=== PATIENT | female | born 1940 | race Caucasian/White ===

== ENCOUNTER 2020-04-08 14:58 | Inpatient (IN) | payer MEDICARE, SELFPAY ==
[2020-04-08] VITALS (7 sets, daily range): BP systolic 151–197; BP diastolic 63–78; PULSE 72–95; RESP 16–18; TEMP 36.8–37; O2SAT 96–99; BMI 21.0
--- NOTE | 2020-04-08 15:13 | ECG_ITS ---
Test Reason : STROKE PROTOCOL Blood Pressure : / mmHG Vent. Rate : 082 BPM Atrial Rate : 082 BPM P-R Int : 170 ms QRS Dur : 078 ms QT Int : 378 ms P-R-T Axes : 071 -10 051 degrees QTc Int : 441 ms Normal sinus rhythm Normal ECG When compared with ECG of 04-JUL-2017 14:54, RSR' pattern in V1 is no longer Present Criteria for Septal infarct are no longer Present T wave inversion less evident in Anterior leads Referred By: Althea Brennan Electronically Signed By:MARYLOU CHATMAN
--- NOTE | 2020-04-08 15:13 | CT_ITS ---
EXAMINATION: CT HEAD WITHOUT CONTRAST (STROKE PROTOCOL) CLINICAL INFORMATION: Stroke protocol. Slurred speech with acute mental status change and right-sided weakness COMPARISON: July 04, 2017 and July 10, 2016 TECHNIQUE: Contiguous axial imaging was performed from the skull base to vertex without intravenous administration of contrast. This CT examination was performed using dose optimization techniques as appropriate, variously including the following: *Automated exposure control *Adjustment of mA and/or kV according to patient size (this includes techniques or standardized protocols for targeted exams where dose is matched to indication/reason for exam; i.e. extremities or head) *Use of iterative reconstruction technique DLP: 551 mGy-cm FINDINGS: There is no intracranial hemorrhage, hematoma, or extra-axial fluid collection. The ventricle sulci and cisterns are prominent consistent with generalized atrophy. The salazar-white matter differentiation appears symmetric. There is no acute infarct or mass lesion. There is a large amount of periventricular white matter low density present consistent with microangiopathy. There are old infarcts within both insula as well as posterior limb of the internal capsules bilaterally. There are a few small bilateral reticulonodular nuclei lacunar infarcts. The calvarium appears intact. There is no pneumocephalus or orbital emphysema. The visualized sinuses and middle ears and mastoid air cells show no significant mucosal thickening. There are no air-fluid levels. CT/CT head for stroke IMPRESSION: No acute intracranial pathology. 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 This critical result was discussed with Dr. Brennan at 3:37 PM hours on April 08, 2020. It was ascertained that the content and urgency of the report was understood at the time of direct communication.
--- NOTE | 2020-04-08 15:14 | XR_ITS ---
EXAMINATION: XR CHEST CLINICAL INFORMATION: Altered mental status COMPARISON: 07/04/2017 TECHNIQUE: Frontal view of the chest was obtained. FINDINGS: Lungs are well expanded and clear. No pulmonary mass, edema, consolidation, pleural effusion or pneumothorax. Cardiomediastinal silhouette is normal size and contour. Bones appear to be diffusely osteopenic. Multilevel degenerative arthropathy and mild dextrocurvature of the thoracic spine. XR/XR chest 1V IMPRESSION: No acute pulmonary disease.
--- NOTE | 2020-04-08 15:20 | ED_ITS ---
HPI - Altered Mental Status General Chief Complaint: Neuro Symptoms/Deficit Stated Complaint: STROKE? Time Seen by Provider: 04/08/20 15:08 Source: patient and family Mode of arrival: ambulatory Limitations: altered mental status History of Present Illness complaint: altered mental status Onset (ago): hour(s) (started around 10am worsened at 1230) Timing confirmed by: family member Severity: moderate Consistency of symptoms: getting Worse Context: history of similar presentation (with UTI) Associated symptoms: malaise, weakness, difficulty walking and other (has been more confused lately, drove last week and got lost) Related Data Home Medications Medication Instructions Recorded Confirmed vit C,E,zinc,copper-qsfrq2x 250 1 cap PO DAILY 02/05/20 04/08/20 mg-lutein 5 mg-zeaxanthin 1 mg capsule bepotastine besilate [Bepreve] 1 drp OPHTHALMIC (EYE) BID 04/08/20 04/08/20 brimonidine [Alphagan P] 1 drp OPHTHALMIC-RIGHT BID 04/08/20 04/08/20 cyanocobalamin (vitamin B-12) 500 mcg PO DAILY 04/08/20 04/08/20 netarsudil-latanoprost [Rocklatan] 1 drp OPHTHALMIC (EYE) BEDTIME 04/08/20 04/08/20 prednisone 5 mg PO DAILY 04/08/20 04/08/20 pyridoxine (vitamin B6) 50 mg PO DAILY 04/08/20 04/08/20 Allergies Allergy/AdvReac Type Severity Reaction Status Date / Time cefadroxil [From DURICEF] Allergy Unknown RASH Verified 02/05/20 08:30 cortisone Allergy Unknown RASH, Verified 02/05/20 08:30 REDDENED CHEST FROM CORTISONE INJECTIONS levofloxacin [From LEVAQUIN] Allergy Unknown TINNITIS Verified 02/05/20 08:30 penicillin V Allergy Unknown Unknown Verified 02/05/20 08:30 Sulfa (Sulfonamide Allergy Unknown UNKNOWN Verified 02/05/20 08:30 Antibiotics) sulfamethoxazole Allergy Unknown RASH Verified 02/05/20 08:30 [From BACTRIM] trimethoprim [From BACTRIM] Allergy Unknown RASH Verified 02/05/20 08:30 Review of Systems Review of Systems: ROS unable to be obtained due to altered mental status [facility] Past Medical History Medical History (Updated 04/08/20 @ 16:09 by Althea Brennan DO) PMR (polymyalgia rheumatica) UTI (urinary tract infection) Surgical History H/O cataract removal with insertion of prosthetic lens H/O: hysterectomy History of tonsillectomy History of wisdom tooth extraction Hx of appendectomy Social History Social History Household Members: Other Housing: House Alcohol intake: current Alcohol intake frequency: a few times a week Alcohol type: wine Smoking Status: Former smoker Advance Directives: No Advance Directives Information Provided: Yes Physical Exam Vital Signs: Vital Signs: Last Vital Signs Temp 98.2 F 04/08/20 15:24 Pulse 89 04/08/20 16:04 Resp 16 04/08/20 15:24 BP 197/78 H 04/08/20 16:04 Pulse Ox 99 04/08/20 15:24 Body Mass Index 21.0 Appearance: Alert. Oriented X2. Anxious mild acute distress. Eyes: Pupils equal, round and reactive to light. ENT: Pharynx normal. Neck: Normal inspection. Neck supple. CVS: Normal heart rate and rhythm. Pulses normal. Respiratory: No respiratory distress. Breath sounds normal. Abdomen: Soft and non-tender. Skin: Skin warm and dry. Normal skin color. Normal skin turgor. Extremities: No lower extremity edema. No calf ttp Neuro: Oriented X 2. No motor deficit. No sensory deficit. CN2-12 intact, slow to respond at times NIH Stroke Scale Internal: Initial- Upon Arrival Level of Consciousness: Alert Level of Consciousness Questions: Answers one question correctly Level of Consciousness Commands: Performs both tasks correctly Best Gaze: Normal Visual: No visual loss Facial Palsy: Normal Motor Arm (Right): No drift Motor Arm (Left): No drift Motor Leg (Right): No drift Motor Leg (Left): No drift Limb Ataxia: Absent Sensory: Normal Best Language: No aphasia Dysarthia: Normal Extinction and Inattention: No abnormality Score: 1 Course Course Course Narrative: IV hydralazine ordered for elevated BP has hx of possible TIA/HTN encephalopathy, review of EMR shows EEG in past, MRI, LP - patient is altered at this time so most of the information from EMR and family member IV ativan for agitation and anxiety - signed out to Dr. Carbajal pending labs, UA MDM - Altered Mental Status MDM Narrative Medical decision making narrative: 80 yo female with hx of PMR / arthritis and UTI causing AMS and urosepsis here with weakness, stumbling, confusion since this AM - she has not been herself since this AM (10AM) but then her confusion seemed to worsen per family, no focal motor or sensory weakness she is altered, stroke CT ordered patient presenting > 4.5 hours from onset not a candidate for tPa and NIH 1 based of mentation, labs, CXR and UA for infection ordered. Lab Data Result diagrams: 04/08/20 15:44 04/08/20 15:44 Labs: Lab Results 04/08/20 04/08/20 04/08/20 Range/Units 15:19 15:44 15:44 WBC 9.5 (4.8-10.8) X10*3/uL RBC 4.20 (4.20-5.50) X10*6/uL Hgb 12.1 (12.0-16.0) g/dl Hct 38.8 (37-47) % MCV 92.4 (80-98) fL MCH 28.8 (27.0-33.0) pg MCHC 31.2 (31.0-35.0) g/dl RDW 14.3 (11.0-16.0) % Plt Count 413 H (160-400) X10*3/uL MPV 9.4 (9.4-12.3) fL Immature Gran % (Auto) 0.3 (0.0-0.4) % Neut % (Auto) 85.5 H (45-73) % Lymph % (Auto) 6.9 L (20-40) % [place] % (Auto) 6.1 (2-11) % Eos % (Auto) 0.8 (0-4) % Baso % (Auto) 0.4 (0-2) % Lymph # (Auto) 0.7 L (1.2-4.9) X10*3/uL [place] # (Auto) 0.6 (0.1-1.2) X10*3/uL Eos # (Auto) 0.1 (0.0-0.4) X10*3/uL Baso # (Auto) 0.0 (0.0-0.2) X10*3/uL Abs Immat Gran (auto) 0.03 (0.00-0.03) X10*3/uL Absolute Neuts (auto) 8.1 (2.0-8.3) X10*3/uL Absolute Nucleated RBC 0.000 (0.0-0.012) X10*3/uL Nucleated RBC % (auto) 0.0 (0.0-0.2) /100WBC PT 11.1 (10.8-13.0) SEC INR 0.9 (0.9-1.1) APTT 31.7 (24.1-38.0) SEC POC Glucose 218 H (60-115) mg/dL ECG Data ECG #1: Attestation: I personally reviewed and interpreted this ECG as follows: ECG interpretation date: 04/08/20 ECG interpretation time: 15:43 Interpretation: Rate: 82 Rhythm: NSR [place]: left Normal P waves. Normal JENNIFER. Normal QRS complex. ST T wave : normal no CAROLINE qTC: normal prior studies: artifact noted, no acute ischemia The study has been interpreted contemporaneously by me. . Discharge Plan Discharge Clinical Impression: Encephalopathy HTN (hypertension) Qualifiers: Hypertension type: unspecified Qualified Code(s): I10 - Essential (primary) hypertension Patient Disposition: Admitted As Inpatient
[2020-04-08 15:24] LABS: Glucose, Whole Blood 218 mg/dL (60-115)
[2020-04-08 16:01] LABS: Basophils Percent Auto 0.4 % (0-2); Eosinophils Absolute Auto 0.1 X10*3/uL (0.0-0.4); Eosinophils Percent Auto 0.8 % (0-4); Hematocrit 38.8 % (37-47); Hemoglobin 12.1 g/dl (12.0-16.0); INTERNATIONAL NORM RATIO 0.9 (0.9-1.1); Imm Gran Abs Auto 0.03 X10*3/uL (0.00-0.03); Imm Gran Pct Auto 0.3 % (0.0-0.4); Lymphocytes Absolute Auto 0.7 X10*3/uL (1.2-4.9); Lymphocytes Percent Auto 6.9 % (20-40); MANUAL DIFF FLAG SCAN; Mean Corpuscular HGB Conc 31.2 g/dl (31.0-35.0); Mean Corpuscular Hemoglobin 28.8 pg (27.0-33.0); Mean Corpuscular Volume 92.4 fL (80-98); Mean Platelet Volume 9.4 fL (9.4-12.3); Monocytes Absolute Auto 0.6 X10*3/uL (0.1-1.2); Monocytes Percent Auto 6.1 % (2-11); Neutrophils Absolute Auto 8.1 X10*3/uL (2.0-8.3); Neutrophils Percent Auto 85.5 % (45-73); Platelet Count 413 X10*3/uL (160-400); Prothrombin Time 11.1 SEC (10.8-13.0); Red Cell Distribution Width 14.3 % (11.0-16.0); SCAN SMEAR FLAG 1; White Blood Count 9.5 X10*3/uL (4.8-10.8)
[2020-04-08 16:04] LABS: Partial Thromboplastin Time 31.7 SEC (24.1-38.0)
[2020-04-08] MEDS: hydrALAZINE HCl 20 MG/ML VIAL 5 MG IVPUSH (16:04)
[2020-04-08 16:19] LABS: Glucose Urine UA 100 MG/DL (NEG); Leukocyte Esterase Urine NEG (NEG); Nitrite Urine NEG (NEG); Urine Blood TRACE (NEG); Urine Ketones NEG (NEG); Urine Protein NEG (NEG-TRACE)
[2020-04-08] MEDS: LORazepam 2 MG/ML VIAL 1 MG IVPUSH ×2 (16:20→21:09)
--- NOTE | 2020-04-08 16:21 | PC.NURSE ---
pt medicated per order, radiation monitor nsr 90s
[2020-04-08 16:25] LABS: Appearance Urine CLEAR; Color Urine YELLOW
[2020-04-08 16:27] LABS: Alanine Aminotransferase 15 U/L (0-31); Albumin Level 3.9 g/dL (3.5-5.0); Alkaline Phosphatase 98 U/L (39-117); Anion Gap 16 (12-20); Aspartate Amino Transferase 15 U/L (5-31); Bilirubin Direct < 0.2 mg/dL (0.0-0.5); Bilirubin Total 0.3 mg/dL (0.0-1.0); Blood Urea Nitrogen 10 mg/dL (9-16); Calcium 8.4 mg/dL (8.4-10.2); Carbon Dioxide 26 mmol/L (22-29); Chloride 99 mmol/L (96-108); Creatinine Clr Calc Pharmacy 44.4; Estimated Glomerular Filt Rate > 60; Glucose Random 183 mg/dL (60-115); Potassium 3.9 mmol/l (3.3-5.1); Sodium 137 mmol/L (135-145); Total Protein 6.5 g/dL (6.5-8.0)
[2020-04-08 16:28] LABS: Troponin-I High Sensitivity < 3.5 ng/L (<3.5-17.0)
[2020-04-08 16:28] LABS: RBC Urine 0 /HPF (0); WBC Urine 0 /HPF (0-4)
[2020-04-08 16:34] LABS: Lactic Acid 2.6 mmol/L (0.5-2.0)
[2020-04-08 16:36] LABS: SLIDE REVIEW VERIFIED
[2020-04-08 16:40] LABS: Lipase 130 U/L (8-78)
--- NOTE | 2020-04-08 16:57 | CT_ITS ---
EXAMINATION: CT ABDOMEN AND PELVIS WITH CONTRAST CLINICAL INFORMATION: Elevated lipase COMPARISON: None TECHNIQUE: Multidetector volumetric images were obtained from the mid to superior superior aspect of the liver through the pubic symphysis following administration 85 mL of Omnipaque 350 intravenous contrast. Sagittal and coronal reformatted images were obtained on the technologist's workstation. Oral contrast: No This CT examination was performed using dose optimization techniques as appropriate, variously including the following: *Automated exposure control *Adjustment of mA and/or kV according to patient size (this includes techniques or standardized protocols for targeted exams where dose is matched to indication/reason for exam; i.e. extremities or head) *Use of iterative reconstruction technique DLP: 426 mGy-cm FINDINGS: LUNG BASES: The visualized lung bases are unremarkable. LIVER, GALLBLADDER, AND BILIARY TREE: The liver is normal in size, shape, and attenuation. No focal hepatic lesion or biliary ductal dilatation is present. The gallbladder is contracted but otherwise unremarkable with no evidence of radiopaque gallstones, gallbladder wall thickening, or obvious pericholecystic inflammatory changes. PANCREAS: The pancreatic tail may be swollen and edematous with some mild streaky changes present in the surrounding fat. These findings are suggestive of pancreatitis, if real. However, there are marked artifactual changes in this area from a combination of motion artifact and streak artifact. Recommend correlation with blood chemistries. No drainable fluid collection is seen. SPLEEN: Unremarkable. ADRENAL GLANDS: Unremarkable. KIDNEYS AND URETERS: The kidneys are normal in size, shape, and attenuation. There is mild collecting system fullness bilaterally, possibly secondary to distended bladder. No gross hydronephrosis or hydroureter. No calculi seen. No perinephric stranding. BLADDER: Distended but unremarkable. GASTROINTESTINAL TRACT: The small and large bowel are unremarkable without evidence of bowel obstruction. The appendix is not seen. Some mild inflammatory changes are present in the antimesenteric fat adjacent to the ascending and descending colon . ABDOMINAL WALL: No significant hernia is appreciated. LYMPH NODES: No retroperitoneal lymphadenopathy. VASCULAR: Unremarkable. PELVIC VISCERA: Unremarkable. OSSEOUS STRUCTURES: Marked degenerative changes present in the spine. CT/CT abdomen pelvis w con IMPRESSION: 1. Probable inflammatory changes in pancreatic tail consistent with pancreatitis although a large amount of artifact limits evaluation. Please correlate clinically. 2. Mild collecting system fullness possibly secondary to distended bladder.
[2020-04-08] MEDS: 0.9 % Sodium Chloride 999 ML 1500 ML IV (17:36)
[2020-04-08 18:10] LABS: Reflex Lactate? Lactic Acid Added
[2020-04-08] MEDS: iohexoL 350 MG/ML 100 ML INFUS..BTL IV (18:41)
--- NOTE | 2020-04-08 18:43 | PM.IMHP ---
History of Present Illness Date of Service: 04/08/20 Chief Complaint: encephalopathy This is an 80-year-old female who was brought to the emergency department due to confusion. Sounds like the confusion been progressive in nature worse over the past 1 week. The patient herself is a vague historian and unable to provide any significant details. Brain CT showed large amount of white matter density consistent with microangiopathy in addition to chronic infarcts. No acute intracranial pathology was identified. She was not noted to have any focal neurological deficit. She was somewhat slow to respond on exam and seemed confused but was overall alert and oriented to person, place and time. Lab work was unremarkable with the exception of a lactic acid of 2.6 and lipase of 130. No source of infection was identified. Urinalysis and chest x-ray were unremarkable. On arrival she was noted to be hypertensive with a blood pressure in the 180s and 190s systolic. She received a dose of IV hydralazine with good effect. The patient has no specific complaints. Of note patient had an admission in 2018 for transient episode of confusion thought to be related to hypertensive encephalopathy. At that time she was started on Norvasc. She does not appear to be on any antihypertensive medication at this time. Review of Systems Review of Systems: Yes all other systems are reviewed and are negative Constitutional: Constitutional: Denies chills and Denies fever(s) Cardiovascular: Cardiovascular: Denies chest pain Respiratory: Respiratory: Denies cough Gastrointestinal: Gastrointestinal: Denies abdominal pain [facility] Medical History (Updated 04/08/20 @ 19:05 by BONG Hyatt) Elevated C-reactive protein Glaucoma IBS (irritable bowel syndrome) Osteoporosis PMR (polymyalgia rheumatica) Primary osteoarthritis of hands, bilateral UTI (urinary tract infection) Surgical History H/O cataract removal with insertion of prosthetic lens H/O: hysterectomy History of tonsillectomy History of wisdom tooth extraction Hx of appendectomy Social History Household Members: Other Housing: House Alcohol intake: current Alcohol intake frequency: 0-2 drinks per day Alcohol type: wine Smoking Status: Former smoker Smoked in Last 30 Days: No Use of substances other than those prescribed or required for medical reasons: No Advance Directives: No Advance Directives Information Provided: Yes Meds Allergies Allergy/AdvReac Type Severity Reaction Status Date / Time cefadroxil [From DURICEF] Allergy Unknown RASH Verified 02/05/20 08:30 cortisone Allergy Unknown RASH, Verified 02/05/20 08:30 REDDENED CHEST FROM CORTISONE INJECTIONS levofloxacin [From LEVAQUIN] Allergy Unknown TINNITIS Verified 02/05/20 08:30 penicillin V Allergy Unknown Unknown Verified 02/05/20 08:30 Sulfa (Sulfonamide Allergy Unknown UNKNOWN Verified 02/05/20 08:30 Antibiotics) sulfamethoxazole Allergy Unknown RASH Verified 02/05/20 08:30 [From BACTRIM] trimethoprim [From BACTRIM] Allergy Unknown RASH Verified 02/05/20 08:30 Home Medications Medication Instructions Recorded Confirmed Type vit C,E,zinc,copper-eoyvy2w 250 1 cap PO DAILY 02/05/20 04/08/20 History mg-lutein 5 mg-zeaxanthin 1 mg capsule bepotastine besilate [Bepreve] 1 drp OPHTHALMIC (EYE) BID 04/08/20 04/08/20 History brimonidine [Alphagan P] 1 drp OPHTHALMIC-RIGHT BID 04/08/20 04/08/20 History cyanocobalamin (vitamin B-12) 500 mcg PO DAILY 04/08/20 04/08/20 History netarsudil-latanoprost [Rocklatan] 1 drp OPHTHALMIC (EYE) BEDTIME 04/08/20 04/08/20 History prednisone 5 mg PO DAILY 04/08/20 04/08/20 History pyridoxine (vitamin B6) 50 mg PO DAILY 04/08/20 04/08/20 History Physical Exam Vital Signs and Narrative: Vital Signs: Last Vital Signs Temp 98.2 F 04/08/20 16:21 Pulse 95 04/08/20 16:21 Resp 18 04/08/20 16:21 BP 156/66 H 04/08/20 16:21 Pulse Ox 97 04/08/20 16:21 Body Mass Index 21.0 Const: Nutritional Appearance: well nourished Orientation/consciousness: patient oriented x3 HENMT: Head: Yes normocephalic and Yes atraumatic Eyes: Sclerae: sclerae normal Chest: Chest palpation & inspection: normal inspection of the chest Resp: Effort & Inspection: normal respiratory effort and no respiratory distress Cardio: Rate: regular rate Rhythm: regular rhythm GI: Palpation (GI): Soft to palpation and nontender Skin: General skin exam: no rashes or lesions noted Neuro: Other: slow to respond, vague General: patient oriented x3 Cranial nerves: Yes CN's II-XII intact bilaterally, Yes Bilaterally intact EOM present and Yes Midline tongue present Motor exam (neuro): 5/5 motor strength present throughout Extrem: General: Yes normal to inspection Results Labs CBC and Chem 7: 04/08/20 15:44 04/08/20 15:44 Labs: Laboratory Results - last 24 hr 04/08/20 04/08/20 04/08/20 15:19 15:44 15:44 MCV 92.4 MCH 28.8 MCHC 31.2 RDW 14.3 Plt Count 413 H MPV 9.4 Immature Gran % (Auto) 0.3 Neut % (Auto) 85.5 H Lymph % (Auto) 6.9 L [place] % (Auto) 6.1 Eos % (Auto) 0.8 Baso % (Auto) 0.4 Lymph # (Auto) 0.7 L [place] # (Auto) 0.6 Eos # (Auto) 0.1 Baso # (Auto) 0.0 Abs Immat Gran (auto) 0.03 Absolute Neuts (auto) 8.1 Absolute Nucleated RBC 0.000 Nucleated RBC % (auto) 0.0 Smear Tech's Comments VERIFIED PT 11.1 INR 0.9 APTT 31.7 Anion Gap Estim Creat Clear Calc Estimated GFR POC Glucose 218 H Random Glucose Lactic Acid Calcium Magnesium Total Bilirubin Direct Bilirubin AST ALT Alkaline Phosphatase Total Creatine Kinase Troponin I High Sens Total Protein Albumin Lipase Urine Color Urine Appearance Urine pH Ur Specific [place] Urine Protein Urine Glucose (UA) Urine Ketones Urine Blood Urine Nitrite Ur Leukocyte Esterase Urine RBC Urine WBC Ur Squamous Epith Cells Urine Bacteria 04/08/20 04/08/20 04/08/20 15:44 15:44 16:06 MCV MCH MCHC RDW Plt Count MPV Immature Gran % (Auto) Neut % (Auto) Lymph % (Auto) [place] % (Auto) Eos % (Auto) Baso % (Auto) Lymph # (Auto) [place] # (Auto) Eos # (Auto) Baso # (Auto) Abs Immat Gran (auto) Absolute Neuts (auto) Absolute Nucleated RBC Nucleated RBC % (auto) Smear Tech's Comments PT INR APTT Anion Gap 16 Estim Creat Clear Calc 44.4 Estimated GFR > 60 POC Glucose Random Glucose 183 H Lactic Acid 2.6 H* Calcium 8.4 Magnesium 2.0 Total Bilirubin 0.3 Direct Bilirubin < 0.2 AST 15 ALT 15 Alkaline Phosphatase 98 Total Creatine Kinase 109 Troponin I High Sens < 3.5 Total Protein 6.5 Albumin 3.9 Lipase 130 H Urine Color Urine Appearance Urine pH Ur Specific [place] Urine Protein Urine Glucose (UA) Urine Ketones Urine Blood Urine Nitrite Ur Leukocyte Esterase Urine RBC Urine WBC Ur Squamous Epith Cells Urine Bacteria 04/08/20 16:12 MCV MCH MCHC RDW Plt Count MPV Immature Gran % (Auto) Neut % (Auto) Lymph % (Auto) [place] % (Auto) Eos % (Auto) Baso % (Auto) Lymph # (Auto) [place] # (Auto) Eos # (Auto) Baso # (Auto) Abs Immat Gran (auto) Absolute Neuts (auto) Absolute Nucleated RBC Nucleated RBC % (auto) Smear Tech's Comments PT INR APTT Anion Gap Estim Creat Clear Calc Estimated GFR POC Glucose Random Glucose Lactic Acid Calcium Magnesium Total Bilirubin Direct Bilirubin AST ALT Alkaline Phosphatase Total Creatine Kinase Troponin I High Sens Total Protein Albumin Lipase Urine Color YELLOW Urine Appearance CLEAR Urine pH 5.0 Ur Specific [place] 1.020 Urine Protein NEG Urine Glucose (UA) 100 H Urine Ketones NEG Urine Blood TRACE Urine Nitrite NEG Ur Leukocyte Esterase NEG Urine RBC 0 Urine WBC 0 Ur Squamous Epith Cells NONE Urine Bacteria NONE Imaging Radiologist's Impressions: Impressions Head CT 04/08/20 15:13 IMPRESSION: No acute intracranial pathology. 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 This critical result was discussed with Dr. Brennan at 3:37 PM hours on April 08, 2020. It was ascertained that the content and urgency of the report was understood at the time of direct communication. Chest X-Ray 04/08/20 15:14 IMPRESSION: No acute pulmonary disease. Assessment and Plan (1) Encephalopathy: Status: Acute (2) HTN (hypertension): Qualifiers: Hypertension type: unspecified Qualified Code(s): I10 - Essential (primary) hypertension Status: Acute This is an 80-year-old female with history of PMR on chronic steroids who was brought to the emergency department for confusion Encephalopathy In the setting of uncontrolled hypertension No focal neurological deficits. CT scan shows, generalized atrophy as well as microangiopathy no sign of infection Possibly component of hypertensive encephalopathy and/or undiagnosed vascular dementia -check reversible causes of dementia -neuro consult Elevated lactic acid Urinalysis, chest x-ray negative. No obvious source of infection identified Received IV fluid and repeat lactic normal HTN uncontrolled previously on norvasc, unlear when/why this was stopped -will resume Norvasc 5mg PMR Continued daily steroids glaucoma continue home eye drops DVT prophylaxis-heparin This case was discussed with Dr. Velazquez
--- NOTE | 2020-04-08 18:59 | P.EN_ITS ---
Event Note Date of Service: 04/08/20 Event Note: Patient seen examined with a SURFACE [employer] chart reviewed 80-year-old female patient with past medical history significant for hypertension and polymyalgia rheumatica on low-dose steroids presented to [facility] with gradually worsening confusion that got worsened today, at present patient is awake alert,x3 but vague and slow to respond, complaining of mild headache and bilateral hand numbness, admitting to have decreased appetite On exam Lungs clear Neuro nonfocal Acute encephalopathy likely related to hypertension and underlying vascular dementia, will avoid narcotic medication, add antihypertensive medications, CT head unremarkable will obtain a neuro consult will rule out secondary causes of dementia.
[2020-04-08 19:24] LABS: Thyroid Stimulating Hormone 0.89 uIU/mL (0.32-4.0)
[2020-04-08 19:52] LABS: Folate 7.4 ng/mL (> or = 4.0); Vitamin B12 416 pg/mL (200-900)
--- NOTE | 2020-04-08 21:15 | PC.NURSE ---
full bed change performed, patient medicated with 1 mg ativan for agitation/restlessness, patient nsr 70s, vss.
[2020-04-08 21:46] LABS: COVID-19 Test Negative (Negative); IDNOW Serial# 9DD0AD1C
--- NOTE | 2020-04-08 22:22 | PC.NURSE ---
patient currently sleeping, patient monitoring tech nsr 60s-70s, waiting for inpt bed, will continue to monitor.
--- NOTE | 2020-04-08 23:16 | PC.NURSE ---
REPORT RECEIVED FROM TUAN MOORE. PATIENT REMAINS IN [place] POSITION IN BED AT THIS TIME. SLEEPING AT THIS TIME, THIS RN DID NOT DISTURB. RESPIRATIONS EVEN & UNLABORED. NSR ON WINDOW INSTALLER. WILL CONTINUE TO MONITOR.
--- NOTE | 2020-04-08 23:58 | PC.NURSE ---
PATIENT BECAME RESTLESS, NOTED TO BE INCONTINENT OF URINE. PATIENT CLEANED, AND [facility] AND HOSPITAL GOWN CHANGED. WILL CONTINUE TO MONITOR.
[2020-04-09] VITALS (10 sets, daily range): BP systolic 119–196; BP diastolic 60–89; PULSE 82–115; RESP 16–20; TEMP 36.3–36.8; O2SAT 96–99
--- NOTE | 2020-04-09 | MR_ITS ---
EXAMINATION: MR BRAIN WITHOUT CONTRAST CLINICAL INFORMATION: Evaluation for encephalopathy. Rule out stroke. COMPARISON: Brain MRI 07/05/2017. TECHNIQUE: Multiplanar multisequence MRI of the brain was attempted. The examination was prematurely terminated. The following sequences were acquired: Sagittal T1, axial diffusion, axial GRE, and axial T1. All the acquired sequences are motion degraded. FINDINGS: There is no acute infarct, gross mass, or mass effect. Numerous scattered foci of susceptibility signal compatible with areas of microhemorrhage are seen within the right posterior frontal lobe, parietal lobe, temporal lobe, and occipital lobe. A microhemorrhage is also present in the left medial temporal lobe. Background changes of chronic microangiopathy are present. There is moderate degree of diffuse brain parenchymal volume loss. There is mildly disproportionate prominence of the lateral ventricles in relation to the cortical sulci. There is degenerative spondylosis in the upper cervical spine with mild anterolisthesis of C2 on C3. There is chronic fusion across the C3-C4 level with additional multilevel disc height loss. MR/MR head/brain wo con IMPRESSION: Prematurely terminated examination. No acute infarct. Background changes of chronic microangiopathy and chronic appearing microhemorrhages.
[2020-04-09] MEDS: hydrALAZINE HCl 20 MG/ML VIAL 10 MG IVPUSH (00:31)
[2020-04-09] MEDS: 0.9 % Sodium Chloride Flush 3 ML SYRINGE IVFLUSH ×5 (05:05→23:47)
[2020-04-09] MEDS: Heparin Sodium,Porcine 5,000 UNIT/ML VIAL 5000 UNIT SUBCUT ×2 (05:06→16:00)
[2020-04-09 06:25] LABS: MANUAL DIFF FLAG NO
[2020-04-09 06:36] LABS: Basophils Absolute Auto 0.1 X10*3/uL (0.0-0.2); Basophils Percent Auto 0.4 % (0-2); Eosinophils Absolute Auto 0.1 X10*3/uL (0.0-0.4); Eosinophils Percent Auto 0.5 % (0-4); Hematocrit 42.9 % (37-47); Hemoglobin 13.8 g/dl (12.0-16.0); Imm Gran Abs Auto 0.06 X10*3/uL (0.00-0.03); Imm Gran Pct Auto 0.5 % (0.0-0.4); Lymphocytes Absolute Auto 0.8 X10*3/uL (1.2-4.9); Lymphocytes Percent Auto 5.8 % (20-40); Mean Corpuscular HGB Conc 32.2 g/dl (31.0-35.0); Mean Corpuscular Hemoglobin 29.3 pg (27.0-33.0); Mean Corpuscular Volume 91.1 fL (80-98); Mean Platelet Volume 9.5 fL (9.4-12.3); Monocytes Absolute Auto 1.1 X10*3/uL (0.1-1.2); Monocytes Percent Auto 8.1 % (2-11); Neutrophils Absolute Auto 10.9 X10*3/uL (2.0-8.3); Neutrophils Percent Auto 84.7 % (45-73); Platelet Count 427 X10*3/uL (160-400); Red Blood Count 4.71 X10*6/uL (4.20-5.50); Red Cell Distribution Width 14.1 % (11.0-16.0); White Blood Count 12.9 X10*3/uL (4.8-10.8)
[2020-04-09 07:28] LABS: Anion Gap 17 (12-20); Blood Urea Nitrogen 6 mg/dL (9-16); Calcium 9.3 mg/dL (8.4-10.2); Carbon Dioxide 26 mmol/L (22-29); Chloride 98 mmol/L (96-108); Creatinine Clr Calc Pharmacy 53.6; Estimated Glomerular Filt Rate > 60; Glucose Random 103 mg/dL (60-115); Potassium 3.9 mmol/l (3.3-5.1); Sodium 137 mmol/L (135-145)
[2020-04-09 08:05] LABS: Prothrombin Time Whole Bld POC 11.5 sec (11.1-13.5)
[2020-04-09 09:19] LABS: Syphilis Screen Nonreactive (Nonreactive)
--- NOTE | 2020-04-09 09:54 | MHC.CM.PN ---
CM met with patient at the bedside and spoke with gilmar Townsend by phone who reports patient is independent and lives with her 2 nieces. Nieces are able to help patient when needed. Patient does have a HCP gilmar Townsend [phone], requested copy. Discussed discharge plan, home no services. Gilmar Townsend will provide transport. IMM addressed. CM will continue to follow patient for discharge needs.
[2020-04-09] MEDS: Cyanocobalamin (Vitamin B-12) 500 MCG TABLET PO (10:32)
[2020-04-09] MEDS: Acetaminophen 325 MG TABLET 650 MG PO ×3 (10:32→23:37)
[2020-04-09] MEDS: predniSONE 5 MG TABLET PO (10:32)
[2020-04-09] MEDS: amLODIPine Besylate 5 MG TABLET PO (10:32)
[2020-04-09] MEDS: Pyridoxine HCl (Vitamin B6) 50 MG TABLET PO (10:32)
--- NOTE | 2020-04-09 10:49 | PM.NEUROCN ---
History of Present Illness Data of Consult Service Date: 04/09/20 Primary Care Provider: Alexandro Rodriguez MD, DO 80 years old woman with past medical history of polymyalgia rheumatica taking small dose of prednisone who was admitted with confusion. When asked why she was in the hospital she said that something happened to her. When I asked what happened to her, she said she got confused. She could not elaborate further and stated that this started yesterday. Apparently test started few days ago. There was no associated focal cold or flu-like illness headache body pains speech or language difficulty weakness or numbness or visual symptoms or dizziness. Review of Systems Review of Systems: As reported in HPI. There was no cardiac symptom either PMFSH Past Medical History Medical History (Updated 04/09/20 @ 10:53 by Kelly Elise MD) Elevated C-reactive protein Glaucoma IBS (irritable bowel syndrome) Osteoporosis PMR (polymyalgia rheumatica) Primary osteoarthritis of hands, bilateral UTI (urinary tract infection) Surgical History Surgical History H/O cataract removal with insertion of prosthetic lens H/O: hysterectomy History of tonsillectomy History of wisdom tooth extraction Hx of appendectomy Social History Social History Household Members: Unknown / Unable to assess Housing: Unknown / Unable to assess Alcohol intake: current Alcohol intake frequency: 0-2 drinks per day Alcohol type: wine Smoking Status: Unknown if ever smoked Smoked in Last 30 Days: No Use of substances other than those prescribed or required for medical reasons: Unknown Substance Use Type: Unknown Last Used Substance: Unknown Currently Displaying Signs/Symptoms of Drug Intoxication Withdrawal: No Any prior treatment program specific to substance use: No Advance Directives: No Advance Directives Information Provided: Yes Do you have thoughts of harming others: None Recently lost weight without trying: Unsure service: No Current occupational status: retired Meds Allergies Allergy/AdvReac Type Severity Reaction Status Date / Time cefadroxil [From DURICEF] Allergy Unknown RASH Verified 02/05/20 08:30 cortisone Allergy Unknown RASH, Verified 02/05/20 08:30 REDDENED CHEST FROM CORTISONE INJECTIONS levofloxacin [From LEVAQUIN] Allergy Unknown TINNITIS Verified 02/05/20 08:30 penicillin V Allergy Unknown Unknown Verified 02/05/20 08:30 Sulfa (Sulfonamide Allergy Unknown UNKNOWN Verified 02/05/20 08:30 Antibiotics) sulfamethoxazole Allergy Unknown RASH Verified 02/05/20 08:30 [From BACTRIM] trimethoprim [From BACTRIM] Allergy Unknown RASH Verified 02/05/20 08:30 Home Medications Medication Instructions Recorded Confirmed Type vit C,E,zinc,copper-dcqao7x 250 1 cap PO DAILY 02/05/20 04/08/20 History mg-lutein 5 mg-zeaxanthin 1 mg capsule bepotastine besilate [Bepreve] 1 drp OPHTHALMIC (EYE) BID 04/08/20 04/08/20 History brimonidine [Alphagan P] 1 drp OPHTHALMIC-RIGHT BID 04/08/20 04/08/20 History cyanocobalamin (vitamin B-12) 500 mcg PO DAILY 04/08/20 04/08/20 History netarsudil-latanoprost [Rocklatan] 1 drp OPHTHALMIC (EYE) BEDTIME 04/08/20 04/08/20 History prednisone 5 mg PO DAILY 04/08/20 04/08/20 History pyridoxine (vitamin B6) 50 mg PO DAILY 04/08/20 04/08/20 History Physical Exam Vital Signs: Vital Signs: Last Vital Signs Temp 97.6 F 04/09/20 07:21 Pulse 85 04/09/20 07:21 Resp 20 04/09/20 07:21 BP 165/82 H 04/09/20 07:21 Pulse Ox 99 04/09/20 07:21 Body Mass Index 21.0 She was alert and awake but somewhat weighed. Spontaneity and fluency of speech were okay though she spoke slowly. She was able to comprehend and answer questions. She said that she was living with her niece is. When asked what year this was, she reported 2019. She knew that she was at [facility]. She was not in any distress. She was able to name and and repeat. She was able to name colors. Face was symmetrical. There was no abnormal movement or posturing. Deep tendon reflexes were trace to absent with flexor plantars were affect was flat. Results Labs CBC & Chem 7: 04/09/20 05:35 04/09/20 05:35 Labs: Short CBC 04/08/20 04/09/20 Range/Units 15:44 05:35 WBC 9.5 12.9 H (4.8-10.8) X10*3/uL Hgb 12.1 13.8 (12.0-16.0) g/dl Hct 38.8 42.9 (37-47) % Plt Count 413 H 427 H (160-400) X10*3/uL BMP 04/08/20 04/09/20 15:44 05:35 Sodium 137 137 Potassium 3.9 3.9 Chloride 99 98 Carbon Dioxide 26 26 BUN 10 6 L Creatinine 0.75 0.62 Calcium 8.4 9.3 D Cardiac Enzymes 04/08/20 Range/Units 15:44 Total Creatine Kinase 109 (26-140) U/L Liver Function 04/08/20 Range/Units 15:44 Total Bilirubin 0.3 (0.0-1.0) mg/dL Direct Bilirubin < 0.2 (0.0-0.5) mg/dL AST 15 (5-31) U/L ALT 15 (0-31) U/L Alkaline Phosphatase 98 (39-117) U/L Albumin 3.9 (3.5-5.0) g/dL Urine 04/08/20 Range/Units 16:12 Urine Color YELLOW Urine Appearance CLEAR Urine pH 5.0 (5.0-8.0) Ur Specific [place] 1.020 (1.005-1.025) Urine Protein NEG (NEG-TRACE) MG/DL Urine Glucose (UA) 100 H (NEG) MG/DL Her noncontrast head CT revealed moderately severe central and cortical atrophy and moderately severe chronic microvascular ischemic changes. Assessment and Plan (1) Encephalopathy: Status: Acute 80 years old woman with rheumatological diagnosis of polymyalgia rheumatica and underlying multifactorial as Alzheimer's plus vascular dementia who presents with change in mental status but no obvious etiology of delirium. Possibilities would include another ischemic infarct or complex partial seizure disorder. Infection is a possibility but there were no obvious signs of infection. My recommendation is to obtain a noncontrast MRI of brain and electroencephalogram. (2) Cerebral microvascular disease: Status: Acute (3) Multifactorial dementia: Status: Acute (4) Alzheimer's dementia: Status: Acute
--- NOTE | 2020-04-09 16:29 | P.PNIM_ITS ---
Subjective Subjective Date of Service: 04/09/20 Interval History: the patient was seen and evaluated this morning Laying in bed, feels comfortable but markedly confused Denies any fever, chills or shortness of breath No reported other overnight events. Systemic review: No fever, chills or weakness No chest pain, palpitation No shortness of breath or coughing No abdominal pain, nausea or vomiting No urinary symptoms No any rash or wounds Physical Exam Vital Signs: Vital Signs: Last Vital Signs Temp 98.2 F 04/09/20 15:52 Pulse 100 04/09/20 15:52 Resp 16 04/09/20 15:52 BP 147/66 H 04/09/20 15:52 Pulse Ox 98 04/09/20 15:52 Body Mass Index 21.0 Constitutional : Alert, oriented to self but disoriented about time and place, not in distress Neck : Normal inspection, Supple Cardiovascular : RRR, S1 S2, no lower extremity edema Respiratory : Good bilateral air entry, no crackles, wheezes or rhonchi Gastrointestinal: soft, lax, Normal bowel sounds, Non tender Skin : Warm/Dry, No rash Neurological : Alert & oriented x3, No focal deficit Objective Data Current Medications Generic Name Dose Route Start Last Admin Trade Name Freq PRN Reason Stop Dose Admin Acetaminophen 650 mg 04/09/20 02:55 04/09/20 16:00 Acetaminophen 325 Mg Tablet PO 650 mg Q6H PRN Administration Pain, Mild (Pain Scale 1-3) Amlodipine Besylate 5 mg 04/09/20 09:20 04/09/20 10:32 Amlodipine Besylate 5 Mg Tablet PO 5 mg DAILY DI Administration Protocol Cyanocobalamin 500 mcg 04/09/20 09:00 04/09/20 10:32 Cyanocobalamin (Vitamin B-12) 500 Mcg Tablet PO 500 mcg DAILY DI Administration Docusate Sodium 100 mg 04/09/20 02:55 Docusate Sodium 100 Mg Capsule PO DAILY PRN Constipation Heparin Sodium (Porcine) 5,000 unit 04/09/20 04:00 04/09/20 16:00 Heparin Sodium,Porcine 5,000 Unit/Ml Vial SUBCUT 5,000 unit Q12H DI Administration Non-Formulary Medication 1 drop 04/09/20 02:55 Bepotastine Besilate [Bepreve] EYE-BOTH BID DI Non-Formulary Medication 1 drop 04/09/20 02:55 Brimonidine [Alphagan P] EYE-RIGHT BID [facility] Non-Formulary Medication 1 drop 04/09/20 02:55 Netarsudil-Latanoprost [Rocklatan] EYE-BOTH BEDTIME [facility] Ondansetron HCl 4 mg 04/09/20 02:55 Ondansetron Hcl 4 Mg/2 Ml Vial IVPUSH Q8H PRN Nausea and Vomiting Pharmacy Consult 1 each 04/08/20 15:13 Consult Rx Perform Med Rec MISCELLANE ONCE PRN Consult order Prednisone 5 mg 04/09/20 09:00 04/09/20 10:32 Prednisone 5 Mg Tablet PO 5 mg DAILY DI Administration Pyridoxine HCl 50 mg 04/09/20 09:00 04/09/20 10:32 Pyridoxine Hcl (Vitamin B6) 50 Mg Tablet PO 50 mg DAILY DI Administration Sodium Chloride 3 ml 04/09/20 02:55 04/09/20 16:00 0.9 % Sodium Chloride Flush 3 Ml Syringe IVFLUSH 3 ml QSHIFT DI Administration Thiamine HCl 100 mg 04/10/20 09:00 Thiamine Hcl 200 Mg/2 Ml Vial IVPUSH DAILY [facility] Labs CBC & Chem 7: 04/09/20 05:35 04/09/20 05:35 Assessment and Plan (1) Encephalopathy: Status: Acute (2) HTN (hypertension): Status: Acute (3) Acute metabolic encephalopathy: Status: Acute (4) Multifactorial dementia: Status: Acute (5) Alcohol abuse: Status: Acute (6) Cerebral microvascular disease: Status: Acute Assessment and Plan: This is an 80-year-old female with history of PMR on chronic steroids who was brought to the emergency department for confusion Acute metabolic Encephalopathy DD X, stroke, seizure, alcohol related, others No focal neurological deficits noticed on exam CT scan shows, generalized atrophy and microangiopathy To check brain MRI To tightly control blood pressure To check thiamine level Start thiamin supplement Neurology input appreciated, to check MRI and EEG Lactic acidosis Resolved No obvious source of infection identified Uncontrolled hypertension start amlodipine for now Close monitoring of blood pressure Alcohol abuse Report drinking about 2 glasses of wine daily Keep on CIWA protocol PMR Continue daily steroids glaucoma continue home eye drops DVT prophylaxis heparin
[2020-04-10] VITALS: BP 169/77; PULSE 95; RESP 18; TEMP 36.6; O2SAT 97
--- NOTE | 2020-04-10 01:20 | PC.NURSE ---
tele revewed with [facility] hernandez
[2020-04-10 04:00] VITALS: BP 145/76; PULSE 93; RESP 18; TEMP 36.8; O2SAT 95
[2020-04-10] MEDS: Heparin Sodium,Porcine 5,000 UNIT/ML VIAL 5000 UNIT SUBCUT (04:54)
--- NOTE | 2020-04-10 05:05 | PC.NURSE ---
[place] [facility] [place]
[2020-04-10 06:59] LABS: Hematocrit 41.8 % (37-47); Hemoglobin 13.9 g/dl (12.0-16.0); Mean Corpuscular HGB Conc 33.3 g/dl (31.0-35.0); Mean Corpuscular Hemoglobin 29.5 pg (27.0-33.0); Mean Corpuscular Volume 88.7 fL (80-98); Mean Platelet Volume 9.6 fL (9.4-12.3); Platelet Count 479 X10*3/uL (160-400); Red Blood Count 4.71 X10*6/uL (4.20-5.50); Red Cell Distribution Width 14.2 % (11.0-16.0)
[2020-04-10 07:00] LABS: Ammonia 29 umol/L (13-55)
[2020-04-10 07:19] LABS: Anion Gap 15 (12-20); Blood Urea Nitrogen 11 mg/dL (9-16); Calcium 9.3 mg/dL (8.4-10.2); Carbon Dioxide 26 mmol/L (22-29); Chloride 98 mmol/L (96-108); Creatinine Clr Calc Pharmacy 44.4; Estimated Glomerular Filt Rate > 60; Glucose Random 124 mg/dL (60-115); Potassium 4.1 mmol/l (3.3-5.1); Sodium 135 mmol/L (135-145)
[2020-04-10 08:00] VITALS: BP 149/66; PULSE 82; RESP 18; TEMP 36.2; O2SAT 99
[2020-04-10] MEDS: Acetaminophen 325 MG TABLET 650 MG PO (08:33)
[2020-04-10] MEDS: Thiamine HCL 200 MG/2 ML VIAL 100 MG IVPUSH (08:34)
[2020-04-10] MEDS: 0.9 % Sodium Chloride Flush 3 ML SYRINGE IVFLUSH (08:34)
[2020-04-10 08:35] VITALS: BP 149/70; PULSE 70
[2020-04-10] MEDS: predniSONE 5 MG TABLET PO (08:35)
[2020-04-10] MEDS: Cyanocobalamin (Vitamin B-12) 500 MCG TABLET PO (08:35)
[2020-04-10] MEDS: amLODIPine Besylate 5 MG TABLET PO (08:35)
[2020-04-10] MEDS: Pyridoxine HCl (Vitamin B6) 50 MG TABLET PO (08:36)
--- NOTE | 2020-04-10 09:21 | P.CNNE_ITS ---
History of Present Illness Data of Consult Service Date: 04/10/20 Primary Care Provider: Alexandro Rodriguez MD, DO 80 years old woman who was admitted with encephalopathy. This morning she was feeling much better and did not seem confused at all. But she did not remember what happened and why she was in hospital. She has had that few months ago she had 1 similar episode but she could not provide any further detail. [facility] Past Medical History Medical History (Updated 04/09/20 @ 16:32 by Adarsh Dyer MD) Elevated C-reactive protein Glaucoma IBS (irritable bowel syndrome) Osteoporosis PMR (polymyalgia rheumatica) Primary osteoarthritis of hands, bilateral UTI (urinary tract infection) Surgical History Surgical History H/O cataract removal with insertion of prosthetic lens H/O: hysterectomy History of tonsillectomy History of wisdom tooth extraction Hx of appendectomy Social History Social History Household Members: Unknown / Unable to assess Housing: Unknown / Unable to assess Alcohol intake: current Alcohol intake frequency: 0-2 drinks per day Alcohol type: wine Smoking Status: Unknown if ever smoked Smoked in Last 30 Days: No Use of substances other than those prescribed or required for medical reasons: Unknown Substance Use Type: Unknown Last Used Substance: Unknown Currently Displaying Signs/Symptoms of Drug Intoxication Withdrawal: No Any prior treatment program specific to substance use: No Advance Directives: No Advance Directives Information Provided: Yes Do you have thoughts of harming others: None Recently lost weight without trying: Unsure service: No Current occupational status: retired Meds Allergies Allergy/AdvReac Type Severity Reaction Status Date / Time cefadroxil [From DURICEF] Allergy Unknown RASH Verified 02/05/20 08:30 cortisone Allergy Unknown RASH, Verified 02/05/20 08:30 REDDENED CHEST FROM CORTISONE INJECTIONS levofloxacin [From LEVAQUIN] Allergy Unknown TINNITIS Verified 02/05/20 08:30 penicillin V Allergy Unknown Unknown Verified 02/05/20 08:30 Sulfa (Sulfonamide Allergy Unknown UNKNOWN Verified 02/05/20 08:30 Antibiotics) sulfamethoxazole Allergy Unknown RASH Verified 02/05/20 08:30 [From BACTRIM] trimethoprim [From BACTRIM] Allergy Unknown RASH Verified 02/05/20 08:30 Home Medications Medication Instructions Recorded Confirmed Type vit C,E,zinc,copper-ctyuc8a 250 1 cap PO DAILY 02/05/20 04/08/20 History mg-lutein 5 mg-zeaxanthin 1 mg capsule bepotastine besilate [Bepreve] 1 drp OPHTHALMIC (EYE) BID 04/08/20 04/08/20 History brimonidine [Alphagan P] 1 drp OPHTHALMIC-RIGHT BID 04/08/20 04/08/20 History cyanocobalamin (vitamin B-12) 500 mcg PO DAILY 04/08/20 04/08/20 History netarsudil-latanoprost [Rocklatan] 1 drp OPHTHALMIC (EYE) BEDTIME 04/08/20 04/08/20 History prednisone 5 mg PO DAILY 04/08/20 04/08/20 History pyridoxine (vitamin B6) 50 mg PO DAILY 04/08/20 04/08/20 History Physical Exam Vital Signs: Vital Signs: Last Vital Signs Temp 97.1 F 04/10/20 08:00 Pulse 70 04/10/20 08:35 Resp 18 04/10/20 08:00 BP 149/70 H 04/10/20 08:35 Pulse Ox 99 04/10/20 08:00 Body Mass Index 21.0 She was alert and awake with normal spontaneity of speech fluency comprehension and affect. She was eating her breakfast when I talked to her. There was no focal weakness or cranial of finding. Results Labs CBC & Chem 7: 04/10/20 06:34 04/10/20 06:34 Labs: Short CBC 04/10/20 Range/Units 06:34 WBC 12.0 H (4.8-10.8) X10*3/uL Hgb 13.9 (12.0-16.0) g/dl Hct 41.8 (37-47) % Plt Count 479 H (160-400) X10*3/uL BMP 04/10/20 06:34 Sodium 135 Potassium 4.1 Chloride 98 Carbon Dioxide 26 BUN 11 D Creatinine 0.75 Calcium 9.3 Her noncontrast MRI of brain did not reveal any acute area of restricted diffusion. Moderate cerebral atrophy was noted both central and cortical. Not all MRI sequences were done, especially FLAIR sequence was not done. Microbiology Microbiology Results: Microbiology 04/08/20 16:06 Blood - Venous Blood Culture - Preliminary No growth after 24 hours. 04/08/20 15:44 Blood - Venous Blood Culture - Preliminary No growth after 24 hours. Assessment and Plan (1) Encephalopathy: Status: Acute Unclear etiology of encephalopathy that now is clear. At this time she could be discharged and can have outpatient EEG to rule out any possibility of seizure disorder. She should be strongly advised to not drink alcohol.
[2020-04-10 12:00] VITALS: BP 123/72; PULSE 106; RESP 20; TEMP 36.6; O2SAT 95
--- NOTE | 2020-04-10 13:21 | P.DS_ITS ---
DS: Providers Provider Date of admission: 04/08/20 18:41 Primary care physician: Alexandro Rodriguez MD, DO Consults: 04/08/20 18:43 Consult to Neurology Routine Consulting Provider: [facility] Reason for consultation: Encephalopathy Has provider been notified: No DS: Diagnosis Discharge Diagnosis (1) Encephalopathy: Status: Acute (2) Acute metabolic encephalopathy: Status: Acute (3) Cerebral microvascular disease: Status: Acute (4) half-way systemic steroid user: Status: Acute DS: Medications Discharge Medications Home Medications: Home Medications Medication Instructions Recorded Confirmed vit C,E,zinc,copper-[id number] 250 1 cap PO DAILY 02/05/20 04/08/20 mg-lutein 5 mg-zeaxanthin 1 mg capsule Alphagan P 1 drp OPHTHALMIC-RIGHT BID 04/08/20 04/08/20 Bepreve 1 drp OPHTHALMIC (EYE) BID 04/08/20 04/08/20 Rocklatan 1 drp OPHTHALMIC (EYE) BEDTIME 04/08/20 04/08/20 cyanocobalamin (vitamin B-12) 500 mcg PO DAILY 04/08/20 04/08/20 prednisone 5 mg PO DAILY 04/08/20 04/08/20 pyridoxine (vitamin B6) 50 mg PO DAILY 04/08/20 04/08/20 Previous Rx's Medication Instructions Recorded amlodipine 5 mg PO DAILY #30 tab 04/10/20 thiamine HCl (vitamin B1) 100 mg PO DAILY #30 tab 04/10/20 DS: Summary Hospital Course Hospital Course: Admission note HPI This is an 80-year-old female who was brought to the emergency department due to confusion. Sounds like the confusion been progressive in nature worse over the past 1 week. The patient herself is a vague historian and unable to provide any significant details. Brain CT showed large amount of white matter density consistent with microangiopathy in addition to chronic infarcts. No acute intracranial pathology was identified. She was not noted to have any focal neurological deficit. She was somewhat slow to respond on exam and seemed confused but was overall alert and oriented to person, place and time. Lab work was unremarkable with the exception of a lactic acid of 2.6 and lipase of 130. No source of infection was identified. Urinalysis and chest x-ray were unremarkable. On arrival she was noted to be hypertensive with a blood pressure in the 180s and 190s systolic. She received a dose of IV hydralazine with good effect. The patient has no specific complaints. Of note patient had an admission in 2018 for transient episode of confusion thought to be related to hypertensive encephalopathy. At that time she was started on Norvasc. She does not appear to be on any antihypertensive medication at this time. Hospital course An 80-year-old female with history of PMR on chronic steroids who was brought to the emergency department for confusion. The patient had a head CT scan showed generalized atrophy and microangiopathy with no acute findings noticed. She had an MRI done which and for redness she was not able to finish the whole study but from the available images no acute findings identified. She was evaluated also by Neurology who recommended outpatient follow-up for further evaluation and EEG as her symptoms might be a result of partial complex seizures. Urology recommended against starting any medications at this point and to follow as outpatient. Thiamin level checked and still pending. She was started on oral supplement replacement for history of daily alcohol use. After confirmation she only drinks like a glass of wine. She was noted to have significantly elevated blood pressure readings. Started on amlodipine 5 mg. To follow-up with her neurologist next week for further Time Spent with Patient Time attestation: Total time spent providing and/or coordinating discharge services: Physical Exam Vital Signs: Vital Signs: Last Vital Signs Temp 97.9 F 04/10/20 12:00 Pulse 106 H 04/10/20 12:00 Resp 20 04/10/20 12:00 BP 123/72 04/10/20 12:00 Pulse Ox 95 04/10/20 12:00 Body Mass Index 21.0 Constitutional : Alert, oriented by 3, not in distress Neck : Normal inspection, Supple Cardiovascular : RRR, S1 S2, no lower extremity edema Respiratory : Good bilateral air entry, no crackles, wheezes or rhonchi Gastrointestinal: soft, lax, Normal bowel sounds, Non tender Skin : Warm/Dry, No rash Neurological : Alert & oriented x3, No focal deficit, speech is fluent, she finds difficulties in finding were sometimes but overall improved since yesterday, no cranial nerve findings DS: Data Data Completed and Pending Labs on day of discharge: 04/08/20 15:13 ECG 12 lead EKG Stat EKG Documentation DIRECTED CT head for stroke Stat 04/08/20 15:14 XR chest 1V Stat 04/08/20 15:19 Glucose, Whole Blood Routine Prothrombin Time Whole Bld POC Routine ~PT, ~INR - [facility] Routine 04/08/20 15:44 Basic Metabolic Panel Stat Complete Blood Count Auto Diff Stat Creatine Kinase Total Stat Lipase Stat Liver Panel Stat Magnesium Stat Partial Thromboplastin Time Stat Prothrombin Time INR Stat SLIDE REVIEW Stat Syphilis Screen Stat Thyroid Stimulating Hormone Stat Troponin-I High Sensitivity Stat Vitamin B12 and Folate Stat 04/08/20 15:50 hydrALAZINE HCl [Apresoline] 5 mg IVPUSH ONCE ONE 04/08/20 16:06 Lactic Acid Stat 04/08/20 16:07 COVID-19 ID NOW ([place]) Stat 04/08/20 16:13 LORazepam [Ativan] 1 mg IVPUSH ONCE ONE 04/08/20 16:57 CT abdomen pelvis w con Stat 04/08/20 17:13 0.9 % Sodium Chloride [Ns] 999 ml IV Per Protocol mls/hr 04/08/20 17:26 0.9 % Sodium Chloride [Ns] 999 ml IV 1,500 mls/hr 04/08/20 18:37 Transfer Order Routine 04/08/20 18:41 iohexoL 350 MG/ML [Omnipaque 350 MG/ML] 100 ml IV ONCE ONE 04/08/20 18:52 Add Laboratory Test Stat 04/08/20 18:56 ~Lactic Acid-LAB USE ONLY Stat 04/08/20 20:42 LORazepam [Ativan] 1 mg IVPUSH ONCE ONE 04/09/20 MR head/brain wo con Stat 04/09/20 00:26 hydrALAZINE HCl [Apresoline] 10 mg IVPUSH ONCE ONE 04/09/20 05:35 Basic Metabolic Panel DAILY@0600 Complete Blood Count Auto Diff DAILY@0600 04/10/20 06:33 Ammonia Routine 04/10/20 06:34 Basic Metabolic Panel DAILY@0600 Complete Blood Count no Diff DAILY@0600 Laboratory Last Values WBC 12.0 X10*3/uL (4.8-10.8) H 04/10/20 06:34 RBC 4.71 X10*6/uL (4.20-5.50) 04/10/20 06:34 Hgb 13.9 g/dl (12.0-16.0) 04/10/20 06:34 Hct 41.8 % (37-47) 04/10/20 06:34 MCV 88.7 fL (80-98) 04/10/20 06:34 MCH 29.5 pg (27.0-33.0) 04/10/20 06:34 MCHC 33.3 g/dl (31.0-35.0) 04/10/20 06:34 RDW 14.2 % (11.0-16.0) 04/10/20 06:34 Plt Count 479 X10*3/uL (160-400) H 04/10/20 06:34 MPV 9.6 fL (9.4-12.3) 04/10/20 06:34 Immature Gran % (Auto) 0.5 % (0.0-0.4) H 04/09/20 05:35 Neut % (Auto) 84.7 % (45-73) H 04/09/20 05:35 Lymph % (Auto) 5.8 % (20-40) L 04/09/20 05:35 Dougherty % (Auto) 8.1 % (2-11) 04/09/20 05:35 Eos % (Auto) 0.5 % (0-4) 04/09/20 05:35 Baso % (Auto) 0.4 % (0-2) 04/09/20 05:35 Lymph # (Auto) 0.8 X10*3/uL (1.2-4.9) L 04/09/20 05:35 Dougherty # (Auto) 1.1 X10*3/uL (0.1-1.2) 04/09/20 05:35 Eos # (Auto) 0.1 X10*3/uL (0.0-0.4) 04/09/20 05:35 Baso # (Auto) 0.1 X10*3/uL (0.0-0.2) 04/09/20 05:35 Abs Immat Gran (auto) 0.06 X10*3/uL (0.00-0.03) H 04/09/20 05:35 Absolute Neuts (auto) 10.9 X10*3/uL (2.0-8.3) H 04/09/20 05:35 Absolute Nucleated RBC 0.000 X10*3/uL (0.0-0.012) 04/10/20 06:34 Nucleated RBC % (auto) 0.0 /100WBC (0.0-0.2) 04/10/20 06:34 Smear Tech's Comments VERIFIED 04/08/20 15:44 PT 11.1 SEC (10.8-13.0) 04/08/20 15:44 Whole Blood PT 11.5 sec (11.1-13.5) 04/08/20 15:19 INR 0.9 (0.9-1.1) 04/08/20 15:44 Whole Blood INR 1.0 (0.9-1.1) 04/08/20 15:19 APTT 31.7 SEC (24.1-38.0) 04/08/20 15:44 Sodium 135 mmol/L (135-145) 04/10/20 06:34 Potassium 4.1 mmol/l (3.3-5.1) 04/10/20 06:34 Chloride 98 mmol/L (96-108) 04/10/20 06:34 Carbon Dioxide 26 mmol/L (22-29) 04/10/20 06:34 Anion Gap 15 (12-20) 04/10/20 06:34 BUN 11 mg/dL (9-16) D 04/10/20 06:34 Creatinine 0.75 mg/dL (0.5-1.4) 04/10/20 06:34 Estim Creat Clear Calc 44.4 04/10/20 06:34 Estimated GFR > 60 04/10/20 06:34 POC Glucose 218 mg/dL (60-115) H 04/08/20 15:19 Random Glucose 124 mg/dL (60-115) H 04/10/20 06:34 Lactic Acid 2.6 mmol/L (0.5-2.0) H* 04/08/20 16:06 Lactic Acid Fup @ 2Hr 1.0 mmol/L (0.5-2.0) 04/08/20 18:56 Calcium 9.3 mg/dL (8.4-10.2) 04/10/20 06:34 Magnesium 2.0 mg/dL (1.6-2.6) 04/08/20 15:44 Total Bilirubin 0.3 mg/dL (0.0-1.0) 04/08/20 15:44 Direct Bilirubin < 0.2 mg/dL (0.0-0.5) 04/08/20 15:44 AST 15 U/L (5-31) 04/08/20 15:44 ALT 15 U/L (0-31) 04/08/20 15:44 Alkaline Phosphatase 98 U/L (39-117) 04/08/20 15:44 Ammonia 29 umol/L (13-55) 04/10/20 06:33 Total Creatine Kinase 109 U/L (26-140) 04/08/20 15:44 Troponin I High Sens < 3.5 ng/L (<3.5-17.0) 04/08/20 15:44 Total Protein 6.5 g/dL (6.5-8.0) 04/08/20 15:44 Albumin 3.9 g/dL (3.5-5.0) 04/08/20 15:44 Lipase 130 U/L (8-78) H 04/08/20 15:44 Vitamin B12 416 pg/mL (200-900) 04/08/20 15:44 Folate 7.4 ng/mL (> or = 4.0) 04/08/20 15:44 TSH 0.89 uIU/mL (0.32-4.0) 04/08/20 15:44 Urine Color YELLOW 04/08/20 16:12 Urine Appearance CLEAR 04/08/20 16:12 Urine pH 5.0 (5.0-8.0) 04/08/20 16:12 Ur Specific [place] 1.020 (1.005-1.025) 04/08/20 16:12 Urine Protein NEG MG/DL (NEG-TRACE) 04/08/20 16:12 Urine Glucose (UA) 100 MG/DL (NEG) H 04/08/20 16:12 Urine Ketones NEG MG/DL (NEG) 04/08/20 16:12 Urine Blood TRACE (NEG) 04/08/20 16:12 Urine Nitrite NEG (NEG) 04/08/20 16:12 Ur Leukocyte Esterase NEG (NEG) 04/08/20 16:12 Urine RBC 0 /HPF (0) 04/08/20 16:12 Urine WBC 0 /HPF (0-4) 04/08/20 16:12 Ur Squamous Epith Cells NONE /LPF 04/08/20 16:12 Urine Bacteria NONE /LPF 04/08/20 16:12 T.pallidum Ab (EIA) Nonreactive (Nonreactive) 04/08/20 15:44 COVID-19 (BRENT) Negative (Negative) 04/08/20 16:07 COVID-19 Clin Com See Note 04/08/20 16:07 Preliminary micro results at discharge 04/08/20 16:06 Blood Culture - Preliminary Blood - Venous No growth after 24 hours. 04/08/20 15:44 Blood Culture - Preliminary Blood - Venous No growth after 24 hours. Discharge Plan Discharge Patient Disposition: Home Health Service Referrals: [facility] [Outside] Alexandro Rodriguez MD, DO [Primary Care Provider] - Discharge Medications: New amlodipine 5 mg tablet 5 mg PO DAILY Qty: 30 RF: 0 thiamine HCl (vitamin B1) 100 mg tablet 100 mg PO DAILY Qty: 30 RF: 0 Continued prednisone 5 mg tablet 5 mg PO DAILY RF: 0 cyanocobalamin (vitamin B-12) 500 mcg Tablet 500 mcg PO DAILY RF: 0 pyridoxine (vitamin B6) 50 mg Tablet 50 mg PO DAILY RF: 0 Alphagan P 0.1 % drops 1 drp ophthalmic-Right BID RF: 0 Bepreve 1.5 % drops 1 drp ophthalmic (eye) BID RF: 0 Rocklatan 0.02-0.005 % drops 1 drp ophthalmic (eye) BEDTIME RF: 0 Ocuvite Adult 50 Plus 250-5-1 mg capsule 1 cap PO DAILY RF: 0 Discharge Orders: Discharge Order (Routine); Ordered 04/10/20 Ordered By: Adarsh Dyer Diet: advance to usual diet Activity on Discharge: As tolerated Care Plan Goals: Read below Health Concerns: Read below Plan of Treatment: You were admitted to the hospital for evaluation of confusion. We did blood test and brain images of CT scan and MRI which showed age-related changes with no acute illness noted. You were evaluated by neurologist Dr. Elise who recommended an outpatient follow-up a for an EEG and further evaluation the office. You were started on thiamine for history of alcohol intake. Pending the result of thiamin test. You were started on amlodipine to treat elevated blood pressure readings. Monitor blood pressure at home. To follow-up with Dr. Elise office or call your primary neurologist for a follow-up next week in order to do an EEG and further evaluation. Please come back to the hospital for any worsening confusion, lethargy or abnor mal movements.
--- NOTE | 2020-04-10 13:22 | MHC.CM.PN ---
Patient has been medically cleared for dc to home today, with VNA. CM was unable to reach Patient by phone (Covid rufina), but was able to speak with Niece/HCP/Cary at [phone], who approved a new referral to NA. Referral made and NA is aware of today's dc. Last IMM addressed yesterday.
[2020-04-15 10:37] LABS: Vitamin B1 <6 nmol/L (8-30)
== END 2020-04-10 15:37 | disposition home health service (06) | DRG 78 ==
LOC: HO.ED 17:11 → HO.IMC 04-09 00:12
PROVIDERS: Emergency Medicine; Physician Assistant Medical; Admitting Provider Hospitalist; Emergency Provider Internal Medicine; PCP Internal Medicine; Visit Provider Student in an Organized Health Care Education/Training Program
DX: I67.4 Hypertensive encephalopathy (principal); E87.2 Acidosis; M35.3 Polymyalgia rheumatica; F10.10 Alcohol abuse, uncomplicated; I10 Essential (primary) hypertension; Z20.828 Contact with and (suspected) exposure to other viral communicable diseases; Z88.0 Allergy status to penicillin; F01.50 Vascular dementia, unspecified severity, without behavioral disturbance, psychotic disturbance, mood disturbance, and anxiety; Z88.2 Allergy status to sulfonamides; Z79.52 Long term (current) use of systemic steroids; Z79.899 Other long term (current) drug therapy
CPT/HCPCS: 36415; 70450; 70551; 71045; 74177; 80048; 80076; 81001; 82140; 82550; 82607; 82746; 82947; 83605; 83690; 83735; 84425; 84443; 84484; 85025; 85027; 85610; 85730; 86780; 87040; 87635; 93005; 99285; J2060; J3411; Q9967

== ENCOUNTER 2020-07-08 18:54 | Emergency (ER) | payer MEDICARE, SELFPAY ==
[2020-07-08 18:58] VITALS: BP 161/77; PULSE 89; RESP 16; TEMP 36.6; O2SAT 98
[2020-07-08 20:58] VITALS: BP 168/81; PULSE 85; PULSE 88; RESP 14; TEMP 36.5; O2SAT 99; BMI 21.6
--- NOTE | 2020-07-08 21:33 | ED_ITS ---
HPI - General Adult General Chief complaint: General Medical Stated complaint: Highblood pressure Time Seen by Provider: 07/08/20 21:33 Source: patient and family Mode of arrival: ambulatory Limitations: no limitations History of Present Illness HPI narrative: Patient brought by patient's daughter for elevated blood pressure for last 4 days highest was 180/78 patient was seen by her PCP who increased the dose of amlodipine from 5 mg to 10 mg but patient did not take it except for today. Today on arrival patient's blood pressure was 161/77 patient denies any headache no nausea no vomiting no chest pain or shortness of breath. Patient does complain of tinnitus in the right ear which is going on for long time got worse lately no earache no fever no chills no balance problem no focal weakness Related Data Home Medications Medication Instructions Recorded Confirmed vit C,E,zinc,copper-[id number] 250 1 cap PO DAILY 02/05/20 04/08/20 mg-lutein 5 mg-zeaxanthin 1 mg capsule Alphagan P 1 drp OPHTHALMIC-RIGHT BID 04/08/20 04/08/20 Bepreve 1 drp OPHTHALMIC (EYE) BID 04/08/20 04/08/20 Rocklatan 1 drp OPHTHALMIC (EYE) BEDTIME 04/08/20 04/08/20 cyanocobalamin (vitamin B-12) 500 mcg PO DAILY 04/08/20 04/08/20 prednisone 5 mg PO DAILY 04/08/20 04/08/20 pyridoxine (vitamin B6) 50 mg PO DAILY 04/08/20 04/08/20 Previous Rx's Medication Instructions Recorded amlodipine 5 mg PO DAILY #30 tab 04/10/20 thiamine HCl (vitamin B1) 100 mg PO DAILY #30 tab 04/10/20 Allergies Allergy/AdvReac Type Severity Reaction Status Date / Time cefadroxil [From DURICEF] Allergy Unknown RASH Verified 07/08/20 21:09 cortisone Allergy Unknown RASH, Verified 07/08/20 21:09 REDDENED CHEST FROM CORTISONE INJECTIONS levofloxacin [From LEVAQUIN] Allergy Unknown TINNITIS Verified 07/08/20 21:09 penicillin V Allergy Unknown Unknown Verified 07/08/20 21:09 Sulfa (Sulfonamide Allergy Unknown UNKNOWN Verified 07/08/20 21:09 Antibiotics) sulfamethoxazole Allergy Unknown RASH Verified 07/08/20 21:09 [From BACTRIM] trimethoprim [From BACTRIM] Allergy Unknown RASH Verified 07/08/20 21:09 Review of Systems Review of Systems: Constitutional : No Weight loss, No Fever, No Chills ENT/Mouth : No sore throat, No Rhinorrhea Eyes: No Eye Pain, No Swelling Cardiovascular : No Chest Pain, no palpitations Respiratory : No Cough, No Sputum, no shortness of breath Gastrointestinal : no Nausea, No Vomiting, No Diarrhea, No abdominal Pain, no black stools Genitourinary : No Dysuria, No Urinary Frequency Musculoskeletal : No joint pain, No Myalgias, No Joint Swelling Skin : No Skin Lesions, No rash Neuro : No Weakness, No Numbness, No Dizziness, No Headache Psych : No Anxiety/Panic, No Depression Heme/Lymph: No Bruising, No Lymphadenopathy Endocrine : No Polyuria, No Polydipsia All other systems reviewed and are negative [facility] Past Medical History Medical History Alzheimer's dementia Cerebral microvascular disease Elevated C-reactive protein Glaucoma HTN (hypertension) IBS (irritable bowel syndrome) Multifactorial dementia Osteoporosis PMR (polymyalgia rheumatica) Primary osteoarthritis of hands, bilateral UTI (urinary tract infection) Surgical History H/O cataract removal with insertion of prosthetic lens H/O: hysterectomy History of tonsillectomy History of wisdom tooth extraction Hx of appendectomy Social History Social History Household Members: Unknown / Unable to assess Housing: Unknown / Unable to assess Alcohol intake: never Smoking Status: Former smoker Smoked in Last 30 Days: No Use of substances other than those prescribed or required for medical reasons: No Substance Use Type: Unknown Advance Directives: No Advance Directives Information Provided: Yes service: No Current occupational status: retired Physical Exam 2 Vital Signs: Vital Signs: Last Vital Signs Temp 97.7 F 07/08/20 20:58 Pulse 88 07/08/20 20:58 Resp 14 07/08/20 20:58 BP 168/81 H 07/08/20 20:58 Pulse Ox 99 07/08/20 20:58 Body Mass Index 21.6 Appearance: Alert. Oriented X3. No acute distress. Eyes: Pupils equal, round and reactive to light. ENT: Pharynx normal. Tympanic membrane intact bilaterally Neck: Normal inspection. Neck supple. CVS: Normal heart rate and rhythm. Pulses normal. Respiratory: No respiratory distress. Breath sounds normal. Abdomen: Soft and nontender. Bowel sounds are present, no mass palpable, no CVA tenderness Skin: Skin warm and dry. Normal skin color. Normal skin turgor. Extremities: No lower extremity edema. Neuro: Oriented X 3. No motor deficit. No sensory deficit. Normal gait no cerebellar sign Medical Decision Making MDM Narrative Medical decision making narrative: Patient with uncontrolled blood pressure seen by PCP would increase the dose of 10 mg of amlodipine on arrival and blood pressure was 160/68 patient had tinnitus off and on in the past also patient advised to follow with ENT and use nose cancelling device Discharge Plan Discharge Clinical Impression: Tinnitus Qualifiers: Laterality: right Qualified Code(s): H93.11 - Tinnitus, right ear Hypertension Qualifiers: Hypertension type: essential hypertension Qualified Code(s): I10 - Essential (primary) hypertension Patient Disposition: Home, Self-Care Instructions: Hypertension (ED), Tinnitus (ED) Additional Instructions: Continue medication as prescribed by PCP. Follow-up with the ENT Use noise cancelling device as advised Prescriptions: No Action prednisone 5 mg tablet 5 mg PO DAILY RF: 0 cyanocobalamin (vitamin B-12) 500 mcg Tablet 500 mcg PO DAILY RF: 0 pyridoxine (vitamin B6) 50 mg Tablet 50 mg PO DAILY RF: 0 Alphagan P 0.1 % drops 1 drp ophthalmic-Right BID RF: 0 Bepreve 1.5 % drops 1 drp ophthalmic (eye) BID RF: 0 Rocklatan 0.02-0.005 % drops 1 drp ophthalmic (eye) BEDTIME RF: 0 amlodipine 5 mg tablet 5 mg PO DAILY Qty: 30 RF: 0 thiamine HCl (vitamin B1) 100 mg tablet 100 mg PO DAILY Qty: 30 RF: 0 Ocuvite Adult 50 Plus 250-5-1 mg capsule 1 cap PO DAILY RF: 0 Referrals: Trevor Murillo [Physician] - 1 week
== END 2020-07-08 22:11 | disposition home or self-care (01) ==
PROVIDERS: Emergency Provider Internal Medicine; PCP Internal Medicine
DX: H93.11 Tinnitus, right ear (principal); I10 Essential (primary) hypertension; G30.9 Alzheimer's disease, unspecified; F02.80 Dementia in other diseases classified elsewhere, unspecified severity, without behavioral disturbance, psychotic disturbance, mood disturbance, and anxiety
CPT/HCPCS: 99282; 99284

== ENCOUNTER 2021-02-16 11:17 | Emergency (ER) | payer MEDICARE, SELFPAY ==
--- NOTE | 2021-02-16 | ECG_ITS ---
Test Reason : SYNCOPE Blood Pressure : / mmHG Vent. Rate : 066 BPM Atrial Rate : 066 BPM P-R Int : 188 ms QRS Dur : 094 ms QT Int : 396 ms P-R-T Axes : 020 -33 026 degrees QTc Int : 415 ms Normal sinus rhythm Left axis deviation Incomplete right bundle branch block Abnormal ECG No significant changes seen Referred By: Generic ED Physician Electronically Signed By:RUPERT MCNEIL MD
--- NOTE | ~2021-02-16 | CT_ITS ---
EXAMINATION: CT ANGIOGRAM OF THE CHEST WITH AND WITHOUT CONTRAST (CT PULMONARY ANGIOGRAM FOR PE) CLINICAL INFORMATION: Reason for Exam syncope, elevated ddimer COMPARISON: Chest radiographs 02/16/2021, CT abdomen 04/08/2020 TECHNIQUE: Prior to contrast administration, noncontrast localization images were obtained. Subsequently, multidetector volumetric imaging was performed from the thoracic inlet to below the diaphragms following the administration of 54 mL Omnipaque 350 intravenous contrast. No contrast reaction reported Sagittal, coronal, and MIP oblique sagittal reformatted images were obtained on the CT workstation, uploaded to PACS, and reviewed. This CT examination was performed using dose optimization techniques as appropriate, variously including the following: *Automated exposure control *Adjustment of mA and/or kV according to patient size (this includes techniques or standardized protocols for targeted exams where dose is matched to indication/reason for exam; i.e. extremities or head) *Use of iterative reconstruction technique Total exam dose-length product 135 mGy-cm FINDINGS: QUALITY OF STUDY/CONTRAST BOLUS: Satisfactory. PULMONARY ARTERIES: No central or segmental pulmonary emboli. THORACIC AORTA: No aneurysm or dissection. LUNG: No pneumothorax, airspace consolidation or groundglass opacity. Central airways clear. No bronchiectasis. PLEURA: No pleural effusion, pneumothorax, or pleural thickening. MEDIASTINUM: Normal heart size. No pericardial effusion. No hilar or mediastinal lymphadenopathy. No evidence of septal bowing or right heart strain. CHEST WALL/AXILLA: No axillary or internal mammary lymphadenopathy. OSSEOUS STRUCTURES: No acute or suspicious osseous abnormality. UPPER ABDOMEN: Unremarkable. No reflux of contrast into the hepatic veins to suggest elevated right heart pressures. CT/CT angio chest PE protocol IMPRESSION: 1. No pulmonary embolism or thoracic aortic dissection. 2. Lungs clear. No pneumothorax, infiltrate, or effusion. VTE: negative
--- NOTE | ~2021-02-16 | CT_ITS ---
EXAMINATION: CT HEAD WITHOUT CONTRAST CLINICAL INFORMATION: Fall, syncope COMPARISON: MRI brain 04/09/2020 TECHNIQUE: Contiguous axial imaging was performed from the skull base to vertex without intravenous administration of contrast. This CT examination was performed using dose optimization techniques as appropriate, variously including the following: *Automated exposure control *Adjustment of mA and/or kV according to patient size (this includes techniques or standardized protocols for targeted exams where dose is matched to indication/reason for exam; i.e. extremities or head) *Use of iterative reconstruction technique DLP: 577 mGy-cm FINDINGS: There is no evidence of acute intracranial hemorrhage or territorial infarction. No abnormal mass effect or midline shift is seen. Martinez to white matter differentiation is well preserved. No extra-axial fluid collections are identified. The lateral ventricles are symmetrical in size and configuration but enlarged. There is diffuse periventricular hypodensity seen in both cerebral hemispheres without mass effect. The osseous structures and soft tissues are normal. The mastoid air cells and visualized portions of the paranasal sinuses are well aerated. CT/CT head/brain wo con IMPRESSION: No acute intracranial process seen. Moderate cerebral volume loss with chronic small vessel ischemic changes in both cerebral hemispheres
--- NOTE | ~2021-02-16 | XR_ITS ---
EXAMINATION: CHEST AND LEFT FINGERS. CLINICAL INFORMATION: Pain and first digit after fall. COMPARISON: None TECHNIQUE: Left fingers 4 views. Chest one view. FINDINGS: Chest: Both lungs are fairly well-expanded and clear. The heart size and pulmonary vascularity is normal. There is mild scoliosis otherwise no lytic process seen. Left fingers: There is loss of joint space with periarticular hypertrophic spurring first carpometacarpal joint space. No visible fracture or dislocation seen. There is mild loss of PIP and DIP joints with periarticular spurring DIP joint third digit. No acute fracture seen. XR/XR finger LT min 2V IMPRESSION: No acute process seen in the chest. Degenerative arthritic changes first carpometacarpal joint with hypertrophic changes. Mild degenerative changes also seen in PIP and DIP joints.
--- NOTE | ~2021-02-16 | XR_ITS ---
EXAMINATION: CHEST AND LEFT FINGERS. CLINICAL INFORMATION: Pain and first digit after fall. COMPARISON: None TECHNIQUE: Left fingers 4 views. Chest one view. FINDINGS: Chest: Both lungs are fairly well-expanded and clear. The heart size and pulmonary vascularity is normal. There is mild scoliosis otherwise no lytic process seen. Left fingers: There is loss of joint space with periarticular hypertrophic spurring first carpometacarpal joint space. No visible fracture or dislocation seen. There is mild loss of PIP and DIP joints with periarticular spurring DIP joint third digit. No acute fracture seen. XR/XR chest 1V IMPRESSION: No acute process seen in the chest. Degenerative arthritic changes first carpometacarpal joint with hypertrophic changes. Mild degenerative changes also seen in PIP and DIP joints.
[2021-02-16 11:30] VITALS: BP 128/56; BP 133/60; PULSE 70; RESP 14; TEMP 36.4; O2SAT 98; O2SAT 99; BMI 20.7
[2021-02-16 11:36] VITALS: O2SAT 98
[2021-02-16 11:52] LABS: Glucose, Whole Blood 142 mg/dL (60-115)
--- NOTE | 2021-02-16 12:07 | ED_ITS ---
HPI - Syncope General Chief Complaint: Syncope Stated Complaint: DIZZY W/SYNCOPE Time Seen by Provider: 02/16/21 12:07 Source: patient, EMS and old records reviewed Mode of arrival: EMS Limitations: no limitations History of Present Illness MD complaint: loss of consciousness Onset (ago): minute(s) -: minutes(s) Prodromal symptoms: lightheaded (thinks she felt lightheaded but cannot remember) Witnessed: Yes - by Bystander Context: at rest (sitting down to eat) Injuries sustained associated with event: other (L thumb) Current symptoms: back to baseline History: previous syncopal episode Treatments prior to arrival: none Related Data Home Medications Medication Instructions Recorded Confirmed vit C,E,zinc,copper-[id number] 250 1 cap PO DAILY 02/05/20 02/16/21 mg-lutein 5 mg-zeaxanthin 1 mg capsule (Ocuvite Adult 50 Plus) bepotastine besilate 1.5 % eye 1 drp OPHTHALMIC (EYE) BID 04/08/20 02/16/21 drops (Bepreve) brimonidine 0.1 % eye drops 1 drp OPHTHALMIC-RIGHT BID 04/08/20 02/16/21 (Alphagan P) cyanocobalamin (vitamin B-12) 500 250 mcg PO DAILY 04/08/20 02/16/21 mcg tablet netarsudil 0.02 %-latanoprost 1 drp OPHTHALMIC (EYE) BEDTIME 04/08/20 02/16/21 0.005 % eye drops (Rocklatan) prednisone 5 mg tablet 10 mg PO DAILY 04/08/20 02/16/21 pyridoxine (vitamin B6) 50 mg 50 mg PO DAILY 04/08/20 02/16/21 tablet acetaminophen 500 mg tablet 1,000 mg PO BID 02/16/21 02/16/21 amlodipine 10 mg tablet 1 tab PO DAILY 02/16/21 02/16/21 cholecalciferol (vitamin D3) 10 10 mcg PO DAILY 02/16/21 02/16/21 mcg (400 unit) tablet multivitamin 1 tab PO DAILY 02/16/21 02/16/21 sertraline 50 mg tablet 25 mg PO BID 02/16/21 02/16/21 Allergies Allergy/AdvReac Type Severity Reaction Status Date / Time cefadroxil [From [facility] [place]] Allergy Unknown RASH Verified 07/08/20 21:09 cortisone Allergy Unknown RASH, Verified 07/08/20 21:09 REDDENED CHEST FROM CORTISONE INJECTIONS levofloxacin [From LEVAQUIN] Allergy Unknown TINNITIS Verified 07/08/20 21:09 penicillin V Allergy Unknown Unknown Verified 07/08/20 21:09 Sulfa (Sulfonamide Allergy Unknown UNKNOWN Verified 07/08/20 21:09 Antibiotics) sulfamethoxazole Allergy Unknown RASH Verified 07/08/20 21:09 [From BACTRIM] trimethoprim [From BACTRIM] Allergy Unknown RASH Verified 07/08/20 21:09 Review of Systems Review of Systems: Constitutional : No Weight loss, No Fever, No Chills, No Fatigue, No Malaise ENT/Mouth : No sore throat, No Rhinorrhea Eyes: No Eye Pain, No Swelling, No Redness Cardiovascular : No Chest Pain, No SOB, No Dyspnea on Exertion, No Orthopnea, No Edema, No Palpitations Respiratory : No Cough, No Sputum, No Wheezing Gastrointestinal : No Nausea, No Vomiting, No Diarrhea, No Constipation, No abdominal Pain, No Hematochezia, No Melena Genitourinary : No Dysuria, No Urinary Frequency, No Hematuria, Musculoskeletal : No joint pain, No Myalgias, No Joint Swelling, pos L thumb pain Skin : No Skin Lesions, No rash Neuro : No Weakness, No Numbness, No Dizziness, No Headache, pos syncope Psych : No Anxiety/Panic, No Depression Heme/Lymph: No Bruising, No Bleeding,No Lymphadenopathy Endocrine : No Polyuria, No Polydipsia All other systems reviewed and are negative PMFSH Past Medical History Attestation statement: The following information was validated with the patient. Medical History Alzheimer's dementia Cerebral microvascular disease Elevated C-reactive protein Glaucoma HTN (hypertension) IBS (irritable bowel syndrome) Multifactorial dementia Osteoporosis PMR (polymyalgia rheumatica) Primary osteoarthritis of hands, bilateral UTI (urinary tract infection) Surgical History H/O cataract removal with insertion of prosthetic lens H/O: hysterectomy History of tonsillectomy History of wisdom tooth extraction Hx of appendectomy Social History Social History Household Members: Unknown / Unable to assess Household Members Other:: NIECE Housing: Unknown / Unable to assess Are you a primary patient care manager to a significant other at home: No Do you presently have visiting nurse or other home services: No Unable to assess alcohol history related to: Unknown Alcohol intake: never Substance Use Type: Unknown Advance Directives: No service: No Current occupational status: retired Physical Exam Vital Signs: Vital Signs: Last Vital Signs Temp 97.6 F 02/16/21 11:30 Pulse 78 02/16/21 13:42 Resp 12 02/16/21 12:40 BP 142/60 H 02/16/21 13:42 Pulse Ox 99 02/16/21 12:40 Body Mass Index 20.7 Appearance: Alert. Oriented X3. No acute distress. Eyes: Pupils equal, round and reactive to light. ENT: Pharynx normal. Neck: Normal inspection. Neck supple. CVS: Normal heart rate and rhythm. Pulses normal. Respiratory: No respiratory distress. Breath sounds normal. Abdomen: Soft and non-tender. Skin: Skin warm and dry. Normal skin color. Normal skin turgor. Extremities: No lower extremity edema. No calf ttp L thumb ttp along MCP Neuro: Oriented X 3. No motor deficit. No sensory deficit. Course Course Course Narrative: PE study ordered ddimer elevated no CP/SOB two trops negative, PE study pending of note the family states that the patient actually was dizzy and had a prodrome no acute findings, stable for DC at this time, PE negative troponin x 2 negative MDM - Syncope MDM Narrative Medical decision making narrative: 81 yo female with PMR, alzheimer's, here with reported syncopal event with + LOC - c/o dizziness no seizure activity reported. She denies any recent CP/SOB/GIB symptoms. At this time she feels back to baseline but c/o L thumb pain. Will obtain EKG, ortho VS, CT head to r/o ICH, troponin, ddimer. She is not fully sure if she had a prodrome which is concernin g will likely admit overnight for tele Lab Data Result diagrams: 02/16/21 12:22 02/16/21 12:22 Labs: Lab Results 02/16/21 02/16/21 02/16/21 Range/Units 11:46 12:22 12:22 WBC 9.8 (4.8-10.8) X10*3/uL RBC 3.96 L (4.20-5.50) X10*6/uL Hgb 12.3 (12.0-16.0) g/dl Hct 36.9 L (37-47) % MCV 93.2 (80-98) fL MCH 31.1 (27.0-33.0) pg MCHC 33.3 (31.0-35.0) g/dl RDW 13.8 (11.0-16.0) % Plt Count 325 D (160-400) X10*3/uL MPV 9.4 (9.4-12.3) fL Immature Gran % (Auto) 0.4 (0.0-0.4) % Neut % (Auto) 79.7 H (45-73) % Lymph % (Auto) 7.2 L (20-40) % [place] % (Auto) 10.6 (2-11) % Eos % (Auto) 1.6 (0-4) % Baso % (Auto) 0.5 (0-2) % Lymph # (Auto) 0.7 L (1.2-4.9) X10*3/uL [place] # (Auto) 1.0 (0.1-1.2) X10*3/uL Eos # (Auto) 0.2 (0.0-0.4) X10*3/uL Baso # (Auto) 0.1 (0.0-0.2) X10*3/uL Abs Immat Gran (auto) 0.04 H (0.00-0.03) X10*3/uL Absolute Neuts (auto) 7.8 (2.0-8.3) X10*3/uL Absolute Nucleated RBC 0.000 (0.0-0.012) X10*3/uL Nucleated RBC % (auto) 0.0 (0.0-0.2) /100WBC D-Dimer NG/ML Sodium 138 (135-145) mmol/L Potassium 4.2 (3.3-5.1) mmol/L Chloride 101 (96-108) mmol/L Carbon Dioxide 28 (22-29) mmol/L Anion Gap 13 (12-20) BUN 15 (9-16) mg/dL Creatinine 0.82 (0.5-1.4) mg/dL Estim Creat Clear Calc 39.9 Estimated GFR > 60 POC Glucose 142 H (60-115) mg/dL Random Glucose 154 H (60-115) mg/dL Calcium 9.2 (8.4-10.2) mg/dL Magnesium 2.2 (1.6-2.6) mg/dL Total Bilirubin 0.4 (0.0-1.0) mg/dL Direct Bilirubin < 0.2 (0.0-0.5) mg/dL AST 47 H D (5-31) U/L ALT 30 (0-31) U/L Alkaline Phosphatase 79 (39-117) U/L Troponin I High Sens (<3.5-17.0) ng/L Total Protein 6.7 (6.5-8.0) g/dL Albumin 3.9 (3.5-5.0) g/dL Lipase 61 (8-78) U/L Urine Color Urine Appearance Urine pH (5.0-8.0) Ur Specific [place] (1.005-1.025) Urine Protein (NEG-TRACE) MG/DL Urine Glucose (UA) (NEG) MG/DL Urine Ketones (NEG) MG/DL Urine Blood (NEG) Urine Nitrite (NEG) Ur Leukocyte Esterase (NEG) COVID-19 (BRENT) (Negative) COVID-19 Clin Com 02/16/21 02/16/21 02/16/21 Range/Units 12:22 12:22 12:40 WBC (4.8-10.8) X10*3/uL RBC (4.20-5.50) X10*6/uL Hgb (12.0-16.0) g/dl Hct (37-47) % MCV (80-98) fL MCH (27.0-33.0) pg MCHC (31.0-35.0) g/dl RDW (11.0-16.0) % Plt Count (160-400) X10*3/uL MPV (9.4-12.3) fL Immature Gran % (Auto) (0.0-0.4) % Neut % (Auto) (45-73) % Lymph % (Auto) (20-40) % [place] % (Auto) (2-11) % Eos % (Auto) (0-4) % Baso % (Auto) (0-2) % Lymph # (Auto) (1.2-4.9) X10*3/uL [place] # (Auto) (0.1-1.2) X10*3/uL Eos # (Auto) (0.0-0.4) X10*3/uL Baso # (Auto) (0.0-0.2) X10*3/uL Abs Immat Gran (auto) (0.00-0.03) X10*3/uL Absolute Neuts (auto) (2.0-8.3) X10*3/uL Absolute Nucleated RBC (0.0-0.012) X10*3/uL Nucleated RBC % (auto) (0.0-0.2) /100WBC D-Dimer NG/ML Sodium (135-145) mmol/L Potassium (3.3-5.1) mmol/L Chloride (96-108) mmol/L Carbon Dioxide (22-29) mmol/L Anion Gap (12-20) BUN (9-16) mg/dL Creatinine (0.5-1.4) mg/dL Estim Creat Clear Calc Estimated GFR POC Glucose (60-115) mg/dL Random Glucose (60-115) mg/dL Calcium (8.4-10.2) mg/dL Magnesium (1.6-2.6) mg/dL Total Bilirubin (0.0-1.0) mg/dL Direct Bilirubin (0.0-0.5) mg/dL AST (5-31) U/L ALT (0-31) U/L Alkaline Phosphatase (39-117) U/L Troponin I High Sens < 3.5 (<3.5-17.0) ng/L Total Protein (6.5-8.0) g/dL Albumin (3.5-5.0) g/dL Lipase (8-78) U/L Urine Color YELLOW Urine Appearance CLEAR Urine pH 6.0 (5.0-8.0) Ur Specific [place] 1.015 (1.005-1.025) Urine Protein NEG (NEG-TRACE) MG/DL Urine Glucose (UA) NEG (NEG) MG/DL Urine Ketones NEG (NEG) MG/DL Urine Blood NEG (NEG) Urine Nitrite NEG (NEG) Ur Leukocyte Esterase NEG (NEG) COVID-19 (BRENT) Negative (Negative) COVID-19 Clin Com See Note 02/16/21 02/16/21 Range/Units 13:02 15:07 WBC (4.8-10.8) X10*3/uL RBC (4.20-5.50) X10*6/uL Hgb (12.0-16.0) g/dl Hct (37-47) % MCV (80-98) fL MCH (27.0-33.0) pg MCHC (31.0-35.0) g/dl RDW (11.0-16.0) % Plt Count (160-400) X10*3/uL MPV (9.4-12.3) fL Immature Gran % (Auto) (0.0-0.4) % Neut % (Auto) (45-73) % Lymph % (Auto) (20-40) % [place] % (Auto) (2-11) % Eos % (Auto) (0-4) % Baso % (Auto) (0-2) % Lymph # (Auto) (1.2-4.9) X10*3/uL [place] # (Auto) (0.1-1.2) X10*3/uL Eos # (Auto) (0.0-0.4) X10*3/uL Baso # (Auto) (0.0-0.2) X10*3/uL Abs Immat Gran (auto) (0.00-0.03) X10*3/uL Absolute Neuts (auto) (2.0-8.3) X10*3/uL Absolute Nucleated RBC (0.0-0.012) X10*3/uL Nucleated RBC % (auto) (0.0-0.2) /100WBC D-Dimer 519 NG/ML Sodium (135-145) mmol/L Potassium (3.3-5.1) mmol/L Chloride (96-108) mmol/L Carbon Dioxide (22-29) mmol/L Anion Gap (12-20) BUN (9-16) mg/dL Creatinine (0.5-1.4) mg/dL Estim Creat Clear Calc Estimated GFR POC Glucose (60-115) mg/dL Random Glucose (60-115) mg/dL Calcium (8.4-10.2) mg/dL Magnesium (1.6-2.6) mg/dL Total Bilirubin (0.0-1.0) mg/dL Direct Bilirubin (0.0-0.5) mg/dL AST (5-31) U/L ALT (0-31) U/L Alkaline Phosphatase (39-117) U/L Troponin I High Sens < 3.5 (<3.5-17.0) ng/L Total Protein (6.5-8.0) g/dL Albumin (3.5-5.0) g/dL Lipase (8-78) U/L Urine Color Urine Appearance Urine pH (5.0-8.0) Ur Specific [place] (1.005-1.025) Urine Protein (NEG-TRACE) MG/DL Urine Glucose (UA) (NEG) MG/DL Urine Ketones (NEG) MG/DL Urine Blood (NEG) Urine Nitrite (NEG) Ur Leukocyte Esterase (NEG) COVID-19 (BRENT) (Negative) COVID-19 Clin Com ECG Data Attestation: I personally reviewed and interpreted this ECG as follows: ECG interpretation date: 02/16/21 ECG interpretation time: 12:31 Interpretation: Rate: 66 Rhythm: NSR [place]: normal Normal P waves. Normal JENNIFER. incomplete RBBB ST T wave : inverted V1-V2, III no CAROLINE qTC: normal prior studies: no acute ischemia The study has been interpreted contemporaneously by me. . Discharge Plan Discharge Clinical Impression: Syncope Qualifiers: Syncope type: unspecified Qualified Code(s): R55 - Syncope and collapse Patient Disposition: Home, Self-Care Instructions: Syncope (ED), Syncope in Older Adults (ED) Additional Instructions: return to ED for any worsening symptoms or concerns negative EKG and heart markers x 2, negative workup for blood clot, CT of the brain negative, BP remained stable, Urine test negative Prescriptions: No Action prednisone 5 mg tablet 10 mg PO DAILY RF: 0 cyanocobalamin (vitamin B-12) 500 mcg Tablet 250 mcg PO DAILY RF: 0 pyridoxine (vitamin B6) 50 mg Tablet 50 mg PO DAILY RF: 0 Alphagan P 0.1 % drops 1 drp ophthalmic-Right BID RF: 0 bepotastine besilate [Bepreve] 1.5 % drops 1 drp ophthalmic (eye) BID RF: 0 Rocklatan 0.02-0.005 % drops 1 drp ophthalmic (eye) BEDTIME RF: 0 amlodipine 10 mg tablet 1 tab PO DAILY RF: 0 sertraline 50 mg tablet 25 mg PO BID RF: 0 multivitamin Tablet 1 tab PO DAILY RF: 0 acetaminophen 500 mg Tablet 1,000 mg PO BID RF: 0 cholecalciferol (vitamin D3) 10 mcg (400 unit) Tablet 10 mcg PO DAILY RF: 0 Ocuvite Adult 50 Plus 250-5-1 mg capsule 1 cap PO DAILY RF: 0 Referrals: Alexandro Rodriguez MD, DO [Primary Care Provider] - 2 days
[2021-02-16 12:26] LABS: MANUAL DIFF FLAG NO
[2021-02-16 12:29] LABS: Basophils Absolute Auto 0.1 X10*3/uL (0.0-0.2); Basophils Percent Auto 0.5 % (0-2); Eosinophils Absolute Auto 0.2 X10*3/uL (0.0-0.4); Eosinophils Percent Auto 1.6 % (0-4); Hematocrit 36.9 % (37-47); Hemoglobin 12.3 g/dl (12.0-16.0); Imm Gran Abs Auto 0.04 X10*3/uL (0.00-0.03); Imm Gran Pct Auto 0.4 % (0.0-0.4); Lymphocytes Absolute Auto 0.7 X10*3/uL (1.2-4.9); Lymphocytes Percent Auto 7.2 % (20-40); Mean Corpuscular HGB Conc 33.3 g/dl (31.0-35.0); Mean Corpuscular Hemoglobin 31.1 pg (27.0-33.0); Mean Corpuscular Volume 93.2 fL (80-98); Mean Platelet Volume 9.4 fL (9.4-12.3); Monocytes Percent Auto 10.6 % (2-11); Neutrophils Absolute Auto 7.8 X10*3/uL (2.0-8.3); Neutrophils Percent Auto 79.7 % (45-73); Platelet Count 325 X10*3/uL (160-400); Red Blood Count 3.96 X10*6/uL (4.20-5.50); Red Cell Distribution Width 13.8 % (11.0-16.0); White Blood Count 9.8 X10*3/uL (4.8-10.8)
[2021-02-16] MEDS: 0.9 % Sodium Chloride 500 ML IV (12:33)
[2021-02-16 12:40] VITALS: BP 147/66; PULSE 73; RESP 12; O2SAT 99
[2021-02-16 12:44] LABS: COVID-19 Test Negative (Negative)
[2021-02-16 12:51] LABS: Appearance Urine CLEAR; Color Urine YELLOW; Glucose Urine UA NEG (NEG); Leukocyte Esterase Urine NEG (NEG); Nitrite Urine NEG (NEG); Specific Gravity - Urine 1.015 (1.005-1.025); Urine Blood NEG (NEG); Urine Ketones NEG (NEG); Urine Protein NEG (NEG-TRACE)
[2021-02-16 12:57] LABS: Troponin-I High Sensitivity < 3.5 ng/L (<3.5-17.0)
[2021-02-16 12:58] LABS: Alanine Aminotransferase 30 U/L (0-31); Albumin Level 3.9 g/dL (3.5-5.0); Alkaline Phosphatase 79 U/L (39-117); Anion Gap 13 (12-20); Aspartate Amino Transferase 47 U/L (5-31); Bilirubin Direct < 0.2 mg/dL (0.0-0.5); Bilirubin Total 0.4 mg/dL (0.0-1.0); Blood Urea Nitrogen 15 mg/dL (9-16); Calcium 9.2 mg/dL (8.4-10.2); Carbon Dioxide 28 mmol/L (22-29); Chloride 101 mmol/L (96-108); Creatinine Clr Calc Pharmacy 39.9; Estimated Glomerular Filt Rate > 60; Glucose Random 154 mg/dL (60-115); Lipase 61 U/L (8-78); Magnesium 2.2 mg/dL (1.6-2.6); Potassium 4.2 mmol/L (3.3-5.1); Sodium 138 mmol/L (135-145); Total Protein 6.7 g/dL (6.5-8.0)
--- NOTE | 2021-02-16 13:09 | PHA.MEDREC ---
Pharmacy Consult ? Medication Reconciliation Pharmacy has completed the medication reconciliation. Patient takes Prednisone 10mg now (rx was for 5 mg), and splits her sertraline 50mg to 25mg BID in the am and pm. Thanks Amanda Lujan Pharm. D
[2021-02-16 13:18] LABS: D Dimer 519 NG/ML
[2021-02-16 13:41] VITALS: BP 146/63; PULSE 73
[2021-02-16 13:42] VITALS: BP 142/60; BP 147/61; PULSE 72; PULSE 78
[2021-02-16 15:32] LABS: Troponin-I High Sensitivity < 3.5 ng/L (<3.5-17.0)
[2021-02-16] MEDS: iohexoL 350 MG/ML 100 ML INFUS..BTL IV (15:45)
== END 2021-02-16 16:58 | disposition home or self-care (01) ==
PROVIDERS: Emergency Provider Emergency Medicine; PCP Internal Medicine
DX: R55 Syncope and collapse (principal); I10 Essential (primary) hypertension; G30.9 Alzheimer's disease, unspecified; F02.80 Dementia in other diseases classified elsewhere, unspecified severity, without behavioral disturbance, psychotic disturbance, mood disturbance, and anxiety
CPT/HCPCS: 36415; 70450; 71045; 71275; 73140; 80048; 80076; 81003; 82947; 83690; 83735; 84484; 85025; 85379; 87635; 93005; 96360; 99284; Q9967

== ENCOUNTER 2021-02-16 18:08 | Observation (INO) | payer MEDICARE, SELFPAY ==
--- NOTE | ~2021-02-16 | US_ITS ---
EXAMINATION: US EXTRACRANIAL CAROTID DUPLEX, BILATERAL CLINICAL INFORMATION: Syncope COMPARISON: None TECHNIQUE: Real-time ultrasound and Doppler techniques (integrating B-mode 2-D vascular images, Doppler spectral analysis and color-flow Doppler imaging) were utilized to interrogate the extracranial carotid arteries, the vertebral arteries and proximal subclavian arteries bilaterally. The degree of stenosis is determined by criteria similar to NASCET. FINDINGS: Right Side: 1. There is atherosclerotic plaque seen in the bifurcation/proximal ICA region. 2. The common carotid artery PSV proximally is 78.3 cm/s and distally 65.9 cm/s. 3. The proximal internal carotid artery velocities are 64.9 cm/s systolic and 9.8 cm/s diastolic. 4. The proximal external carotid artery PSV is 147 cm/s. 5. The vertebral artery shows antegrade flow. 6. The subclavian artery waveforms are normal. Left Side: 1. There is atherosclerotic plaque seen in the bifurcation/proximal ICA region. 2. The common carotid artery PSV proximally is 84.5 cm/s and distally 88.2 cm/s. 3. The proximal internal carotid artery velocities are 78.3 cm/s systolic and 18.0 cm/s diastolic. 4. The proximal external carotid artery PSV is 130 cm/s. 5. The vertebral artery shows antegrade flow. 6. The subclavian artery waveforms are normal. US/US carotid duplex BI IMPRESSION: 1. RIGHT: Minimal, non-hemodynamically significant stenosis of the proximal right internal carotid artery corresponding to a 0-49% stenosis by velocity criteria. 2. LEFT: Minimal, non-hemodynamically significant stenosis of the proximal left internal carotid artery corresponding to a 0-49% stenosis by velocity criteria.
[2021-02-16 18:13] VITALS: BP 152/77; BP 158/92; PULSE 61; PULSE 82; RESP 18; TEMP 36.1; O2SAT 97; O2SAT 98; BMI 19.5
--- NOTE | 2021-02-16 18:19 | ECG_ITS ---
Test Reason : SYNCOPE Blood Pressure : / mmHG Vent. Rate : 063 BPM Atrial Rate : 063 BPM P-R Int : 150 ms QRS Dur : 088 ms QT Int : 404 ms P-R-T Axes : -25 -34 018 degrees QTc Int : 413 ms Normal sinus rhythm Left axis deviation Abnormal ECG No significant changes seen Referred By: Althea Brennan Electronically Signed By:RUPERT MCNEIL MD
--- NOTE | 2021-02-16 18:20 | ED_ITS ---
HPI - Syncope General Chief Complaint: Syncope Stated Complaint: loc Time Seen by Provider: 02/16/21 18:16 Source: patient, EMS and old records reviewed Mode of arrival: EMS Limitations: no limitations History of Present Illness HPI narrative: just seen today for same had full negative workup went home and c/o while sitting 1 min LOC no seizure activity reported MD complaint: loss of consciousness Onset (ago): minute(s) Duration of episode: 1 -: minutes(s) Prodromal symptoms: other (not sure) Witnessed: Yes - by Bystander Context: at rest Injuries sustained associated with event: none Current symptoms: back to baseline History: previous syncopal episode Treatments prior to arrival: IV fluids Related Data Home Medications Medication Instructions Recorded Confirmed vit C,E,zinc,copper-emaut0q 250 1 cap PO DAILY 02/05/20 02/16/21 mg-lutein 5 mg-zeaxanthin 1 mg capsule (Ocuvite Adult 50 Plus) bepotastine besilate 1.5 % eye 1 drp OPHTHALMIC (EYE) BID 04/08/20 02/16/21 drops (Bepreve) brimonidine 0.1 % eye drops 1 drp OPHTHALMIC-RIGHT BID 04/08/20 02/16/21 (Alphagan P) cyanocobalamin (vitamin B-12) 500 250 mcg PO DAILY 04/08/20 02/16/21 mcg tablet acetaminophen 500 mg tablet 1,000 mg PO BID 02/16/21 02/16/21 amlodipine 10 mg tablet 1 tab PO DAILY 02/16/21 02/16/21 cholecalciferol (vitamin D3) 10 10 mcg PO DAILY 02/16/21 02/16/21 mcg (400 unit) tablet multivitamin 1 tab PO DAILY 02/16/21 02/16/21 prednisone 5 mg tablet 1 tab PO DAILY 02/16/21 02/16/21 sertraline 50 mg tablet 1 tab PO DAILY 02/16/21 02/16/21 Allergies Allergy/AdvReac Type Severity Reaction Status Date / Time cefadroxil [From [facility]] Allergy Unknown RASH Verified 07/08/20 21:09 cortisone Allergy Unknown RASH, Verified 07/08/20 21:09 REDDENED CHEST FROM CORTISONE INJECTIONS levofloxacin [From LEVAQUIN] Allergy Unknown TINNITIS Verified 07/08/20 21:09 penicillin V Allergy Unknown Unknown Verified 07/08/20 21:09 Sulfa (Sulfonamide Allergy Unknown UNKNOWN Verified 07/08/20 21:09 Antibiotics) sulfamethoxazole Allergy Unknown RASH Verified 07/08/20 21:09 [From BACTRIM] trimethoprim [From BACTRIM] Allergy Unknown RASH Verified 07/08/20 21:09 Review of Systems Review of Systems: Constitutional : No Weight loss, No Fever, No Chills, No Fatigue, No Malaise ENT/Mouth : No sore throat, No Rhinorrhea Eyes: No Eye Pain, No Swelling, No Redness Cardiovascular : No Chest Pain, No SOB, No Dyspnea on Exertion, No Orthopnea, No Edema, No Palpitations Respiratory : No Cough, No Sputum, No Wheezing Gastrointestinal : No Nausea, No Vomiting, No Diarrhea, No Constipation, No abdominal Pain, No Hematochezia, No Melena Genitourinary : No Dysuria, No Urinary Frequency, No Hematuria, Musculoskeletal : No joint pain, No Myalgias, No Joint Swelling Skin : No Skin Lesions, No rash Neuro : No Weakness, No Numbness, No Dizziness, No Headache, pos syncope, pos LOC Psych : No Anxiety/Panic, No Depression Heme/Lymph: No Bruising, No Bleeding,No Lymphadenopathy Endocrine : No Polyuria, No Polydipsia All other systems reviewed and are negative PMFSH Past Medical History Attestation statement: The following information was validated with the patient. Medical History Alzheimer's dementia Cerebral microvascular disease Elevated C-reactive protein Glaucoma HTN (hypertension) IBS (irritable bowel syndrome) Multifactorial dementia Osteoporosis PMR (polymyalgia rheumatica) Primary osteoarthritis of hands, bilateral UTI (urinary tract infection) Surgical History H/O cataract removal with insertion of prosthetic lens H/O: hysterectomy History of tonsillectomy History of wisdom tooth extraction Hx of appendectomy Social History Social History Household Members: Unknown / Unable to assess Household Members Other:: NIECE Housing: Unknown / Unable to assess Are you a primary human services care specialist to a significant other at home: No Do you presently have visiting nurse or other home services: No Unable to assess alcohol history related to: Unknown Alcohol intake: never Substance Use Type: Unknown Advance Directives: No Advance Directives Information Provided: Yes service: No Current occupational status: retired Physical Exam Vital Signs: Vital Signs: Last Vital Signs Temp 98.3 F 02/16/21 18:44 Pulse 66 02/16/21 18:44 Resp 14 02/16/21 18:44 BP 158/58 H 02/16/21 18:44 Pulse Ox 98 02/16/21 18:44 Body Mass Index 19.5 Appearance: Alert. Oriented X3. No acute distress. Eyes: Pupils equal, round and reactive to light. ENT: Pharynx normal. Neck: Normal inspection. Neck supple. CVS: Normal heart rate and rhythm. Pulses normal. Respiratory: No respiratory distress. Breath sounds normal. Abdomen: Soft and nontender. Skin: Skin warm and dry. Normal skin color. Normal skin turgor. Extremities: No lower extremity edema. No calf ttp Neuro: Oriented X 3. No motor deficit. No sensory deficit. MDM - Syncope MDM Narrative Medical decision making narrative: 81 yo female with hx of dementia, PMR seen earlier for syncope - had negative EKG, troponin x 2, CTA for PE, CT head, neg ortho VS - came back after another episode with LOC x 1 minute while sitting. Undifferentiated syncope - will admit overnight for tele ECG Data Attestation: I personally reviewed and interpreted this ECG as follows: ECG interpretation date: 02/16/21 ECG interpretation time: 18:47 Interpretation: Rate: 63 Rhythm: NSR [place]: normal Normal P waves. Normal JENNIFER. Normal QRS complex. ST T wave : no CAROLINE or T wave inversions No acute ischemia qTC: normal prior studies: no acute changes. The study has been interpreted contemporaneously by me. . Discharge Plan Discharge Clinical Impression: Syncope Qualifiers: Syncope type: unspecified Qualified Code(s): R55 - Syncope and collapse Patient Disposition: Admitted As Inpatient
[2021-02-16 18:44] VITALS: BP 158/58; PULSE 66; RESP 14; TEMP 36.8; O2SAT 98
[2021-02-16 19:56] VITALS: BP 161/63; PULSE 87; RESP 16; TEMP 36.8; O2SAT 97
--- NOTE | 2021-02-16 21:35 | PM.IMHP ---
History of Present Illness Date of Service: 02/16/21 Chief Complaint: syncope Year old female with past medical history of Alzheimer's dementia, glaucoma, osteoporosis, PMR, who presents to the hospital after experiencing 2 syncopal last episodes. Patient initially presented to the hospital earlier in the day after experiencing a syncope around 10:00 a.m.. Patient had complete workup in the ED which was negative and sent home. As soon as she gets home she experiences a 2nd episode of syncope and returns to the hospital. Patient reports that just prior to the syncopal episodes she feels sick , loses her vision, and syncopized is. She denies experiencing any palpitations, lightheadedness, chest pain, nausea or vomiting and no headache. This 2nd episode was witnessed by her daughter who is at bedside and daughter reports that when she came about she mention to her that she was nauseous and wanted to throw up. Patient otherwise denies any abdominal pain nausea or vomiting, no diarrhea constipation, no urinary symptoms, no numbness tingling or weakness. No urinary symptoms. Vital signs on arrival to the ED Unremarkable Labs done on initial presentation showed no significant abnormality. No evidence of infection, UA is negative. Patient chest CT angiogram shows no pulmonary embolism or thoracic aortic dissection, negative for any infection in the lungs, head CT shows no acute intracranial pathology Patient will be admitted for further evaluation Review of Systems Review of Systems: Yes all other systems are reviewed and are negative [facility] Medical History Alzheimer's dementia Cerebral microvascular disease Elevated C-reactive protein Glaucoma HTN (hypertension) IBS (irritable bowel syndrome) Multifactorial dementia Osteoporosis PMR (polymyalgia rheumatica) Primary osteoarthritis of hands, bilateral UTI (urinary tract infection) Pertinent family history: Denies any pertinent history Surgical History H/O cataract removal with insertion of prosthetic lens H/O: hysterectomy History of tonsillectomy History of wisdom tooth extraction Hx of appendectomy Social History Household Members: Unknown / Unable to assess Household Members Other:: NIECE Housing: Unknown / Unable to assess Are you a primary care transitions manager to a significant other at home: No Do you presently have visiting nurse or other home services: No Unable to assess alcohol history related to: Unknown Alcohol intake: former Patient Tobacco Use Status: Former Tobacco user Use of substances other than those prescribed or required for medical reasons: No Substance Use Type: Unknown Advance Directives: No Advance Directives Information Provided: Yes service: No Current occupational status: retired Meds Allergies Allergy/AdvReac Type Severity Reaction Status Date / Time cefadroxil [From DURICEF] Allergy Unknown RASH Verified 07/08/20 21:09 cortisone Allergy Unknown RASH, Verified 07/08/20 21:09 REDDENED CHEST FROM CORTISONE INJECTIONS levofloxacin [From LEVAQUIN] Allergy Unknown TINNITIS Verified 07/08/20 21:09 penicillin V Allergy Unknown Unknown Verified 07/08/20 21:09 Sulfa (Sulfonamide Allergy Unknown UNKNOWN Verified 07/08/20 21:09 Antibiotics) sulfamethoxazole Allergy Unknown RASH Verified 07/08/20 21:09 [From BACTRIM] trimethoprim [From BACTRIM] Allergy Unknown RASH Verified 07/08/20 21:09 Active Medications: Current Medications Pharmacy Consult (Consult Rx Perform Med Rec) 1 each MISCELLANE ONCE PRN PRN Reason: Consult order Home Medications Medication Instructions Recorded Confirmed Last Taken Type vit C,E,zinc,copper-[id number] 250 1 cap PO DAILY 02/05/20 02/16/21 Unknown History mg-lutein 5 mg-zeaxanthin 1 mg capsule (Ocuvite Adult 50 Plus) bepotastine besilate 1.5 % eye 1 drp OPHTHALMIC (EYE) BID 04/08/20 02/16/21 02/16/21 History drops (Bepreve) brimonidine 0.1 % eye drops 1 drp OPHTHALMIC-RIGHT BID 04/08/20 02/16/21 02/16/21 History (Alphagan P) cyanocobalamin (vitamin B-12) 500 250 mcg PO DAILY 04/08/20 02/16/21 02/16/21 History mcg tablet acetaminophen 500 mg tablet 1,000 mg PO BID 02/16/21 02/16/21 02/16/21 History amlodipine 10 mg tablet 1 tab PO DAILY 02/16/21 02/16/21 02/16/21 History cholecalciferol (vitamin D3) 10 10 mcg PO DAILY 02/16/21 02/16/21 02/16/21 History mcg (400 unit) tablet multivitamin 1 tab PO DAILY 02/16/21 02/16/21 02/16/21 History prednisone 5 mg tablet 1 tab PO DAILY 02/16/21 02/16/21 Unknown History sertraline 50 mg tablet 1 tab PO DAILY 02/16/21 02/16/21 Unknown History Physical Exam Vital Signs and Narrative: Vital Signs: Last Vital Signs Temp 98.3 F 02/16/21 19:56 Pulse 87 02/16/21 19:56 Resp 16 02/16/21 19:56 BP 161/63 H 02/16/21 19:56 Pulse Ox 97 02/16/21 19:56 Body Mass Index 19.5 Const: General: cooperative and no acute distress Orientation/consciousness: patient oriented x3 Eyes: General: appearance normal, both eyes and all related structures Pupils: Equal, round and reactive pupils present Resp: Effort & Inspection: normal respiratory effort Auscultation: clear to auscultation bilaterally Cardio: Rate: regular rate Rhythm: regular rhythm GI: Palpation (GI): Soft to palpation Auscultation: normal bowel sounds Skin: General skin exam: no rashes or lesions noted Neuro: General: patient oriented x3 Cranial nerves: Yes Equal, round and reactive pupils present Cognition (Neuro): normal cognition Extrem: General: Yes normal to inspection and Yes no pedal edema Assessment and Plan (1) Syncope: Qualifiers: Syncope type: unspecified Qualified Code(s): R55 - Syncope and collapse Status: Acute 81-year-old female with past medical history of glaucoma and hypertension presents the hospital syncopal episodes # syncopal - cardiogenic versus neurogenic less likely - orthostatic vitals negative, has CT negative, no evidence of any other abnormality or infection on labs or imaging - at this time will admit to telemetry - will obtain echocardiogram # hypertension - stable - continue amlodipine # glaucoma - continue home eye drops # PMR - continue chronic prednisone DVT prophylaxis:lovenox Quality Stroke Does the patient have a stroke diagnosis?: No VTE Prior VTE?: No VTE Risk Level:: Medical - moderate - high VTE Device Contraindication: Treatment Not Indicated VTE Drug Contraindication: N/A - Med Ordered
[2021-02-16] MEDS: Acetaminophen 325 MG TABLET 650 MG PO (22:27)
[2021-02-16 22:41] VITALS: BP 133/60; PULSE 79; RESP 18; TEMP 36.6; O2SAT 96
[2021-02-16] MEDS: Enoxaparin Sodium 40 MG/0.4 ML SYRINGE SUBCUT (22:42)
[2021-02-16 23:11] VITALS: O2SAT 97
--- NOTE | 2021-02-16 23:24 | PC.NURSE ---
This RN assumed care of pt at 2300. This RN to bedside, found pt standing beside stretcher disconnected from bedside monitor. Pt aaox4 with directed communication but in conversation does appear mildly forgetful. Pt reports L thumb pain stating I fell earlier today and hit this on something. Pt denies all other complaints, including denies CP, dizziness, SOB, abd pain, n/v/d at this time. Pt encouraged to return to bed, side rails raised, call butcher within reach. Pt able to do teachback for call butcher use and importance of not getting out of bed without staff assistance. Pt reconnected to bedside monitor, is NSR with VSS on RA. Pt with red fall prevention socks on, red fall alert bracelet on. Pt stretcher in lowest locked position.
[2021-02-17] VITALS (8 sets, daily range): BP systolic 123–153; BP diastolic 52–68; PULSE 70–118; RESP 11–19; TEMP 35.9–37.3; O2SAT 95–99
--- NOTE | 2021-02-17 00:09 | PC.NURSE ---
Pt resting with eyes closed on stretcher, RR even and unlabored on RA with equal chest rise and fall bilaterally. Pt remains NSR on riprap man. Stretcher in lowest locked position, rails raised, call butcher within reach.
--- NOTE | 2021-02-17 02:10 | PC.NURSE ---
patient was assisted to bathroom by this pct .
[2021-02-17 07:55] LABS: MANUAL DIFF FLAG NO
[2021-02-17 07:59] LABS: Basophils Absolute Auto 0.1 X10*3/uL (0.0-0.2); Basophils Percent Auto 1.1 % (0-2); Eosinophils Absolute Auto 0.2 X10*3/uL (0.0-0.4); Eosinophils Percent Auto 2.9 % (0-4); Hematocrit 40.8 % (37-47); Hemoglobin 13.6 g/dl (12.0-16.0); Imm Gran Abs Auto 0.03 X10*3/uL (0.00-0.03); Imm Gran Pct Auto 0.5 % (0.0-0.4); Lymphocytes Absolute Auto 0.8 X10*3/uL (1.2-4.9); Lymphocytes Percent Auto 12.5 % (20-40); Mean Corpuscular HGB Conc 33.3 g/dl (31.0-35.0); Mean Corpuscular Hemoglobin 30.8 pg (27.0-33.0); Mean Corpuscular Volume 92.5 fL (80-98); Mean Platelet Volume 9.3 fL (9.4-12.3); Monocytes Absolute Auto 0.7 X10*3/uL (0.1-1.2); Monocytes Percent Auto 10.7 % (2-11); Neutrophils Absolute Auto 4.8 X10*3/uL (2.0-8.3); Neutrophils Percent Auto 72.3 % (45-73); Platelet Count 371 X10*3/uL (160-400); Red Blood Count 4.41 X10*6/uL (4.20-5.50); Red Cell Distribution Width 14.1 % (11.0-16.0); White Blood Count 6.6 X10*3/uL (4.8-10.8)
[2021-02-17 08:12] LABS: Anion Gap 12 (12-20); Blood Urea Nitrogen 9 mg/dL (9-16); Calcium 9.4 mg/dL (8.4-10.2); Carbon Dioxide 30 mmol/L (22-29); Chloride 105 mmol/L (96-108); Creatinine Clr Calc Pharmacy 44.3; Estimated Glomerular Filt Rate > 60; Glucose Random 102 mg/dL (60-115); Potassium 3.9 mmol/L (3.3-5.1); Sodium 143 mmol/L (135-145)
[2021-02-17] MEDS: Cholecalciferol (Vitamin D3) 10 MCG TABLET PO (09:50)
[2021-02-17] MEDS: Multivitamin TABLET 1 TAB PO ×2 (09:50→10:00)
[2021-02-17] MEDS: predniSONE 5 MG TABLET PO (09:50)
[2021-02-17] MEDS: Sertraline HCL 50 MG TABLET PO (09:50)
[2021-02-17] MEDS: amLODIPine Besylate 10 MG TABLET PO (09:51)
[2021-02-17] MEDS: Cyanocobalamin (Vitamin B-12) 500 MCG TABLET 250 MCG PO (09:52)
[2021-02-17] MEDS: 0.9 % Sodium Chloride Flush 3 ML SYRINGE IVFLUSH ×3 (09:56→19:42)
--- NOTE | 2021-02-17 13:24 | HO.PM.IMPN ---
Subjective Subjective Date of Service: 02/17/21 Interval History: No acute issues overnight. Remains hemodynamically stable Review of Systems Denies chest pain Denies shortness of breath Denies nausea vomiting diarrhea Physical Exam Vital Signs: Vital Signs: Last Vital Signs Temp 97.4 F 02/17/21 11:21 Pulse 74 02/17/21 11:21 Resp 18 02/17/21 11:21 BP 148/64 H 02/17/21 11:21 Pulse Ox 98 02/17/21 11:21 Body Mass Index 20.0 Const: Other: No acute distress HENMT: Other: Membranes moist oropharynx clear Resp: Other: Clear to auscultation bilaterally no rales rhonchi wheezes Cardio: Other: No S4 positive S1-S2 no S3 without murmurs of gallops GI: Other: Soft nontender nondistended with normal abdominal ascites. No peritoneal signs Neuro: Other: Cranial nerves 2-12 grossly intact as tested. Motor 5/5 all extremities. Sensation intact cognition normal Extrem: Other: No edema bilateral Objective Data Active Medications Acetaminophen (Acetaminophen 325 Mg Tablet) 650 mg PO Q6H PRN PRN Reason: Pain, Mild (Pain Scale 1-3) Last Admin: 02/16/21 22:27 Dose: 650 mg Documented by: JAKE Amlodipine Besylate (Amlodipine Besylate 10 Mg Tablet) 10 mg PO DAILY [facility]; Protocol Last Admin: 02/17/21 09:51 Dose: 10 mg Documented by: MAHESH Cyanocobalamin (Cyanocobalamin (Vitamin B-12) 500 Mcg Tablet) 250 mcg PO DAILY [facility] Last Admin: 02/17/21 09:52 Dose: 250 mcg Documented by: MAHESH Docusate Sodium (Docusate Sodium 100 Mg Capsule) 100 mg PO DAILY PRN PRN Reason: Constipation Enoxaparin Sodium (Enoxaparin Sodium 40 Mg/0.4 Ml Syringe) 40 mg SUBCUT Q24H [facility] Last Admin: 02/16/21 22:42 Dose: 40 mg Documented by: JAKE Multivitamins/Vitamin C (Multivitamin Tablet) 1 tab PO DAILY [facility] Last Admin: 02/17/21 09:50 Dose: 1 tab Documented by: MAHESH Multivitamins/Vitamin C (Multivitamin Tablet) 1 tab PO DAILY [facility] Last Admin: 02/17/21 10:00 Dose: 1 tab Documented by: MAHESH Non-Formulary Medication (Bepotastine Besilate [Bepreve]) 1 drop EYE-BOTH BID [facility] Non-Formulary Medication (Brimonidine [Alphagan P]) 1 drop EYE-RIGHT BID [facility] Ondansetron HCl (Ondansetron Hcl 4 Mg/2 Ml Vial) 4 mg IVPUSH Q8H PRN PRN Reason: Nausea and Vomiting Pharmacy Consult (Consult Rx Perform Med Rec) 1 each MISCELLANE ONCE PRN PRN Reason: Consult order Prednisone (Prednisone 5 Mg Tablet) 5 mg PO DAILY [facility] Last Admin: 02/17/21 09:50 Dose: 5 mg Documented by: MAHESH Sertraline HCl (Sertraline Hcl 50 Mg Tablet) 50 mg PO DAILY [facility] Last Admin: 02/17/21 09:50 Dose: 50 mg Documented by: MAHESH Sodium Chloride (0.9 % Sodium Chloride Flush 3 Ml Syringe) 3 ml IVFLUSH QSHIFT [facility] Last Admin: 02/17/21 09:56 Dose: 3 ml Documented by: MAHESH Vitamin D (Cholecalciferol (Vitamin D3) 10 Mcg Tablet) 10 mcg PO DAILY [facility] Last Admin: 02/17/21 09:50 Dose: 10 mcg Documented by: MAHESH Labs CBC & Chem 7: 02/17/21 07:48 02/17/21 07:48 Labs: Laboratory Results - last 24 hr 02/17/21 02/17/21 07:48 07:48 MCV 92.5 MCH 30.8 MCHC 33.3 RDW 14.1 Plt Count 371 MPV 9.3 L Immature Gran % (Auto) 0.5 H Neut % (Auto) 72.3 Lymph % (Auto) 12.5 L [place] % (Auto) 10.7 Eos % (Auto) 2.9 Baso % (Auto) 1.1 Lymph # (Auto) 0.8 L [place] # (Auto) 0.7 Eos # (Auto) 0.2 Baso # (Auto) 0.1 Abs Immat Gran (auto) 0.03 Absolute Neuts (auto) 4.8 Absolute Nucleated RBC 0.000 Nucleated RBC % (auto) 0.0 Anion Gap 12 Estim Creat Clear Calc 44.3 Estimated GFR > 60 Random Glucose 102 Calcium 9.4 Assessment and Plan (1) Syncope: Status: Acute (2) care home systemic steroid user: Status: Acute Assessment and Plan: 81 Year old female with past medical history of Alzheimer's dementia, glaucoma, osteoporosis, PMR, who presents to the hospital after experiencing 2 syncopal last episodes.? Patient initially presented to the hospital earlier in the day after experiencing a syncope around 10:00 a.m..? Patient had complete workup in the ED which was negative and sent home.? As soon as she gets home she experiences a 2nd episode of syncope and returns to the hospital.? Patient reports that just prior to the syncopal episodes she feels sick , loses her vision, and syncopized is.? She denies experiencing any palpitations, lightheadedness, chest pain, nausea or vomiting and no headache.? This 2nd episode was witnessed by her daughter who is at bedside and daughter reports that when she came about she mention to her that she was nauseous and wanted to throw up. Patient otherwise denies any abdominal pain nausea or vomiting, no diarrhea constipation, no urinary symptoms, no numbness tingling or weakness.? No urinary symptoms. The ER workup including CT the head and CT of the chest failed to demonstrate acute pathology 1.Syncopal Monitor remains normal sinus rhythm. No further episodes since admission. Initially described focus of been a vagal episode however inconclusive by history. Continue to monitor on telemetry; check echo/carotids. Cardiology consult 2.Hypertension Well controlled. Orthostatics negative thus far. Continue current therapies and follow orthostatic vital signs 3.Glaucoma Continue home eye drops 4.PMR Continue chronic prednisone DVT prophylaxis:lovenox Quality Stroke Does the patient have a stroke diagnosis?: No VTE Prior VTE?: No VTE Risk Level:: Medical - moderate - high VTE Device Contraindication: Treatment Not Indicated VTE Drug Contraindication: N/A - Med Ordered
--- NOTE | 2021-02-17 16:27 | MHC.CM.PN ---
PT REPORTS SHE LIVES AT HOME WITH HER TWO NIECES. PT REPORTS ONE NIECE HAS CP HOWEVER HER OTHER NIECE, MARTIN, ASSISTS NEEDED INCLUDING TRANSPORTING AND IS THE PTS HCP. PT DENIES USE OF DME OR HAVING HOME SERVICES. PT REPORTS HER PCP IS ARTEMIO WARE CURRENT DC PLAN IS HOME WITH NO SERVICES NIECE TO TRANSPORT
[2021-02-17] MEDS: Acetaminophen 325 MG TABLET 650 MG PO (19:41)
--- NOTE | 2021-02-17 22:30 | CA_ITS ---
Transthoracic Echocardiogram Patient (Last, First, Middle): Adela Godoy, Gender: Female Date of : 1940 Age: 81 Procedure Date: 02/17/2021 Procedure Type: Transthoracic Echocardiogram Location: [facility] [place] Height: 160.02 cm Weight: 49.9 kg BSA: 1.50 m2 Heart Rate: bpm BP: 133 / 58 mmHg Manifest Clerk: DSG Referring MD: Usman Buck MD Symptoms: syncope Study Quality: Fair ECG Rhythm: Sinus Conclusions: - The left ventricular systolic function is normal. The visually estimated ejection fraction is between 65-70%. - No obvious valvular pathology seen on this study. Findings Left Ventricle Normal left ventricular cavity size. There is normal left ventricular wall thickness. The left ventricular systolic function is normal. The visually estimated ejection fraction is between 65-70%. There is no evidence of regional wall motion abnormalities. E/E prime ratio is >15, consistent with elevated filling pressures. Evidence suggests grade I (mild) diastolic dysfunction. LV peak GLS -18.4% Right Ventricle Normal right ventricular cavity size and systolic function. Atria Both atria are normal in size. Aortic Valve There is a normal trileaflet aortic valve. There is mild calcification of the aortic valve. There is no aortic valve stenosis. There is trace (trivial) aortic valve regurgitation. Mitral Valve The mitral valve appears normal. There is no mitral valve regurgitation. There is no mitral valve stenosis. Pulmonic Valve The pulmonic valve was not well visualized. Tricuspid Valve Normal tricuspid valve structure. There is trace tricuspid valve regurgitation. The pulmonary artery systolic pressure is normal. Great Vessels The aortic annulus, sinuses of valsalva, and asc aorta are normal in size. Venous The inferior vena cava is normal in size and collapses greater than 50% with inspiration. Pericardium/Pleural There is a trivial pericardial effusion. Prior Study Comparison No significant change compared to prior study dated: 04/19/2005. Recommendations, Care & Conclusions No obvious valvular pathology seen on this study. Measurements M-Mode Liner Measurements Normals - Women/Men LVIDd: 3.49 3.9-5.3/4.2-5.9 cm LVIDd Index: 2.33 1.9-3.2 cm/m2 LVIDs: 2.20 2.0-3.8 cm M-Mode Volumes LV EDV: 50.50 LV ESV: 16.20 2D Linear Measurements IVSd: 0.84 0.6-0.9/0.6-1.0 cm LVIDd: 3.67 3.9-5.3/4.2-5.9 cm LVIDd Index: 2.45 2.4-3.2/2.2-3.1 cm/m2 LVIDs: 2.22 2.0-3.6 cm LVPWd: 1.02 0.7-1.1 cm Ao Root: 2.20 2.1-3.5 cm LA Diam: 2.40 2.7-3.8/3.0-4.0 cm LAIDs Index: 1.60 1.5-2.3 cm/m2 LV Mass: 124.56 67-162/88-224 g LV Mass Index: 83.04 43-95/49-115 g/m2 LVOT Diam: 1.80 3.0+(-)1.3 cm 2D Systolic Function EF 4C: 56.80 >55% EF 2C: 66.00 >55% EF BiP: 63.70 >55% M-Mode Systolic Function FS: 37.00 27-47/25-43% LVEF: 67.90 >55% Mitral Valve MV Pk E: 0.80 MV PK A: 0.94 MV Decel Time: 221.00 E/A: 0.90 E'Lateral: 5.55 E'Medial: 4.79 E/E' Med: 16.60 E/E' Lat: 14.30 PHT: 65.00 MVA PHT: 3.38 Decel Osborne: 3.60 Aortic Valve AoV Pk Gaurav: 1.03 AoV Pk Grad: 4.00 LVOT LVOT Pk Gaurav: 0.96 LVOT Mn Gaurav: 0.68 LVOT VTI: 0.22 LVOT Pk Grad: 4.00 LVOT Mn Grad: 2.00 LVOT Diam: 1.80 LVOT Area: 2.54 Diastolic Function MV Pk E: 0.80 MV Pk A: 0.94 E/A: 0.90 E'Medial: 4.79 E/E' Med: 16.60 E' Laterial: 5.55 E/E' Lat: 14.30 Right Ventricle TAPSE (mm): 1.96 Tricuspid Valve TR Pk Gaurav: 2.24 TR Pk Grad: 20.00 RA Press: 3.00 RVSP: 23.00 Great Vessels Aorta Ao Root-2D: 2.20 2.0-3.7 cm Ao Asc: 2.70 2.1-3.4 cm Updated in Other Vendor System with Status of Final Facundo Morel MD electronically signed on 02/17/2021 11:49:50 AM with status of Final
[2021-02-18] MEDS: Enoxaparin Sodium 40 MG/0.4 ML SYRINGE SUBCUT (00:17)
[2021-02-18 03:47] VITALS: BP 145/76; PULSE 77; RESP 18; TEMP 36.5; O2SAT 95
[2021-02-18 06:10] LABS: MANUAL DIFF FLAG NO
[2021-02-18 06:18] LABS: Basophils Absolute Auto 0.1 X10*3/uL (0.0-0.2); Eosinophils Absolute Auto 0.3 X10*3/uL (0.0-0.4); Eosinophils Percent Auto 4.6 % (0-4); Hemoglobin 12.5 g/dl (12.0-16.0); Imm Gran Abs Auto 0.02 X10*3/uL (0.00-0.03); Imm Gran Pct Auto 0.3 % (0.0-0.4); Lymphocytes Absolute Auto 0.6 X10*3/uL (1.2-4.9); Lymphocytes Percent Auto 9.2 % (20-40); Mean Corpuscular HGB Conc 32.9 g/dl (31.0-35.0); Mean Corpuscular Hemoglobin 30.3 pg (27.0-33.0); Mean Platelet Volume 9.5 fL (9.4-12.3); Monocytes Absolute Auto 0.9 X10*3/uL (0.1-1.2); Neutrophils Absolute Auto 4.3 X10*3/uL (2.0-8.3); Neutrophils Percent Auto 70.9 % (45-73); Platelet Count 323 X10*3/uL (160-400); Red Blood Count 4.13 X10*6/uL (4.20-5.50); Red Cell Distribution Width 13.8 % (11.0-16.0); White Blood Count 6.1 X10*3/uL (4.8-10.8)
[2021-02-18 06:39] LABS: Alanine Aminotransferase 21 U/L (0-31); Albumin Level 3.6 g/dL (3.5-5.0); Alkaline Phosphatase 76 U/L (39-117); Anion Gap 10 (12-20); Aspartate Amino Transferase 21 U/L (5-31); Bilirubin Total 0.3 mg/dL (0.0-1.0); Blood Urea Nitrogen 12 mg/dL (9-16); Calcium 8.7 mg/dL (8.4-10.2); Carbon Dioxide 30 mmol/L (22-29); Chloride 104 mmol/L (96-108); Creatinine Clr Calc Pharmacy 48.8; Estimated Glomerular Filt Rate > 60; Glucose Random 104 mg/dL (60-115); Potassium 3.4 mmol/L (3.3-5.1); Sodium 141 mmol/L (135-145); Total Protein 5.7 g/dL (6.5-8.0)
[2021-02-18 08:00] VITALS: BP 165/82; PULSE 75; RESP 18; TEMP 36.8; O2SAT 95
[2021-02-18 08:23] VITALS: BP 165/82; PULSE 75
[2021-02-18] MEDS: Cyanocobalamin (Vitamin B-12) 500 MCG TABLET 250 MCG PO (08:23)
[2021-02-18] MEDS: amLODIPine Besylate 10 MG TABLET PO (08:23)
[2021-02-18] MEDS: Multivitamin TABLET 1 TAB PO (08:23)
[2021-02-18] MEDS: Cholecalciferol (Vitamin D3) 10 MCG TABLET PO (08:23)
[2021-02-18] MEDS: predniSONE 5 MG TABLET PO (08:23)
[2021-02-18] MEDS: 0.9 % Sodium Chloride Flush 3 ML SYRINGE IVFLUSH (08:24)
[2021-02-18] MEDS: Sertraline HCL 50 MG TABLET PO (08:24)
[2021-02-18] MEDS: Acetaminophen 325 MG TABLET 650 MG PO (08:28)
--- NOTE | 2021-02-18 10:56 | PM.CNCAR ---
History of Present Illness History of Present Illness Date of Service: 02/18/21 Chief complaint: Syncope Narrative: This is a cardiology consultation regarding syncopal episodes. She has a history of Alzheimer's dementia, glaucoma, multiple medical comorbidities. It seems that she initially was seen in the ER for an episode of syncope. She had negative workup in the ER and was sent home. However when she went home she again had a 2nd episode and brought back in hospitalized. She cannot recall anything right now but based on the information available, it seems that she does feel sick, loses vision and syncopized as. The 2nd episode was apparently witnessed by daughter and daughter reported that she was nauseous and wanted to throw up. Otherwise, no known cardiac history. She also denies any palpitations or angina or shortness of breath or in fact anything else from cardiac standpoint at this time. Review of Systems Review of Systems: Yes all other systems are reviewed and are negative Cardiovascular: Cardiovascular: Reports as per HPI, Reports no additional cardiovascular complaints, Denies acrocyanosis, Denies cool extremities, Denies painful fingertips, Denies chest pain, Denies chest pain at rest, Denies diaphoresis, Reports syncope, Denies irregular heart rhythm, Denies claudication, Denies leg edema, Denies lightheadedness, Denies palpitations and Denies dyspnea Respiratory: Respiratory: Denies dyspnea Neurologic: Reports syncope Endocrine: Endocrine: Denies palpitations PMFSH Past Medical History Medical History Alzheimer's dementia Cerebral microvascular disease Elevated C-reactive protein Glaucoma HTN (hypertension) IBS (irritable bowel syndrome) Multifactorial dementia Osteoporosis PMR (polymyalgia rheumatica) Primary osteoarthritis of hands, bilateral UTI (urinary tract infection) Surgical History Surgical History H/O cataract removal with insertion of prosthetic lens H/O: hysterectomy History of tonsillectomy History of wisdom tooth extraction Hx of appendectomy Social History Social History Household Members: Unknown / Unable to assess Household Members Other:: NIECE Both parents involved: No Housing: Unknown / Unable to assess Are you a primary day care assistant to a significant other at home: No Do you presently have visiting nurse or other home services: No Unable to assess alcohol history related to: Unknown Alcohol intake: former Patient Tobacco Use Status: Former Tobacco user Substance Use Type: Unknown service: No Current occupational status: retired Meds Allergies Allergy/AdvReac Type Severity Reaction Status Date / Time cefadroxil [From DURICEF] Allergy Unknown RASH Verified 07/08/20 21:09 cortisone Allergy Unknown RASH, Verified 07/08/20 21:09 REDDENED CHEST FROM CORTISONE INJECTIONS levofloxacin [From LEVAQUIN] Allergy Unknown TINNITIS Verified 07/08/20 21:09 penicillin V Allergy Unknown Unknown Verified 07/08/20 21:09 Sulfa (Sulfonamide Allergy Unknown UNKNOWN Verified 07/08/20 21:09 Antibiotics) sulfamethoxazole Allergy Unknown RASH Verified 07/08/20 21:09 [From BACTRIM] trimethoprim [From BACTRIM] Allergy Unknown RASH Verified 07/08/20 21:09 Active Medications: Current Medications Acetaminophen (Acetaminophen 325 Mg Tablet) 650 mg PO Q6H PRN PRN Reason: Pain, Mild (Pain Scale 1-3) Last Admin: 02/18/21 08:28 Dose: 650 mg Documented by: Amlodipine Besylate (Amlodipine Besylate 10 Mg Tablet) 10 mg PO DAILY [facility]; Protocol Last Admin: 02/18/21 08:23 Dose: 10 mg Documented by: Cyanocobalamin (Cyanocobalamin (Vitamin B-12) 500 Mcg Tablet) 250 mcg PO DAILY [facility] Last Admin: 02/18/21 08:23 Dose: 250 mcg Documented by: Docusate Sodium (Docusate Sodium 100 Mg Capsule) 100 mg PO DAILY PRN PRN Reason: Constipation Enoxaparin Sodium (Enoxaparin Sodium 40 Mg/0.4 Ml Syringe) 40 mg SUBCUT Q24H [facility] Last Admin: 02/18/21 00:17 Dose: 40 mg Documented by: Multivitamins/Vitamin C (Multivitamin Tablet) 1 tab PO DAILY [facility] Last Admin: 02/18/21 08:23 Dose: 1 tab Documented by: Multivitamins/Vitamin C (Multivitamin Tablet) 1 tab PO DAILY [facility] Last Admin: 02/18/21 08:23 Dose: Not Given Documented by: Non-Formulary Medication (Bepotastine Besilate [Bepreve]) 1 drop EYE-BOTH BID [facility] Non-Formulary Medication (Brimonidine [Alphagan P]) 1 drop EYE-RIGHT BID [facility] Ondansetron HCl (Ondansetron Hcl 4 Mg/2 Ml Vial) 4 mg IVPUSH Q8H PRN PRN Reason: Nausea and Vomiting Pharmacy Consult (Consult Rx Perform Med Rec) 1 each MISCELLANE ONCE PRN PRN Reason: Consult order Prednisone (Prednisone 5 Mg Tablet) 5 mg PO DAILY [facility] Last Admin: 02/18/21 08:23 Dose: 5 mg Documented by: Sertraline HCl (Sertraline Hcl 50 Mg Tablet) 50 mg PO DAILY [facility] Last Admin: 02/18/21 08:24 Dose: 50 mg Documented by: Sodium Chloride (0.9 % Sodium Chloride Flush 3 Ml Syringe) 3 ml IVFLUSH QSHIFT [facility] Last Admin: 02/18/21 08:24 Dose: 3 ml Documented by: Vitamin D (Cholecalciferol (Vitamin D3) 10 Mcg Tablet) 10 mcg PO DAILY [facility] Last Admin: 02/18/21 08:23 Dose: 10 mcg Documented by: Home Medications Medication Instructions Recorded Confirmed Last Taken Type vit C,E,zinc,copper-ogqpa7s 250 1 cap PO DAILY 02/05/20 02/16/21 Unknown History mg-lutein 5 mg-zeaxanthin 1 mg capsule (Ocuvite Adult 50 Plus) bepotastine besilate 1.5 % eye 1 drp OPHTHALMIC (EYE) BID 04/08/20 02/16/21 02/16/21 History drops (Bepreve) brimonidine 0.1 % eye drops 1 drp OPHTHALMIC-RIGHT BID 04/08/20 02/16/21 02/16/21 History (Alphagan P) cyanocobalamin (vitamin B-12) 500 250 mcg PO DAILY 04/08/20 02/16/21 02/16/21 History mcg tablet acetaminophen 500 mg tablet 1,000 mg PO BID 02/16/21 02/16/21 02/16/21 History amlodipine 10 mg tablet 1 tab PO DAILY 02/16/21 02/16/21 02/16/21 History cholecalciferol (vitamin D3) 10 10 mcg PO DAILY 02/16/21 02/16/21 02/16/21 History mcg (400 unit) tablet multivitamin 1 tab PO DAILY 02/16/21 02/16/21 02/16/21 History prednisone 5 mg tablet 10 mg PO DAILY 02/16/21 02/17/21 Unknown History sertraline 50 mg tablet 25 mg PO BID 02/16/21 02/17/21 Unknown History netarsudil 0.02 %-latanoprost 1 drp OPHTHALMIC (EYE) BEDTIME 02/17/21 02/17/21 Unknown History 0.005 % eye drops (Rocklatan) Physical Exam Vital Signs: Vital Signs: Last Vital Signs Temp 98.3 F 02/18/21 08:00 Pulse 75 02/18/21 08:23 Resp 18 02/18/21 08:00 BP 165/82 H 02/18/21 08:23 Pulse Ox 95 02/18/21 08:00 Body Mass Index 20.0 Const: General: cooperative and no acute distress HENMT: Other: Unremarkable Neck: Neck: Yes normal visual inspection Chest: Chest palpation & inspection: normal inspection of the chest Resp: Auscultation: clear to auscultation bilaterally, no crackles and no wheezes Cardio: Jugular venous distension: no JVD Palpation: normal PMI Heart sounds: S1 normal heart sound present, S2 normal heart sound present, no gallops, no murmurs and no rubs GI: Palpation (GI): Soft to palpation Back/Spine/Pelvis: Other: unremarkable Skin: General skin exam: no rashes or lesions noted Neuro: Cranial nerves: Yes Other cranial nerve findings present Extrem: General: Yes no clubbing, cyanosis or edema Psych: Mental Status: other Results Labs and Meds Result diagrams: 02/18/21 05:56 02/18/21 05:56 Lab results: Laboratory Results - last 24 hr 02/18/21 02/18/21 05:56 05:56 WBC 6.1 RBC 4.13 L Hgb 12.5 Hct 38.0 MCV 92.0 MCH 30.3 MCHC 32.9 RDW 13.8 Plt Count 323 MPV 9.5 Immature Gran % (Auto) 0.3 Neut % (Auto) 70.9 Lymph % (Auto) 9.2 L [place] % (Auto) 14.0 H Eos % (Auto) 4.6 H Baso % (Auto) 1.0 Lymph # (Auto) 0.6 L [place] # (Auto) 0.9 Eos # (Auto) 0.3 Baso # (Auto) 0.1 Abs Immat Gran (auto) 0.02 Absolute Neuts (auto) 4.3 Absolute Nucleated RBC 0.000 Nucleated RBC % (auto) 0.0 Sodium 141 Potassium 3.4 Chloride 104 Carbon Dioxide 30 H Anion Gap 10 L BUN 12 Creatinine 0.72 Estim Creat Clear Calc 48.8 Estimated GFR > 60 Random Glucose 104 Calcium 8.7 D Total Bilirubin 0.3 AST 21 D ALT 21 Alkaline Phosphatase 76 Total Protein 5.7 L Albumin 3.6 Imaging Radiologist's impression: Impressions Carotid Doppler Study 02/17/21 15:09 IMPRESSION: 1. RIGHT: Minimal, non-hemodynamically significant stenosis of the proximal right internal carotid artery corresponding to a 0-49% stenosis by velocity criteria. 2. LEFT: Minimal, non-hemodynamically significant stenosis of the proximal left internal carotid artery corresponding to a 0-49% stenosis by velocity criteria. Assessment and Plan (1) Syncope: Qualifiers: Syncope type: unspecified Qualified Code(s): R55 - Syncope and collapse Status: Acute Cardiac studies reviewed. EKG shows sinus rhythm, leftward axis but otherwise unremarkable. Echocardiogram with LVEF 65-70% and mild diastolic dysfunction. Unremarkable troponins. Telemetry is also not showing any significant arrhythmias. Carotid Doppler shows only mild non hemodynamically significant stenosis. CTA chest shows no pulmonary embolism or thoracic aortic dissection. Clear lung rivera. Head CT shows no acute process but moderate cerebral volume loss with chronic small vessel ischemic changes. Overall, no clear cardiac etiology so far identified. We can arrange a 14 day Holter monitor upon discharge. Her blood pressure seems to be on the higher side but doubt if that is actually causing any syncope. Based on outpatient trends, may need further medications. We can arrange follow-up after the Holter. Discussed with Dr. Conti. Procedures Date of Service Date of Service: 02/18/21
--- NOTE | 2021-02-18 11:24 | MHC.CM.PN ---
pt dcd home no servceis
[2021-02-18 12:00] VITALS: BP 143/68; PULSE 81; RESP 18; TEMP 36.7; O2SAT 98
--- NOTE | 2021-02-18 12:07 | PM.DS ---
DS: Providers Provider Date of Service: 02/18/21 Date of admission: 02/16/21 21:35 Date of discharge: 02/18/21 Primary care physician: Alexandro Rodriguez MD, DO Consults: 02/17/21 13:14 Consult to Cardiology Routine Consulting Provider: Facundo Morel Reason for consultation: SYNCOPR DS: Diagnosis Discharge Diagnosis (1) Syncope: Status: Acute DS: Summary Hospital Course Hospital Course: 81 Year old female with past medical history of Alzheimer's dementia, glaucoma, osteoporosis, PMR, who presents to the hospital after experiencing 2 syncopal last episodes.? Patient initially presented to the hospital earlier in the day after experiencing a syncope around 10:00 a.m..? Patient had complete workup in the ED which was negative and sent home.? As soon as she gets home she experiences a 2nd episode of syncope and returns to the hospital.? Patient reports that just prior to the syncopal episodes she feels sick , loses her vision, and syncopized is.? She denies experiencing any palpitations, lightheadedness, chest pain, nausea or vomiting and no headache.? This 2nd episode was witnessed by her daughter who is at bedside and daughter reports that when she came about she mention to her that she was nauseous and wanted to throw up. Patient otherwise denies any abdominal pain nausea or vomiting, no diarrhea constipation, no urinary symptoms, no numbness tingling or weakness.? No urinary symptoms.? The ER workup including CT the head and CT of the chest failed to demonstrate acute pathology Hospital course Patient was admitted to telemetry were 48 hours of monitoring failed to reveal any dysrhythmias. She underwent a 2D echo which was unremarkable along with bilateral carotid ultrasound which demonstrated no hemodynamicly significant stenosis. She was seen by Cardiology who recommended outpatient monitoring. At this time she is medically stable for discharge as she has not had any events since admission. Call placed to surgical processor [place]; workup and hospitalization explained and she is comfortable with her on returning to home. Time Spent with Patient Time attestation: Total time spent providing and/or coordinating discharge services: Discharge coordination time: Greater than 30 minutes Quality: Stroke Does the patient have a stroke diagnosis?: No Physical Exam Vital Signs: Vital Signs: Last Vital Signs Temp 98.1 F 02/18/21 12:00 Pulse 81 02/18/21 12:00 Resp 18 02/18/21 12:00 BP 143/68 H 02/18/21 12:00 Pulse Ox 98 02/18/21 12:00 Body Mass Index 20.0 Const: Other: No acute distress HENMT: Other: Membranes moist oropharynx clear Resp: Other: Clear to auscultation bilaterally no rales rhonchi wheezes Cardio: Other: No S4 positive S1-S2 no S3 without murmurs of gallops GI: Other: Soft nontender nondistended with normal abdominal ascites. No peritoneal signs Neuro: Other: Cranial nerves 2-12 grossly intact as tested. Motor 5/5 all extremities. Sensation intact; mild confusion noted but thought process intact Extrem: Other: No edema bilateral DS: Data Data Completed and Pending Labs on day of discharge: Laboratory Results - last 24 hr 02/18/21 02/18/21 05:56 05:56 WBC 6.1 RBC 4.13 L Hgb 12.5 Hct 38.0 MCV 92.0 MCH 30.3 MCHC 32.9 RDW 13.8 Plt Count 323 MPV 9.5 Immature Gran % (Auto) 0.3 Neut % (Auto) 70.9 Lymph % (Auto) 9.2 L [place] % (Auto) 14.0 H Eos % (Auto) 4.6 H Baso % (Auto) 1.0 Lymph # (Auto) 0.6 L [place] # (Auto) 0.9 Eos # (Auto) 0.3 Baso # (Auto) 0.1 Abs Immat Gran (auto) 0.02 Absolute Neuts (auto) 4.3 Absolute Nucleated RBC 0.000 Nucleated RBC % (auto) 0.0 Sodium 141 Potassium 3.4 Chloride 104 Carbon Dioxide 30 H Anion Gap 10 L BUN 12 Creatinine 0.72 Estim Creat Clear Calc 48.8 Estimated GFR > 60 Random Glucose 104 Calcium 8.7 D Total Bilirubin 0.3 AST 21 D ALT 21 Alkaline Phosphatase 76 Total Protein 5.7 L Albumin 3.6 Discharge Plan Discharge Patient Disposition: Home Health Service Referrals: Alexandro Rodriguez MD, DO [Primary Care Provider] - 1 Week Discharge Medications: Continued cyanocobalamin (vitamin B-12) 500 mcg Tablet 250 mcg PO DAILY RF: 0 Alphagan P 0.1 % drops 1 drp ophthalmic-Right BID RF: 0 bepotastine besilate [Bepreve] 1.5 % drops 1 drp ophthalmic (eye) BID RF: 0 amlodipine 10 mg tablet 1 tab PO DAILY RF: 0 multivitamin Tablet 1 tab PO DAILY RF: 0 acetaminophen 500 mg Tablet 1,000 mg PO BID RF: 0 cholecalciferol (vitamin D3) 10 mcg (400 unit) Tablet 10 mcg PO DAILY RF: 0 prednisone 5 mg tablet 10 mg PO DAILY RF: 0 sertraline 50 mg tablet 25 mg PO BID RF: 0 Rocklatan 0.02-0.005 % drops 1 drp ophthalmic (eye) BEDTIME RF: 0 Ocuvite Adult 50 Plus 250-5-1 mg capsule 1 cap PO DAILY RF: 0 Discharge Orders: Discharge Order (Routine); Ordered 02/18/21 Ordered By: Jose Luis Conti Diet: advance to usual diet Activity on Discharge: As tolerated Stand Alone Forms: Patient Portal Discharge page Care Plan Goals: Maintain highestlevel of function Health Concerns: Follow-up with cardiology/outpatient monitoring Plan of Treatment: Discussed with PCP Assessment: No changes
== END 2021-02-18 16:30 | disposition home health service (06) ==
LOC: HO.ED 18:32 → HO.EDOVER 22:08 → HO.IMC 02-17 05:58
PROVIDERS: Admitting Provider Internal Medicine; Emergency Provider Emergency Medicine; PCP Internal Medicine; Visit Provider Hospitalist
DX: R55 Syncope and collapse (principal); I10 Essential (primary) hypertension; R53.81 Other malaise; R11.0 Nausea; G30.9 Alzheimer's disease, unspecified; F02.81 Dementia in other diseases classified elsewhere, unspecified severity, with behavioral disturbance; M81.0 Age-related osteoporosis without current pathological fracture; M35.3 Polymyalgia rheumatica; H40.9 Unspecified glaucoma; R79.82 Elevated C-reactive protein (CRP); Z87.891 Personal history of nicotine dependence; Z20.822 Contact with and (suspected) exposure to COVID-19; Z88.1 Allergy status to other antibiotic agents; Z88.0 Allergy status to penicillin; Z88.2 Allergy status to sulfonamides; Z88.8 Allergy status to other drugs, medicaments and biological substances; Z79.52 Long term (current) use of systemic steroids; Z79.899 Other long term (current) drug therapy
CPT/HCPCS: 36415; 70450; 71045; 71275; 73140; 80048; 80053; 80076; 81003; 82947; 83690; 83735; 84484; 85025; 85379; 87635; 93005; 93306; 93356; 93880; 96372; 96374; 99205; 99219; 99285; J1650; Q9967

== ENCOUNTER 2021-04-12 10:07 | Observation (INO) | payer MEDICARE, SELFPAY ==
[2021-04-12] VITALS (8 sets, daily range): BP systolic 76–145; BP diastolic 37–65; PULSE 72–94; RESP 15–18; TEMP 36.9–37.1; O2SAT 93–98; BMI 21.2
--- NOTE | ~2021-04-12 | CT_ITS ---
EXAMINATION: CT BRAIN AND CT CERVICAL SPINE WITHOUT CONTRAST. CLINICAL INFORMATION: Fall. COMPARISON: TECHNIQUE: 5 mm thin axial and reformatted 2 mm thin sagittal and coronal images of brain were obtained without contrast. Subsequently axial 3 mm thin and reformatted 2 mm thin sagittal coronal images of cervical spine were obtained. DLP [id number] FINDINGS: Brain: There is no acute intra-axial, extra-axial bleed, masses or midline shift. There is no acute infarct in evolution. The lateral ventricles are symmetrical in size but enlarged. There is diffuse periventricular hypodensity suggestive of chronic small vessel ischemic changes. Bone windows reveal no calvarial abnormality. There is no scalp soft tissue abnormality. Bilateral paranasal sinuses and mastoid air cells are well-aerated. Cervical spine: On sagittal reconstructed images there is mild straightening of cervical lordosis. There is loss of C3-C4, C4-C5, C5-C6 and C6-C7 disc heights with moderate ventral spondylosis and mild posterior spondylosis. The craniovertebral junction and the C1-C2 alignment is normal. There is moderate left C2-C3, mild left C3-C4, C4-C5 facet joint arthropathy and hypertrophy. There is no visible acute fracture, dislocation or subluxation seen. No lytic or sclerotic process seen. Bilateral TM joints are symmetrical and normal. There is cystic changes along the left C1 vertebra. The lung apices are clear. CT/CT head/brain wo con IMPRESSION: No acute intracranial process seen. Moderate cerebral volume loss with chronic small vessel ischemic changes. There is a mild straightening of cervical lordosis with degenerative disc changes and spondylosis. No visible acute fracture, dislocation or subluxation seen.
--- NOTE | ~2021-04-12 | CT_ITS ---
EXAMINATION: CT BRAIN AND CT CERVICAL SPINE WITHOUT CONTRAST. CLINICAL INFORMATION: Fall. COMPARISON: TECHNIQUE: 5 mm thin axial and reformatted 2 mm thin sagittal and coronal images of brain were obtained without contrast. Subsequently axial 3 mm thin and reformatted 2 mm thin sagittal coronal images of cervical spine were obtained. DLP [id number] FINDINGS: Brain: There is no acute intra-axial, extra-axial bleed, masses or midline shift. There is no acute infarct in evolution. The lateral ventricles are symmetrical in size but enlarged. There is diffuse periventricular hypodensity suggestive of chronic small vessel ischemic changes. Bone windows reveal no calvarial abnormality. There is no scalp soft tissue abnormality. Bilateral paranasal sinuses and mastoid air cells are well-aerated. Cervical spine: On sagittal reconstructed images there is mild straightening of cervical lordosis. There is loss of C3-C4, C4-C5, C5-C6 and C6-C7 disc heights with moderate ventral spondylosis and mild posterior spondylosis. The craniovertebral junction and the C1-C2 alignment is normal. There is moderate left C2-C3, mild left C3-C4, C4-C5 facet joint arthropathy and hypertrophy. There is no visible acute fracture, dislocation or subluxation seen. No lytic or sclerotic process seen. Bilateral TM joints are symmetrical and normal. There is cystic changes along the left C1 vertebra. The lung apices are clear. CT/CT cervical spine wo con IMPRESSION: No acute intracranial process seen. Moderate cerebral volume loss with chronic small vessel ischemic changes. There is a mild straightening of cervical lordosis with degenerative disc changes and spondylosis. No visible acute fracture, dislocation or subluxation seen.
--- NOTE | 2021-04-12 10:35 | ED.SYNCOPE ---
HPI - Syncope General Chief Complaint: Syncope Stated Complaint: SYNCOPAL W/LOC X'S 1 MIN,LOW ABD CRAMPING Time Seen by Provider: 04/12/21 10:10 Source: patient and EMS Limitations: other (Dementia) History of Present Illness HPI narrative: Patient is brought to the emergency room by EMS. Patient had a syncopal episode prior to arrival. Patient states that she does not remember much, patient known to have history of Alzheimer's dementia. Per patient's medical records, she has had multiple episodes of syncopal episodes, patient was recently discharged on February 18. Patient was in the hospital under observation for 48 hours, no arrhythmias were identified. Patient was instructed to follow up with Cardiology for outpatient monitoring which has not happened yet. At this time, patient states that she does not remember anything what happened but she is asymptomatic. Denies chest pain, no shortness of breath. Seems that when patient came in, patient complained to her nurse about lower abdominal cramping, patient denies any abdominal cramping to me. Related Data Home Medications Medication Instructions Recorded Confirmed vit C,E,zinc,copper-usvoz5j 250 1 cap PO DAILY 02/05/20 02/16/21 mg-lutein 5 mg-zeaxanthin 1 mg capsule (Ocuvite Adult 50 Plus) bepotastine besilate 1.5 % eye 1 drp OPHTHALMIC (EYE) BID 04/08/20 02/16/21 drops (Bepreve) brimonidine 0.1 % eye drops 1 drp OPHTHALMIC-RIGHT BID 04/08/20 02/16/21 (Alphagan P) cyanocobalamin (vitamin B-12) 500 250 mcg PO DAILY 04/08/20 02/16/21 mcg tablet acetaminophen 500 mg tablet 1,000 mg PO BID 02/16/21 02/16/21 amlodipine 10 mg tablet 1 tab PO DAILY 02/16/21 02/16/21 cholecalciferol (vitamin D3) 10 10 mcg PO DAILY 02/16/21 02/16/21 mcg (400 unit) tablet multivitamin 1 tab PO DAILY 02/16/21 02/16/21 prednisone 5 mg tablet 10 mg PO DAILY 02/16/21 02/17/21 sertraline 50 mg tablet 25 mg PO BID 02/16/21 02/17/21 netarsudil 0.02 %-latanoprost 1 drp OPHTHALMIC (EYE) BEDTIME 02/17/21 02/17/21 0.005 % eye drops (Rocklatan) Allergies Allergy/AdvReac Type Severity Reaction Status Date / Time cefadroxil [From DURICEF] Allergy Unknown RASH Verified 07/08/20 21:09 cortisone Allergy Unknown RASH, Verified 07/08/20 21:09 REDDENED CHEST FROM CORTISONE INJECTIONS levofloxacin [From LEVAQUIN] Allergy Unknown TINNITIS Verified 07/08/20 21:09 penicillin V Allergy Unknown Unknown Verified 07/08/20 21:09 Sulfa (Sulfonamide Allergy Unknown UNKNOWN Verified 07/08/20 21:09 Antibiotics) sulfamethoxazole Allergy Unknown RASH Verified 07/08/20 21:09 [From BACTRIM] trimethoprim [From BACTRIM] Allergy Unknown RASH Verified 07/08/20 21:09 Review of Systems Review of Systems: Constitutional : No Weight loss, No Fever, No Chills, No Night Sweats, No Fatigue, No Malaise ENT/Mouth : No Hearing loss, No Ear Pain, No Nasal Congestion, No Sinus Pain, No Hoarseness, No sore throat, No Rhinorrhea, No Swallowing Difficulty Eyes: No Eye Pain, No Swelling, No Redness, No Foreign Body, No Discharge, No Vision Changes Cardiovascular : No Chest Pain, No SOB, No Dyspnea on Exertion, No Orthopnea, No Edema, No Palpitations Respiratory : No Cough, No Sputum, No Wheezing, No Smoke Exposure, No Dyspnea Gastrointestinal : No Nausea, No Vomiting, No Diarrhea, No Constipation, No abdominal Pain, No Hematochezia, No Melena Genitourinary : no irregular bleeding, No Dysuria, No Urinary Frequency, No Hematuria, No Urinary Incontinence, No Urgency, No Flank Pain, No Urinary Flow Changes, No Hesitancy Musculoskeletal : No joint pain, No Myalgias, No Joint Swelling Skin : No Skin Lesions, No rash Neuro : No Weakness, No Numbness, No Paresthesias, denies headache Psych : No Anxiety/Panic, No Depression, No SI/HI/AH/VH, No Social Issues, Heme/Lymph: No Bruising, No Bleeding,No Lymphadenopathy Endocrine : No Polyuria, No Polydipsia, No Temperature Intolerance PMFSH Past Medical History Medical History Alzheimer's dementia Cerebral microvascular disease Elevated C-reactive protein Glaucoma HTN (hypertension) IBS (irritable bowel syndrome) Multifactorial dementia Osteoporosis PMR (polymyalgia rheumatica) Primary osteoarthritis of hands, bilateral UTI (urinary tract infection) Surgical History H/O cataract removal with insertion of prosthetic lens H/O: hysterectomy History of tonsillectomy History of wisdom tooth extraction Hx of appendectomy Social History Social History Household Members: Unknown / Unable to assess Household Members Other:: NIECE Housing: Unknown / Unable to assess Are you a primary hiv/aids care nurse to a significant other at home: No Do you presently have visiting nurse or other home services: No Unable to assess alcohol history related to: Unknown Alcohol intake: former Patient Tobacco Use Status: Former Tobacco user Substance Use Type: Unknown Advance Directives: Yes Advance Directives on File: Yes Advance Directives Date on File: 04/12/20 service: No Current occupational status: retired Physical Exam Vital Signs: Vital Signs: Last Vital Signs Temp 98.4 F 04/12/21 13:28 Pulse 77 04/12/21 13:28 Resp 15 04/12/21 13:28 BP 138/53 L 04/12/21 13:28 Pulse Ox 94 04/12/21 13:28 Const: Other: Appearance: Alert. Oriented X1. No acute distress. Eyes: Pupils equal, round and reactive to light. ENT: Pharynx normal. Neck: Normal inspection. Neck supple. No lymph nodes noted. No crepitus. No Cervical spine tenderness CVS: Normal heart rate and rhythm. Pulses normal. Normal S1 and S2 Respiratory: No respiratory distress. Breath sounds normal. No Wheezing. No rales Abdomen: Soft and nontender. No rigidity. No distention. Skin: Skin warm and dry. Normal skin color. Normal skin turgor. Extremities: No lower extremity edema. No Lacerations. No Rash Neuro: Oriented X1. No motor deficit. No sensory deficit. Moving all extermities. No slurred speech. Course Course Course Narrative: I discussed the patient with Dr. Villafana. Eventually patient will need to have Holter monitor. In the meantime, patient will be admitted for observation, patient has had multiple syncopal episodes in the last few months without a clear cause. MDM - Syncope Lab Data Result diagrams: 04/12/21 12:41 04/12/21 12:41 Labs: Lab Results 04/12/21 04/12/21 04/12/21 Range/Units 12:41 12:41 12:41 WBC 14.0 H (4.8-10.8) X10*3/uL RBC 4.23 (4.20-5.50) X10*6/uL Hgb 13.3 (12.0-16.0) g/dl Hct 40.3 (37.0-47.0) % MCV 95.3 (80.0-98.0) fL MCH 31.4 (27.0-33.0) pg MCHC 33.0 (31.0-35.0) g/dl RDW 13.6 (11.0-16.0) % Plt Count 296 (160-400) X10*3/uL MPV 9.3 L (9.4-12.3) fL Immature Gran % (Auto) 0.6 H (0.0-0.4) % Neut % (Auto) 88.0 H (45-73) % Lymph % (Auto) 3.3 L (20-40) % [place] % (Auto) 6.6 (2-11) % Eos % (Auto) 1.1 (0-4) % Baso % (Auto) 0.4 (0-2) % Lymph # (Auto) 0.5 L (1.2-4.9) X10*3/uL Gordon # (Auto) 0.9 (0.1-1.2) X10*3/uL Eos # (Auto) 0.2 (0.0-0.4) X10*3/uL Baso # (Auto) 0.1 (0.0-0.2) X10*3/uL Abs Immat Gran (auto) 0.08 H (0.00-0.03) X10*3/uL Absolute Neuts (auto) 12.3 H (2.0-8.3) x10*3/uL Absolute Nucleated RBC 0.000 (0.0-0.012) X10*3/uL Nucleated RBC % (auto) 0.0 (0.0-0.2) /100WBC PT 10.5 (9.9-13.0) SEC INR 0.9 (0.9-1.1) Sodium 139 (135-145) mmol/L Potassium 3.2 L (3.3-5.1) mmol/L Chloride 103 (96-108) mmol/L Carbon Dioxide 25 (22-29) mmol/L Anion Gap 14 (12-20) BUN 14 (9-16) mg/dL Creatinine 0.82 (0.5-1.4) mg/dL Estim Creat Clear Calc TNP Estimated GFR > 60 Random Glucose 176 H (60-115) mg/dL Calcium 9.1 (8.4-10.2) mg/dL Total Bilirubin 0.3 (0.0-1.0) mg/dL Direct Bilirubin < 0.2 (0.0-0.5) mg/dL AST 30 D (5-31) U/L ALT 33 H (0-31) U/L Alkaline Phosphatase 91 (39-117) U/L Troponin I High Sens (<3.5-17.0) ng/L B-Natriuretic Peptide (<100) pg/mL Total Protein 6.3 L (6.5-8.0) g/dL Albumin 3.9 (3.5-5.0) g/dL Ethyl Alcohol mg/dL 04/12/21 04/12/21 Range/Units 12:41 12:41 WBC (4.8-10.8) X10*3/uL RBC (4.20-5.50) X10*6/uL Hgb (12.0-16.0) g/dl Hct (37.0-47.0) % MCV (80.0-98.0) fL MCH (27.0-33.0) pg MCHC (31.0-35.0) g/dl RDW (11.0-16.0) % Plt Count (160-400) X10*3/uL MPV (9.4-12.3) fL Immature Gran % (Auto) (0.0-0.4) % Neut % (Auto) (45-73) % Lymph % (Auto) (20-40) % [place] % (Auto) (2-11) % Eos % (Auto) (0-4) % Baso % (Auto) (0-2) % Lymph # (Auto) (1.2-4.9) X10*3/uL [place] # (Auto) (0.1-1.2) X10*3/uL Eos # (Auto) (0.0-0.4) X10*3/uL Baso # (Auto) (0.0-0.2) X10*3/uL Abs Immat Gran (auto) (0.00-0.03) X10*3/uL Absolute Neuts (auto) (2.0-8.3) x10*3/uL Absolute Nucleated RBC (0.0-0.012) X10*3/uL Nucleated RBC % (auto) (0.0-0.2) /100WBC PT (9.9-13.0) SEC INR (0.9-1.1) Sodium (135-145) mmol/L Potassium (3.3-5.1) mmol/L Chloride (96-108) mmol/L Carbon Dioxide (22-29) mmol/L Anion Gap (12-20) BUN (9-16) mg/dL Creatinine (0.5-1.4) mg/dL Estim Creat Clear Calc Estimated GFR Random Glucose (60-115) mg/dL Calcium (8.4-10.2) mg/dL Total Bilirubin (0.0-1.0) mg/dL Direct Bilirubin (0.0-0.5) mg/dL AST (5-31) U/L ALT (0-31) U/L Alkaline Phosphatase (39-117) U/L Troponin I High Sens < 3.5 (<3.5-17.0) ng/L B-Natriuretic Peptide 57 (<100) pg/mL Total Protein (6.5-8.0) g/dL Albumin (3.5-5.0) g/dL Ethyl Alcohol < 10 mg/dL Imaging Data Head and cervical spine CT: Radiologist's impression: FINDINGS: Brain: There is no acute intra-axial, extra-axial bleed, masses or midline shift. There is no acute infarct in evolution. The lateral ventricles are symmetrical in size but enlarged. There is diffuse periventricular hypodensity suggestive of chronic small vessel ischemic changes. Bone windows reveal no calvarial abnormality. There is no scalp soft tissue abnormality. Bilateral paranasal sinuses and mastoid air cells are well-aerated. Cervical spine: On sagittal reconstructed images there is mild straightening of cervical lordosis. There is loss of C3-C4, C4-C5, C5-C6 and C6-C7 disc heights with moderate ventral spondylosis and mild posterior spondylosis. The craniovertebral junction and the C1-C2 alignment is normal. There is moderate left C2-C3, mild left C3-C4, C4-C5 facet joint arthropathy and hypertrophy. There is no visible acute fracture, dislocation or subluxation seen. No lytic or sclerotic process seen. Bilateral TM joints are symmetrical and normal. There is cystic changes along the left C1 vertebra. The lung apices are clear. CT/CT head/brain wo con IMPRESSION: No acute intracranial process seen. ? Moderate cerebral volume loss with chronic small vessel ischemic changes. ? There is a mild straightening of cervical lordosis with degenerative disc changes and spondylosis. No visible acute fracture, dislocation or subluxation seen.? Discharge Plan Discharge Clinical Impression: Syncopal episodes Patient Disposition: Admitted as Observation Prescriptions: No Action cyanocobalamin (vitamin B-12) 500 mcg Tablet 250 mcg PO DAILY RF: 0 Alphagan P 0.1 % drops 1 drp ophthalmic-Right BID RF: 0 bepotastine besilate [Bepreve] 1.5 % drops 1 drp ophthalmic (eye) BID RF: 0 amlodipine 10 mg tablet 1 tab PO DAILY RF: 0 multivitamin Tablet 1 tab PO DAILY RF: 0 acetaminophen 500 mg Tablet 1,000 mg PO BID RF: 0 cholecalciferol (vitamin D3) 10 mcg (400 unit) Tablet 10 mcg PO DAILY RF: 0 prednisone 5 mg tablet 10 mg PO DAILY RF: 0 sertraline 50 mg tablet 25 mg PO BID RF: 0 Rocklatan 0.02-0.005 % drops 1 drp ophthalmic (eye) BEDTIME RF: 0 Ocuvite Adult 50 Plus 250-5-1 mg capsule 1 cap PO DAILY RF: 0
--- NOTE | 2021-04-12 10:40 | ECG_ITS ---
Test Reason : Syncope Blood Pressure : / mmHG Vent. Rate : 072 BPM Atrial Rate : 072 BPM P-R Int : 192 ms QRS Dur : 090 ms QT Int : 412 ms P-R-T Axes : 048 030 019 degrees QTc Int : 451 ms Normal sinus rhythm Septal infarct , age undetermined Abnormal ECG When compared with ECG of 16-FEB-2021 18:40, Septal infarct is now Present Nonspecific T wave abnormality, worse in Anterior leads Referred By: Britta Barrios Electronically Signed By:BELLE DAILEY MD
[2021-04-12 12:46] LABS: Basophils Absolute Auto 0.1 X10*3/uL (0.0-0.2); Basophils Percent Auto 0.4 % (0-2); Eosinophils Absolute Auto 0.2 X10*3/uL (0.0-0.4); Eosinophils Percent Auto 1.1 % (0-4); Hematocrit 40.3 % (37.0-47.0); Hemoglobin 13.3 g/dl (12.0-16.0); Imm Gran Abs Auto 0.08 X10*3/uL (0.00-0.03); Imm Gran Pct Auto 0.6 % (0.0-0.4); Lymphocytes Absolute Auto 0.5 X10*3/uL (1.2-4.9); Lymphocytes Percent Auto 3.3 % (20-40); MANUAL DIFF FLAG NO; Mean Corpuscular Hemoglobin 31.4 pg (27.0-33.0); Mean Corpuscular Volume 95.3 fL (80.0-98.0); Mean Platelet Volume 9.3 fL (9.4-12.3); Monocytes Absolute Auto 0.9 X10*3/uL (0.1-1.2); Monocytes Percent Auto 6.6 % (2-11); Neutrophils Absolute Auto 12.3 x10*3/uL (2.0-8.3); Platelet Count 296 X10*3/uL (160-400); Red Blood Count 4.23 X10*6/uL (4.20-5.50); Red Cell Distribution Width 13.6 % (11.0-16.0)
[2021-04-12 12:52] LABS: INTERNATIONAL NORM RATIO 0.9 (0.9-1.1); Prothrombin Time 10.5 SEC (9.9-13.0)
[2021-04-12 13:02] LABS: Ethanol < 10 mg/dL
[2021-04-12 13:05] LABS: Alanine Aminotransferase 33 U/L (0-31); Albumin Level 3.9 g/dL (3.5-5.0); Alkaline Phosphatase 91 U/L (39-117); Anion Gap 14 (12-20); Aspartate Amino Transferase 30 U/L (5-31); Bilirubin Direct < 0.2 mg/dL (0.0-0.5); Bilirubin Total 0.3 mg/dL (0.0-1.0); Blood Urea Nitrogen 14 mg/dL (9-16); Calcium 9.1 mg/dL (8.4-10.2); Carbon Dioxide 25 mmol/L (22-29); Chloride 103 mmol/L (96-108); Estimated Glomerular Filt Rate > 60; Glucose Random 176 mg/dL (60-115); Potassium 3.2 mmol/L (3.3-5.1); Sodium 139 mmol/L (135-145); Total Protein 6.3 g/dL (6.5-8.0)
[2021-04-12 13:09] LABS: B Type Natriuretic Peptide 57 pg/mL (<100); Troponin-I High Sensitivity < 3.5 ng/L (<3.5-17.0)
--- NOTE | 2021-04-12 16:06 | P.HPHOSP_ITS ---
History of Present Illness Date of Service: 04/12/21 Chief Complaint: syncope 81yo F with mild-moderate Alzheimer dementia, PMR on long-term prednisone 5 mg/d, hypertension, and osteoporosis who lives with her 2 nieces. History obtained from the patient and her niece Cary. The patient is alert but mildly disoriented and has some confabulation. She has lost much of her sense of linear time lately. But be that as it may, she was in the living room standing at the kitchen counter when suddenly lost consciousness without any preceding lightheadedness or other prodrome and landed flat on her back. No shaking movements. She was incontinent of urine. She was out until the paramedics came and she woke up in the ambulance. She has had 3 prior episodes of syncope since June of this year, though those times she recovered consciousness much more quickly. She was admitted here in January for 2 sequential episodes of syncope and had a negative workup including echocardiogram [LVEF 65-70% and mild diastol ic dysfunction, no significant valvular disease], telemetry [no arrhythmias], and cardiology consultation; CTA was negative for PE or aortic dissection. A 14-day Holter monitor was suggested but the patient did not follow-up with Cardiology to obtain thsi. Nor ecent medication changes. She denies fever, chills, cough, dyspnea, chest pain, nausea, vomiting, or abdominal pain. In the ED, CTH and C-spine was negative for acute injury. Review of Systems Review of Systems: Yes all other systems are reviewed and are negative [facility] Medical History Alzheimer's dementia Cerebral microvascular disease Elevated C-reactive protein Glaucoma HTN (hypertension) IBS (irritable bowel syndrome) Multifactorial dementia Osteoporosis PMR (polymyalgia rheumatica) Primary osteoarthritis of hands, bilateral UTI (urinary tract infection) Pertinent family history: no history of seizure disorder Surgical History H/O cataract removal with insertion of prosthetic lens H/O: hysterectomy History of tonsillectomy History of wisdom tooth extraction Hx of appendectomy Social History Household Members: Unknown / Unable to assess Household Members Other:: NIECE Housing: Unknown / Unable to assess Are you a primary medical care evaluation specialist to a significant other at home: No Do you presently have visiting nurse or other home services: No Unable to assess alcohol history related to: Unknown Alcohol intake: former Patient Tobacco Use Status: Former Tobacco user Substance Use Type: Unknown Advance Directives: Yes Advance Directives on File: Yes Advance Directives Date on File: 04/12/20 service: No Current occupational status: retired Meds Allergies Allergy/AdvReac Type Severity Reaction Status Date / Time cefadroxil [From DURICEF] Allergy Unknown RASH Verified 07/08/20 21:09 cortisone Allergy Unknown RASH, Verified 07/08/20 21:09 REDDENED CHEST FROM CORTISONE INJECTIONS levofloxacin [From LEVAQUIN] Allergy Unknown TINNITIS Verified 07/08/20 21:09 penicillin V Allergy Unknown Unknown Verified 07/08/20 21:09 Sulfa (Sulfonamide Allergy Unknown UNKNOWN Verified 07/08/20 21:09 Antibiotics) sulfamethoxazole Allergy Unknown RASH Verified 07/08/20 21:09 [From BACTRIM] trimethoprim [From BACTRIM] Allergy Unknown RASH Verified 07/08/20 21:09 Active Medications: Current Medications Amlodipine Besylate (Amlodipine Besylate 10 Mg Tablet) 10 mg PO DAILY [facility]; Protocol Non-Formulary Medication (Brimonidine [Alphagan P]) 1 drop EYE-RIGHT BID [facility] Pharmacy Consult (Consult Rx Perform Med Rec) 1 each MISCELLANE ONCE PRN PRN Reason: Consult order Pharmacy Consult (Consult Rx Perform Med Rec) 1 each MISCELLANE STAT STA Stop: 04/12/21 15:30 Prednisone (Prednisone 5 Mg Tablet) 5 mg PO DAILY@1200 DI Sertraline HCl (Sertraline Hcl 25 Mg Tablet) 25 mg PO BID [facility] Home Medications Medication Instructions Recorded Confirmed Last Taken Type vit C,E,zinc,copper-hhdec4z 250 1 cap PO DAILY 02/05/20 02/16/21 Unknown History mg-lutein 5 mg-zeaxanthin 1 mg capsule (Ocuvite Adult 50 Plus) bepotastine besilate 1.5 % eye 1 drp OPHTHALMIC (EYE) BID 04/08/20 02/16/21 02/16/21 History drops (Bepreve) brimonidine 0.1 % eye drops 1 drp OPHTHALMIC-RIGHT BID 12/02/1604/12/21 04/12/21 History (Alphagan P) cyanocobalamin (vitamin B-12) 500 250 mcg PO DAILY 04/08/20 02/16/21 02/16/21 History mcg tablet acetaminophen 500 mg tablet 1,000 mg PO BID 02/16/21 02/16/21 02/16/21 History amlodipine 10 mg tablet 1 tab PO DAILY 02/16/21 04/12/21 04/12/21 History cholecalciferol (vitamin D3) 10 10 mcg PO DAILY 02/16/21 02/16/21 02/16/21 History mcg (400 unit) tablet multivitamin 1 tab PO DAILY 02/16/21 02/16/21 02/16/21 History prednisone 5 mg tablet 5 mg PO DAILY@1200 02/16/21 04/12/21 04/11/21 History sertraline 50 mg tablet 25 mg PO BID 02/16/21 04/12/21 04/12/21 History netarsudil 0.02 %-latanoprost 1 drp OPHTHALMIC (EYE) BEDTIME 02/17/21 02/17/21 Unknown History 0.005 % eye drops ([facility]) Physical Exam Vital Signs and Narrative: Vital Signs: Last Vital Signs Temp 98.4 F 04/12/21 13:28 Pulse 77 04/12/21 13:28 Resp 15 04/12/21 13:28 BP 138/53 L 04/12/21 13:28 Pulse Ox 94 04/12/21 13:28 BMI result Body Mass Index 21.2 Gen: in no acute distress HEENT: sclera anicteric, moist mucus membranes Neck: supple Lungs: clear to auscultation bilaterally Heart: regular rate and rhythm, no murmurs Abd: soft, non-tender, non-distended Ext: no edema Skin: warm/well-perfused, abrasion to occiput without bleeding Neuro: alert and oriented to self and place, no focal findings but quite forgetful Psych: appropriate affect Results Labs CBC and Chem 7: 04/12/21 12:41 04/12/21 12:41 Labs: Laboratory Results - last 24 hr 04/12/21 04/12/21 04/12/21 12:41 12:41 12:41 MCV 95.3 MCH 31.4 MCHC 33.0 RDW 13.6 Plt Count 296 MPV 9.3 L Immature Gran % (Auto) 0.6 H Neut % (Auto) 88.0 H Lymph % (Auto) 3.3 L [place] % (Auto) 6.6 Eos % (Auto) 1.1 Baso % (Auto) 0.4 Lymph # (Auto) 0.5 L [place] # (Auto) 0.9 Eos # (Auto) 0.2 Baso # (Auto) 0.1 Abs Immat Gran (auto) 0.08 H Absolute Neuts (auto) 12.3 H Absolute Nucleated RBC 0.000 Nucleated RBC % (auto) 0.0 PT 10.5 INR 0.9 Anion Gap 14 Estim Creat Clear Calc TNP Estimated GFR > 60 Random Glucose 176 H Calcium 9.1 Total Bilirubin 0.3 Direct Bilirubin < 0.2 AST 30 D ALT 33 H Alkaline Phosphatase 91 Troponin I High Sens B-Natriuretic Peptide Total Protein 6.3 L Albumin 3.9 Ethyl Alcohol 04/12/21 04/12/21 12:41 12:41 MCV MCH MCHC RDW Plt Count MPV Immature Gran % (Auto) Neut % (Auto) Lymph % (Auto) [place] % (Auto) Eos % (Auto) Baso % (Auto) Lymph # (Auto) [place] # (Auto) Eos # (Auto) Baso # (Auto) Abs Immat Gran (auto) Absolute Neuts (auto) Absolute Nucleated RBC Nucleated RBC % (auto) PT INR Anion Gap Estim Creat Clear Calc Estimated GFR Random Glucose Calcium Total Bilirubin Direct Bilirubin AST ALT Alkaline Phosphatase Troponin I High Sens < 3.5 B-Natriuretic Peptide 57 Total Protein Albumin Ethyl Alcohol < 10 Imaging Radiologist's Impressions: Impressions Cervical Spine CT 04/12/21 11:46 IMPRESSION: No acute intracranial process seen. Moderate cerebral volume loss with chronic small vessel ischemic changes. There is a mild straightening of cervical lordosis with degenerative disc changes and spondylosis. No visible acute fracture, dislocation or subluxation seen. Head CT 04/12/21 11:46 IMPRESSION: No acute intracranial process seen. Moderate cerebral volume loss with chronic small vessel ischemic changes. There is a mild straightening of cervical lordosis with degenerative disc changes and spondylosis. No visible acute fracture, dislocation or subluxation seen. Assessment and Plan (1) Syncope: Status: Acute 81yo F with PMR on chronic prednisone, osteoporosis, HTN, and Alzheimer- type dementia presenting with 4th episode of syncope, though this time more pro longed; prior cardiac workup negative # syncope - admit to [facility] on observation, consult neurology, obtain EEG. I note that this had been previously recommended back in March 2020 on prior admission for encephalopathy but the patient apparently did not follow-up. # thiamine deficiency/question of Wernicke-Korsakoff syndrome - during encephalopathy workup in 2019, pt was found to have undetectable thiamine level. It appears she is not on repletion. Will give IV, transition to PO eventually. # PMR, chronic steroid use - continue usual prednisone dose. doubt adrenal insufficiency but will check am cortisol # hypoK - replete PO, recheck in am # HTN - amlodipine # VTE ppx - LMWH # code - full Quality Stroke Does the patient have a stroke diagnosis?: No VTE Prior VTE?: No VTE Risk Level:: Medical - moderate - high VTE Device Contraindication: N/A - Device Ordered VTE Drug Contraindication: N/A - Med Ordered
[2021-04-12 16:32] LABS: C Reactive Protein 0.95 mg/dL (< or = 0.50)
--- NOTE | 2021-04-12 16:57 | PHA.MEDREC ---
MED REC COMPLETE, NO ISSUES Pharmacy Consult ? Medication Reconciliation Pharmacy has completed the medication reconciliation.
[2021-04-12] MEDS: Potassium Chloride ER 20 MEQ TAB.ER.PRT 40 MEQ PO (17:35)
[2021-04-12] MEDS: 0.9 % Sodium Chloride 1,000 ML 100 ML IVCONT (17:39)
[2021-04-12] MEDS: Enoxaparin Sodium 40 MG/0.4 ML SYRINGE SUBCUT (17:48)
[2021-04-12] MEDS: Acetaminophen 325 MG TABLET 650 MG PO (17:52)
[2021-04-12] MEDS: Thiamine HCL 500 MG in 0.9 % Sodium Chloride 100 ML 210 MG IV (18:36)
[2021-04-12 19:14] LABS: COVID-19 Test Negative (Negative)
[2021-04-12 19:27] LABS: Appearance Urine CLEAR; Color Urine YELLOW; Glucose Urine UA NEG (NEG); Leukocyte Esterase Urine NEG (NEG); Nitrite Urine NEG (NEG); PH 7.5 (5.0-8.0); Specific Gravity - Urine 1.015 (1.005-1.025); Urine Blood NEG (NEG); Urine Ketones NEG (NEG); Urine Protein NEG (NEG-TRACE)
[2021-04-12] MEDS: Brimonidine Tartrate 0.2% Oph 5 ML BOTTLE 1 DROP EYE-RIGHT (20:52)
[2021-04-12] MEDS: Sertraline HCL 25 MG TABLET PO (20:52)
--- NOTE | 2021-04-12 21:41 | MHC.CM.PN ---
CM met with admitted patient with bed assignment pending. Alert to person, place and situation. Hx Alzhemier's. IMM reviewed and signed per protocol 04/12/2021@9823. Copy to patient and medical records. HCP on file. HCP/niece Cary Thurman ([phone]). Pt fully vaccinated, but unsure what pathology technologist. Knows she had 2 injections. D/C plan is to return home without services. Family to provide transportation home. CM to follow for d/c needs.
[2021-04-13] VITALS (7 sets, daily range): BP systolic 128–152; BP diastolic 56–66; PULSE 74–85; RESP 14–18; TEMP 36.6–36.8; O2SAT 92–96
--- NOTE | 2021-04-13 | EEG_ITS ---
This is a 16-channel EEG with an EKG lead. The patient is reported awake and confused during the tracing. Background EEG rhythm is mixed theta beta, low to medium amplitude with no obvious asymmetry or paroxysmal tendency. Some lead and muscle artifacts and eye opening and closure artifacts are noted. Photic stimulation does not produce any significant abnormality. Hyperventilation is not performed. Cardiac lead does not reveal any significant abnormality. IMPRESSION: Mild slowing with no evidence of seizure disorder. MD SOHA James/MODESTA / [id number]
[2021-04-13] MEDS: Thiamine HCL 500 MG in 0.9 % Sodium Chloride 100 ML 210 MG IV ×3 (00:28→17:19)
[2021-04-13] MEDS: Acetaminophen 325 MG TABLET 650 MG PO ×2 (00:35→11:25)
[2021-04-13] MEDS: Lidocaine 4 % Patch ADH..PATCH 1 PATCH TRANSDERMA ×2 (01:02→08:43)
[2021-04-13] MEDS: 0.9 % Sodium Chloride 1,000 ML 100 ML IVCONT ×2 (05:18→14:56)
[2021-04-13 07:07] LABS: Hematocrit 37.4 % (37.0-47.0); Hemoglobin 12.1 g/dl (12.0-16.0); Mean Corpuscular HGB Conc 32.4 g/dl (31.0-35.0); Mean Corpuscular Hemoglobin 30.6 pg (27.0-33.0); Mean Corpuscular Volume 94.7 fL (80.0-98.0); Mean Platelet Volume 9.6 fL (9.4-12.3); Platelet Count 289 X10*3/uL (160-400); Red Blood Count 3.95 X10*6/uL (4.20-5.50); Red Cell Distribution Width 13.7 % (11.0-16.0); White Blood Count 7.4 X10*3/uL (4.8-10.8)
[2021-04-13 07:29] LABS: Blood Urea Nitrogen 7 mg/dL (9-16); Calcium 8.6 mg/dL (8.4-10.2); Creatinine Clr Calc Pharmacy 46.9; Estimated Glomerular Filt Rate > 60; Glucose Random 96 mg/dL (60-115)
[2021-04-13 07:41] LABS: Anion Gap 11 (12-20); Carbon Dioxide 25 mmol/L (22-29); Chloride 110 mmol/L (96-108); Potassium 3.9 mmol/L (3.3-5.1); Sodium 142 mmol/L (135-145)
[2021-04-13 08:15] LABS: Cortisol Random 13.3 ug/dL
[2021-04-13] MEDS: Aspirin 81 MG TAB.CHEW PO (08:42)
[2021-04-13] MEDS: amLODIPine Besylate 10 MG TABLET PO (08:43)
[2021-04-13] MEDS: Sertraline HCL 25 MG TABLET PO ×2 (08:43→22:42)
[2021-04-13] MEDS: Multivitamin TABLET 1 TAB PO (08:43)
[2021-04-13] MEDS: Brimonidine Tartrate 0.2% Oph 5 ML BOTTLE 1 DROP EYE-RIGHT ×2 (08:45→22:42)
--- NOTE | 2021-04-13 09:14 | PM.NEUROCN ---
History of Present Illness Data of Consult Service Date: 04/13/21 Primary Care Provider: Alexandro Rodriguez MD, DO HPI Reason for consult: Syncope 81 years old woman with dementia who has been having episodes of passing out. History was obtained from chart and she also provided her description stating that she did not remember any symptom before passing out and she probably had 3 or 4 of them. She said that she would just pass out sometime while she is sitting and sometimes standing. She said that each episode probably lasted about a minute but she was not completely sure. Apparently after 1 of the episode at [place] she had urinated. No obvious convulsion was noted. She told me that 1 time she was taken to this hospital and another time she was taken to [facility]. I was not sure if that was the case. In any case she apparently had syncope workup recently to rule out any cardiac source of syncope and that so far has been negative. He was brought to hospital with another such episode which happened while she was in her home standing and then slumped to the ground and passed out. She denied any chest pain or palpitation. [facility] Past Medical History Medical History Alzheimer's dementia Cerebral microvascular disease Elevated C-reactive protein Glaucoma HTN (hypertension) IBS (irritable bowel syndrome) Multifactorial dementia Osteoporosis PMR (polymyalgia rheumatica) Primary osteoarthritis of hands, bilateral UTI (urinary tract infection) Surgical History Surgical History H/O cataract removal with insertion of prosthetic lens H/O: hysterectomy History of tonsillectomy History of wisdom tooth extraction Hx of appendectomy Social History Social History Household Members: Unknown / Unable to assess Household Members Other:: NIECE Housing: Unknown / Unable to assess Are you a primary child care attendant school to a significant other at home: No Do you presently have visiting nurse or other home services: No Unable to assess alcohol history related to: Unknown Alcohol intake: former Patient Tobacco Use Status: Former Tobacco user Substance Use Type: Unknown Advance Directives: Yes Advance Directives on File: Yes Advance Directives Date on File: 04/12/20 service: No Current occupational status: retired Meds Allergies Allergy/AdvReac Type Severity Reaction Status Date / Time cefadroxil [From DURICEF] Allergy Unknown RASH Verified 07/08/20 21:09 cortisone Allergy Unknown RASH, Verified 07/08/20 21:09 REDDENED CHEST FROM CORTISONE INJECTIONS levofloxacin [From LEVAQUIN] Allergy Unknown TINNITIS Verified 07/08/20 21:09 penicillin V Allergy Unknown Unknown Verified 07/08/20 21:09 Sulfa (Sulfonamide Allergy Unknown UNKNOWN Verified 07/08/20 21:09 Antibiotics) sulfamethoxazole Allergy Unknown RASH Verified 07/08/20 21:09 [From BACTRIM] trimethoprim [From BACTRIM] Allergy Unknown RASH Verified 07/08/20 21:09 Active Medications: Current Medications Acetaminophen (Acetaminophen 325 Mg Tablet) 650 mg PO Q6H PRN PRN Reason: Pain, Mild (Pain Scale 1-3) Last Admin: 04/13/21 00:35 Dose: 650 mg Documented by: Amlodipine Besylate (Amlodipine Besylate 10 Mg Tablet) 10 mg PO DAILY [facility]; Protocol Last Admin: 04/13/21 08:43 Dose: 10 mg Documented by: Aspirin (Aspirin 81 Mg Tab.Chew) 81 mg PO Q2D@0900 [facility] Last Admin: 04/13/21 08:42 Dose: 81 mg Documented by: Brimonidine Tartrate (Brimonidine Tartrate 0.2% Oph 5 Ml Bottle) 1 drop EYE-RIGHT BID [facility] Last Admin: 04/13/21 08:45 Dose: 1 drop Documented by: Cyanocobalamin (Cyanocobalamin (Vitamin B-12) 500 Mcg Tablet) 250 mcg PO DAILY [facility] Enoxaparin Sodium (Enoxaparin Sodium 40 Mg/0.4 Ml Syringe) 40 mg SUBCUT Q24H [facility] Last Admin: 04/12/21 17:48 Dose: 40 mg Documented by: Sodium Chloride (Ns) 1,000 mls @ 100 mls/hr IVCONT .Q10H [facility] Last Admin: 04/13/21 05:18 Dose: 100 mls/hr Documented by: Thiamine HCl 250 mg/ Sodium (Chloride) 102.5 mls @ 204 mls/hr IV DAILY [facility] Thiamine HCl 500 mg/ Sodium (Chloride) 105 mls @ 210 mls/hr IV Q8H [facility] Stop: 04/14/21 09:29 Last Admin: 04/13/21 08:48 Dose: 210 mls/hr Documented by: Lidocaine (Lidocaine 4 % Patch Adh..Patch) 1 patch TRANSDERMA DAILY [facility]; Protocol Last Admin: 04/13/21 08:43 Dose: 1 patch Documented by: Multivitamins/Vitamin C (Multivitamin Tablet) 1 tab PO DAILY [facility] Last Admin: 04/13/21 08:43 Dose: 1 tab Documented by: Non-Formulary Medication (Netarsudil-Latanoprost [Rocklatan]) 1 drop EYE-BOTH BEDTIME [facility] Non-Formulary Medication (Bepotastine Besilate [Bepreve]) 1 drop EYE-BOTH BID [facility] Ondansetron HCl (Ondansetron Hcl 4 Mg/2 Ml Vial) 4 mg IVPUSH Q8H PRN PRN Reason: Nausea and Vomiting Pharmacy Consult (Consult Rx Perform Med Rec) 1 each MISCELLANE ONCE PRN PRN Reason: Consult order Prednisone (Prednisone 5 Mg Tablet) 5 mg PO DAILY@1200 DI Sertraline HCl (Sertraline Hcl 25 Mg Tablet) 25 mg PO BID [facility] Last Admin: 04/13/21 08:43 Dose: 25 mg Documented by: Sodium Chloride (0.9 % Sodium Chloride Flush 3 Ml Syringe) 3 ml IVFLUSH QSHIFT [facility] Last Admin: 04/13/21 07:52 Dose: Not Given Documented by: Vitamin D (Cholecalciferol (Vitamin D3) 10 Mcg Tablet) 10 mcg PO DAILY [facility] Home Medications Medication Instructions Recorded Confirmed Last Taken Type bepotastine besilate 1.5 % eye 1 drp OPHTHALMIC (EYE) BID 04/08/20 04/12/21 02/16/21 History drops (Bepreve) brimonidine 0.1 % eye drops 1 drp OPHTHALMIC-RIGHT BID 04/08/20 04/12/21 04/12/21 History (Alphagan P) cyanocobalamin (vitamin B-12) 500 250 mcg PO DAILY 04/08/20 04/12/21 02/16/21 History mcg tablet acetaminophen 500 mg tablet 1,000 mg PO 0600,1200,2100 02/16/21 04/12/21 02/16/21 History amlodipine 10 mg tablet 1 tab PO DAILY 02/16/21 04/12/21 04/12/21 History cholecalciferol (vitamin D3) 10 10 mcg PO DAILY 02/16/21 04/12/21 02/16/21 History mcg (400 unit) tablet multivitamin 1 tab PO DAILY 02/16/21 04/12/21 02/16/21 History prednisone 5 mg tablet 5 mg PO DAILY@1200 02/16/21 04/12/21 04/11/21 History sertraline 50 mg tablet 25 mg PO BID 02/16/21 04/12/21 04/12/21 History netarsudil 0.02 %-latanoprost 1 drp OPHTHALMIC (EYE) BEDTIME 02/17/21 04/12/21 04/11/21 History 0.005 % eye drops (Rocklatan) aspirin 81 mg chewable tablet 81 mg PO Q2D 04/12/21 04/12/21 Unknown History ti-gbgn-oxyn-iron 8 mg-folic acid 1 tab PO DAILY 04/12/21 04/12/21 Unknown History 400 mcg-vit K1 50 mcg-lutein tablet ([facility] Complete Senior Women's) pyridoxine (vitamin B6) 50 mg 50 mg PO DAILY 04/12/21 04/12/21 Unknown History tablet (Vitamin B-6) vitamin A-vitamin C-vit E-min 1 tab PO DAILY 04/12/21 04/12/21 Unknown History tablet Physical Exam Vital Signs: Vital Signs: Last Vital Signs Temp 97.8 F 04/13/21 07:30 Pulse 81 04/13/21 07:30 Resp 16 04/13/21 07:30 BP 152/66 H 04/13/21 08:43 Pulse Ox 96 04/13/21 07:30 BMI result Body Mass Index 21.2 Neuro: Other: Alert and awake with normal spontaneity of speech fluency comprehension and affect. She was following commands. Face was symmetrical. Visual rivera are full. Deep tendon reflexes were trace to absent with flexor plantars. Results Labs CBC & Chem 7: 04/13/21 06:47 04/13/21 06:47 Labs: Short CBC 04/12/21 04/13/21 Range/Units 12:41 06:47 WBC 14.0 H 7.4 (4.8-10.8) X10*3/uL Hgb 13.3 12.1 (12.0-16.0) g/dl Hct 40.3 37.4 (37.0-47.0) % Plt Count 296 289 (160-400) X10*3/uL BMP 04/12/21 04/13/21 12:41 06:47 Sodium 139 142 Potassium 3.2 L 3.9 D Chloride 103 110 H Carbon Dioxide 25 25 BUN 14 7 L Creatinine 0.82 0.73 Calcium 9.1 8.6 Liver Function 04/12/21 Range/Units 12:41 Total Bilirubin 0.3 (0.0-1.0) mg/dL Direct Bilirubin < 0.2 (0.0-0.5) mg/dL AST 30 D (5-31) U/L ALT 33 H (0-31) U/L Alkaline Phosphatase 91 (39-117) U/L Albumin 3.9 (3.5-5.0) g/dL Urine 04/12/21 Range/Units 19:10 Urine Color YELLOW Urine Appearance CLEAR Urine pH 7.5 (5.0-8.0) Ur Specific [place] 1.015 (1.005-1.025) Urine Protein NEG (NEG-TRACE) MG/DL Urine Glucose (UA) NEG (NEG) MG/DL Head CT revealed moderate to severe diffuse cerebral and cerebellar central and cortical atrophy and moderately severe microvascular ischemic lesions of chronic nature. Assessment and Plan (1) Syncope: Status: Acute Probably seizure disorder. Seizure disorder incidence is highest in this type of patients. Cardiac workup so far has been negative. I recommend an electroencephalogram but if cardiac workup is again negative, despite what EEG shows, starting her on Keppra 250 mg twice a day for seizure prevention. Procedures Date of Service Date of Service: 04/13/21
--- NOTE | 2021-04-13 10:49 | PC.NURSE ---
Received pt this morning from shift supervisor: Pt Aox4, no neuro deficits noted. Pt states she feels midly anxious and claustrophobic. Lungs mainly clear and dimished at the bases. Abd flat and nondistended.
[2021-04-13] MEDS: Cholecalciferol (Vitamin D3) 10 MCG TABLET PO (11:26)
[2021-04-13] MEDS: Cyanocobalamin (Vitamin B-12) 500 MCG TABLET 250 MCG PO (11:26)
--- NOTE | 2021-04-13 13:39 | PC.NURSE ---
Pt to EEG without monitor as per orders from MD Irwin
--- NOTE | 2021-04-13 13:56 | HO.PM.IMPN ---
Subjective Subjective Date of Service: 04/13/21 Interval History: No dizziness Orthostatics negative Physical Exam Vital Signs: Vital Signs: Last Vital Signs Temp 97.8 F 04/13/21 07:30 Pulse 81 04/13/21 07:30 Resp 16 04/13/21 07:30 BP 152/66 H 04/13/21 08:43 Pulse Ox 96 04/13/21 07:30 BMI result Body Mass Index 21.2 Gen: in no acute distress HEENT: sclera anicteric, moist mucus membranes Neck: supple Lungs: clear to auscultation bilaterally Heart: regular rate and rhythm, no murmurs Abd: soft, non-tender, non-distended Ext: no edema Skin: warm/well-perfused, abrasion to occiput without bleeding Neuro: alert and oriented to self and place, no focal findings but quite forgetful Psych: appropriate affect Objective Data Active Medications Acetaminophen (Acetaminophen 325 Mg Tablet) 650 mg PO Q6H PRN PRN Reason: Pain, Mild (Pain Scale 1-3) Last Admin: 04/13/21 11:25 Dose: 650 mg Documented by: FLACO Amlodipine Besylate (Amlodipine Besylate 10 Mg Tablet) 10 mg PO DAILY [facility]; Protocol Last Admin: 04/13/21 08:43 Dose: 10 mg Documented by: FLACO Aspirin (Aspirin 81 Mg Tab.Chew) 81 mg PO Q2D@0900 [facility] Last Admin: 04/13/21 08:42 Dose: 81 mg Documented by: FLACO Brimonidine Tartrate (Brimonidine Tartrate 0.2% Oph 5 Ml Bottle) 1 drop EYE-RIGHT BID [facility] Last Admin: 04/13/21 08:45 Dose: 1 drop Documented by: FLACO Cyanocobalamin (Cyanocobalamin (Vitamin B-12) 500 Mcg Tablet) 250 mcg PO DAILY [facility] Last Admin: 04/13/21 11:26 Dose: 250 mcg Documented by: FLACO Enoxaparin Sodium (Enoxaparin Sodium 40 Mg/0.4 Ml Syringe) 40 mg SUBCUT Q24H [facility] Last Admin: 04/12/21 17:48 Dose: 40 mg Documented by: ERLIN Sodium Chloride (Ns) 1,000 mls @ 100 mls/hr IVCONT .Q10H [facility] Last Admin: 04/13/21 05:18 Dose: 100 mls/hr Documented by: MAITE Thiamine HCl 250 mg/ Sodium (Chloride) 102.5 mls @ 204 mls/hr IV DAILY [facility] Thiamine HCl 500 mg/ Sodium (Chloride) 105 mls @ 210 mls/hr IV Q8H [facility] Stop: 04/14/21 09:29 Last Admin: 04/13/21 08:48 Dose: 210 mls/hr Documented by: FLACO Lidocaine (Lidocaine 4 % Patch Adh..Patch) 1 patch TRANSDERMA DAILY [facility]; Protocol Last Admin: 04/13/21 08:43 Dose: 1 patch Documented by: FLACO Multivitamins/Vitamin C (Multivitamin Tablet) 1 tab PO DAILY [facility] Last Admin: 04/13/21 08:43 Dose: 1 tab Documented by: FLACO Ondansetron HCl (Ondansetron Hcl 4 Mg/2 Ml Vial) 4 mg IVPUSH Q8H PRN PRN Reason: Nausea and Vomiting Pharmacy Consult (Consult Rx Perform Med Rec) 1 each MISCELLANE ONCE PRN PRN Reason: Consult order Prednisone (Prednisone 5 Mg Tablet) 5 mg PO DAILY@1200 DI Sertraline HCl (Sertraline Hcl 25 Mg Tablet) 25 mg PO BID [facility] Last Admin: 04/13/21 08:43 Dose: 25 mg Documented by: FLACO Sodium Chloride (0.9 % Sodium Chloride Flush 3 Ml Syringe) 3 ml IVFLUSH QSHIFT [facility] Last Admin: 04/13/21 07:52 Dose: Not Given Documented by: FLACO Non-Admin Reason: Med Not Available Vitamin D (Cholecalciferol (Vitamin D3) 10 Mcg Tablet) 10 mcg PO DAILY [facility] Last Admin: 04/13/21 11:26 Dose: 10 mcg Documented by: FLACO Labs CBC & Chem 7: 04/13/21 06:47 04/13/21 06:47 Labs: Laboratory Results - last 24 hr 04/12/21 04/12/21 04/12/21 12:41 12:41 18:53 MCV MCH MCHC RDW Plt Count MPV Absolute Nucleated RBC Nucleated RBC % (auto) Anion Gap Estim Creat Clear Calc Estimated GFR Random Glucose Calcium C-Reactive Protein 0.95 H Procalcitonin 0.10 Random Cortisol Urine Color Urine Appearance Urine pH Ur Specific [place] Urine Protein Urine Glucose (UA) Urine Ketones Urine Blood Urine Nitrite Ur Leukocyte Esterase COVID-19 (BRENT) Negative COVID-19 Clin Com See Note 04/12/21 04/13/21 04/13/21 19:10 06:47 06:47 MCV 94.7 MCH 30.6 MCHC 32.4 RDW 13.7 Plt Count 289 MPV 9.6 Absolute Nucleated RBC 0.000 Nucleated RBC % (auto) 0.0 Anion Gap 11 L Estim Creat Clear Calc 46.9 Estimated GFR > 60 Random Glucose 96 Calcium 8.6 C-Reactive Protein Procalcitonin Random Cortisol Urine Color YELLOW Urine Appearance CLEAR Urine pH 7.5 Ur Specific [place] 1.015 Urine Protein NEG Urine Glucose (UA) NEG Urine Ketones NEG Urine Blood NEG Urine Nitrite NEG Ur Leukocyte Esterase NEG COVID-19 (BRENT) COVID-19 Clin Com 04/13/21 06:47 MCV MCH MCHC RDW Plt Count MPV Absolute Nucleated RBC Nucleated RBC % (auto) Anion Gap Estim Creat Clear Calc Estimated GFR Random Glucose Calcium C-Reactive Protein Procalcitonin Random Cortisol 13.3 Urine Color Urine Appearance Urine pH Ur Specific [place] Urine Protein Urine Glucose (UA) Urine Ketones Urine Blood Urine Nitrite Ur Leukocyte Esterase COVID-19 ([facility]ENT) COVID-19 Clin Com Assessment and Plan (1) Syncope: Status: Acute Assessment and Plan: hospital d#2 81yo F with PMR on chronic prednisone, osteoporosis, HTN, and Alzheimer-type dementia presenting with 4th episode of syncope, though this time more prolonged; prior cardiac workup negative # syncope - consult neurology, obtain EEG.? I note that this had been previously recommended back in March 2020 on prior admission for encephalopathy but the patient apparently did not follow-up. # thiamine deficiency/question of Wernicke-Korsakoff syndrome - during encephalopathy workup in 2019, pt was found to have undetectable thiamine level.? It appears she is not on repletion.? Will give IV, transition to PO eventually. # PMR, chronic steroid use - continue usual prednisone dose.?AM cortisol is normal # hypoK - repleted # HTN - amlodipine # VTE ppx - LMWH Quality Stroke Does the patient have a stroke diagnosis?: No VTE Prior VTE?: No VTE Risk Level:: Medical - moderate - high VTE Device Contraindication: N/A - Device Ordered VTE Drug Contraindication: N/A - Med Ordered
--- NOTE | 2021-04-13 15:03 | PC.NURSE ---
Pt arrived back from EEG at this time
[2021-04-13] MEDS: Enoxaparin Sodium 40 MG/0.4 ML SYRINGE SUBCUT (17:20)
--- NOTE | 2021-04-13 19:30 | PC.NURSE ---
Assumed care of pt from TUAN Gould Pt resting on stretcher NAD Will continue to monitor
--- NOTE | 2021-04-13 20:15 | PC.NURSE ---
Pt ambulated to bathroom Gait even and steady Pt provided with toothbrush and toothpaste per request Pt back on bed Pt on monitor NAD Will continue to monitor
--- NOTE | 2021-04-13 22:45 | PC.NURSE ---
Pt medicated per JUN Pt tolerated well Pt pulled out own IV. Bleeding controlled. No apparent distress Pt pulled out monitors. Pt alert and oriented to self Re-directable Pt resting back on stretcher with blanket Will continue to monitor
--- NOTE | 2021-04-14 02:45 | PC.NURSE ---
Pt resting on stretcher with eyes closed Breathing unlabored Will continue to monitor
[2021-04-14] MEDS: 0.9 % Sodium Chloride 1,000 ML 100 ML IVCONT ×2 (04:27→11:56)
[2021-04-14] MEDS: Thiamine HCL 500 MG in 0.9 % Sodium Chloride 100 ML 210 MG IV (04:31)
[2021-04-14 04:51] VITALS: BP 131/54; PULSE 87; O2SAT 95
[2021-04-14 08:15] VITALS: BP 148/67; PULSE 111; RESP 18; TEMP 36.9; O2SAT 97
[2021-04-14 08:16] VITALS: BP 148/67; PULSE 111
[2021-04-14] MEDS: Multivitamin TABLET 1 TAB PO (08:16)
[2021-04-14] MEDS: amLODIPine Besylate 10 MG TABLET PO (08:16)
[2021-04-14] MEDS: Brimonidine Tartrate 0.2% Oph 5 ML BOTTLE 1 DROP EYE-RIGHT (08:16)
[2021-04-14] MEDS: Sertraline HCL 25 MG TABLET PO (08:16)
[2021-04-14] MEDS: Thiamine HCL 250 MG in 0.9 % Sodium Chloride 100 ML 204 MG IV (08:17)
--- NOTE | 2021-04-14 09:10 | PC.NURSE ---
Pt received from night shift supervisor: Pt AOx4 but very anxious but intermittent crying stating she did not like her food and wants to go home. Pt remains in NSR with lungs mainly clear and diminished at bases. Pt bowel sounds present.
[2021-04-14 09:42] VITALS: BP 148/67; PULSE 111
[2021-04-14] MEDS: levETIRAcetam 250 MG TABLET PO (11:56)
[2021-04-14] MEDS: Cyanocobalamin (Vitamin B-12) 500 MCG TABLET 250 MCG PO (11:56)
[2021-04-14] MEDS: Cholecalciferol (Vitamin D3) 10 MCG TABLET PO (11:56)
--- NOTE | 2021-04-14 12:06 | P.DS_ITS ---
DS: Providers Provider Date of Service: 04/14/21 Date of admission: 04/12/21 16:04 Primary care physician: Alexandro Rodriguez MD, DO Consults: 04/12/21 16:04 Consult to Neurology Routine Consulting Provider: [facility] Reason for consultation: 4th episode of syncope DS: Diagnosis Discharge Diagnosis (1) Syncope: Status: Acute (2) Seizure: Status: Acute (3) Thiamine deficiency: Status: Acute (4) Hypokalemia: Status: Acute DS: Summary Hospital Course Hospital Course: from my admission H+P, 04/12/21: 81yo F with mild-moderate Alzheimer dementia, PMR on long-term prednisone 5 mg/d, hypertension, and osteoporosis who lives with her 2 nieces.? History o btained from the patient and her niece [place].? The patient is alert but mildly disoriented and has some confabulation.? She has lost much of her sense of linear time lately.? But be that as it may, she was in the living room standing at the kitchen counter when suddenly lost consciousness without any preceding lightheadedness or other prodrome and landed flat on her back.? No shaking movements.? She was incontinent of urine.? She was out until the paramedics came and she woke up in the ambulance.? She has had 3 prior episodes of syncope since June of this year, though those times she recovered consciousness much more quickly.? She was admitted here in January for 2 sequential episodes of syncope and had a negative workup including echocardiogram [LVEF 65-70% and mild diastolic dysfunction, no significant valvular disease], telemetry [no arrhythmias], and cardiology consultation; CTA was negative for PE or aortic dissection.? A 14-day Holter monitor was suggested but the patient did not follow-up with Cardiology to obtain thsi.? Nor ecent medication changes.? She denies fever, chills, cough, dyspnea, chest pain, nausea, vomiting, or abdominal pain.? In the ED, CTH and C-spine was negative for acute injury. She was admitted to the [facility] [place] observation. No events on telemetry. Orthostatic vital signs were normal. Syncope did not recur. EEG showed diffuse slowing but no focal abnormality. Neurology was consulted. Seizure is the most likely diagnosis. She was started on levetiracteam 250 mg bid and will follow up with Neurology. Upon review of her old records, during work up for encephalopathy in [id number], she was found to have undetectable thiamine level.? She is on pyridoxine but not thiamine. She was given IV thiamine and prescribed PO thiamine upon discharge. A thiamine level is pending at the time of discharge. She should follow up with her primary care doctor within 1 week. Time Spent with Patient Time attestation: Total time spent providing and/or coordinating discharge services: Discharge coordination time: Less than 30 minutes Quality: Stroke Does the patient have a stroke diagnosis?: No Physical Exam Vital Signs: Vital Signs: Last Vital Signs Temp 98.4 F 04/14/21 08:15 Pulse 111 H 04/14/21 09:42 Resp 18 04/14/21 08:15 BP 148/67 H 04/14/21 09:42 Pulse Ox 97 04/14/21 08:15 BMI result Body Mass Index 21.2 Gen: in no acute distress HEENT: sclera anicteric, moist mucus membranes Neck: supple Lungs: clear to auscultation bilaterally Heart: regular rate and rhythm, no murmurs Abd: soft, non-tender, non-distended Ext: no edema Skin: warm/well-perfused, abrasion to occiput without bleeding Neuro: alert and oriented to self and place, no focal findings but quite forgetful Psych: appropriate affect DS: Data Data Completed and Pending Completed studies during hospitalization [Text1]: Laboratory Results WBC 7.4 X10*3/uL (4.8-10.8) 04/13/21 06:47 RBC 3.95 X10*6/uL (4.20-5.50) L 04/13/21 06:47 Hgb 12.1 g/dl (12.0-16.0) 04/13/21 06:47 Hct 37.4 % (37.0-47.0) 04/13/21 06:47 MCV 94.7 fL (80.0-98.0) 04/13/21 06:47 MCH 30.6 pg (27.0-33.0) 04/13/21 06:47 MCHC 32.4 g/dl (31.0-35.0) 04/13/21 06:47 RDW 13.7 % (11.0-16.0) 04/13/21 06:47 Plt Count 289 X10*3/uL (160-400) 04/13/21 06:47 MPV 9.6 fL (9.4-12.3) 04/13/21 06:47 Immature Gran % (Auto) 0.6 % (0.0-0.4) H 04/12/21 12:41 Neut % (Auto) 88.0 % (45-73) H 04/12/21 12:41 Lymph % (Auto) 3.3 % (20-40) L 04/12/21 12:41 [place] % (Auto) 6.6 % (2-11) 04/12/21 12:41 Eos % (Auto) 1.1 % (0-4) 04/12/21 12:41 Baso % (Auto) 0.4 % (0-2) 04/12/21 12:41 Lymph # (Auto) 0.5 X10*3/uL (1.2-4.9) L 04/12/21 12:41 [place] # (Auto) 0.9 X10*3/uL (0.1-1.2) 04/12/21 12:41 Eos # (Auto) 0.2 X10*3/uL (0.0-0.4) 04/12/21 12:41 Baso # (Auto) 0.1 X10*3/uL (0.0-0.2) 04/12/21 12:41 Abs Immat Gran (auto) 0.08 X10*3/uL (0.00-0.03) H 04/12/21 12:41 Absolute Neuts (auto) 12.3 x10*3/uL (2.0-8.3) H 04/12/21 12:41 Absolute Nucleated RBC 0.000 X10*3/uL (0.0-0.012) 04/13/21 06:47 Nucleated RBC % (auto) 0.0 /100WBC (0.0-0.2) 04/13/21 06:47 PT 10.5 SEC (9.9-13.0) 04/12/21 12:41 INR 0.9 (0.9-1.1) 04/12/21 12:41 Sodium 142 mmol/L (135-145) 04/13/21 06:47 Potassium 3.9 mmol/L (3.3-5.1) D 04/13/21 06:47 Chloride 110 mmol/L (96-108) H 04/13/21 06:47 Carbon Dioxide 25 mmol/L (22-29) 04/13/21 06:47 Anion Gap 11 (12-20) L 04/13/21 06:47 BUN 7 mg/dL (9-16) L 04/13/21 06:47 Creatinine 0.73 mg/dL (0.5-1.4) 04/13/21 06:47 Estim Creat Clear Calc 46.9 04/13/21 06:47 Estimated GFR > 60 04/13/21 06:47 Random Glucose 96 mg/dL (60-115) 04/13/21 06:47 Calcium 8.6 mg/dL (8.4-10.2) 04/13/21 06:47 Total Bilirubin 0.3 mg/dL (0.0-1.0) 04/12/21 12:41 Direct Bilirubin < 0.2 mg/dL (0.0-0.5) 04/12/21 12:41 AST 30 U/L (5-31) D 04/12/21 12:41 ALT 33 U/L (0-31) H 04/12/21 12:41 Alkaline Phosphatase 91 U/L (39-117) 04/12/21 12:41 Troponin I High Sens < 3.5 ng/L (<3.5-17.0) 04/12/21 12:41 C-Reactive Protein 0.95 mg/dL (< or = 0.50) H 04/12/21 12:41 B-Natriuretic Peptide 57 pg/mL (<100) 04/12/21 12:41 Total Protein 6.3 g/dL (6.5-8.0) L 04/12/21 12:41 Albumin 3.9 g/dL (3.5-5.0) 04/12/21 12:41 Procalcitonin 0.10 ng/mL 04/12/21 12:41 Random Cortisol 13.3 ug/dL 04/13/21 06:47 Urine Color YELLOW 04/12/21 19:10 Urine Appearance CLEAR 04/12/21 19:10 Urine pH 7.5 (5.0-8.0) 04/12/21 19:10 Ur Specific [place] 1.015 (1.005-1.025) 04/12/21 19:10 Urine Protein NEG MG/DL (NEG-TRACE) 04/12/21 19:10 Urine Glucose (UA) NEG MG/DL (NEG) 04/12/21 19:10 Urine Ketones NEG MG/DL (NEG) 04/12/21 19:10 Urine Blood NEG (NEG) 04/12/21 19:10 Urine Nitrite NEG (NEG) 04/12/21 19:10 Ur Leukocyte Esterase NEG (NEG) 04/12/21 19:10 Ethyl Alcohol < 10 mg/dL 04/12/21 12:41 COVID-19 (BRENT) Negative (Negative) 04/12/21 18:53 COVID-19 Clin Com See Note 04/12/21 18:[address] 04/12/21 11:46 IMPRESSION: No acute intracranial process seen. Moderate cerebral volume loss with chronic small vessel ischemic changes. There is a mild straightening of cervical lordosis with degenerative disc changes and spondylosis. No visible acute fracture, dislocation or subluxation seen. Head CT 04/12/21 11:46 IMPRESSION: No acute intracranial process seen. Moderate cerebral volume loss with chronic small vessel ischemic changes. There is a mild straightening of cervical lordosis with degenerative disc changes and spondylosis. No visible acute fracture, dislocation or subluxation seen. EEG 04/13/21 This is a 16-channel EEG with an EKG lead.? The patient is reported awake and confused during the tracing.? Background EEG rhythm is mixed theta beta, low to medium amplitude with no obvious asymmetry or paroxysmal tendency.? Some lead and muscle artifacts and eye opening and closure artifacts are noted.? Photic stimulation does not produce any significant abnormality.? Hyperventilation is not performed.? Cardiac lead does not reveal any significant abnormality. IMPRESSION:? Mild slowing with no evidence of seizure disorder. Discharge Plan Discharge Patient Disposition: Home, Self-Care Discharge Diagnosis: syncope possibly due to seizure, history of thiamine deficiency Referrals: Alexandro Rodriguez MD, DO [Primary Care Provider] - 1 Week Nelson Elise MD [Physician] - 2 Weeks Discharge Medications: New levetiracetam 250 mg Tablet 250 mg PO BID Qty: 60 RF: 0 thiamine HCl (vitamin B1) 100 mg tablet 100 mg PO DAILY Qty: 30 RF: 11 Continued cyanocobalamin (vitamin B-12) 500 mcg Tablet 250 mcg PO DAILY RF: 0 Alphagan P 0.1 % drops 1 drp ophthalmic-Right BID RF: 0 bepotastine besilate [Bepreve] 1.5 % drops 1 drp ophthalmic (eye) BID RF: 0 amlodipine 10 mg tablet 1 tab PO DAILY RF: 0 multivitamin Tablet 1 tab PO DAILY RF: 0 acetaminophen 500 mg Tablet 1,000 mg PO 0600,1200,2100 RF: 0 cholecalciferol (vitamin D3) 10 mcg (400 unit) Tablet 10 mcg PO DAILY RF: 0 prednisone 5 mg tablet 5 mg PO DAILY@1200 RF: 0 sertraline 50 mg tablet 25 mg PO BID RF: 0 Rocklatan 0.02-0.005 % drops 1 drp ophthalmic (eye) BEDTIME RF: 0 aspirin 81 mg Tablet,Chewable 81 mg PO Q2D RF: 0 pyridoxine (vitamin B6) [Vitamin B-6] 50 mg Tablet 50 mg PO DAILY RF: 0 vitamin A-vitamin C-vit E-min Tablet 1 tab PO DAILY RF: 0 ABC Complete Senior Women's 8 mg iron- 400 mcg-50 mcg Tablet 1 tab PO DAILY RF: 0 Discharge Orders: Discharge Order (Routine); Ordered 04/14/21 Ordered By: Mari Irwin Diet: advance to usual diet Activity on Discharge: As tolerated Stand Alone Forms: Patient Portal Discharge page Care Plan Goals: prevention of syncope Health Concerns: syncope possibly due to seizure, history of thiamine deficiency Plan of Treatment: take levetiracetam [Keppra] 250 mg twice daily and follow up with Neurology in 2 weeks take thiamine [vitamin B1] 100 mg once daily and follow up with Primary Care in 1 week; thiamine level is pending Assessment: see Discharge Summary Patient Instructions: Syncope (DC)
[2021-04-14] MEDS: predniSONE 5 MG TABLET PO (12:59)
[2021-04-14] MEDS: Acetaminophen 325 MG TABLET 650 MG PO (12:59)
--- NOTE | 2021-04-14 14:47 | PC.NURSE ---
Pt D/C from ED overflow. Discussed D/C with pt's gilmar Townsend with pending ride home around 1530. Rn will continue to monitor for call from [place] to bring pt out.
[2021-04-16 12:46] LABS: Vitamin B1 21 nmol/L (8-30)
== END 2021-04-14 15:32 | disposition home or self-care (01) ==
LOC: HO.ED 15:30 → HO.EDOVER 16:18
PROVIDERS: Admitting Provider Family Medicine; Emergency Provider Emergency Medicine; PCP Internal Medicine; Visit Provider Family Medicine
DX: R55 Syncope and collapse (principal); R56.9 Unspecified convulsions; E51.9 Thiamine deficiency, unspecified; E87.6 Hypokalemia; R10.30 Lower abdominal pain, unspecified; R32 Unspecified urinary incontinence; G30.9 Alzheimer's disease, unspecified; F02.80 Dementia in other diseases classified elsewhere, unspecified severity, without behavioral disturbance, psychotic disturbance, mood disturbance, and anxiety; I10 Essential (primary) hypertension; M81.0 Age-related osteoporosis without current pathological fracture; M35.3 Polymyalgia rheumatica; M19.042 Primary osteoarthritis, left hand; M19.041 Primary osteoarthritis, right hand; Z87.891 Personal history of nicotine dependence; Z20.822 Contact with and (suspected) exposure to COVID-19; Z91.81 History of falling; Z88.1 Allergy status to other antibiotic agents; Z88.0 Allergy status to penicillin; Z88.2 Allergy status to sulfonamides; Z88.8 Allergy status to other drugs, medicaments and biological substances; Z79.52 Long term (current) use of systemic steroids; Z79.899 Other long term (current) drug therapy
CPT/HCPCS: 36415; 70450; 72125; 80048; 80076; 81003; 82077; 82533; 83880; 84145; 84425; 84484; 85025; 85027; 85610; 86140; 87635; 93005; 95816; 96361; 96372; 96374; 96375; 97161; 99219; 99285; J1650; J3411

== ENCOUNTER 2021-04-24 16:06 | Emergency (ER) | payer MEDICARE, SELFPAY ==
[2021-04-24] VITALS (7 sets, daily range): BP systolic 142–166; BP diastolic 61–78; PULSE 68–82; RESP 16–18; TEMP 36.8–37.1; O2SAT 94–98; BMI 19.8
--- NOTE | ~2021-04-24 | CT_ITS ---
EXAMINATION: CT HEAD WITHOUT CONTRAST CT CERVICAL SPINE WITHOUT CONTRAST CLINICAL INFORMATION: Syncope. Trauma. COMPARISON: CT head and cervical spine 04/12/2021 TECHNIQUE: Imaging was performed from the skull base to vertex without intravenous administration of contrast. In addition, helical noncontrast CT imaging was acquired through the cervical spine and source images were reviewed along with axial reconstructions and sagittal and coronal MPRs. [This CT examination was performed using dose optimization techniques as appropriate, variously including the following: *Automated exposure control *Adjustment of mA and/or kV according to patient size (this includes techniques or standardized protocols for targeted exams where dose is matched to indication/reason for exam; i.e. extremities or head) *Use of iterative reconstruction technique] DLP: 826 mGy-cm FINDINGS: HEAD: No intracranial mass, hemorrhage, or midline shift is visualized. There is generalized global volume loss. There is moderate prominence of the ventricles and the sulci . There is moderate hypodensity of the periventricular white matter due to chronic small vessel ischemic disease. There are vascular calcifications of the internal carotid arteries bilaterally. No extra-axial collections are identified. The paranasal sinuses and mastoid air cells are well aerated. CERVICAL SPINE: There is no evidence of acute cervical spine fracture. Vertebral bodies remain normal in height. Cervical vertebrae have normal alignment. There is multilevel degenerative spondylosis of the cervical spine with disc height narrowing and endplate spurs and facet joint arthrosis No pre- or paravertebral soft tissue abnormality is identified. Limited assessment of the lung apices is unremarkable. CT/CT cervical spine wo con IMPRESSION: 1. No acute intracranial pathology. 2. No CT evidence of acute cervical spine fracture or traumatic subluxation
--- NOTE | ~2021-04-24 | CT_ITS ---
EXAMINATION: CT CHEST, ABDOMEN AND PELVIS WITHOUT CONTRAST CLINICAL INFORMATION: Fall with question of rib fractures/pneumonia as well as coccyx and hip fracture COMPARISON: CT angiogram chest 02/16/[address] abdomen pelvis 04/08/2020 TECHNIQUE: Multidetector volumetric imaging was performed from the thoracic inlet through the pubic symphysis without IV contrast. Sagittal and coronal reformatted images were obtained on the technologist's workstation. This CT examination was performed using dose optimization techniques as appropriate, variously including the following: *Automated exposure control *Adjustment of mA and/or kV according to patient size (this includes techniques or standardized protocols for targeted exams where dose is matched to indication/reason for exam; i.e. extremities or head) *Use of iterative reconstruction technique DLP: 540 mGy-cm FINDINGS: CHEST: Lung: The lungs are clear without focal opacity or nodule. Mediastinum: The mediastinum shows no evidence of traumatic injury. The central vascular structures are unremarkable. No hilar or mediastinal lymphadenopathy. Coronary artery calcifications are seen. Pericardium/Pleura: No significant effusion. No pleural mass or thickening. Chest Wall/Axilla: No rib fractures are seen. ABDOMEN/PELVIS: Peritoneal Space: No significant free air or free fluid identified. Liver, Gallbladder, Biliary Tree: The liver is normal in size, shape, and attenuation. No focal hepatic lesion or biliary ductal dilatation is present. The gallbladder is markedly distended but otherwise unremarkable with no evidence of radiopaque gallstones, gallbladder wall thickening, or obvious pericholecystic inflammatory changes. Pancreas: Unremarkable. The changes previously noted were artifactual. Spleen: Unremarkable Adrenal Glands: Unremarkable Kidneys and Ureters: The kidneys are normal in size, shape, and attenuation. No hydronephrosis, hydroureter, or calculi seen. No perinephric stranding. Bladder: Unremarkable Gastrointestinal Tract: The small and large bowel are unremarkable. The appendix is not seen. Abdominal Wall: No significant hernia is appreciated. Tiny left inguinal hernia seen containing only fat. Lymph Nodes: Retroperitoneal lymphadenopathy. Vascular: Calcific atherosclerotic changes are present.. The IVC appears unremarkable. PELVIC VISCERA: Unremarkable OSSEUS STRUCTURES: There is change in the appearance of the sacrum consistent with a fracture best appreciated on lateral views. The inner border of the sacrum previously was smooth and now there is a buckle anteriorly at the level of S2-S3. Images of the fracture lines have been saved as de la o images. The coccyx appears normal. Again seen are degenerative changes in the spine along with stable grade 1 anterolisthesis L4 upon L5 with compression fracture superior endplate of L4. CT/CT abdomen pelvis wo con IMPRESSION: 1. No evidence of acute traumatic injury involving the ribs, pelvis or hips. 2. Sacral fracture as described above. 3. Markedly distended gallbladder but otherwise unremarkable
--- NOTE | 2021-04-24 16:50 | ECG_ITS ---
Test Reason : FALL Blood Pressure : / mmHG Vent. Rate : 065 BPM Atrial Rate : 065 BPM P-R Int : 178 ms QRS Dur : 086 ms QT Int : 390 ms P-R-T Axes : 058 -08 031 degrees QTc Int : 405 ms Normal sinus rhythm Normal ECG When compared with ECG of 12-APR-2021 10:48, Criteria for Septal infarct are no longer Present Nonspecific T wave abnormality, improved in Anterior leads Referred By: Alex Hightower Electronically Signed By:Nicolas Covarrubias
--- NOTE | 2021-04-24 17:26 | ED.GENADULT ---
HPI - General Adult General Chief complaint: Fall Stated complaint: extreme back pain Time Seen by Provider: 04/24/21 16:22 Source: patient Mode of arrival: ambulatory Limitations: no limitations History of Present Illness HPI narrative: 81-year-old female with history of hypertension, multiple syncopal episodes, chronic steroid use presents to the ED for syncopal episode which occurred around noon. Patient states she was in the kitchen and she syncopized. Patient states she had no symptoms before symptom falling. Patient states her niece woke her up from the ground. Patient denies any urinary/bowel incontinence. Patient was recently admitted for syncopal episodes. Patient denies having any headache, chest pain, shortness of breath, dizziness, or abdominal pain before syncopized. Patient states only physical complaints is buttock pain. Related Data Home Medications Medication Instructions Recorded Confirmed bepotastine besilate 1.5 % eye 1 drp OPHTHALMIC (EYE) BID 04/08/20 04/12/21 drops (Bepreve) brimonidine 0.1 % eye drops 1 drp OPHTHALMIC-RIGHT BID 04/08/20 04/12/21 (Alphagan P) cyanocobalamin (vitamin B-12) 500 250 mcg PO DAILY 04/08/20 04/12/21 mcg tablet acetaminophen 500 mg tablet 1,000 mg PO 0600,1200,2100 02/16/21 04/12/21 amlodipine 10 mg tablet 1 tab PO DAILY 02/16/21 04/12/21 cholecalciferol (vitamin D3) 10 10 mcg PO DAILY 02/16/21 04/12/21 mcg (400 unit) tablet multivitamin 1 tab PO DAILY 02/16/21 04/12/21 prednisone 5 mg tablet 5 mg PO DAILY@1200 02/16/21 04/12/21 sertraline 50 mg tablet 25 mg PO BID 02/16/21 04/12/21 netarsudil 0.02 %-latanoprost 1 drp OPHTHALMIC (EYE) BEDTIME 02/17/21 04/12/21 0.005 % eye drops (Rocklatan) aspirin 81 mg chewable tablet 81 mg PO Q2D 04/12/21 04/12/21 ff-sujt-[id number]-iron 8 mg-folic acid 1 tab PO DAILY 04/12/21 04/12/21 400 mcg-vit K1 50 mcg-lutein tablet (ABC Complete Senior Women's) pyridoxine (vitamin B6) 50 mg 50 mg PO DAILY 04/12/21 04/12/21 tablet (Vitamin B-6) vitamin A-vitamin C-vit E-min 1 tab PO DAILY 04/12/21 04/12/21 tablet Previous Rx's Medication Instructions Recorded levetiracetam 250 mg tablet 250 mg PO BID #60 tab 04/14/21 thiamine HCl (vitamin B1) 100 mg 100 mg PO DAILY #30 tab 04/14/21 tablet Allergies Allergy/AdvReac Type Severity Reaction Status Date / Time cefadroxil [From DURICEF] Allergy Unknown RASH Verified 07/08/20 21:09 cortisone Allergy Unknown RASH, Verified 07/08/20 21:09 REDDENED CHEST FROM CORTISONE INJECTIONS levofloxacin [From LEVAQUIN] Allergy Unknown TINNITIS Verified 07/08/20 21:09 penicillin V Allergy Unknown Unknown Verified 07/08/20 21:09 Sulfa (Sulfonamide Allergy Unknown UNKNOWN Verified 07/08/20 21:09 Antibiotics) sulfamethoxazole Allergy Unknown RASH Verified 07/08/20 21:09 [From BACTRIM] trimethoprim [From BACTRIM] Allergy Unknown RASH Verified 07/08/20 21:09 Review of Systems Review of Systems: Yes all other systems are reviewed and are negative Constitutional: Constitutional: Reports as per HPI and Reports no additional constitutional complaints Eyes: Eyes: Reports as per HPI and Reports no additional eye complaints ENT: Reports system reviewed and no additional complaints, except as documented and Reports as per HPI Cardiovascular: Cardiovascular: Reports as per HPI and Reports no additional cardiovascular complaints Comments: Syncopal episode Respiratory: Respiratory: Reports as per HPI and Reports no additional respiratory complaints Gastrointestinal: Gastrointestinal: Reports as per HPI and Reports no additional gastrointestinal complaints Genitourinary: Genitourinary: Reports no additional female genitourinary complaints and Reports as per HPI Musculoskeletal: Musculoskeletal: Reports no additional musculoskeletal complaints, Reports as per HPI and Reports back pain Neurologic: Reports system reviewed and no additional complaints, except as documented and Reports as per HPI Psychiatric: Psychiatric: Reports no additional psychiatric complaints and Reports as per HPI [facility] Past Medical History Medical History Alzheimer's dementia Cerebral microvascular disease Elevated C-reactive protein Glaucoma HTN (hypertension) IBS (irritable bowel syndrome) Multifactorial dementia Osteoporosis PMR (polymyalgia rheumatica) Primary osteoarthritis of hands, bilateral UTI (urinary tract infection) Surgical History H/O cataract removal with insertion of prosthetic lens H/O: hysterectomy History of tonsillectomy History of wisdom tooth extraction Hx of appendectomy Social History Social History Household Members: Unknown / Unable to assess Household Members Other:: NIECE Housing: Unknown / Unable to assess Are you a primary rn progressive care unit to a significant other at home: No Do you presently have visiting nurse or other home services: No Unable to assess alcohol history related to: Unknown Alcohol intake: former Patient Tobacco Use Status: Former Tobacco user Substance Use Type: Unknown Advance Directives: Yes Advance Directives on File: Yes Advance Directives Date on File: 04/12/20 service: No Current occupational status: retired Physical Exam Vital Signs: Vital Signs: Last Vital Signs Temp 98.8 F 04/24/21 22:11 Pulse 71 04/24/21 22:11 Resp 16 04/24/21 22:11 BP 166/66 H 04/24/21 22:11 Pulse Ox 94 04/24/21 22:11 BMI result Body Mass Index 19.8 Const: General: cooperative, healthy appearing, comfortable, no acute distress, well developed, alert and awake Orientation/consciousness: patient oriented x3 HENMT: Head: Yes normal to inspection, Yes No palpable skull fracture present, Yes normocephalic, Yes atraumatic and No abrasion Eyes: General: appearance normal, both eyes and all related structures Neck: Neck: Yes normal visual inspection, Yes full ROM, Yes no lymphadenopathy, Yes no meningeal signs, Yes trachea midline, Yes supple, No anterior neck swelling and No tender Chest: Chest palpation & inspection: normal inspection of the chest and normal palpation of entire chest wall Resp: Effort & Inspection: normal respiratory effort and able to speak in complete sentences Auscultation: clear to auscultation bilaterally Cardio: Jugular venous distension: no JVD Heart sounds: S1 normal heart sound present and S2 normal heart sound present GI: Inspection: Yes normal to inspection and No abdominal wall ecchymosis Palpation (GI): Soft to palpation, not firm, nontender, no guarding and not rigid : General: No CVA tenderness and Yes no CVA tenderness Back/Spine/Pelvis: Back: no CVA tenderness, No CVA tenderness and back tenderness (positive for coccyx tenderness) Skin: General skin exam: no rashes or lesions noted and elasticity normal Neuro: General: patient oriented x3, gait normal, no meningeal signs and CN's II-XI intact bilaterally Cranial nerves: Yes CN's II-XII intact bilaterally Extrem: General: Yes normal to inspection and Yes full ROM Psych: Appearance: grossly normal, well kempt and not disheveled Course Course Course Narrative: Patient will be evaluated for Syncope. EKG and labs and orthostatics. Images ordered Reevaluation(s) Reevaluation #1: EKG negative STEMI. Troponin negative. Patient positive for orthostatic hypotensive which caused patient to syncopized in fall. Chest CT head CT and cervical spine CT came back normal. Abdominal CT scan shows sacral buckle fracture at S2-S3. Will call hospitalist to admit. Patient will order pain medication Time: 17:40 Reevaluation #2: During ED visit patient developed urinary incontinence. Patient states no control over her urine ( which is new). Patient bed soaked with urine. Bladder scan at that point was 290. Patient continusally complained of urinary continence. Rectal exam was done and patient has good rectal tone and negative saddle anaesthesia. Patient lower extremities motor neuro/vascular exam intact. Reevaluation #3: later in ED visit patient then states having trouble urinating ( urinary retention). Postvoid bladder scan was 500. Plan to place Hernandez but patient anxious and refused hernandez. Ativan ordered for Hernandez procedure. Spoke with [facility] trauma surgeon Dr. Dumont who recommends patient be transferred to the ER for further evaluation. Patient made aware. Time: 22:36 Medical Decision Making MDM Narrative Medical decision making narrative: Syncope, orthostatic hypotension, sacral fracture. Lab Data Result diagrams: 04/24/21 17:40 04/24/21 17:40 Labs: Lab Results 04/24/21 04/24/21 04/24/21 Range/Units 17:40 17:40 17:40 WBC 12.1 H (4.8-10.8) X10*3/uL RBC 4.72 (4.20-5.50) X10*6/uL Hgb 14.8 D (12.0-16.0) g/dl Hct 43.8 (37.0-47.0) % MCV 92.8 (80.0-98.0) fL MCH 31.4 (27.0-33.0) pg MCHC 33.8 (31.0-35.0) g/dl RDW 13.3 (11.0-16.0) % Plt Count 439 H D (160-400) X10*3/uL MPV 9.4 (9.4-12.3) fL Immature Gran % (Auto) 0.8 H (0.0-0.4) % Neut % (Auto) 84.0 H (45-73) % Lymph % (Auto) 4.6 L (20-40) % [place] % (Auto) 8.7 (2-11) % Eos % (Auto) 1.2 (0-4) % Baso % (Auto) 0.7 (0-2) % Lymph # (Auto) 0.6 L (1.2-4.9) X10*3/uL [place] # (Auto) 1.1 (0.1-1.2) X10*3/uL Eos # (Auto) 0.1 (0.0-0.4) X10*3/uL Baso # (Auto) 0.1 (0.0-0.2) X10*3/uL Abs Immat Gran (auto) 0.10 H (0.00-0.03) X10*3/uL Absolute Neuts (auto) 10.2 H (2.0-8.3) x10*3/uL Absolute Nucleated RBC 0.000 (0.0-0.012) X10*3/uL Nucleated RBC % (auto) 0.0 (0.0-0.2) /100WBC PT (9.9-13.0) SEC INR (0.9-1.1) APTT (24.1-38.0) SEC Sodium 143 (135-145) mmol/L Potassium 4.2 (3.3-5.1) mmol/L Chloride 106 (96-108) mmol/L Carbon Dioxide 25 (22-29) mmol/L Anion Gap 16 (12-20) BUN 16 D (9-16) mg/dL Creatinine 0.84 (0.5-1.4) mg/dL Estim Creat Clear Calc 39.9 Estimated GFR > 60 Random Glucose 115 (60-115) mg/dL Calcium 9.3 D (8.4-10.2) mg/dL Total Bilirubin 0.4 (0.0-1.0) mg/dL AST 37 H (5-31) U/L ALT 26 (0-31) U/L Alkaline Phosphatase 142 H D (39-117) U/L Troponin I High Sens 6.3 D (<3.5-17.0) ng/L B-Natriuretic Peptide 49 (<100) pg/mL Total Protein 7.0 (6.5-8.0) g/dL Albumin 4.0 (3.5-5.0) g/dL Urine Color Urine Appearance Urine pH (5.0-8.0) Ur Specific [place] (1.005-1.025) Urine Protein (NEG-TRACE) MG/DL Urine Glucose (UA) (NEG) MG/DL Urine Ketones (NEG) MG/DL Urine Blood (NEG) Urine Nitrite (NEG) Ur Leukocyte Esterase (NEG) Urine RBC (0) /HPF Urine WBC (0-4) /HPF Ur Squamous Epith Cells /LPF Amorphous Sediment /LPF Urine Bacteria /LPF COVID-19 (BRENT) (Negative) COVID-19 Clin Com 04/24/21 04/24/21 04/24/21 Range/Units 17:40 17:40 17:40 WBC (4.8-10.8) X10*3/uL RBC (4.20-5.50) X10*6/uL Hgb (12.0-16.0) g/dl Hct (37.0-47.0) % MCV (80.0-98.0) fL MCH (27.0-33.0) pg MCHC (31.0-35.0) g/dl RDW (11.0-16.0) % Plt Count (160-400) X10*3/uL MPV (9.4-12.3) fL Immature Gran % (Auto) (0.0-0.4) % Neut % (Auto) (45-73) % Lymph % (Auto) (20-40) % [place] % (Auto) (2-11) % Eos % (Auto) (0-4) % Baso % (Auto) (0-2) % Lymph # (Auto) (1.2-4.9) X10*3/uL [place] # (Auto) (0.1-1.2) X10*3/uL Eos # (Auto) (0.0-0.4) X10*3/uL Baso # (Auto) (0.0-0.2) X10*3/uL Abs Immat Gran (auto) (0.00-0.03) X10*3/uL Absolute Neuts (auto) (2.0-8.3) x10*3/uL Absolute Nucleated RBC (0.0-0.012) X10*3/uL Nucleated RBC % (auto) (0.0-0.2) /100WBC PT 10.4 (9.9-13.0) SEC INR 0.9 (0.9-1.1) APTT 31.5 (24.1-38.0) SEC Sodium (135-145) mmol/L Potassium (3.3-5.1) mmol/L Chloride (96-108) mmol/L Carbon Dioxide (22-29) mmol/L Anion Gap (12-20) BUN (9-16) mg/dL Creatinine (0.5-1.4) mg/dL Estim Creat Clear Calc Estimated GFR Random Glucose (60-115) mg/dL Calcium (8.4-10.2) mg/dL Total Bilirubin (0.0-1.0) mg/dL AST (5-31) U/L ALT (0-31) U/L Alkaline Phosphatase (39-117) U/L Troponin I High Sens (<3.5-17.0) ng/L B-Natriuretic Peptide (<100) pg/mL Total Protein (6.5-8.0) g/dL Albumin (3.5-5.0) g/dL Urine Color STRAW Urine Appearance CLEAR Urine pH 6.0 (5.0-8.0) Ur Specific [place] 1.010 (1.005-1.025) Urine Protein NEG (NEG-TRACE) MG/DL Urine Glucose (UA) NEG (NEG) MG/DL Urine Ketones 5 (NEG) MG/DL Urine Blood TRACE (NEG) Urine Nitrite NEG (NEG) Ur Leukocyte Esterase NEG (NEG) Urine RBC 0-2 (0) /HPF Urine WBC 1-4 (0-4) /HPF Ur Squamous Epith Cells TRACE /LPF Amorphous Sediment TRACE /LPF Urine Bacteria NONE /LPF COVID-19 (BRENT) Negative (Negative) COVID-19 Clin Com See Note ECG Data Interpretation: Normal sinus rhythm. Normal EKG. Ventricular rate 65. Pr interval 178. QRS 86. QTC 405. Negative STEMI Discharge Plan Discharge Clinical Impression: Syncope, Orthostatic hypotension, Closed sacral fracture Patient Disposition: [facility] Transfer Details: [facility] Prescriptions: No Action cyanocobalamin (vitamin B-12) 500 mcg Tablet 250 mcg PO DAILY RF: 0 Alphagan P 0.1 % drops 1 drp ophthalmic-Right BID RF: 0 bepotastine besilate [Bepreve] 1.5 % drops 1 drp ophthalmic (eye) BID RF: 0 amlodipine 10 mg tablet 1 tab PO DAILY RF: 0 multivitamin Tablet 1 tab PO DAILY RF: 0 acetaminophen 500 mg Tablet 1,000 mg PO 0600,1200,2100 RF: 0 cholecalciferol (vitamin D3) 10 mcg (400 unit) Tablet 10 mcg PO DAILY RF: 0 prednisone 5 mg tablet 5 mg PO DAILY@1200 RF: 0 sertraline 50 mg tablet 25 mg PO BID RF: 0 Rocklatan 0.02-0.005 % drops 1 drp ophthalmic (eye) BEDTIME RF: 0 aspirin 81 mg Tablet,Chewable 81 mg PO Q2D RF: 0 pyridoxine (vitamin B6) [Vitamin B-6] 50 mg Tablet 50 mg PO DAILY RF: 0 vitamin A-vitamin C-vit E-min Tablet 1 tab PO DAILY RF: 0 ABC Complete Senior Women's 8 mg iron- 400 mcg-50 mcg Tablet 1 tab PO DAILY RF: 0 levetiracetam 250 mg Tablet 250 mg PO BID Qty: 60 RF: 0 thiamine HCl (vitamin B1) 100 mg tablet 100 mg PO DAILY Qty: 30 RF: 11
[2021-04-24] MEDS: 0.9 % Sodium Chloride 1,000 ML 999 ML IV (17:46)
[2021-04-24 17:49] LABS: Basophils Absolute Auto 0.1 X10*3/uL (0.0-0.2); Basophils Percent Auto 0.7 % (0-2); Eosinophils Absolute Auto 0.1 X10*3/uL (0.0-0.4); Eosinophils Percent Auto 1.2 % (0-4); Hematocrit 43.8 % (37.0-47.0); Hemoglobin 14.8 g/dl (12.0-16.0); Imm Gran Pct Auto 0.8 % (0.0-0.4); Lymphocytes Absolute Auto 0.6 X10*3/uL (1.2-4.9); Lymphocytes Percent Auto 4.6 % (20-40); MANUAL DIFF FLAG NO; Mean Corpuscular HGB Conc 33.8 g/dl (31.0-35.0); Mean Corpuscular Hemoglobin 31.4 pg (27.0-33.0); Mean Corpuscular Volume 92.8 fL (80.0-98.0); Mean Platelet Volume 9.4 fL (9.4-12.3); Monocytes Absolute Auto 1.1 X10*3/uL (0.1-1.2); Monocytes Percent Auto 8.7 % (2-11); Neutrophils Absolute Auto 10.2 x10*3/uL (2.0-8.3); Platelet Count 439 X10*3/uL (160-400); Red Blood Count 4.72 X10*6/uL (4.20-5.50); Red Cell Distribution Width 13.3 % (11.0-16.0); White Blood Count 12.1 X10*3/uL (4.8-10.8)
[2021-04-24 17:50] LABS: Appearance Urine CLEAR; Color Urine STRAW; Glucose Urine UA NEG (NEG); Leukocyte Esterase Urine NEG (NEG); Nitrite Urine NEG (NEG); UACC Culture Trigger NO; Urine Blood TRACE (NEG); Urine Ketones 5 MG/DL (NEG); Urine Protein NEG (NEG-TRACE)
[2021-04-24] MEDS: Acetaminophen 325 MG TABLET 650 MG PO (17:56)
[2021-04-24 17:58] LABS: INTERNATIONAL NORM RATIO 0.9 (0.9-1.1); Prothrombin Time 10.4 SEC (9.9-13.0)
[2021-04-24 18:00] LABS: Partial Thromboplastin Time 31.5 SEC (24.1-38.0)
[2021-04-24 18:09] LABS: B Type Natriuretic Peptide 49 pg/mL (<100); Troponin-I High Sensitivity 6.3 ng/L (<3.5-17.0)
[2021-04-24 18:11] LABS: Alanine Aminotransferase 26 U/L (0-31); Alkaline Phosphatase 142 U/L (39-117); Anion Gap 16 (12-20); Aspartate Amino Transferase 37 U/L (5-31); Bilirubin Total 0.4 mg/dL (0.0-1.0); Blood Urea Nitrogen 16 mg/dL (9-16); Calcium 9.3 mg/dL (8.4-10.2); Carbon Dioxide 25 mmol/L (22-29); Chloride 106 mmol/L (96-108); Creatinine Clr Calc Pharmacy 39.9; Estimated Glomerular Filt Rate > 60; Glucose Random 115 mg/dL (60-115); Potassium 4.2 mmol/L (3.3-5.1); Sodium 143 mmol/L (135-145)
[2021-04-24 18:13] LABS: Amorphous Sediment Urine TRACE /LPF; RBC Urine 0-2 /HPF (0); Squamous Epithelial Cell Urine TRACE /LPF
[2021-04-24 18:14] LABS: COVID-19 Test Negative (Negative); IDNOW Serial# 9DD0AD1C
[2021-04-24] MEDS: oxyCODONE HCl Immed Release 5 MG TABLET PO (18:33)
[2021-04-24] MEDS: Morphine Sulfate 2 MG/ML CARTRIDGE IVPUSH (20:18)
--- NOTE | 2021-04-24 20:21 | PC.NURSE ---
pt a&o, no sob or chest pain, medicated per mar. pure wick in place. pt repositioned for comfort.
--- NOTE | 2021-04-24 21:41 | PM.IMHP ---
[facility] Medical History Alzheimer's dementia Cerebral microvascular disease Elevated C-reactive protein Glaucoma HTN (hypertension) IBS (irritable bowel syndrome) Multifactorial dementia Osteoporosis PMR (polymyalgia rheumatica) Primary osteoarthritis of hands, bilateral UTI (urinary tract infection) Surgical History H/O cataract removal with insertion of prosthetic lens H/O: hysterectomy History of tonsillectomy History of wisdom tooth extraction Hx of appendectomy Social History Household Members: Unknown / Unable to assess Household Members Other:: NIECE Housing: Unknown / Unable to assess Are you a primary child day care teacher to a significant other at home: No Do you presently have visiting nurse or other home services: No Unable to assess alcohol history related to: Unknown Alcohol intake: former Patient Tobacco Use Status: Former Tobacco user Substance Use Type: Unknown Advance Directives: Yes Advance Directives on File: Yes Advance Directives Date on File: 04/12/20 service: No Current occupational status: retired Meds Allergies Allergy/AdvReac Type Severity Reaction Status Date / Time cefadroxil [From DURICEF] Allergy Unknown RASH Verified 07/08/20 21:09 cortisone Allergy Unknown RASH, Verified 07/08/20 21:09 REDDENED CHEST FROM CORTISONE INJECTIONS levofloxacin [From LEVAQUIN] Allergy Unknown TINNITIS Verified 07/08/20 21:09 penicillin V Allergy Unknown Unknown Verified 07/08/20 21:09 Sulfa (Sulfonamide Allergy Unknown UNKNOWN Verified 07/08/20 21:09 Antibiotics) sulfamethoxazole Allergy Unknown RASH Verified 07/08/20 21:09 [From BACTRIM] trimethoprim [From BACTRIM] Allergy Unknown RASH Verified 07/08/20 21:09 Active Medications: Current Medications Acetaminophen (Acetaminophen 325 Mg Tablet) 650 mg PO Q6H PRN PRN Reason: Pain, Mild (Pain Scale 1-3) Melatonin (Melatonin 3 Mg Tablet) 6 mg PO BEDTIME PRN PRN Reason: Insomnia Pharmacy Consult (Consult Rx Perform Med Rec) 1 each MISCELLANE ONCE PRN PRN Reason: Consult order Senna (Sennosides 8.6 Mg Tablet) 17.2 mg PO BEDTIME PRN PRN Reason: Constipation Sodium Chloride (0.9 % Sodium Chloride Flush 3 Ml Syringe) 3 ml IVFLUSH QSHIFT [facility] Home Medications Medication Instructions Recorded Confirmed Last Taken Type bepotastine besilate 1.5 % eye 1 drp OPHTHALMIC (EYE) BID 04/08/20 04/12/21 02/16/21 History drops (Bepreve) brimonidine 0.1 % eye drops 1 drp OPHTHALMIC-RIGHT BID 04/08/20 04/12/21 04/12/21 History (Alphagan P) cyanocobalamin (vitamin B-12) 500 250 mcg PO DAILY 04/08/20 04/12/21 02/16/21 History mcg tablet acetaminophen 500 mg tablet 1,000 mg PO 0600,1200,2100 02/16/21 04/12/21 02/16/21 History amlodipine 10 mg tablet 1 tab PO DAILY 02/16/21 04/12/21 04/12/21 History cholecalciferol (vitamin D3) 10 10 mcg PO DAILY 02/16/21 04/12/21 02/16/21 History mcg (400 unit) tablet multivitamin 1 tab PO DAILY 02/16/21 04/12/21 02/16/21 History prednisone 5 mg tablet 5 mg PO DAILY@1200 02/16/21 04/12/21 04/11/21 History sertraline 50 mg tablet 25 mg PO BID 02/16/21 04/12/21 04/12/21 History netarsudil 0.02 %-latanoprost 1 drp OPHTHALMIC (EYE) BEDTIME 02/17/21 04/12/21 04/11/21 History 0.005 % eye drops (Rocklatan) aspirin 81 mg chewable tablet 81 mg PO Q2D 04/12/21 04/12/21 Unknown History is-hffd-qhrh-iron 8 mg-folic acid 1 tab PO DAILY 04/12/21 04/12/21 Unknown History 400 mcg-vit K1 50 mcg-lutein tablet (ABC Complete Senior Women's) pyridoxine (vitamin B6) 50 mg 50 mg PO DAILY 04/12/21 04/12/21 Unknown History tablet (Vitamin B-6) vitamin A-vitamin C-vit E-min 1 tab PO DAILY 04/12/21 04/12/21 Unknown History tablet Physical Exam Vital Signs and Narrative: Vital Signs: Last Vital Signs Temp 98.2 F 04/24/21 18:42 Pulse 74 04/24/21 18:42 Resp 18 04/24/21 18:42 BP 165/68 H 04/24/21 18:42 Pulse Ox 98 04/24/21 18:42 BMI result Body Mass Index 19.8 Results Labs CBC and Chem 7: 04/24/21 17:40 04/24/21 17:40 Labs: Laboratory Results - last 24 hr 04/24/21 04/24/21 04/24/21 17:40 17:40 17:40 MCV 92.8 MCH 31.4 MCHC 33.8 RDW 13.3 Plt Count 439 H D MPV 9.4 Immature Gran % (Auto) 0.8 H Neut % (Auto) 84.0 H Lymph % (Auto) 4.6 L [place] % (Auto) 8.7 Eos % (Auto) 1.2 Baso % (Auto) 0.7 Lymph # (Auto) 0.6 L [place] # (Auto) 1.1 Eos # (Auto) 0.1 Baso # (Auto) 0.1 Abs Immat Gran (auto) 0.10 H Absolute Neuts (auto) 10.2 H Absolute Nucleated RBC 0.000 Nucleated RBC % (auto) 0.0 PT INR APTT Anion Gap 16 Estim Creat Clear Calc 39.9 Estimated GFR > 60 Random Glucose 115 Calcium 9.3 D Total Bilirubin 0.4 AST 37 H ALT 26 Alkaline Phosphatase 142 H D Troponin I High Sens 6.3 D B-Natriuretic Peptide 49 Total Protein 7.0 Albumin 4.0 Urine Color Urine Appearance Urine pH Ur Specific [place] Urine Protein Urine Glucose (UA) Urine Ketones Urine Blood Urine Nitrite Ur Leukocyte Esterase Urine RBC Urine WBC Ur Squamous Epith Cells Amorphous Sediment Urine Bacteria COVID-19 (BRENT) COVID-19 Clin Com 04/24/21 04/24/21 04/24/21 17:40 17:40 17:40 MCV MCH MCHC RDW Plt Count MPV Immature Gran % (Auto) Neut % (Auto) Lymph % (Auto) [place] % (Auto) Eos % (Auto) Baso % (Auto) Lymph # (Auto) [place] # (Auto) Eos # (Auto) Baso # (Auto) Abs Immat Gran (auto) Absolute Neuts (auto) Absolute Nucleated RBC Nucleated RBC % (auto) PT 10.4 INR 0.9 APTT 31.5 Anion Gap Estim Creat Clear Calc Estimated GFR Random Glucose Calcium Total Bilirubin AST ALT Alkaline Phosphatase Troponin I High Sens B-Natriuretic Peptide Total Protein Albumin Urine Color STRAW Urine Appearance CLEAR Urine pH 6.0 Ur Specific [place] 1.010 Urine Protein NEG Urine Glucose (UA) NEG Urine Ketones 5 Urine Blood TRACE Urine Nitrite NEG Ur Leukocyte Esterase NEG Urine RBC 0-2 Urine WBC 1-4 Ur Squamous Epith Cells TRACE Amorphous Sediment TRACE Urine Bacteria NONE COVID-19 (BRENT) Negative COVID-19 Clin Com See Note Imaging Radiologist's Impressions: Impressions Cervical Spine CT 04/24/21 17:33 IMPRESSION: 1. No acute intracranial pathology. 2. No CT evidence of acute cervical spine fracture or traumatic subluxation Head CT 04/24/21 17:33 IMPRESSION: 1. No acute intracranial pathology. 2. No CT evidence of acute cervical spine fracture or traumatic subluxation Abdomen/Pelvis CT 04/24/21 17:39 IMPRESSION: 1. No evidence of acute traumatic injury involving the ribs, pelvis or hips. 2. Sacral fracture as described above. 3. Markedly distended gallbladder but otherwise unremarkable Chest CT 04/24/21 17:39 IMPRESSION: 1. No evidence of acute traumatic injury involving the ribs, pelvis or hips. 2. Sacral fracture as described above. 3. Markedly distended gallbladder but otherwise unremarkable Assessment and Plan (1) Syncope: Status: Acute (2) Sacral fracture: Status: Acute Quality Stroke Does the patient have a stroke diagnosis?: No VTE Prior VTE?: No VTE Risk Level:: Medical - low VTE Device Contraindication: N/A - Device Ordered VTE Drug Contraindication: Treatment Not Indicated
[2021-04-24] MEDS: LORazepam 2 MG/ML VIAL 1 MG IVPUSH (22:08)
--- NOTE | 2021-04-24 22:21 | PC.NURSE ---
pt a&o no sob or chest pain. medicated per jun.
[2021-04-25] MEDS: HYDROmorphone HCl 0.5 MG/0.5 ML SYRINGE IVPUSH (00:32)
[2021-04-25] MEDS: 0.9 % Sodium Chloride Flush 3 ML SYRINGE IVFLUSH (00:35)
[2021-04-25 00:38] VITALS: BP 147/63; PULSE 75; RESP 16
--- NOTE | 2021-04-25 00:49 | PC.NURSE ---
pt being transferred to [facility] to trauma service report given to teja. medicated pt before transport.
--- NOTE | 2021-04-25 00:54 | PC.NURSE ---
Notified gilmar Townsend pt being transferred to [facility].
== END 2021-04-25 00:55 | disposition short-term general hospital (02) ==
PROVIDERS: Physician Assistant; Emergency Provider Emergency Medicine Emergency Medical Services; PCP Internal Medicine
DX: I95.1 Orthostatic hypotension (principal); S32.10XA Unspecified fracture of sacrum, initial encounter for closed fracture; W17.89XA Other fall from one level to another, initial encounter; Z20.822 Contact with and (suspected) exposure to COVID-19; I10 Essential (primary) hypertension; G30.9 Alzheimer's disease, unspecified; F02.80 Dementia in other diseases classified elsewhere, unspecified severity, without behavioral disturbance, psychotic disturbance, mood disturbance, and anxiety; Y93.9 Activity, unspecified; Y92.010 Kitchen of single-family (private) house as the place of occurrence of the external cause; Y99.9 Unspecified external cause status; Z87.440 Personal history of urinary (tract) infections
CPT/HCPCS: 36415; 51702; 70450; 71250; 72125; 74176; 80053; 81001; 83880; 84484; 85025; 85610; 85730; 87635; 93005; 96361; 96374; 96375; 99285; J1170; J2060; J2270

== ENCOUNTER 2021-05-01 19:21 | Emergency (ER) | payer MEDICARE, SELFPAY ==
[2021-05-01 19:33] VITALS: BP 143/61; PULSE 70; RESP 16; TEMP 36.3; O2SAT 93; BMI 26.3
--- NOTE | 2021-05-01 19:52 | ED_ITS ---
HPI - Extremity Injury (Lower) General Chief Complaint: Extremity Injury, Lower Stated Complaint: r hip pain, recent fall, from snf Time Seen by Provider: 05/01/21 19:50 Source: patient and EMS Mode of arrival: ambulatory Limitations: no limitations History of Present Illness HPI Narrative: 81-year-old female with history of htn, dementia, HLD, seizures, known sacral fx coming from [facility]. Patient was reportedly sent to the ER due to intractable pain. She has a known sacrum fracture. She received 1 dose of p.o. dilaudid 2mg. On arrival the patient reports her pain is improved. She is resting comfortably. Related Data Home Medications Medication Instructions Recorded Confirmed bepotastine besilate 1.5 % eye 1 drp OPHTHALMIC (EYE) BID 04/08/20 04/12/21 drops (Bepreve) brimonidine 0.1 % eye drops 1 drp OPHTHALMIC-RIGHT BID 04/08/20 04/12/21 (Alphagan P) cyanocobalamin (vitamin B-12) 500 250 mcg PO DAILY 04/08/20 04/12/21 mcg tablet acetaminophen 500 mg tablet 1,000 mg PO 0600,1200,2100 02/16/21 04/12/21 amlodipine 10 mg tablet 1 tab PO DAILY 02/16/21 04/12/21 cholecalciferol (vitamin D3) 10 10 mcg PO DAILY 02/16/21 04/12/21 mcg (400 unit) tablet multivitamin 1 tab PO DAILY 02/16/21 04/12/21 prednisone 5 mg tablet 5 mg PO DAILY@1200 02/16/21 04/12/21 sertraline 50 mg tablet 25 mg PO BID 02/16/21 04/12/21 netarsudil 0.02 %-latanoprost 1 drp OPHTHALMIC (EYE) BEDTIME 02/17/21 04/12/21 0.005 % eye drops (Rocklatan) aspirin 81 mg chewable tablet 81 mg PO Q2D 04/12/21 04/12/21 sq-waqr-bjdc-iron 8 mg-folic acid 1 tab PO DAILY 04/12/21 04/12/21 400 mcg-vit K1 50 mcg-lutein tablet ([facility] Complete Senior Women's) pyridoxine (vitamin B6) 50 mg 50 mg PO DAILY 04/12/21 04/12/21 tablet (Vitamin B-6) vitamin A-vitamin C-vit E-min 1 tab PO DAILY 04/12/21 04/12/21 tablet Previous Rx's Medication Instructions Recorded levetiracetam 250 mg tablet 250 mg PO BID #60 tab 04/14/21 thiamine HCl (vitamin B1) 100 mg 100 mg PO DAILY #30 tab 04/14/21 tablet Allergies Allergy/AdvReac Type Severity Reaction Status Date / Time cefadroxil [From DURICEF] Allergy Unknown RASH Verified 07/08/20 21:09 cortisone Allergy Unknown RASH, Verified 07/08/20 21:09 REDDENED CHEST FROM CORTISONE INJECTIONS levofloxacin [From LEVAQUIN] Allergy Unknown TINNITIS Verified 07/08/20 21:09 penicillin V Allergy Unknown Unknown Verified 07/08/20 21:09 Sulfa (Sulfonamide Allergy Unknown UNKNOWN Verified 07/08/20 21:09 Antibiotics) sulfamethoxazole Allergy Unknown RASH Verified 07/08/20 21:09 [From BACTRIM] trimethoprim [From BACTRIM] Allergy Unknown RASH Verified 07/08/20 21:09 Review of Systems Review of Systems: Yes all other systems are reviewed and are negative Constitutional: Constitutional: Reports no additional constitutional complaints, Denies body ache(s), Denies chills, Denies fever(s), Denies headache(s) and Denies weakness Eyes: Eyes: Reports no additional eye complaints and Denies change in vision ENT: Reports system reviewed and no additional complaints, except as documented, Denies dizziness, Denies headache(s), Denies nasal congestion, Denies nasal discharge and Denies neck pain Cardiovascular: Cardiovascular: Reports no additional cardiovascular complaints, Denies chest pain, Denies leg edema and Denies dyspnea Respiratory: Respiratory: Reports no additional respiratory complaints, Denies cough and Denies dyspnea Gastrointestinal: Gastrointestinal: Reports no additional gastrointestinal complaints, Denies abdominal pain, Denies diarrhea, Denies nausea and Denies vomiting Genitourinary: Genitourinary: Reports no additional female genitourinary complaints and Denies urinary incontinence Musculoskeletal: Musculoskeletal: Reports no additional musculoskeletal complaints, Denies back pain, Denies arthralgias, Denies joint swelling, Denies neck pain, Denies numbness and Denies tingling Integumentary/Breasts: Skin/Breast: Reports system reviewed and no additional complaints, except as docu and Denies rash Neurologic: Reports system reviewed and no additional complaints, except as documented, Denies Abnormal speech present, Denies dizziness, Denies headache(s), Denies numbness, Denies tingling and Denies weakness PMFSH Past Medical History Attestation statement: The following information was validated with the patient. Source: old records reviewed and nursing notes reviewed Medical History Alzheimer's dementia Cerebral microvascular disease Elevated C-reactive protein Glaucoma HTN (hypertension) IBS (irritable bowel syndrome) Multifactorial dementia Osteoporosis PMR (polymyalgia rheumatica) Primary osteoarthritis of hands, bilateral UTI (urinary tract infection) Surgical History H/O cataract removal with insertion of prosthetic lens H/O: hysterectomy History of tonsillectomy History of wisdom tooth extraction Hx of appendectomy Social History Social History Household Members: Unknown / Unable to assess Household Members Other:: NIECE Housing: Unknown / Unable to assess Are you a primary home care assistant to a significant other at home: No Do you presently have visiting nurse or other home services: No Unable to assess alcohol history related to: Unknown Alcohol intake: former Patient Tobacco Use Status: Former Tobacco user Substance Use Type: Unknown Advance Directives: Yes Advance Directives on File: Yes Advance Directives Date on File: 04/12/20 service: No Current occupational status: retired Physical Exam Vital Signs: Vital Signs: Last Vital Signs Temp 97.3 F 05/01/21 19:33 Pulse 70 05/01/21 19:33 Resp 16 05/01/21 19:33 BP 143/61 H 05/01/21 19:33 Pulse Ox 93 05/01/21 19:33 BMI result Body Mass Index 26.3 Const: General: cooperative, healthy appearing, comfortable and no acute distress Orientation/consciousness: patient oriented x3 Limitations: no limitations HENMT: Head: Yes normal to inspection Ears: hearing grossly normal bilaterally General nose exam: Normal external nose present Face and sinus: Yes normal facial exam Mouth: Normal oral and palatal mucosa present Throat: Yes posterior oropharynx normal Eyes: General: appearance normal, both eyes and all related structures Pupils: Equal, round and reactive pupils present Neck: Neck: Yes normal visual inspection Chest: Chest palpation & inspection: normal inspection of the chest Resp: Effort & Inspection: normal respiratory effort Auscultation: clear to auscultation bilaterally Cardio: Rate: regular rate Rhythm: regular rhythm Peripheral pulses: Peripheral pulses 2+ throughout GI: Inspection: Yes normal to inspection Palpation (GI): Soft to palpation and nontender Auscultation: normal bowel sounds Back/Spine/Pelvis: Thoracic/Lumbar Spine: thoracic and lumbar spine normal to inspection Skin: General skin exam: no rashes or lesions noted Neuro: General: patient oriented x3, no focal motor deficits and normal sensation to monofilament Cranial nerves: Yes Equal, round and reactive pupils present Cognition (Neuro): normal cognition Speech: No Abnormal speech present Gait exam (Neuro): Normal gait present Motor exam (neuro): 5/5 motor strength present throughout Extrem: Other: Mild tenderness over the sacral spine with no step-offs or deformities General: Yes normal to inspection Course Course Course Narrative: 81-year-old female with history of dementia here from [facility] with a known sacral and rib fracture with reports of pain which was uncontrolled with her meds she was receiving a mild Iris. On review of the chart the patient has several PRNs ordered including Dilaudid 2 mg every 4 hours. She is reporting some pain today which the staff at likely could not manage. They gave her 1 dose of Dilaudid prior to EMS transfer and on arrival the patient tells me she is feeling improved. She tells me her pain is a 2/10. She is resting comfortably. Her vitals are stable. She was able to independently roll [id number] with no difficulty. No neuro deficits. Nursing spoke to the healthcare proxy as well staff at the shelter. Plan for discharge back to their facility as the patient's pain is well controlled. No reports of new falls or injuries. MDM - Extremity Injury (Lower) Medical Records Attestation: I reviewed the patient's medical records. Lab Data Attestation: I reviewed the patient's lab results. Discharge Plan Discharge Clinical Impression: Closed fracture of sacrum Patient Disposition: Xfer SNF Transfer Details: [facility] Instructions: Sacral Fracture (ED) Prescriptions: No Action cyanocobalamin (vitamin B-12) 500 mcg Tablet 250 mcg PO DAILY RF: 0 Alphagan P 0.1 % drops 1 drp ophthalmic-Right BID RF: 0 bepotastine besilate [Bepreve] 1.5 % drops 1 drp ophthalmic (eye) BID RF: 0 amlodipine 10 mg tablet 1 tab PO DAILY RF: 0 multivitamin Tablet 1 tab PO DAILY RF: 0 acetaminophen 500 mg Tablet 1,000 mg PO 0600,1200,2100 RF: 0 cholecalciferol (vitamin D3) 10 mcg (400 unit) Tablet 10 mcg PO DAILY RF: 0 prednisone 5 mg tablet 5 mg PO DAILY@1200 RF: 0 sertraline 50 mg tablet 25 mg PO BID RF: 0 Rocklatan 0.02-0.005 % drops 1 drp ophthalmic (eye) BEDTIME RF: 0 aspirin 81 mg Tablet,Chewable 81 mg PO Q2D RF: 0 pyridoxine (vitamin B6) [Vitamin B-6] 50 mg Tablet 50 mg PO DAILY RF: 0 vitamin A-vitamin C-vit E-min Tablet 1 tab PO DAILY RF: 0 ABC Complete Senior Women's 8 mg iron- 400 mcg-50 mcg Tablet 1 tab PO DAILY RF: 0 levetiracetam 250 mg Tablet 250 mg PO BID Qty: 60 RF: 0 thiamine HCl (vitamin B1) 100 mg tablet 100 mg PO DAILY Qty: 30 RF: 11 Interventions: ED Discharge Assessment Last Done: 05/01/21 21:53 Discharge Date/Time: 05/01/21 21:53
--- NOTE | 2021-05-01 19:53 | PC.NURSE ---
PROVIDER AT BEDSIDE FOR EVALUATION. PATIENT REPORTING 0/10 TO 2/10 PAIN AT REST, REPORTS PAIN IS MORE MANAGED. SPOKE WITH [facility] AND WITH NURSE AT FACILITY ABOUT PATIENTS RETURN THERE.AND UPDATE ON PATIENTS CONDITION. EMS BOOKED FOR TRANSPORT BACK
== END 2021-05-01 21:53 | disposition skilled nursing facility (03) ==
PROVIDERS: Emergency Provider Internal Medicine
DX: M25.551 Pain in right hip (principal); S32.10XD Unspecified fracture of sacrum, subsequent encounter for fracture with routine healing; S22.39XD Fracture of one rib, unspecified side, subsequent encounter for fracture with routine healing; X58.XXXD Exposure to other specified factors, subsequent encounter; G30.9 Alzheimer's disease, unspecified; F02.80 Dementia in other diseases classified elsewhere, unspecified severity, without behavioral disturbance, psychotic disturbance, mood disturbance, and anxiety; I10 Essential (primary) hypertension
CPT/HCPCS: 99283

== ENCOUNTER 2021-05-12 07:32 | Emergency (ER) | payer MEDICARE, SELFPAY ==
--- NOTE | ~2021-05-12 | CT_ITS ---
EXAMINATION: CT BRAIN AND CT CERVICAL SPINE WITHOUT CONTRAST. CLINICAL INFORMATION: Fall, headache COMPARISON: None TECHNIQUE: 5 mm thin axial and reformatted 2 mm thin sagittal and coronal images of brain were obtained without contrast. Axial 3 mm thin and reformatted 2 mm thin sagittal and coronal images of cervical spine were obtained. DLP [id number] FINDINGS: Brain: There is no acute intra-axial, extra-axial bleed, masses or midline shift. There is no acute infarction in evolution. There is no edema. The lateral ventricles are symmetrical in size and configuration but moderately enlarged. There is diffuse periventricular hypodensity suggestive of chronic small vessel ischemic changes. Bone windows reveal no calvarial abnormality. There is no scalp soft tissue abnormality. Bilateral paranasal sinuses and mastoid air cells are well-aerated. Cervical spine: There is mild straightening of cervical lordosis. There is minimal dextroscoliosis The vertebral heights and alignment is normal. Mild loss of C3-C4, C4-C5, C5-C6 and C6-C7 disc heights with mild ventral and posterior spondylosis. The craniovertebral junction and the C1-C2 alignment is normal except for mild cystic changes along the dense and the C1 lateral mass likely degenerative changes. The prevertebral and paravertebral soft tissues are normal. There is moderate left C2-C3 and mild C3-C4, C4-C5, bilateral C5-C6 facet joint arthropathy and hypertrophy. There is no visible acute fracture, dislocation or lytic process. The prevertebral and paravertebral soft tissues are normal. The airway is widely patent. Is mild bilateral apical pleural thickening. Bilateral thyroid lobes, submandibular gland and parotid glands are unremarkable. CT/CT cervical spine wo con IMPRESSION: No acute intracranial process seen. Moderate cerebral volume loss with chronic small vessel ischemic changes in both cerebral hemispheres. There is no acute fracture, dislocation subluxation cervical spine. There are degenerative disc changes and spondylosis as well as facet joint arthropathy as described above.
[2021-05-12 08:03] VITALS: BP 134/62; BP 138/72; PULSE 68; PULSE 73; RESP 14; TEMP 36.8; O2SAT 96; O2SAT 98; BMI 21.0
--- NOTE | 2021-05-12 08:13 | ED.FALL ---
HPI - Fall General Chief Complaint: Fall Stated Complaint: FALL,HEAD LAC R EYE,+CCOLLAR,FROM SNF PER EMS Time Seen by Provider: 05/12/21 08:05 Source: patient and EMS Mode of arrival: EMS Limitations: other (Alzheimer's dementia) History of Present Illness HPI Narrative: Patient is brought from a senior care facility by EMS. Earlier today, patient had a witnessed mechanical fall. Patient landed on the right side of her head. Patient did not lose consciousness. Patient complaining of a headache, denies neck pain. Patient has a laceration to the lateral aspect of the right side of the eyebrow. Patient complaining of localized pain. Patient denies pain anywhere else. Of note, in the last 2 weeks, patient was evaluated for a sacrum fractures secondary to a fall. Related Data Home Medications Medication Instructions Recorded Confirmed bepotastine besilate 1.5 % eye 1 drp OPHTHALMIC (EYE) BID 04/08/20 04/12/21 drops (Bepreve) brimonidine 0.1 % eye drops 1 drp OPHTHALMIC-RIGHT BID 04/08/20 04/12/21 (Alphagan P) cyanocobalamin (vitamin B-12) 500 250 mcg PO DAILY 04/08/20 04/12/21 mcg tablet acetaminophen 500 mg tablet 1,000 mg PO 0600,1200,2100 02/16/21 04/12/21 amlodipine 10 mg tablet 1 tab PO DAILY 02/16/21 04/12/21 cholecalciferol (vitamin D3) 10 10 mcg PO DAILY 02/16/21 04/12/21 mcg (400 unit) tablet multivitamin 1 tab PO DAILY 02/16/21 04/12/21 prednisone 5 mg tablet 5 mg PO DAILY@1200 02/16/21 04/12/21 sertraline 50 mg tablet 25 mg PO BID 02/16/21 04/12/21 netarsudil 0.02 %-latanoprost 1 drp OPHTHALMIC (EYE) BEDTIME 02/17/21 04/12/21 0.005 % eye drops (Rocklatan) aspirin 81 mg chewable tablet 81 mg PO Q2D 04/12/21 04/12/21 ix-afza-vcmg-iron 8 mg-folic acid 1 tab PO DAILY 04/12/21 04/12/21 400 mcg-vit K1 50 mcg-lutein tablet ([facility]) pyridoxine (vitamin B6) 50 mg 50 mg PO DAILY 04/12/21 04/12/21 tablet (Vitamin B-6) vitamin A-vitamin C-vit E-min 1 tab PO DAILY 04/12/21 04/12/21 tablet Previous Rx's Medication Instructions Recorded levetiracetam 250 mg tablet 250 mg PO BID #60 tab 04/14/21 thiamine HCl (vitamin B1) 100 mg 100 mg PO DAILY #30 tab 04/14/21 tablet Allergies Allergy/AdvReac Type Severity Reaction Status Date / Time cefadroxil [From DURICEF] Allergy Unknown RASH Verified 07/08/20 21:09 cortisone Allergy Unknown RASH, Verified 07/08/20 21:09 REDDENED CHEST FROM CORTISONE INJECTIONS levofloxacin [From LEVAQUIN] Allergy Unknown TINNITIS Verified 07/08/20 21:09 penicillin V Allergy Unknown Unknown Verified 07/08/20 21:09 Sulfa (Sulfonamide Allergy Unknown UNKNOWN Verified 07/08/20 21:09 Antibiotics) sulfamethoxazole Allergy Unknown RASH Verified 07/08/20 21:09 [From BACTRIM] trimethoprim [From BACTRIM] Allergy Unknown RASH Verified 07/08/20 21:09 Review of Systems Review of Systems: Constitutional : No Weight loss, No Fever, No Chills, No Night Sweats, No Fatigue, No Malaise ENT/Mouth : No Hearing loss, No Ear Pain, No Nasal Congestion, No Sinus Pain, No Hoarseness, No sore throat, No Rhinorrhea, No Swallowing Difficulty Eyes: No Eye Pain, No Swelling, No Redness, No Foreign Body, No Discharge, No Vision Changes Cardiovascular : No Chest Pain, No SOB, No Dyspnea on Exertion, No Orthopnea, No Edema, No Palpitations Respiratory : No Cough, No Sputum, No Wheezing, No Smoke Exposure, No Dyspnea Gastrointestinal : No Nausea, No Vomiting, No Diarrhea, No Constipation, No abdominal Pain, No Hematochezia, No Melena Genitourinary : no irregular bleeding, No Dysuria, No Urinary Frequency, No Hematuria, No Urinary Incontinence, No Urgency, No Flank Pain, No Urinary Flow Changes, No Hesitancy Musculoskeletal : No joint pain, No Myalgias, No Joint Swelling Skin : Complaining of a laceration to the right side of the eyebrow Neuro : No Weakness, No Numbness, No Paresthesias, No Loss of Consciousness, No Dizziness, complaining of moderate Headache Psych : No Anxiety/Panic, No Depression, No SI/HI/AH/VH, No Social Issues, Heme/Lymph: No Bruising, No Bleeding,No Lymphadenopathy Endocrine : No Polyuria, No Polydipsia, No Temperature Intolerance [facility] Past Medical History Medical History Alzheimer's dementia Cerebral microvascular disease Elevated C-reactive protein Glaucoma HTN (hypertension) IBS (irritable bowel syndrome) Multifactorial dementia Osteoporosis PMR (polymyalgia rheumatica) Primary osteoarthritis of hands, bilateral UTI (urinary tract infection) Surgical History H/O cataract removal with insertion of prosthetic lens H/O: hysterectomy History of tonsillectomy History of wisdom tooth extraction Hx of appendectomy Social History Social History Household Members: Unknown / Unable to assess Household Members Other:: NIECE Housing: Unknown / Unable to assess Are you a primary care tech to a significant other at home: No Do you presently have visiting nurse or other home services: No Unable to assess alcohol history related to: Unknown Alcohol intake: former Patient Tobacco Use Status: Former Tobacco user Substance Use Type: Unknown Advance Directives: Yes Advance Directives on File: Yes Advance Directives Date on File: 04/12/20 service: No Current occupational status: retired Physical Exam Vital Signs: Vital Signs: Last Vital Signs Temp 98.3 F 05/12/21 08:03 Pulse 73 05/12/21 08:03 Resp 14 05/12/21 08:03 BP 134/62 05/12/21 08:03 Pulse Ox 96 05/12/21 08:03 BMI result Body Mass Index 21.0 Const: Other: Appearance: Alert. Oriented X2. No acute distress. Eyes: Pupils equal, round and reactive to light. ENT: Pharynx normal. Neck: On C-collar, no palpable step-offs, no C-spine tenderness CVS: Normal heart rate and rhythm. Pulses normal. Normal S1 and S2 Respiratory: No respiratory distress. Breath sounds normal. No Wheezing. No rales Abdomen: Soft and nontender. No rigidity. No distention. good BS x4 Skin: Skin warm and dry. 3 cm laceration to the lateral aspect of the right eyebrow Extremities: No lower extremity edema. No Lacerations. No Rash Neuro:No motor deficit. No sensory deficit. Moving all extermities. No slurred speech. Procedures Laceration Laceration 1: Site: face Side (If applicable): right Size (cm): 3 Description: linear Depth: simple, single layer Local Anesthetic: lidocaine 1% and with epi Amount of anesthesia used (mL): 3 Skin layer closed with: nylon Size (cm): 4-0 Number of sutures: 5 Technique: simple, interrupted MDM - Fall MDM Narrative Medical decision making narrative: I discussed the CT scan with the patient, no acute finding. Patient tolerated well the sutures. Patient ready for discharge. Imaging Data Head and cervical spine CT: Radiologist's impression: FINDINGS: Brain: There is no acute intra-axial, extra-axial bleed, masses or midline shift. There is no acute infarction in evolution. There is no edema. The lateral ventricles are symmetrical in size and configuration but moderately enlarged. There is diffuse periventricular hypodensity suggestive of chronic small vessel ischemic changes. Bone windows reveal no calvarial abnormality. There is no scalp soft tissue abnormality. Bilateral paranasal sinuses and mastoid air cells are well-aerated. Cervical spine: There is mild straightening of cervical lordosis. There is minimal dextroscoliosis The vertebral heights and alignment is normal. Mild loss of C3-C4, C4-C5, C5-C6 and C6-C7 disc heights with mild ventral and posterior spondylosis. The craniovertebral junction and the C1-C2 alignment is normal except for mild cystic changes along the dense and the C1 lateral mass likely degenerative changes. The prevertebral and paravertebral soft tissues are normal. There is moderate left C2-C3 and mild C3-C4, C4-C5, bilateral C5-C6 facet joint arthropathy and hypertrophy. There is no visible acute fracture, dislocation or lytic process. The prevertebral and paravertebral soft tissues are normal. The airway is widely patent. Is mild bilateral apical pleural thickening. Bilateral thyroid lobes, submandibular gland and parotid glands are unremarkable. CT/CT cervical spine wo con IMPRESSION: No acute intracranial process seen. ? Moderate cerebral volume loss with chronic small vessel ischemic changes in both cerebral hemispheres. ? There is no acute fracture, dislocation subluxation cervical spine. There are degenerative disc changes and spondylosis as well as facet joint arthropathy as described above.? Discharge Plan Discharge Clinical Impression: Fall, Laceration of skin of eyebrow Patient Disposition: Home, Self-Care Instructions: Laceration (ED) Additional Instructions: Your sutures need to be removed in 7-10 days. If you have any signs of infection such as redness, pus drainage, fever or chills, please return to the emergency room. Please follow-up with your primary care physician tomorrow. If you have any worsening or new symptoms, please return to the emergency room or call 911 Prescriptions: No Action cyanocobalamin (vitamin B-12) 500 mcg Tablet 250 mcg PO DAILY RF: 0 Alphagan P 0.1 % drops 1 drp ophthalmic-Right BID RF: 0 bepotastine besilate [Bepreve] 1.5 % drops 1 drp ophthalmic (eye) BID RF: 0 amlodipine 10 mg tablet 1 tab PO DAILY RF: 0 multivitamin Tablet 1 tab PO DAILY RF: 0 acetaminophen 500 mg Tablet 1,000 mg PO 0600,1200,2100 RF: 0 cholecalciferol (vitamin D3) 10 mcg (400 unit) Tablet 10 mcg PO DAILY RF: 0 prednisone 5 mg tablet 5 mg PO DAILY@1200 RF: 0 sertraline 50 mg tablet 25 mg PO BID RF: 0 Rocklatan 0.02-0.005 % drops 1 drp ophthalmic (eye) BEDTIME RF: 0 aspirin 81 mg Tablet,Chewable 81 mg PO Q2D RF: 0 pyridoxine (vitamin B6) [Vitamin B-6] 50 mg Tablet 50 mg PO DAILY RF: 0 vitamin A-vitamin C-vit E-min Tablet 1 tab PO DAILY RF: 0 [facility] 8 mg iron- 400 mcg-50 mcg Tablet 1 tab PO DAILY RF: 0 levetiracetam 250 mg Tablet 250 mg PO BID Qty: 60 RF: 0 thiamine HCl (vitamin B1) 100 mg tablet 100 mg PO DAILY Qty: 30 RF: 11
[2021-05-12 09:34] VITALS: BP 112/59; PULSE 71; RESP 14; TEMP 36.8; O2SAT 98
[2021-05-12] MEDS: Lidocaine HCl 2%/Epi 1:100,000 20 ML VIAL INFILTRATI (10:31)
[2021-05-12] MEDS: Acetaminophen 325 MG TABLET 650 MG PO (10:31)
[2021-05-12] MEDS: Mineral OiL enema 133 ML ENEMA PR (11:37)
--- NOTE | 2021-05-12 12:08 | PC.NURSE ---
rn [facility] pt transfer to facility via ambulance
== END 2021-05-12 11:55 | disposition skilled nursing facility (03) ==
PROVIDERS: Emergency Provider Emergency Medicine; PCP Internal Medicine
DX: S01.111A Laceration without foreign body of right eyelid and periocular area, initial encounter (principal); W01.198A Fall on same level from slipping, tripping and stumbling with subsequent striking against other object, initial encounter; I10 Essential (primary) hypertension; G30.9 Alzheimer's disease, unspecified; F02.80 Dementia in other diseases classified elsewhere, unspecified severity, without behavioral disturbance, psychotic disturbance, mood disturbance, and anxiety; Z91.81 History of falling; Y93.9 Activity, unspecified; Y92.129 Unspecified place in nursing home as the place of occurrence of the external cause; Y99.9 Unspecified external cause status; Z87.440 Personal history of urinary (tract) infections; Z79.82 Long term (current) use of aspirin
CPT/HCPCS: 12013; 70450; 72125; 99284; 99285

== ENCOUNTER 2021-05-14 07:11 | Emergency (ER) | payer MEDICARE, SELFPAY ==
--- NOTE | ~2021-05-14 | CT_ITS ---
EXAMINATION: CT HEAD WITHOUT CONTRAST CT CERVICAL SPINE WITHOUT CONTRAST CLINICAL INFORMATION: Status post fall. Headache and neck pain. COMPARISON: CT head and cervical spine of 05/12/2021, 04/24/2021, 04/12/2021. TECHNIQUE: Multidetector volumetric CT imaging of the head and cervical spine is acquired without intravenous contrast administration. Postprocessing is performed at a dedicated workstation. Multiplanar reformatted images are submitted. This CT scan was performed using dose optimization techniques as appropriate to a performed exam including the following: *Automated exposure control *Adjustment of mA and/or kV according to patient size (this includes techniques or standardized protocols for targeted exams were dose is matched to indication/reason for exam; i.e. extremities or head) *Use of iterative reconstruction technique DLP: 971 mGy-cm. FINDINGS: CT HEAD: There is no evidence of acute intracranial hemorrhage, midline shift or mass effect. Martinez to white matter differentiation is well preserved. No evidence of acute territorial infarction or abnormal extra-axial fluid collection. Bilateral periventricular white matter patchy low-attenuation changes are again noted reflecting sequela of chronic microangiopathy. Moderate global volume loss is noted with proportionate dilatation of the ventricles and cortical sulci. Osseous calvarium is intact. The paranasal sinuses, mastoid air cells and middle ear cavities are well aerated. There is mild right periorbital soft tissue swelling and hematoma. The patient is status post bilateral lens extraction. The globes are intact. Bilateral retrobulbar fat is unremarkable. Hbgmdwfe-if-xhguheaiz calcific atherosclerosis of the internal carotid arteries. CT CERVICAL SPINE: Several of the cervical spine images are degraded by motion. Images through the lower cervical and upper thoracic spine were repeated. There is stable grade 1 anterolisthesis of C7 over T1. Severe disc space narrowing from C3 to C7 along with sclerotic and erosive endplate marrow changes and marginal osteophytes are noted. Atlantoaxial and atlantooccipital alignments are maintained. Posterior elements are intact and in normal alignment. Varying-degree bilateral facet arthropathy, greater on the left compared to right are seen. Severe narrowing of the C3-C4, C4-C5 neural foramina on the left and [id number]-[id number] right-sided neural foraminal stenosis at C5-C6 and C6-C7 is again noted. No evidence of prevertebral soft tissue swelling. Bilateral apical pleural parenchymal scarring and associated calcifications are again noted. The thyroid gland is unremarkable. CT/CT cervical spine wo con IMPRESSION: 1. No evidence of acute intracranial abnormality. No evidence of acute fracture of the osseous calvarium. Moderate global volume loss with moderate white matter changes of chronic microangiopathy. 2. Mild right periorbital soft tissue swelling/hematoma. 3. Evaluation of the cervical spine is somewhat limited due to motion artifacts; however, within the limits of study, there is no convincing evidence of acute fracture or traumatic subluxation in the cervical spine. Moderate cervical spondylosis.
--- NOTE | ~2021-05-14 | CT_ITS ---
EXAMINATION: CT HEAD WITHOUT CONTRAST CT CERVICAL SPINE WITHOUT CONTRAST CLINICAL INFORMATION: Status post fall. Headache and neck pain. COMPARISON: CT head and cervical spine of 05/12/2021, 04/24/2021, 04/12/2021. TECHNIQUE: Multidetector volumetric CT imaging of the head and cervical spine is acquired without intravenous contrast administration. Postprocessing is performed at a dedicated workstation. Multiplanar reformatted images are submitted. This CT scan was performed using dose optimization techniques as appropriate to a performed exam including the following: *Automated exposure control *Adjustment of mA and/or kV according to patient size (this includes techniques or standardized protocols for targeted exams were dose is matched to indication/reason for exam; i.e. extremities or head) *Use of iterative reconstruction technique DLP: 971 mGy-cm. FINDINGS: CT HEAD: There is no evidence of acute intracranial hemorrhage, midline shift or mass effect. Martinez to white matter differentiation is well preserved. No evidence of acute territorial infarction or abnormal extra-axial fluid collection. Bilateral periventricular white matter patchy low-attenuation changes are again noted reflecting sequela of chronic microangiopathy. Moderate global volume loss is noted with proportionate dilatation of the ventricles and cortical sulci. Osseous calvarium is intact. The paranasal sinuses, mastoid air cells and middle ear cavities are well aerated. There is mild right periorbital soft tissue swelling and hematoma. The patient is status post bilateral lens extraction. The globes are intact. Bilateral retrobulbar fat is unremarkable. Kwggtmbn-ro-[id number] calcific atherosclerosis of the internal carotid arteries. CT CERVICAL SPINE: Several of the cervical spine images are degraded by motion. Images through the lower cervical and upper thoracic spine were repeated. There is stable grade 1 anterolisthesis of C7 over T1. Severe disc space narrowing from C3 to C7 along with sclerotic and erosive endplate marrow changes and marginal osteophytes are noted. Atlantoaxial and atlantooccipital alignments are maintained. Posterior elements are intact and in normal alignment. Varying-degree bilateral facet arthropathy, greater on the left compared to right are seen. Severe narrowing of the C3-C4, C4-C5 neural foramina on the left and wdlwkbxc-wp-vfavso right-sided neural foraminal stenosis at C5-C6 and C6-C7 is again noted. No evidence of prevertebral soft tissue swelling. Bilateral apical pleural parenchymal scarring and associated calcifications are again noted. The thyroid gland is unremarkable. CT/CT head/brain wo con IMPRESSION: 1. No evidence of acute intracranial abnormality. No evidence of acute fracture of the osseous calvarium. Moderate global volume loss with moderate white matter changes of chronic microangiopathy. 2. Mild right periorbital soft tissue swelling/hematoma. 3. Evaluation of the cervical spine is somewhat limited due to motion artifacts; however, within the limits of study, there is no convincing evidence of acute fracture or traumatic subluxation in the cervical spine. Moderate cervical spondylosis.
[2021-05-14 07:25] VITALS: BP 124/88; BP 142/72; PULSE 75; PULSE 90; RESP 16; TEMP 36.7; O2SAT 97; BMI 18.6
--- NOTE | 2021-05-14 08:16 | ECG_ITS ---
Test Reason : FALL Blood Pressure : / mmHG Vent. Rate : 070 BPM Atrial Rate : 070 BPM P-R Int : 182 ms QRS Dur : 078 ms QT Int : 384 ms P-R-T Axes : 049 012 045 degrees QTc Int : 414 ms Normal sinus rhythm Nonspecific ST abnormality Abnormal ECG When compared with ECG of 24-APR-2021 17:06, No significant change was found Referred By: Britta Barrios Electronically Signed By:MARYLOU CHATMAN
--- NOTE | 2021-05-14 08:23 | ED.FALL ---
HPI - Fall General Chief Complaint: Fall Stated Complaint: FALL W/R EYE LAC,NO THINNERS Time Seen by Provider: 05/14/21 08:04 Source: EMS Mode of arrival: EMS Limitations: other (Poor historian) History of Present Illness HPI Narrative: Patient is brought to the emergency room by EMS. Earlier today, according to the staff at the assisted, patient had a witnessed fall. EMS suspects that this was an aunt witnessed fall. Seems that patient did not lose consciousness. Patient is a poor historian, states that she does not remember what happened. Patient was seen here in the emergency room 2 days ago for a fall. Patient complaining of localized pain over her new laceration by the right eyebrow. According to the staff, patient lost her step and hit her head on the rails. Related Data Home Medications Medication Instructions Recorded Confirmed bepotastine besilate 1.5 % eye 1 drp OPHTHALMIC (EYE) BID 04/08/20 05/14/21 drops (Bepreve) brimonidine 0.1 % eye drops 1 drp OPHTHALMIC-RIGHT BID 04/08/20 05/14/21 (Alphagan P) cyanocobalamin (vitamin B-12) 500 250 mcg PO DAILY 04/08/20 05/14/21 mcg tablet acetaminophen 500 mg tablet 1,000 mg PO 0600,1200,2100 02/16/21 05/14/21 amlodipine 10 mg tablet 1 tab PO DAILY 02/16/21 05/14/21 cholecalciferol (vitamin D3) 10 10 mcg PO DAILY 02/16/21 05/14/21 mcg (400 unit) tablet multivitamin 1 tab PO DAILY 02/16/21 05/14/21 prednisone 5 mg tablet 5 mg PO DAILY@1200 02/16/21 05/14/21 netarsudil 0.02 %-latanoprost 1 drp OPHTHALMIC (EYE) BEDTIME 02/17/21 05/14/21 0.005 % eye drops (Rocklatan) aspirin 81 mg chewable tablet 81 mg PO Q2D 04/12/21 05/14/21 pyridoxine (vitamin B6) 50 mg 100 mg PO DAILY 04/12/21 05/14/21 tablet (Vitamin B-6) bisacodyl 10 mg rectal suppository 10 mg WI DAILY PRN 05/14/21 05/14/21 (Dulcolax (bisacodyl)) hydromorphone 2 mg tablet 1 tab PO Q4H PRN 05/14/21 05/14/21 lidocaine 5 % topical patch 1 patch TOPICAL DAILY 05/14/21 05/14/21 magnesium hydroxide 400 mg/5 mL 30 ml PO DAILY PRN 05/14/21 05/14/21 oral suspension (Milk of Magnesia) sertraline 25 mg tablet 25 mg PO BID 05/14/21 05/14/21 tramadol 50 mg tablet 25 mg PO Q6H PRN 05/14/21 05/14/21 Previous Rx's Medication Instructions Recorded levetiracetam 250 mg tablet 250 mg PO BID #60 tab 04/14/21 thiamine HCl (vitamin B1) 100 mg 100 mg PO DAILY #30 tab 04/14/21 tablet Allergies Allergy/AdvReac Type Severity Reaction Status Date / Time cefadroxil [From DURICEF] Allergy Unknown RASH Verified 05/14/21 07:33 cortisone Allergy Unknown RASH, Verified 05/14/21 07:33 REDDENED CHEST FROM CORTISONE INJECTIONS levofloxacin [From LEVAQUIN] Allergy Unknown TINNITIS Verified 05/14/21 07:33 penicillin V Allergy Unknown Unknown Verified 05/14/21 07:33 Sulfa (Sulfonamide Allergy Unknown UNKNOWN Verified 05/14/21 07:33 Antibiotics) sulfamethoxazole Allergy Unknown RASH Verified 05/14/21 07:33 [From BACTRIM] trimethoprim [From BACTRIM] Allergy Unknown RASH Verified 05/14/21 07:33 Review of Systems Review of Systems: Complaining of localized pain by the eyebrow on the right side, patient is poor historian Yes Other PMFSH Past Medical History Medical History Alzheimer's dementia Cerebral microvascular disease Elevated C-reactive protein Glaucoma HTN (hypertension) IBS (irritable bowel syndrome) Multifactorial dementia Osteoporosis PMR (polymyalgia rheumatica) Primary osteoarthritis of hands, bilateral UTI (urinary tract infection) Surgical History H/O cataract removal with insertion of prosthetic lens H/O: hysterectomy History of tonsillectomy History of wisdom tooth extraction Hx of appendectomy Social History Social History Household Members: Unknown / Unable to assess Household Members Other:: NIECE Housing: Unknown / Unable to assess Are you a primary child care attendant school to a significant other at home: No Do you presently have visiting nurse or other home services: No Unable to assess alcohol history related to: Unknown Alcohol intake: never Patient Tobacco Use Status: Former Tobacco user Substance Use Type: Unknown Advance Directives: Yes Advance Directives on File: Yes Advance Directives Date on File: 05/13/21 service: No Current occupational status: retired Physical Exam Vital Signs: Vital Signs: Last Vital Signs Temp 98.1 F 05/14/21 08:27 Pulse 80 05/14/21 08:27 Resp 15 05/14/21 08:27 BP 146/67 H 05/14/21 08:27 Pulse Ox 97 05/14/21 08:27 BMI result Body Mass Index 18.6 Const: Other: Appearance: Alert. Oriented X1. No acute distress. Eyes: Pupils equal, round and reactive to light. ENT: Pharynx normal. Neck: Normal inspection. Neck supple. No lymph nodes noted. No crepitus CVS: Normal heart rate and rhythm. Pulses normal. Normal S1 and S2 Respiratory: No respiratory distress. Breath sounds normal. No Wheezing. No rales Abdomen: Soft and nontender. No rigidity. No distention. good BS x4 Skin: Skin warm and dry. Patient has multiple ecchymoses in her face especially on the right side. Patient has a new 1 cm laceration under the 2-day-old laceration Extremities: No lower extremity edema. No lower extremity edema. No Lacerations. No Rash Neuro: Oriented X 3. No motor deficit. No sensory deficit. Moving all extermities. No slurred speech. Procedures Laceration Laceration 1: Site: face Side (If applicable): right Size (cm): 1 Description: linear Depth: simple, single layer Local Anesthetic: lidocaine 1% Amount of anesthesia used (mL): 2 Skin layer closed with: nylon Size (cm): 3-0 Number of sutures: 5 Technique: simple, interrupted MDM - Fall Lab Data Result diagrams: 05/14/21 09:54 05/14/21 09:54 Labs: Lab Results 05/14/21 05/14/21 05/14/21 Range/Units 09:54 09:54 09:54 WBC 9.1 (4.8-10.8) X10*3/uL RBC 4.66 (4.20-5.50) X10*6/uL Hgb 14.5 (12.0-16.0) g/dl Hct 43.3 (37.0-47.0) % MCV 92.9 (80.0-98.0) fL MCH 31.1 (27.0-33.0) pg MCHC 33.5 (31.0-35.0) g/dl RDW 13.3 (11.0-16.0) % Plt Count 362 (160-400) X10*3/uL MPV 9.5 (9.4-12.3) fL Immature Gran % (Auto) 0.8 H (0.0-0.4) % Neut % (Auto) 87.2 H (45-73) % Lymph % (Auto) 5.5 L (20-40) % Hitchcock % (Auto) 6.0 (2-11) % Eos % (Auto) 0.4 (0-4) % Baso % (Auto) 0.1 (0-2) % Lymph # (Auto) 0.5 L (1.2-4.9) X10*3/uL Hitchcock # (Auto) 0.5 (0.1-1.2) X10*3/uL Eos # (Auto) 0.0 (0.0-0.4) X10*3/uL Baso # (Auto) 0.0 (0.0-0.2) X10*3/uL Abs Immat Gran (auto) 0.07 H (0.00-0.03) X10*3/uL Absolute Neuts (auto) 7.9 (2.0-8.3) x10*3/uL Absolute Nucleated RBC 0.000 (0.0-0.012) X10*3/uL Nucleated RBC % (auto) 0.0 (0.0-0.2) /100WBC Sodium 138 (135-145) mmol/L Potassium 3.4 D (3.3-5.1) mmol/L Chloride 99 (96-108) mmol/L Carbon Dioxide 27 (22-29) mmol/L Anion Gap 15 (12-20) BUN 16 (9-16) mg/dL Creatinine 0.78 (0.5-1.4) mg/dL Estim Creat Clear Calc 40.5 Estimated GFR > 60 Random Glucose 130 H (60-115) mg/dL Calcium 8.8 (8.4-10.2) mg/dL Total Bilirubin 0.5 (0.0-1.0) mg/dL Direct Bilirubin 0.3 (0.0-0.5) mg/dL AST 37 H (5-31) U/L ALT 41 H (0-31) U/L Alkaline Phosphatase 412 H D (39-117) U/L Troponin I High Sens 3.5 (<3.5-17.0) ng/L Total Protein 6.8 (6.5-8.0) g/dL Albumin 3.9 (3.5-5.0) g/dL Imaging Data Head and cervical spine CT: Radiologist's impression: TECHNIQUE: Multidetector volumetric CT imaging of the head and cervical spine is acquired without intravenous contrast administration. Postprocessing is performed at a dedicated workstation. Multiplanar reformatted images are submitted. This CT scan was performed using dose optimization techniques as appropriate to a performed exam including the following: *Automated exposure control *Adjustment of mA and/or kV according to patient size (this includes techniques or standardized protocols for targeted exams were dose is matched to indication/reason for exam; i.e. extremities or head) *Use of iterative reconstruction technique DLP: 971 mGy-cm. FINDINGS: CT HEAD: There is no evidence of acute intracranial hemorrhage, midline shift or mass effect. Martinez to white matter differentiation is well preserved. No evidence of acute territorial infarction or abnormal extra-axial fluid collection. Bilateral periventricular white matter patchy low-attenuation changes are again noted reflecting sequela of chronic microangiopathy. Moderate global volume loss is noted with proportionate dilatation of the ventricles and cortical sulci. Osseous calvarium is intact. The paranasal sinuses, mastoid air cells and middle ear cavities are well aerated. There is mild right periorbital soft tissue swelling and hematoma. The patient is status post bilateral lens extraction. The globes are intact. Bilateral retrobulbar fat is unremarkable. Lburujxj-qv-zkexvziwy calcific atherosclerosis of the internal carotid arteries. CT CERVICAL SPINE: Several of the cervical spine images are degraded by motion. Images through the lower cervical and upper thoracic spine were repeated. There is stable grade 1 anterolisthesis of C7 over T1. Severe disc space narrowing from C3 to C7 along with sclerotic and erosive endplate marrow changes and marginal osteophytes are noted. Atlantoaxial and atlantooccipital alignments are maintained. Posterior elements are intact and in normal alignment. Varying-degree bilateral facet arthropathy, greater on the left compared to right are seen. Severe narrowing of the C3-C4, C4-C5 neural foramina on the left and [id number]-dv-jfgpqw right-sided neural foraminal stenosis at C5-C6 and C6-C7 is again noted. No evidence of prevertebral soft tissue swelling. Bilateral apical pleural parenchymal scarring and associated calcifications are again noted. The thyroid gland is unremarkable. CT/CT cervical spine wo con IMPRESSION: 1. No evidence of acute intracranial abnormality. No evidence of acute fracture of the osseous calvarium. Moderate global volume loss with moderate white matter changes of chronic microangiopathy. ? 2. Mild right periorbital soft tissue swelling/hematoma. ? 3. Evaluation of the cervical spine is somewhat limited due to motion artifacts; however, within the limits of study, there is no convincing evidence of acute fracture or traumatic subluxation in the cervical spine. Moderate cervical spondylosis. Discharge Plan Discharge Clinical Impression: Fall, Laceration of skin of eyebrow Patient Disposition: Home, Self-Care Instructions: Laceration (ED) Additional Instructions: Please follow-up with your primary care physician tomorrow. If you have any worsening or new symptoms, please return to the emergency room or call 911 Prescriptions: No Action cyanocobalamin (vitamin B-12) 500 mcg Tablet 250 mcg PO DAILY RF: 0 Alphagan P 0.1 % drops 1 drp ophthalmic-Right BID RF: 0 bepotastine besilate [Bepreve] 1.5 % drops 1 drp ophthalmic (eye) BID RF: 0 amlodipine 10 mg tablet 1 tab PO DAILY RF: 0 multivitamin Tablet 1 tab PO DAILY RF: 0 acetaminophen 500 mg Tablet 1,000 mg PO 0600,1200,2100 RF: 0 cholecalciferol (vitamin D3) 10 mcg (400 unit) Tablet 10 mcg PO DAILY RF: 0 prednisone 5 mg tablet 5 mg PO DAILY@1200 RF: 0 Rocklatan 0.02-0.005 % drops 1 drp ophthalmic (eye) BEDTIME RF: 0 aspirin 81 mg Tablet,Chewable 81 mg PO Q2D RF: 0 pyridoxine (vitamin B6) [Vitamin B-6] 50 mg Tablet 100 mg PO DAILY RF: 0 levetiracetam 250 mg Tablet 250 mg PO BID Qty: 60 RF: 0 thiamine HCl (vitamin B1) 100 mg tablet 100 mg PO DAILY Qty: 30 RF: 11 tramadol 50 mg Tablet 25 mg PO Q6H PRN (Reason: Pain) RF: 0 hydromorphone 2 mg tablet 1 tab PO Q4H PRN (Reason: pain) RF: 0 magnesium hydroxide [Milk of Magnesia] 400 mg/5 mL Suspension 30 ml PO DAILY PRN (Reason: Constipation) RF: 0 bisacodyl [Dulcolax (bisacodyl)] 10 mg Suppository 10 mg WI DAILY PRN (Reason: Constipation) RF: 0 lidocaine 5 % Adhesive Patch,Medicated 1 patch TOPICAL DAILY RF: 0 sertraline 25 mg Tablet 25 mg PO BID RF: 0
[2021-05-14 08:27] VITALS: BP 146/67; PULSE 80; RESP 15; TEMP 36.7; O2SAT 97
[2021-05-14] MEDS: Lidocaine HCl 2 % MPF 5 ML VIAL INFILTRATI (09:14)
--- NOTE | 2021-05-14 09:14 | PC.NURSE ---
Pt received from EMS s/p unwitnessed fall. Pt his R side of face on walking railing inside. No LOC and no known blood thinners. Bruising noted to R eye and lip. Bleeding noted as well. Pt arrived to ER with c-collar in place. Pt at normal baseline as per EMS, AOX2, hx of dementia. Heart sounds normal and lungs clear. Pt abd soft and non-tender. Old yellowish bruising noted to sacral- pt hx of old sacral fx r/t hx of falls.
--- NOTE | 2021-05-14 09:52 | PHA.MEDREC ---
Pharmacy Consult ? Medication Reconciliation Pharmacy has completed the medication reconciliation.
[2021-05-14 09:58] LABS: MANUAL DIFF FLAG NO
[2021-05-14 10:20] LABS: Troponin-I High Sensitivity 3.5 ng/L (<3.5-17.0)
[2021-05-14 10:21] LABS: Basophils Percent Auto 0.1 % (0-2); Eosinophils Percent Auto 0.4 % (0-4); Hematocrit 43.3 % (37.0-47.0); Hemoglobin 14.5 g/dl (12.0-16.0); Imm Gran Abs Auto 0.07 X10*3/uL (0.00-0.03); Imm Gran Pct Auto 0.8 % (0.0-0.4); Lymphocytes Absolute Auto 0.5 X10*3/uL (1.2-4.9); Lymphocytes Percent Auto 5.5 % (20-40); Mean Corpuscular HGB Conc 33.5 g/dl (31.0-35.0); Mean Corpuscular Hemoglobin 31.1 pg (27.0-33.0); Mean Corpuscular Volume 92.9 fL (80.0-98.0); Mean Platelet Volume 9.5 fL (9.4-12.3); Monocytes Absolute Auto 0.5 X10*3/uL (0.1-1.2); Neutrophils Absolute Auto 7.9 x10*3/uL (2.0-8.3); Neutrophils Percent Auto 87.2 % (45-73); Platelet Count 362 X10*3/uL (160-400); Red Blood Count 4.66 X10*6/uL (4.20-5.50); Red Cell Distribution Width 13.3 % (11.0-16.0); White Blood Count 9.1 X10*3/uL (4.8-10.8)
[2021-05-14 10:24] LABS: Alanine Aminotransferase 41 U/L (0-31); Albumin Level 3.9 g/dL (3.5-5.0); Alkaline Phosphatase 412 U/L (39-117); Anion Gap 15 (12-20); Aspartate Amino Transferase 37 U/L (5-31); Bilirubin Direct 0.3 mg/dL (0.0-0.5); Bilirubin Total 0.5 mg/dL (0.0-1.0); Blood Urea Nitrogen 16 mg/dL (9-16); Calcium 8.8 mg/dL (8.4-10.2); Carbon Dioxide 27 mmol/L (22-29); Chloride 99 mmol/L (96-108); Creatinine Clr Calc Pharmacy 40.5; Estimated Glomerular Filt Rate > 60; Glucose Random 130 mg/dL (60-115); Potassium 3.4 mmol/L (3.3-5.1); Sodium 138 mmol/L (135-145); Total Protein 6.8 g/dL (6.5-8.0)
[2021-05-14] MEDS: oxyCODONE HCl Immed Release 5 MG TABLET PO (11:11)
--- NOTE | 2021-05-14 16:06 | PC.NURSE ---
EMS at bedside for transport back to pt's nursing facility.
== END 2021-05-14 16:21 | disposition skilled nursing facility (03) ==
PROVIDERS: Emergency Provider Emergency Medicine
DX: S01.111A Laceration without foreign body of right eyelid and periocular area, initial encounter (principal); W01.198A Fall on same level from slipping, tripping and stumbling with subsequent striking against other object, initial encounter; G30.9 Alzheimer's disease, unspecified; F02.80 Dementia in other diseases classified elsewhere, unspecified severity, without behavioral disturbance, psychotic disturbance, mood disturbance, and anxiety; I10 Essential (primary) hypertension; Z91.81 History of falling; Y93.89 Activity, other specified; Y92.129 Unspecified place in nursing home as the place of occurrence of the external cause; Y99.9 Unspecified external cause status; Z87.440 Personal history of urinary (tract) infections
CPT/HCPCS: 12011; 36415; 70450; 72125; 80048; 80076; 84484; 85025; 93005; 99284

== ENCOUNTER 2021-10-14 09:44 | Emergency (ER) | payer MEDICARE, SELFPAY ==
--- NOTE | ~2021-10-14 | CT_ITS ---
EXAMINATION: CT HEAD WITHOUT CONTRAST CLINICAL INFORMATION: Altered mental status. COMPARISON: Head CT 05/14/2021. TECHNIQUE: Contiguous axial imaging was performed from the skull base to vertex without intravenous administration of contrast. This CT examination was performed using dose optimization techniques as appropriate, variously including the following: *Automated exposure control *Adjustment of mA and/or kV according to patient size (this includes techniques or standardized protocols for targeted exams where dose is matched to indication/reason for exam; i.e. extremities or head) *Use of iterative reconstruction technique DLP: 593 mGy-cm. FINDINGS: There is no intracranial hemorrhage, extra-axial collection, mass effect, or territorial infarction. Moderate patchy hypoattenuation is noted throughout the cerebral white matter, most likely representing chronic microangiopathy. The ventricles and sulci are commensurate with mild degree of volume loss noted. There is no hydrocephalus. The extracranial structures are unremarkable. CT/CT head/brain wo con IMPRESSION: No acute intracranial abnormality. Background changes of moderate chronic microangiopathy.
[2021-10-14 09:51] VITALS: BP 124/52; PULSE 67; RESP 14; TEMP 36.8; O2SAT 96; BMI 20.5
--- NOTE | 2021-10-14 09:59 | ECG_ITS ---
Test Reason : AMS Blood Pressure : / mmHG Vent. Rate : 070 BPM Atrial Rate : 070 BPM P-R Int : 192 ms QRS Dur : 088 ms QT Int : 400 ms P-R-T Axes : 068 013 019 degrees QTc Int : 432 ms Normal sinus rhythm Normal ECG When compared with ECG of 14-MAY-2021 08:33, No significant change was found Referred By: Muriel Garcia Electronically Signed By:Nicolas Covarrubias
--- NOTE | 2021-10-14 10:09 | ED_ITS ---
HPI - General Adult General Chief complaint: Seizure Stated complaint: AMS,PER HOMEHEALTH AIDE Time Seen by Provider: 10/14/21 09:58 Source: patient and EMS Mode of arrival: EMS History of Present Illness HPI narrative: 81-year-old female brought in by EMS for altered mental status and they were called by the patient's home health aide. According to EMS the report is that the patient had an episode of an approximate 2 minutes tearing off with her head tilted back and was unresponsive during that time. There is report of history of seizures although the patient herself is mildly post ictal (if this is a seizure) and unable to provide a history of seizures and was unable to provide the year and date. On review of her medical history there are several episodes thiamine deficiency, syncope. Patient denies any current pain, shortness of breath, cardiac pain/palpitations, abdominal pain. Related Data Home Medications Medication Instructions Recorded Confirmed bepotastine besilate 1.5 % eye 1 drp ophthalmic (eye) BID 04/08/20 05/14/21 drops (Bepreve) brimonidine 0.1 % eye drops 1 drp ophthalmic-Right BID 04/08/20 05/14/21 (Alphagan P) cyanocobalamin (vitamin B-12) 500 250 mcg PO DAILY 04/08/20 05/14/21 mcg tablet acetaminophen 500 mg tablet 1,000 mg PO 0600,1200,2100 02/16/21 05/14/21 amlodipine 10 mg tablet 1 tab PO DAILY 02/16/21 05/14/21 cholecalciferol (vitamin D3) 10 10 mcg PO DAILY 02/16/21 05/14/21 mcg (400 unit) tablet multivitamin 1 tab PO DAILY 02/16/21 05/14/21 prednisone 5 mg tablet 5 mg PO DAILY@1200 02/16/21 05/14/21 netarsudil 0.02 %-latanoprost 1 drp ophthalmic (eye) BEDTIME 02/17/21 05/14/21 0.005 % eye drops (Rocklatan) aspirin 81 mg chewable tablet 81 mg PO Q2D 04/12/21 05/14/21 pyridoxine (vitamin B6) 50 mg 100 mg PO DAILY 04/12/21 05/14/21 tablet (Vitamin B-6) bisacodyl 10 mg rectal suppository 10 mg NC DAILY PRN Constipation 05/14/21 05/14/21 (Dulcolax (bisacodyl)) hydromorphone 2 mg tablet 1 tab PO Q4H PRN pain 05/14/21 05/14/21 lidocaine 5 % topical patch 1 patch topical DAILY 05/14/21 05/14/21 magnesium hydroxide 400 mg/5 mL 30 ml PO DAILY PRN Constipation 05/14/21 05/14/21 oral suspension (Milk of Magnesia) sertraline 25 mg tablet 25 mg PO BID 05/14/21 05/14/21 tramadol 50 mg tablet 25 mg PO Q6H PRN Pain 05/14/21 05/14/21 Previous Rx's Medication Instructions Recorded levetiracetam 250 mg tablet 250 mg PO BID #60 tabs 04/14/21 thiamine HCl (vitamin B1) 100 mg 100 mg PO DAILY #30 tabs 04/14/21 tablet nitrofurantoin 100 mg PO Q12H 7 days #14 caps 10/14/21 monohydrate/macrocrystals 100 mg capsule (Macrobid) Allergies Allergy/AdvReac Type Severity Reaction Status Date / Time cefadroxil [From DURICEF] Allergy Unknown RASH Verified 05/14/21 07:33 cortisone Allergy Unknown RASH, Verified 05/14/21 07:33 REDDENED CHEST FROM CORTISONE INJECTIONS levofloxacin [From LEVAQUIN] Allergy Unknown TINNITIS Verified 05/14/21 07:33 penicillin V Allergy Unknown Unknown Verified 05/14/21 07:33 Sulfa (Sulfonamide Allergy Unknown UNKNOWN Verified 05/14/21 07:33 Antibiotics) sulfamethoxazole Allergy Unknown RASH Verified 05/14/21 07:33 [From BACTRIM] trimethoprim [From BACTRIM] Allergy Unknown RASH Verified 05/14/21 07:33 Review of Systems Review of Systems: Pertinent positives and negatives as stated in HPI 10 point review of systems is otherwise negative. [facility] Past Medical History Source: nursing notes reviewed Medical History Alzheimer's dementia Cerebral microvascular disease Elevated C-reactive protein Glaucoma HTN (hypertension) IBS (irritable bowel syndrome) Multifactorial dementia Osteoporosis PMR (polymyalgia rheumatica) Primary osteoarthritis of hands, bilateral UTI (urinary tract infection) Surgical History H/O cataract removal with insertion of prosthetic lens H/O: hysterectomy History of tonsillectomy History of wisdom tooth extraction Hx of appendectomy Social History Social History Household Members: Unknown / Unable to assess Household Members Other:: NIECE Housing: Unknown / Unable to assess Are you a primary child day care teacher to a significant other at home: No Do you presently have visiting nurse or other home services: No Unable to assess alcohol history related to: Unknown Alcohol intake: never Patient Tobacco Use Status: Former Tobacco user Substance Use Type: Unknown Advance Directives: Yes Advance Directives on File: Yes Advance Directives Date on File: 05/13/21 service: No Current occupational status: retired Physical Exam ED Vital Signs: Vital Signs - 24 hr 10/14/21 09:51 Temperature 98.2 F Pulse Rate 67 Respiratory Rate 14 Blood Pressure 124/52 L Pulse Oximetry 96 Oxygen Delivery Method Room Air BMI result Body Mass Index 20.5 VITAL SIGNS: Reviewed. GENERAL: Well developed, well nourished, in no acute distress. HEAD: Normocephalic/atraumatic EYES: PERRLA, EOMI intact without pain, no nystagmus/pallor/icterus noted EARS: Ext canals without abnormality OROPHARYNX: no oral lesions noted, posterior pharynx clear LUNGS: Normal breath sounds. No adventitious sounds or accessory muscle use. SpO2<96> CARDIOVASCULAR: Regular rate and rhythm without noted murmurs, no JVD or lower extremity edema. ABDOMEN: Soft, non-tender, non-distended with bowel sounds. PELVIS: Stable, nontender MUSCULOSKELETAL: No tenderness, deformities, or effusions noted on gross inspection. EXTREMITIES: No cyanosis, clubbing or edema; bilateral lower extremity with full range of motion noted at ankle/knee/hip and no evidence of acute injury. SKIN: Inspection of the skin reveals no rashes NEUROLOGIC: Alert and oriented x 2. Strength and sensation to light touch were grossly intact x 4. Course Course Course Narrative: 81-year-old female with history and clinical presentation of Alzheimer's dementia although this is not listed on her problem list, will obtain Keppra levels and patient is noted to have been seen here for syncope previously. Patient is otherwise nonfocal. On review of all investigations patient was evaluated in March of 2021 by Neurology and at that time she was started on her Keppra 250 mg twice a day for seizure prevention. The presenting description sounds like a seizure occurred and Keppra levels will be evaluated. On review of all other investigations at this time there are no acute findings to include CT head is negative intracranial pathology. REVIEW OF ALL INVESTIGATIONS SIGNIFICANT FOR UTI WHICH IS LIKELY CONTRIBUTED TO PATIENT'S BREAKTHROUGH SEIZURE. All results and findings discussed with patient and family member at bedside and they understand that they will need to follow up with the primary care provider for urine culture results as well as the anti seizure medication levels. Reevaluation(s) Reevaluation #1: On review of patient's medication list of Medical Decision Making Lab Data Result diagrams: 10/14/21 10:24 10/14/21 10:24 Labs: Lab Results 10/14/21 10/14/21 10/14/21 Range/Units 10:24 10:24 10:24 WBC 10.5 (4.8-10.8) X10*3/uL RBC 3.73 L (4.20-5.50) X10*6/uL Hgb 11.6 L (12.0-16.0) g/dl Hct 35.5 L (37.0-47.0) % MCV 95.2 (80.0-98.0) fL MCH 31.1 (27.0-33.0) pg MCHC 32.7 (31.0-35.0) g/dl RDW 12.2 (11.0-16.0) % Plt Count 349 (160-400) X10*3/uL MPV 9.1 L (9.4-12.3) fL Immature Gran % (Auto) 0.3 (0.0-0.4) % Neut % (Auto) 85.7 H (45-73) % Lymph % (Auto) 4.4 L (20-40) % Kendall % (Auto) 7.3 (2-11) % Eos % (Auto) 1.8 (0-4) % Baso % (Auto) 0.5 (0-2) % Lymph # (Auto) 0.5 L (1.2-4.9) X10*3/uL Kendall # (Auto) 0.8 (0.1-1.2) X10*3/uL Eos # (Auto) 0.2 (0.0-0.4) X10*3/uL Baso # (Auto) 0.1 (0.0-0.2) X10*3/uL Abs Immat Gran (auto) 0.03 (0.00-0.03) X10*3/uL Absolute Neuts (auto) 9.0 H (2.0-8.3) x10*3/uL Absolute Nucleated RBC 0.000 (0.0-0.012) X10*3/uL Nucleated RBC % (auto) 0.0 (0.0-0.2) /100WBC PT 11.0 (9.9-13.0) SEC INR 1.0 (0.9-1.1) Sodium 141 (135-145) mmol/L Potassium 3.5 (3.3-5.1) mmol/L Chloride 104 (96-108) mmol/L Carbon Dioxide 27 (22-29) mmol/L Anion Gap 14 (12-20) BUN 17 H D (9-16) mg/dL Creatinine 0.81 (0.5-1.4) mg/dL Estim Creat Clear Calc 42.3 Estimated GFR > 60 Random Glucose 179 H (60-115) mg/dL Calcium 8.7 (8.4-10.2) mg/dL Total Bilirubin 0.3 (0.0-1.0) mg/dL AST 17 (5-31) U/L ALT 16 (0-31) U/L Alkaline Phosphatase 77 D (39-117) U/L Total Protein 5.9 L (6.5-8.0) g/dL Albumin 3.6 (3.5-5.0) g/dL Urine Color Urine Appearance Urine pH (5.0-8.0) Ur Specific [place] (1.005-1.025) Urine Protein (NEG-TRACE) MG/DL Urine Glucose (UA) (NEG) MG/DL Urine Ketones (NEG) MG/DL Urine Blood (NEG) Urine Nitrite (NEG) Ur Leukocyte Esterase (NEG) Urine RBC (0) /HPF Urine WBC (0-4) /HPF Ur Squamous Epith Cells /LPF Urine Bacteria /LPF Hyaline Casts /LPF Urine Mucus /LPF 06/17/22 Range/Units 12:32 WBC (4.8-10.8) X10*3/uL RBC (4.20-5.50) X10*6/uL Hgb (12.0-16.0) g/dl Hct (37.0-47.0) % MCV (80.0-98.0) fL MCH (27.0-33.0) pg MCHC (31.0-35.0) g/dl RDW (11.0-16.0) % Plt Count (160-400) X10*3/uL MPV (9.4-12.3) fL Immature Gran % (Auto) (0.0-0.4) % Neut % (Auto) (45-73) % Lymph % (Auto) (20-40) % Kendall % (Auto) (2-11) % Eos % (Auto) (0-4) % Baso % (Auto) (0-2) % Lymph # (Auto) (1.2-4.9) X10*3/uL Kendall # (Auto) (0.1-1.2) X10*3/uL Eos # (Auto) (0.0-0.4) X10*3/uL Baso # (Auto) (0.0-0.2) X10*3/uL Abs Immat Gran (auto) (0.00-0.03) X10*3/uL Absolute Neuts (auto) (2.0-8.3) x10*3/uL Absolute Nucleated RBC (0.0-0.012) X10*3/uL Nucleated RBC % (auto) (0.0-0.2) /100WBC PT (9.9-13.0) SEC INR (0.9-1.1) Sodium (135-145) mmol/L Potassium (3.3-5.1) mmol/L Chloride (96-108) mmol/L Carbon Dioxide (22-29) mmol/L Anion Gap (12-20) BUN (9-16) mg/dL Creatinine (0.5-1.4) mg/dL Estim Creat Clear Calc Estimated GFR Random Glucose (60-115) mg/dL Calcium (8.4-10.2) mg/dL Total Bilirubin (0.0-1.0) mg/dL AST (5-31) U/L ALT (0-31) U/L Alkaline Phosphatase (39-117) U/L Total Protein (6.5-8.0) g/dL Albumin (3.5-5.0) g/dL Urine Color YELLOW Urine Appearance HAZY Urine pH 5.5 (5.0-8.0) Ur Specific [place] >= 1.030 H (1.005-1.025) Urine Protein NEG (NEG-TRACE) MG/DL Urine Glucose (UA) NEG (NEG) MG/DL Urine Ketones NEG (NEG) MG/DL Urine Blood NEG (NEG) Urine Nitrite POS H (NEG) Ur Leukocyte Esterase TRACE H (NEG) Urine RBC 1-4 (0) /HPF Urine WBC 5-9 H (0-4) /HPF Ur Squamous Epith Cells TRACE /LPF Urine Bacteria 3+ /LPF Hyaline Casts 0-2 /LPF Urine Mucus TRACE /LPF ECG Data Attestation: I personally reviewed and interpreted this ECG as follows: Prior ECG tracings: available for review Interpretation: Normal sinus rhythm, HR-70, no STEMI, NC/QRS/QTC are within normal limits. Discharge Plan Discharge Clinical Impression: Breakthrough seizure, Acute UTI Patient Disposition: Home, Self-Care Instructions: Urinary Tract Infection in Women (ED) Additional Instructions: 1. Resume all home medications as prescribed. 2. Complete the entire course of antibiotics that you have been prescribed. 3. Please follow-up with your primary care provider to follow-up the results of your anti seizure medication as well as the results of your urine culture. Return to the ER for worsening symptoms. Prescriptions: New nitrofurantoin monohyd/m-cryst [Macrobid] 100 mg capsule 100 mg PO Q12H 7 Days Qty: 14 0RF Rx Instructions: must administer with a meal/food No Action cyanocobalamin (vitamin B-12) 500 mcg Tablet 250 mcg PO DAILY Alphagan P 0.1 % drops 1 drp ophthalmic-Right BID bepotastine besilate [Bepreve] 1.5 % drops 1 drp ophthalmic (eye) BID Rx Instructions: BOTH EYES amlodipine 10 mg tablet 1 tab PO DAILY multivitamin Tablet 1 tab PO DAILY acetaminophen 500 mg Tablet 1,000 mg PO 0600,1200,2100 cholecalciferol (vitamin D3) 10 mcg (400 unit) Tablet 10 mcg PO DAILY prednisone 5 mg tablet 5 mg PO DAILY@1200 Rocklatan 0.02-0.005 % drops 1 drp ophthalmic (eye) BEDTIME aspirin 81 mg Tablet,Chewable 81 mg PO Q2D pyridoxine (vitamin B6) [Vitamin B-6] 50 mg Tablet 100 mg PO DAILY levetiracetam 250 mg Tablet 250 mg PO BID Qty: 60 0RF thiamine HCl (vitamin B1) 100 mg tablet 100 mg PO DAILY Qty: 30 11RF tramadol 50 mg Tablet 25 mg PO Q6H PRN (Reason: Pain) hydromorphone 2 mg tablet 1 tab PO Q4H PRN (Reason: pain) magnesium hydroxide [Milk of Magnesia] 400 mg/5 mL Suspension 30 ml PO DAILY PRN (Reason: Constipation) bisacodyl [Dulcolax (bisacodyl)] 10 mg Suppository 10 mg NC DAILY PRN (Reason: Constipation) Rx Instructions: EVERY 3 DAYS WITHOUT BM lidocaine 5 % Adhesive Patch,Medicated 1 patch TOPICAL DAILY Rx Instructions: SACRAL AREA sertraline 25 mg Tablet 25 mg PO BID
[2021-10-14 10:29] LABS: MANUAL DIFF FLAG NO
[2021-10-14 10:33] LABS: Basophils Absolute Auto 0.1 X10*3/uL (0.0-0.2); Basophils Percent Auto 0.5 % (0-2); Eosinophils Absolute Auto 0.2 X10*3/uL (0.0-0.4); Eosinophils Percent Auto 1.8 % (0-4); Hematocrit 35.5 % (37.0-47.0); Hemoglobin 11.6 g/dl (12.0-16.0); Imm Gran Abs Auto 0.03 X10*3/uL (0.00-0.03); Imm Gran Pct Auto 0.3 % (0.0-0.4); Lymphocytes Absolute Auto 0.5 X10*3/uL (1.2-4.9); Lymphocytes Percent Auto 4.4 % (20-40); Mean Corpuscular HGB Conc 32.7 g/dl (31.0-35.0); Mean Corpuscular Hemoglobin 31.1 pg (27.0-33.0); Mean Corpuscular Volume 95.2 fL (80.0-98.0); Mean Platelet Volume 9.1 fL (9.4-12.3); Monocytes Absolute Auto 0.8 X10*3/uL (0.1-1.2); Monocytes Percent Auto 7.3 % (2-11); Neutrophils Percent Auto 85.7 % (45-73); Platelet Count 349 X10*3/uL (160-400); Red Blood Count 3.73 X10*6/uL (4.20-5.50); Red Cell Distribution Width 12.2 % (11.0-16.0); White Blood Count 10.5 X10*3/uL (4.8-10.8)
[2021-10-14 10:45] LABS: Alanine Aminotransferase 16 U/L (0-31); Albumin Level 3.6 g/dL (3.5-5.0); Alkaline Phosphatase 77 U/L (39-117); Anion Gap 14 (12-20); Aspartate Amino Transferase 17 U/L (5-31); Bilirubin Total 0.3 mg/dL (0.0-1.0); Blood Urea Nitrogen 17 mg/dL (9-16); Calcium 8.7 mg/dL (8.4-10.2); Carbon Dioxide 27 mmol/L (22-29); Chloride 104 mmol/L (96-108); Creatinine Clr Calc Pharmacy 42.3; Estimated Glomerular Filt Rate > 60; Glucose Random 179 mg/dL (60-115); Potassium 3.5 mmol/L (3.3-5.1); Sodium 141 mmol/L (135-145); Total Protein 5.9 g/dL (6.5-8.0)
[2021-10-14 12:39] LABS: Appearance Urine HAZY; Color Urine YELLOW; Glucose Urine UA NEG (NEG); Leukocyte Esterase Urine TRACE (NEG); Nitrite Urine POS (NEG); PH 5.5 (5.0-8.0); Specific Gravity - Urine >= 1.030 (1.005-1.025); UACC Culture Trigger YES; Urine Blood NEG (NEG); Urine Ketones NEG (NEG); Urine Protein NEG (NEG-TRACE)
[2021-10-14 12:55] LABS: Bacteria Urine 3+ /LPF; Hyaline Casts Urine 0-2 /LPF; Mucus Urine TRACE /LPF; Squamous Epithelial Cell Urine TRACE /LPF
[2021-10-14 15:22] VITALS: BP 142/61; PULSE 70; RESP 18; TEMP 36.6; O2SAT 97
[2021-10-14] MEDS: Nitrofurantoin Monohyd/M-Cryst 100 MG CAPSULE PO (15:32)
[2021-10-18 18:12] LABS: Levetiracetam Keppra 15.7 mcg/mL (6.0-46.0)
== END 2021-10-14 15:47 | disposition home or self-care (01) ==
PROVIDERS: Emergency Provider Student in an Organized Health Care Education/Training Program
DX: N39.0 Urinary tract infection, site not specified (principal); G40.89 Other seizures; I10 Essential (primary) hypertension; G30.9 Alzheimer's disease, unspecified; F02.80 Dementia in other diseases classified elsewhere, unspecified severity, without behavioral disturbance, psychotic disturbance, mood disturbance, and anxiety; M35.3 Polymyalgia rheumatica; Z79.899 Other long term (current) drug therapy
CPT/HCPCS: 36415; 70450; 80053; 80177; 81001; 85025; 85610; 87086; 87088; 87186; 93005; 99284

== ENCOUNTER 2022-06-30 09:29 | Outpatient (REF) | payer MEDICARE, SELFPAY ==
[2022-06-30 11:28] LABS: MANUAL DIFF FLAG NO
[2022-06-30 11:32] LABS: Basophils Absolute Auto 0.1 X10*3/uL (0.0-0.2); Basophils Percent Auto 0.9 % (0-2); Eosinophils Absolute Auto 0.2 X10*3/uL (0.0-0.4); Eosinophils Percent Auto 2.7 % (0-4); Hematocrit 39.8 % (37.0-47.0); Hemoglobin 12.4 g/dl (12.0-16.0); Imm Gran Abs Auto 0.04 X10*3/uL (0.00-0.03); Imm Gran Pct Auto 0.5 % (0.0-0.4); Lymphocytes Absolute Auto 0.7 X10*3/uL (1.2-4.9); Lymphocytes Percent Auto 8.6 % (20-40); Mean Corpuscular HGB Conc 31.2 g/dl (31.0-35.0); Mean Corpuscular Volume 96.1 fL (80.0-98.0); Mean Platelet Volume 9.8 fL (9.4-12.3); Monocytes Absolute Auto 0.8 X10*3/uL (0.1-1.2); Monocytes Percent Auto 9.6 % (2-11); Neutrophils Absolute Auto 6.7 x10*3/uL (2.0-8.3); Neutrophils Percent Auto 77.7 % (45-73); Platelet Count 417 X10*3/uL (160-400); Red Blood Count 4.14 X10*6/uL (4.20-5.50); Red Cell Distribution Width 13.8 % (11.0-16.0); White Blood Count 8.6 X10*3/uL (4.8-10.8)
[2022-06-30 12:47] LABS: Alanine Aminotransferase 17 U/L (0-31); Albumin Level 3.9 g/dL (3.5-5.0); Alkaline Phosphatase 127 U/L (39-117); Anion Gap 16 (12-20); Aspartate Amino Transferase 20 U/L (5-31); Bilirubin Total 0.4 mg/dL (0.0-1.0); Blood Urea Nitrogen 14 mg/dL (9-16); Calcium 9.4 mg/dL (8.4-10.2); Carbon Dioxide 28 mmol/L (22-29); Chloride 100 mmol/L (96-108); Cholesterol 274 mg/dL; Estimated Glomerular Filt Rate > 60; Glucose Fasting 144 mg/dL (60-99); HDL Cholesterol 79 mg/dL; LDL Cholesterol Calculated 171 mg/dl; Potassium 4.1 mmol/L (3.3-5.1); Sodium 140 mmol/L (135-145); Total Protein 6.4 g/dL (6.5-8.0); Triglycerides 124 mg/dL
[2022-06-30 13:18] LABS: Folate 4.7 ng/mL (> or = 4.0); Thyroid Stimulating Hormone 1.64 uIU/mL (0.32-4.0); Vitamin B12 813 pg/mL (200-900)
[2022-07-04 16:49] LABS: Levetiracetam Keppra 15.7 mcg/mL (6.0-46.0)
[2022-07-06 16:33] LABS: Vitamin B1 60 nmol/L (8-30)
[2022-07-10 14:28] LABS: Vitamin B6 58.8 ng/mL (2.1-21.7)
== END 2022-06-30 09:30 | disposition home or self-care (01) ==
LOC: HO.HMGCLDS 09:29
PROVIDERS: PCP Internal Medicine; Visit Provider Internal Medicine
DX: G31.84 Mild cognitive impairment of uncertain or unknown etiology (principal); I10 Essential (primary) hypertension; M25.50 Pain in unspecified joint; M79.7 Fibromyalgia; Z79.899 Other long term (current) drug therapy
CPT/HCPCS: 36415; 80053; 80061; 80177; 82306; 82607; 82746; 84207; 84425; 84443; 85025

== ENCOUNTER 2022-10-30 08:07 | Outpatient (REF) | payer MEDICARE, SELFPAY | END 2022-10-30 08:08 | disposition home or self-care (01) | LOC: HO.MRI 08:07 | PROVIDERS: Visit Provider Internal Medicine | DX: R26.0 Ataxic gait (principal); R41.3 Other amnesia | CPT/HCPCS: 70551 ==

== ENCOUNTER 2022-12-28 12:00 | Emergency (ER) | payer MEDICARE, SELFPAY ==
[2022-12-28 12:08] VITALS: BP 107/50; PULSE 60; O2SAT 96
[2022-12-28 12:18] VITALS: BP 125/54; PULSE 60; RESP 18; TEMP 36.5; BMI 20.9
--- NOTE | 2022-12-28 12:18 | ED_ITS ---
HPI - Seizure General Chief Complaint: Seizure Stated Complaint: LETHARGY PER EMS Time Seen by Provider: 12/28/22 12:01 Source: patient and EMS Mode of arrival: EMS Limitations: no limitations History of Present Illness HPI Narrative: 82-year-old female with history of seizure disorder presents with possible seizures/blank look. Symptoms happened prior to arrival. Blood sugar was 155 on the scene. Patient was noted by visiting nurse to be briefly staring out into space. There was reported loss of continence. She had no chest pain, shortness breath, palpitations, lightheadedness. There are no other complaints. This is typical for this patient seizures apparently. She is compliant with her medications. There is no drug or alcohol use. Family reported that she was at her baseline status. There is no clear relieving or exacerbating features. Symptoms are moderate nature. Related Data Home Medications Medication Instructions Recorded Confirmed bepotastine besilate 1.5 % eye 1 drp ophthalmic (eye) BID 04/08/20 05/14/21 drops (Bepreve) brimonidine 0.1 % eye drops 1 drp ophthalmic-Right BID 04/08/20 05/14/21 (Alphagan P) cyanocobalamin (vitamin B-12) 500 250 mcg PO DAILY 04/08/20 05/14/21 mcg tablet acetaminophen 500 mg tablet 1,000 mg PO 0600,1200,2100 02/16/21 05/14/21 amlodipine 10 mg tablet 1 tab PO DAILY 02/16/21 05/14/21 cholecalciferol (vitamin D3) 10 10 mcg PO DAILY 02/16/21 05/14/21 mcg (400 unit) tablet multivitamin 1 tab PO DAILY 02/16/21 05/14/21 prednisone 5 mg tablet 5 mg PO DAILY@1200 02/16/21 05/14/21 netarsudil 0.02 %-latanoprost 1 drp ophthalmic (eye) BEDTIME 02/17/21 05/14/21 0.005 % eye drops (Rocklatan) aspirin 81 mg chewable tablet 81 mg PO Q2D 04/12/21 05/14/21 pyridoxine (vitamin B6) 50 mg 100 mg PO DAILY 04/12/21 05/14/21 tablet (Vitamin B-6) bisacodyl 10 mg rectal suppository 10 mg MS DAILY PRN Constipation 05/14/21 05/14/21 (Dulcolax (bisacodyl)) hydromorphone 2 mg tablet 1 tab PO Q4H PRN pain 05/14/21 05/14/21 lidocaine 5 % topical patch 1 patch topical DAILY 05/14/21 05/14/21 magnesium hydroxide 400 mg/5 mL 30 ml PO DAILY PRN Constipation 05/14/21 05/14/21 oral suspension (Milk of Magnesia) sertraline 25 mg tablet 25 mg PO BID 05/14/21 05/14/21 tramadol 50 mg tablet 25 mg PO Q6H PRN Pain 05/14/21 05/14/21 Previous Rx's Medication Instructions Recorded levetiracetam 250 mg tablet 250 mg PO BID #60 tabs 04/14/21 thiamine HCl (vitamin B1) 100 mg 100 mg PO DAILY #30 tabs 04/14/21 tablet nitrofurantoin 100 mg PO Q12H 7 days #14 caps 10/14/21 monohydrate/macrocrystals 100 mg capsule (Macrobid) Allergies Allergy/AdvReac Type Severity Reaction Status Date / Time cefadroxil [From DURICEF] Allergy Unknown RASH Verified 12/28/22 12:13 cortisone Allergy Unknown RASH, Verified 12/28/22 12:13 REDDENED CHEST FROM CORTISONE INJECTIONS levofloxacin [From LEVAQUIN] Allergy Unknown TINNITIS Verified 12/28/22 12:13 penicillin V Allergy Unknown Unknown Verified 12/28/22 12:13 Sulfa (Sulfonamide Allergy Unknown UNKNOWN Verified 12/28/22 12:13 Antibiotics) sulfamethoxazole Allergy Unknown RASH Verified 12/28/22 12:13 [From BACTRIM] trimethoprim [From BACTRIM] Allergy Unknown RASH Verified 12/28/22 12:13 Review of Systems Review of Systems: CONSTITUTIONAL: Denies weight loss, fever and chills. HEENT: Denies changes in vision and hearing. RESPIRATORY: Denies SOB and cough. CV: Denies palpitations no CP. GI: Denies abdominal pain, nausea, vomiting and diarrhea. : Denies dysuria and urinary frequency. MSK: Denies myalgia and joint pain. SKIN: Denies rash and pruritus. NEUROLOGICAL: Denies headache and syncope. PSYCHIATRIC: Denies recent changes in mood. Denies anxiety and depression. All other ROS are negative unless in HPI [facility] Past Medical History Medical History Alzheimer's dementia Cerebral microvascular disease Elevated C-reactive protein Glaucoma HTN (hypertension) IBS (irritable bowel syndrome) Multifactorial dementia Osteoporosis PMR (polymyalgia rheumatica) Primary osteoarthritis of hands, bilateral UTI (urinary tract infection) Surgical History H/O cataract removal with insertion of prosthetic lens H/O: hysterectomy History of tonsillectomy History of wisdom tooth extraction Hx of appendectomy Social History Social History Household Members: Unknown / Unable to assess Household Members Other:: NIECE Housing: Unknown / Unable to assess Are you a primary critical care nurse to a significant other at home: No Do you presently have visiting nurse or other home services: No Unable to assess alcohol history related to: Unknown Alcohol intake: former Patient Tobacco Use Status: Former Tobacco user Smoked in Last 30 Days: No Use of substances other than those prescribed or required for medical reasons: No Substance Use Type: Unknown Advance Directives: Yes Advance Directives on File: Yes Advance Directives Date on File: 05/13/21 service: No Current occupational status: retired Physical Exam Vital Signs: Vital Signs: Last Vital Signs Temp 98.7 F 12/28/22 14:16 Pulse 73 12/28/22 14:16 Resp 14 12/28/22 14:16 BP 116/52 L 12/28/22 14:16 Pulse Ox 98 12/28/22 14:16 O2 Del Method Room Air 12/28/22 14:16 BMI result Body Mass Index 20.9 GEN: Well developed, no acute distress, alert, oriented HEENT: Normocephalic, atraumatic, normal external ears, nose appears normal, no oropharyngeal edema or exudates Eyes: Normal to appearance Neck: Supple, no lymphadenopathy Respiratory: Talks in complete sentences, no respiratory distress, clear to auscultation bilaterally Cardiovascular: Regular rate and rhythm, no murmurs rubs or gallops Abdomen: Soft, nontender, nondistended, no guarding, no rebound Back: No CVA tenderness Extremities: No clubbing cyanosis or edema Neurologic: No focal neurologic deficits, cranial nerves 2-12 intact, strength is 5/5 bilaterally Skin: No rash Course Course Course Narrative: The workup up is complete. Patient's niece is bedside. Patient has a baseline. She has no urinary tract infection, electrolytes are by. Keppra is due to be increased per recent visit with neurologist. Patient can be discharged at this time. Medical Decision Making Medical Decision Making [facility] Narrative: 82-year-old female with history of seizure disorder presents with a. Of unresponsiveness yet alert. Patient has the history of absent seizures as what it sounds like. Examination here is benign. Blood sugar was 155 by EMS. Hemodynamically stable. Exam is benign with no focal neurologic deficits. My plan will be to check routine laboratory analysis to make sure there is no hyponatremia. There is no indication to check for alcohol level or drug abuse. There is no imaged necessary as there is no head trauma. Will check urinalysis if possible. Differential Diagnosis Differential Diagnoses: The differential diagnosis associated with the presentation includes ( Seizure, blank episode, transient amnesia) Admission/Observation Consideration of admission/observation: Escalation of care including admission/observation considered Lab Data [facility] Lab Attestation statement: I reviewed the patient's lab results. 12/28/22 12:39 12/28/22 12:39 Labs: Lab Results 12/28/22 12/28/22 12/28/22 Range/Units 12:39 12:39 13:39 WBC 6.8 (4.8-10.8) X10*3/uL RBC 3.83 L (4.20-5.50) X10*6/uL Hgb 12.0 (12.0-16.0) g/dl Hct 37.1 (37.0-47.0) % MCV 96.9 (80.0-98.0) fL MCH 31.3 (27.0-33.0) pg MCHC 32.3 (31.0-35.0) g/dl RDW 13.8 (11.0-16.0) % Plt Count 291 D (160-400) X10*3/uL MPV 9.2 L (9.4-12.3) fL Immature Gran % (Auto) 0.6 H (0.0-0.4) % Neut % (Auto) 84.0 H (45-73) % Lymph % (Auto) 7.1 L (20-40) % [place] % (Auto) 5.0 (2-11) % Eos % (Auto) 2.7 (0-4) % Baso % (Auto) 0.6 (0-2) % Lymph # (Auto) 0.5 L (1.2-4.9) X10*3/uL [place] # (Auto) 0.3 (0.1-1.2) X10*3/uL Eos # (Auto) 0.2 (0.0-0.4) X10*3/uL Baso # (Auto) 0.0 (0.0-0.2) X10*3/uL Abs Immat Gran (auto) 0.04 H (0.00-0.03) X10*3/uL Absolute Neuts (auto) 5.7 (2.0-8.3) x10*3/uL Absolute Nucleated RBC 0.000 (0.0-0.012) X10*3/uL Nucleated RBC % (auto) 0.0 (0.0-0.2) /100WBC Sodium 142 (135-145) mmol/L Potassium 3.6 (3.3-5.1) mmol/L Chloride 105 (96-108) mmol/L Carbon Dioxide 30 H (22-29) mmol/L Anion Gap 11 L (12-20) BUN 19 H (9-16) mg/dL Creatinine 0.76 (0.5-1.4) mg/dL Estim Creat Clear Calc 44.3 Estimated GFR > 60 Random Glucose 110 (60-115) mg/dL Calcium 9.2 (8.4-10.2) mg/dL Urine Color Yellow Urine Appearance Clear Urine pH 5.0 (5.0-9.0) Ur Specific [place] >= 1.030 H (1.005-1.025) Urine Protein Negative (Neg-Trace) mg/dL Urine Glucose (UA) Negative (Negative) mg/dL Urine Ketones Trace (Negative) mg/dL Urine Blood Negative (Negative) Urine Nitrite Positive H (Negative) Ur Leukocyte Esterase Small (1+) H (Negative) Urine RBC 0-2 (0-2) /HPF Urine WBC 0-5 (0-5) /HPF Ur Squamous Epith Cells 0-2 (0-2) /HPF Urine Bacteria 4+ (None Seen) Hyaline Casts 11-20 (0-2) /LPF Independent Interpretation I performed an independent interpretation of an: EKG ( sinus bradycardia heart rate 57, no acute ST elevations depressions, low voltage.) Independent Historian Clinical information obtained from an independent historian. History obtained from or confirmed by: EMS Discharge Plan Discharge Clinical Impression: Seizure Patient Disposition: Home, Self-Care Instructions: Epilepsy in Older Adults (ED) Prescriptions: No Action cyanocobalamin (vitamin B-12) 500 mcg Tablet 250 mcg PO DAILY Alphagan P 0.1 % drops 1 drp ophthalmic-Right BID bepotastine besilate [Bepreve] 1.5 % drops 1 drp ophthalmic (eye) BID Rx Instructions: BOTH EYES amlodipine 10 mg tablet 1 tab PO DAILY multivitamin Tablet 1 tab PO DAILY acetaminophen 500 mg Tablet 1,000 mg PO 0600,1200,2100 cholecalciferol (vitamin D3) 10 mcg (400 unit) Tablet 10 mcg PO DAILY prednisone 5 mg tablet 5 mg PO DAILY@1200 Rocklatan 0.02-0.005 % drops 1 drp ophthalmic (eye) BEDTIME aspirin 81 mg Tablet,Chewable 81 mg PO Q2D pyridoxine (vitamin B6) [Vitamin B-6] 50 mg Tablet 100 mg PO DAILY levetiracetam 250 mg Tablet 250 mg PO BID Qty: 60 0RF thiamine HCl (vitamin B1) 100 mg tablet 100 mg PO DAILY Qty: 30 11RF nitrofurantoin monohyd/m-cryst [Macrobid] 100 mg capsule 100 mg PO Q12H 7 Days Qty: 14 0RF Rx Instructions: must administer with a meal/food tramadol 50 mg Tablet 25 mg PO Q6H PRN (Reason: Pain) hydromorphone 2 mg tablet 1 tab PO Q4H PRN (Reason: pain) magnesium hydroxide [Milk of Magnesia] 400 mg/5 mL Suspension 30 ml PO DAILY PRN (Reason: Constipation) bisacodyl [Dulcolax (bisacodyl)] 10 mg Suppository 10 mg MS DAILY PRN (Reason: Constipation) Rx Instructions: EVERY 3 DAYS WITHOUT BM lidocaine 5 % Adhesive Patch,Medicated 1 patch TOPICAL DAILY Rx Instructions: SACRAL AREA sertraline 25 mg Tablet 25 mg PO BID Referrals: Alexandro Rodriguez DO [Primary Care Provider] -
--- NOTE | 2022-12-28 12:21 | ECG_ITS ---
Test Reason : seizure Blood Pressure : / mmHG Vent. Rate : 057 BPM Atrial Rate : 057 BPM P-R Int : 184 ms QRS Dur : 088 ms QT Int : 398 ms P-R-T Axes : 037 -27 013 degrees QTc Int : 387 ms Sinus bradycardia Otherwise normal ECG When compared with ECG of 14-OCT-2021 10:20, Heart rate has decreased Referred By: Jose Ngo Electronically Signed By:ARTEMIO WILLIAM
[2022-12-28 12:43] LABS: MANUAL DIFF FLAG NO
[2022-12-28 12:44] LABS: Basophils Percent Auto 0.6 % (0-2); Eosinophils Absolute Auto 0.2 X10*3/uL (0.0-0.4); Eosinophils Percent Auto 2.7 % (0-4); Hematocrit 37.1 % (37.0-47.0); Imm Gran Abs Auto 0.04 X10*3/uL (0.00-0.03); Imm Gran Pct Auto 0.6 % (0.0-0.4); Lymphocytes Absolute Auto 0.5 X10*3/uL (1.2-4.9); Lymphocytes Percent Auto 7.1 % (20-40); Mean Corpuscular HGB Conc 32.3 g/dl (31.0-35.0); Mean Corpuscular Hemoglobin 31.3 pg (27.0-33.0); Mean Corpuscular Volume 96.9 fL (80.0-98.0); Mean Platelet Volume 9.2 fL (9.4-12.3); Monocytes Absolute Auto 0.3 X10*3/uL (0.1-1.2); Neutrophils Absolute Auto 5.7 x10*3/uL (2.0-8.3); Platelet Count 291 X10*3/uL (160-400); Red Blood Count 3.83 X10*6/uL (4.20-5.50); Red Cell Distribution Width 13.8 % (11.0-16.0); White Blood Count 6.8 X10*3/uL (4.8-10.8)
--- NOTE | 2022-12-28 12:58 | PC.NURSE ---
Pt A/OX1 to person, pt states she is at [facility]. VSS, c/o RLE 07/07 px unknown onset and origin. Pt found by [employer]NAGER with fixed gaze and gurgling respirations, s/sx resolved since arrival at ED. Labs drawn awating results and EKG completed.
[2022-12-28 12:59] LABS: Anion Gap 11 (12-20); Blood Urea Nitrogen 19 mg/dL (9-16); Calcium 9.2 mg/dL (8.4-10.2); Carbon Dioxide 30 mmol/L (22-29); Chloride 105 mmol/L (96-108); Creatinine Clr Calc Pharmacy 44.3; Estimated Glomerular Filt Rate > 60; Glucose Random 110 mg/dL (60-115); Potassium 3.6 mmol/L (3.3-5.1); Sodium 142 mmol/L (135-145)
[2022-12-28 13:49] LABS: Appearance Urine Clear; Color Urine Yellow; Glucose Urine UA Negative (Negative); Leukocyte Esterase Urine Small (1+) (Negative); Nitrite Urine Positive (Negative); Specific Gravity - Urine >= 1.030 (1.005-1.025); UMIC TRIGGER UACC YES; Urine Blood Negative (Negative); Urine Ketones Trace mg/dL (Negative); Urine Protein Negative (Neg-Trace)
[2022-12-28 13:57] LABS: Bacteria Urine 4+ (None Seen); RBC Urine 0-2 /HPF (0-2); Squamous Epithelial Cell Urine 0-2 /HPF (0-2); UACC Culture Trigger YES; WBC Urine 0-5 /HPF (0-5)
[2022-12-28 14:10] VITALS: BP 113/50; PULSE 75; RESP 12; O2SAT 97
[2022-12-28 14:16] VITALS: BP 116/52; PULSE 73; RESP 14; TEMP 37.1; O2SAT 98
== END 2022-12-28 15:25 | disposition home or self-care (01) ==
PROVIDERS: Emergency Provider Emergency Medicine; PCP Internal Medicine
DX: R56.9 Unspecified convulsions (principal); R00.1 Bradycardia, unspecified; I10 Essential (primary) hypertension; G30.9 Alzheimer's disease, unspecified; F02.80 Dementia in other diseases classified elsewhere, unspecified severity, without behavioral disturbance, psychotic disturbance, mood disturbance, and anxiety; Z87.440 Personal history of urinary (tract) infections; Z87.891 Personal history of nicotine dependence; Z79.82 Long term (current) use of aspirin; Z79.899 Other long term (current) drug therapy; Z79.52 Long term (current) use of systemic steroids
CPT/HCPCS: 36415; 51701; 80048; 81001; 85025; 87086; 87088; 87186; 93005; 99284

== ENCOUNTER 2023-03-10 15:13 | Inpatient (IN) | payer MEDICARE, SELFPAY ==
--- NOTE | ~2023-03-10 | XR_ITS ---
EXAMINATION: XR HIP, RIGHT CLINICAL INFORMATION: Pain status post fall. COMPARISON: None available. TECHNIQUE: Three views of the right hip. XR/XR hip RT w [id number] FINDINGS/IMPRESSION: Examination demonstrates a fracture of the femoral neck. There is associated varus angulation. The distal fragment is displaced in the cephalad direction approximately one quarter bone shaft's width relative to the proximal fragment. No other fracture or dislocation is appreciated.
--- NOTE | ~2023-03-10 | XR_ITS ---
EXAMINATION: XR PELVIS CLINICAL INFORMATION: Post right hip hemiarthroplasty COMPARISON: Previous x-ray 03/10/2023 TECHNIQUE: AP view of the pelvis. FINDINGS: There is a new right hip hemiarthroplasty in satisfactory position. No fracture or dislocation. Visualized pelvis and left proximal femur unremarkable. Atherosclerotic disease. XR/XR pelvis 1-2V IMPRESSION: Satisfactory appearance of right hip hemiarthroplasty.
--- NOTE | ~2023-03-10 | CT_ITS ---
EXAMINATION: CT HEAD WITHOUT CONTRAST CT CERVICAL SPINE WITHOUT CONTRAST CLINICAL INFORMATION: Fall. Head strike. COMPARISON: CT head and cervical spine 05/14/2021. Brain MRI 10/30/2022. TECHNIQUE: [employer] images were obtained. CT imaging of the head and cervical spine was performed without contrast. Data was reformatted into multiplanar images at the acquisition workstation. This CT examination was performed using dose optimization techniques as appropriate, including one or more of the following: Automated exposure control, iterative reconstruction, and adjustment of technique factors (mA and/or kVp) according to patient size (this includes techniques or standardized protocols for targeted exams where dose is matched to indication/reason for exam). Fleischner Society criteria for the followup of incidental pulmonary nodules was implemented if appropriate. DLP: 822 mGy-cm. FINDINGS: Head: There is no acute intracranial hemorrhage or abnormal extra-axial collection. No intracranial mass effect or midline shift. Lateral and third ventricles are proportionate to the subarachnoid spaces. There are numerous foci of hypoattenuation primarily involving the periventricular white matter, basal ganglia, and daniel that most likely represent a chronic manifestation of small vessel ischemia. Martinez-white matter differentiation is otherwise preserved and there is no evidence of acute territorial infarct. The calvarium and skull base are intact. There is a trace left mastoid tip effusion. No active paranasal sinus disease. Cervical spine: There is of ankylosis with bridging bone that fuses the C3 and C4 vertebral segments. There is slight anterolisthesis of C7 on T1 that appears to be related to facet degenerative changes at this level. Vertebral heights are preserved. There is loss of intervertebral disc height with associated sclerotic degenerative endplate changes and hypertrophic disc osteophyte spurring at C4-C5, C5-C6, and C6-C7. Canal patency is not well assessed on this examination due to inherent limitations of CT without intrathecal contrast. There is at least mild canal stenosis at multiple levels. Uncovertebral joint spurring and congestion with facet degenerative change causes moderate to severe neuroforaminal encroachment at multiple levels. Visualized soft tissues of the neck are unremarkable. There is pleural-parenchymal scarring at the apices of both lungs. CT/CT cervical spine wo IV con IMPRESSION: Head: There are numerous chronic small vessel ischemic changes within the periventricular white matter, basal ganglia, and daniel. Grossly no evidence of acute territorial infarct or hemorrhage. Cervical Spine: There is advanced multilevel degenerative spondylosis of the cervical spine. No evidence of acute fracture and no posttraumatic spinal subluxation. There is at least mild canal stenosis at multiple levels. Uncovertebral joint spurring and congestion with facet degenerative change causes moderate to severe neuroforaminal encroachment at multiple levels.
--- NOTE | ~2023-03-10 | XR_ITS ---
EXAMINATION: XR CHEST CLINICAL INFORMATION: Preop. COMPARISON: Chest x-ray 04/08/2020. TECHNIQUE: Frontal view of the chest was obtained. FINDINGS: The cardiomediastinal silhouette is stable. No vascular congestion or edema. Lungs mildly hypoexpanded. No consolidation or effusion. No pneumothorax. XR/XR chest 1V IMPRESSION: Mildly hypoexpanded lungs. No acute cardiopulmonary disease.
[2023-03-10 15:17] VITALS: BP 132/66; PULSE 71; O2SAT 98
[2023-03-10 15:19] VITALS: BP 150/62; PULSE 75; RESP 18; TEMP 36.1; O2SAT 97; BMI 20.2
--- NOTE | 2023-03-10 15:24 | ECG_ITS ---
Test Reason : FALL Blood Pressure : / mmHG Vent. Rate : 072 BPM Atrial Rate : 072 BPM P-R Int : 190 ms QRS Dur : 078 ms QT Int : 390 ms P-R-T Axes : 055 -41 041 degrees QTc Int : 427 ms Poor data quality Normal sinus rhythm Left axis deviation RSR' or QR pattern in V1 suggests right ventricular conduction delay Abnormal ECG When compared with ECG of 28-DEC-2022 12:32, No significant changes seen Referred By: Generic ED Physician Electronically Signed By:RUPERT MCNEIL MD
[2023-03-10 15:51] LABS: MANUAL DIFF FLAG NO
[2023-03-10 15:53] LABS: Basophils Absolute Auto 0.1 X10*3/uL (0.0-0.2); Basophils Percent Auto 0.8 % (0-2); Eosinophils Absolute Auto 0.1 X10*3/uL (0.0-0.4); Eosinophils Percent Auto 1.2 % (0-4); Hematocrit 39.9 % (37.0-47.0); Hemoglobin 12.9 g/dl (12.0-16.0); Imm Gran Abs Auto 0.06 X10*3/uL (0.00-0.03); Imm Gran Pct Auto 0.8 % (0.0-0.4); Lymphocytes Absolute Auto 0.6 X10*3/uL (1.2-4.9); Lymphocytes Percent Auto 7.6 % (20-40); Mean Corpuscular HGB Conc 32.3 g/dl (31.0-35.0); Mean Corpuscular Hemoglobin 31.8 pg (27.0-33.0); Mean Corpuscular Volume 98.3 fL (80.0-98.0); Mean Platelet Volume 9.5 fL (9.4-12.3); Monocytes Absolute Auto 0.6 X10*3/uL (0.1-1.2); Monocytes Percent Auto 7.3 % (2-11); Neutrophils Absolute Auto 6.2 x10*3/uL (2.0-8.3); Neutrophils Percent Auto 82.3 % (45-73); Platelet Count 338 X10*3/uL (160-400); Red Blood Count 4.06 X10*6/uL (4.20-5.50); Red Cell Distribution Width 13.2 % (11.0-16.0); White Blood Count 7.5 X10*3/uL (4.8-10.8)
[2023-03-10 16:13] LABS: Alanine Aminotransferase 15 U/L (0-31); Albumin Level 3.8 g/dL (3.5-5.0); Alkaline Phosphatase 77 U/L (39-117); Anion Gap 14 (12-20); Aspartate Amino Transferase 23 U/L (5-31); Bilirubin Total 0.3 mg/dL (0.0-1.0); Blood Urea Nitrogen 16 mg/dL (9-16); Calcium 9.2 mg/dL (8.4-10.2); Carbon Dioxide 30 mmol/L (22-29); Chloride 102 mmol/L (96-108); Estimated Glomerular Filt Rate > 60; Glucose Random 182 mg/dL (60-115); Potassium 3.9 mmol/L (3.3-5.1); Sodium 142 mmol/L (135-145); Total Protein 6.4 g/dL (6.5-8.0)
[2023-03-10] MEDS: Ketorolac Tromethamine 30 MG/ML VIAL 15 MG IVPUSH (16:27)
[2023-03-10 16:29] VITALS: BP 185/77; PULSE 86; RESP 15; TEMP 36.7; O2SAT 95
--- NOTE | 2023-03-10 16:31 | ED_ITS ---
HPI - Fall General Chief Complaint: Fall Stated Complaint: fall Time Seen by Provider: 03/10/23 16:13 Source: patient and EMS Mode of arrival: EMS History of Present Illness HPI Narrative: 83-year-old female is brought in from home after reportedly trying to throw away a piece of trash, became unsteady and fell onto her bum, unknown about head strike but she was laying on the floor when EMS arrived does have a history of dementia. She denies any head or neck pain but says that her right hip her Related Data Home Medications Medication Instructions Recorded Confirmed bepotastine besilate 1.5 % eye 1 drp ophthalmic (eye) BID 04/08/20 05/14/21 drops (Bepreve) brimonidine 0.1 % eye drops 1 drp ophthalmic-Right BID 04/08/20 05/14/21 (Alphagan P) cyanocobalamin (vitamin B-12) 500 250 mcg PO DAILY 04/08/20 05/14/21 mcg tablet acetaminophen 500 mg tablet 1,000 mg PO 0600,1200,2100 02/16/21 05/14/21 amlodipine 10 mg tablet 1 tab PO DAILY 02/16/21 05/14/21 cholecalciferol (vitamin D3) 10 10 mcg PO DAILY 02/16/21 05/14/21 mcg (400 unit) tablet multivitamin 1 tab PO DAILY 02/16/21 05/14/21 prednisone 5 mg tablet 5 mg PO DAILY@1200 02/16/21 05/14/21 netarsudil 0.02 %-latanoprost 1 drp ophthalmic (eye) BEDTIME 02/17/21 05/14/21 0.005 % eye drops (Rocklatan) aspirin 81 mg chewable tablet 81 mg PO Q2D 04/12/21 05/14/21 pyridoxine (vitamin B6) 50 mg 100 mg PO DAILY 04/12/21 05/14/21 tablet (Vitamin B-6) bisacodyl 10 mg rectal suppository 10 mg IN DAILY PRN Constipation 05/14/21 05/14/21 (Dulcolax (bisacodyl)) hydromorphone 2 mg tablet 1 tab PO Q4H PRN pain 05/14/21 05/14/21 lidocaine 5 % topical patch 1 patch topical DAILY 05/14/21 05/14/21 magnesium hydroxide 400 mg/5 mL 30 ml PO DAILY PRN Constipation 05/14/21 05/14/21 oral suspension (Milk of Magnesia) sertraline 25 mg tablet 25 mg PO BID 05/14/21 05/14/21 tramadol 50 mg tablet 25 mg PO Q6H PRN Pain 05/14/21 05/14/21 Previous Rx's Medication Instructions Recorded levetiracetam 250 mg tablet 250 mg PO BID #60 tabs 04/14/21 thiamine HCl (vitamin B1) 100 mg 100 mg PO DAILY #30 tabs 04/14/21 tablet nitrofurantoin 100 mg PO Q12H 7 days #14 caps 10/14/21 monohydrate/macrocrystals 100 mg capsule (Macrobid) Allergies Allergy/AdvReac Type Severity Reaction Status Date / Time cefadroxil [From DURICEF] Allergy Unknown RASH Verified 12/28/22 12:13 cortisone Allergy Unknown RASH, Verified 12/28/22 12:13 REDDENED CHEST FROM CORTISONE INJECTIONS levofloxacin [From LEVAQUIN] Allergy Unknown TINNITIS Verified 12/28/22 12:13 penicillin V Allergy Unknown Unknown Verified 12/28/22 12:13 Sulfa (Sulfonamide Allergy Unknown UNKNOWN Verified 12/28/22 12:13 Antibiotics) sulfamethoxazole Allergy Unknown RASH Verified 12/28/22 12:13 [From BACTRIM] trimethoprim [From BACTRIM] Allergy Unknown RASH Verified 12/28/22 12:13 Review of Systems 2 Review of Systems: Pertinent positives and negatives as stated in [facility] Past Medical History Source: nursing notes reviewed Medical History Alzheimer's dementia Multifactorial dementia Cerebral microvascular disease Glaucoma IBS (irritable bowel syndrome) HTN (hypertension) UTI (urinary tract infection) Elevated C-reactive protein Osteoporosis PMR (polymyalgia rheumatica) Primary osteoarthritis of hands, bilateral Surgical History Hx of appendectomy H/O cataract removal with insertion of prosthetic lens History of wisdom tooth extraction History of tonsillectomy H/O: hysterectomy Social History Social History Household Members: Unknown / Unable to assess Household Members Other:: NIECE Housing: Unknown / Unable to assess Are you a primary direct care supervisor to a significant other at home: No Do you presently have visiting nurse or other home services: No Unable to assess alcohol history related to: Unknown Alcohol intake: former Patient Tobacco Use Status: Former Tobacco user Substance Use Type: Unknown Advance Directives: Yes Advance Directives on File: Yes Advance Directives Date on File: 05/13/21 service: No Current occupational status: retired Physical Exam 2 Vital Signs: Vital Signs: Last Vital Signs Temp 98.0 F 03/10/23 16:29 Pulse 86 03/10/23 16:29 Resp 15 03/10/23 16:29 BP 185/77 H 03/10/23 16:29 Pulse Ox 95 03/10/23 16:29 O2 Del Method Room Air 03/10/23 16:29 BMI result Body Mass Index 20.2 VITAL SIGNS: Reviewed. GENERAL: Well developed, well nourished, in no acute distress. HEAD: Normocephalic/atraumatic EYES: PERRLA, EOMI EARS: Ext canals without abnormality NOSE: Nares patent bilateral OROPHARYNX: no oral lesions noted, posterior pharynx clear NECK: C-collar in place, no midline cervical spine tenderness her step-off, no adenopathy LUNGS: Normal breath sounds. No adventitious sounds or accessory muscle use. SpO2<97> CARDIOVASCULAR: Regular rate and rhythm without noted murmurs, no JVD or lower extremity edema. ABDOMEN: Soft, non-tender, non-distended with bowel sounds. PELVIS: Stable, but tenderness noted over proximal femoral area MUSCULOSKELETAL: No tenderness, deformities, or effusions noted on gross inspection. EXTREMITIES: No cyanosis, clubbing or edema. SKIN: Inspection of the skin reveals no rashes NEUROLOGIC: Alert and oriented x 2. Strength and sensation to light touch were grossly intact x 4. Medications Administered Discontinued Medications Generic Name Dose Route Start Last Admin Trade Name Freq PRN Reason Stop Dose Admin Ketorolac Tromethamine 15 mg 03/10/23 16:20 03/10/23 16:27 Ketorolac Tromethamine 30 Mg/Ml Vial IVPUSH 03/10/23 16:21 15 mg ONCE ONE Administration Medical Decision Making Medical Decision Making [facility] Narrative: 1635: 83-year-old female with history and clinical presentation, DDX: Mechanical fall with right hip fracture, will rule out intracranial bleed or skull fracture as well as ruling out cervical spine fracture/subluxation. Will also rule out underlying infectious etiology. 1635: My prelim review of the hip and pelvis x-ray for the patient has a right femoral neck fracture 1639: Orthopedics has been notified and the plan is for surgery at 08:00 in morning, NPO after midnight. Reviewed all investigations and hematologic indices are negative for leukocytosis and there is no anemia or thrombocytopenia. Coagulation studies are within normal limits. Chemistry indices do not demonstrate an GUS and there is no electrolyte or liver enzyme abnormalities. CT of the head is negative for acute findings and cervical spine does not demonstrate any fracture or subluxation. Hip/pelvis x-ray significant for right femoral neck fracture. Chest x-ray is negative for infiltrate or evidence of venous congestion and otherwise my interpretation is in agreement with radiology's impression of all imaging studies. 1745: I discussed case with inpatient hospitalist who accepts admission. Differential Diagnosis Differential Diagnoses: The differential diagnosis associated with the presentation includes Please see the discussion above Admission/Observation Consideration of admission/observation: Escalation of care including admission/observation considered Please see the discussion above Consult Healthcare Provider Management of the patient was discussed with: Hospitalist Please see the discussion above Lab Data MDM Lab Attestation statement: I reviewed the patient's lab results. Please see the discussion above 03/10/23 15:44 03/10/23 15:44 Labs: Lab Results 03/10/23 03/10/23 Range/Units 15:44 17:20 WBC 7.5 (4.8-10.8) X10*3/uL RBC 4.06 L (4.20-5.50) X10*6/uL Hgb 12.9 (12.0-16.0) g/dl Hct 39.9 (37.0-47.0) % MCV 98.3 H (80.0-98.0) fL MCH 31.8 (27.0-33.0) pg MCHC 32.3 (31.0-35.0) g/dl RDW 13.2 (11.0-16.0) % Plt Count 338 (160-400) X10*3/uL MPV 9.5 (9.4-12.3) fL Immature Gran % (Auto) 0.8 H (0.0-0.4) % Neut % (Auto) 82.3 H (45-73) % Lymph % (Auto) 7.6 L (20-40) % [place] % (Auto) 7.3 (2-11) % Eos % (Auto) 1.2 (0-4) % Baso % (Auto) 0.8 (0-2) % Lymph # (Auto) 0.6 L (1.2-4.9) X10*3/uL [place] # (Auto) 0.6 (0.1-1.2) X10*3/uL Eos # (Auto) 0.1 (0.0-0.4) X10*3/uL Baso # (Auto) 0.1 (0.0-0.2) X10*3/uL Abs Immat Gran (auto) 0.06 H (0.00-0.03) X10*3/uL Absolute Neuts (auto) 6.2 (2.0-8.3) x10*3/uL Absolute Nucleated RBC 0.000 (0.0-0.012) X10*3/uL Nucleated RBC % (auto) 0.0 (0.0-0.2) /100WBC PT 10.5 L (11.1-13.3) SEC INR 0.9 (0.9-1.1) Sodium 142 (135-145) mmol/L Potassium 3.9 (3.3-5.1) mmol/L Chloride 102 (96-108) mmol/L Carbon Dioxide 30 H (22-29) mmol/L Anion Gap 14 (12-20) BUN 16 (9-16) mg/dL Creatinine 0.79 (0.5-1.4) mg/dL Estim Creat Clear Calc 38.0 Estimated GFR > 60 Random Glucose 182 H (60-115) mg/dL Calcium 9.2 (8.4-10.2) mg/dL Total Bilirubin 0.3 (0.0-1.0) mg/dL AST 23 (5-31) U/L ALT 15 (0-31) U/L Alkaline Phosphatase 77 (39-117) U/L Total Protein 6.4 L (6.5-8.0) g/dL Albumin 3.8 (3.5-5.0) g/dL Blood Type B Positive Independent Interpretation I performed an independent interpretation of an: EKG Interpretation: Sinus rhythm, HR-72, no STEMI, IN/QRS/QTC is within normal limits. Radiology Impression Discussion of test interpretation with radiology: I have reviewed the radiologist's reading. Radiologist Impression: Please see the discussion above External Record Review External record reviewed: Office record, Outpatient record, Prior outpatient labs and Prior outpatient radiology Chronic Conditions Patient?s care impacted by: Other Seizure Critical Care Time Critical Care Time Critical Care Time: Yes Total Critical Care Time: 60 Attestation: I personally attest to this time spent taking care of the patient. Discharge Plan Discharge Clinical Impression: Fall, Closed fracture of neck of right femur Patient Disposition: Admitted As Inpatient Prescriptions: No Action cyanocobalamin (vitamin B-12) 500 mcg Tablet 250 mcg PO DAILY Alphagan P 0.1 % drops 1 drp ophthalmic-Right BID bepotastine besilate [Bepreve] 1.5 % drops 1 drp ophthalmic (eye) BID Rx Instructions: BOTH EYES amlodipine 10 mg tablet 1 tab PO DAILY multivitamin Tablet 1 tab PO DAILY acetaminophen 500 mg Tablet 1,000 mg PO 0600,1200,2100 cholecalciferol (vitamin D3) 10 mcg (400 unit) Tablet 10 mcg PO DAILY prednisone 5 mg tablet 5 mg PO DAILY@1200 Rocklatan 0.02-0.005 % drops 1 drp ophthalmic (eye) BEDTIME aspirin 81 mg Tablet,Chewable 81 mg PO Q2D pyridoxine (vitamin B6) [Vitamin B-6] 50 mg Tablet 100 mg PO DAILY levetiracetam 250 mg Tablet 250 mg PO BID Qty: 60 0RF thiamine HCl (vitamin B1) 100 mg tablet 100 mg PO DAILY Qty: 30 11RF nitrofurantoin monohyd/m-cryst [Macrobid] 100 mg capsule 100 mg PO Q12H 7 Days Qty: 14 0RF Rx Instructions: must administer with a meal/food tramadol 50 mg Tablet 25 mg PO Q6H PRN (Reason: Pain) hydromorphone 2 mg tablet 1 tab PO Q4H PRN (Reason: pain) magnesium hydroxide [Milk of Magnesia] 400 mg/5 mL Suspension 30 ml PO DAILY PRN (Reason: Constipation) bisacodyl [Dulcolax (bisacodyl)] 10 mg Suppository 10 mg IN DAILY PRN (Reason: Constipation) Rx Instructions: EVERY 3 DAYS WITHOUT BM lidocaine 5 % Adhesive Patch,Medicated 1 patch TOPICAL DAILY Rx Instructions: SACRAL AREA sertraline 25 mg Tablet 25 mg PO BID
[2023-03-10 17:33] LABS: INTERNATIONAL NORM RATIO 0.9 (0.9-1.1); Prothrombin Time 10.5 SEC (11.1-13.3)
--- NOTE | 2023-03-10 17:48 | PM.IMHP ---
History of Present Illness Date of Service: 03/10/23 Chief Complaint: Fall 83 year old women with hx of htn and seizure disorder presenting after a fall. She went to throw away some paper and lost her balance and fell. She lives with her niece , who is her healthcare proxy, and has dementia. her niece reported that she heard the patient help from the other room and she did not think there was any loss of consciousness as that time the patient fell to when she arrived to help her was seconds. Hip CT showing femoral neck fracture. Case discussed with orthopedic surgery and plan is to take the patient for surgical correction of fracture in the morning. unable to sinus review of systems suggestive Alzheimer's dementia but when asked if she was having pain she shook her head no. In the ED, her labs were all within acceptable limits, blood pressure elevated She received Toradol and dilaudid in the ED. She will be admitted for management of acute femoral neck fracture Review of Systems Review of Systems: History of Alzheimer's dementia Yes Unobtainable due to mental status FORMERLY [facility], 1928–1983 Medical History Alzheimer's dementia Multifactorial dementia Cerebral microvascular disease Glaucoma IBS (irritable bowel syndrome) HTN (hypertension) UTI (urinary tract infection) Elevated C-reactive protein Osteoporosis PMR (polymyalgia rheumatica) Primary osteoarthritis of hands, bilateral Surgical History Hx of appendectomy H/O cataract removal with insertion of prosthetic lens History of wisdom tooth extraction History of tonsillectomy H/O: hysterectomy Social History Household Members: Family Household Members Other:: NIECE Housing: House Are you a primary cardiac care unit nurse to a significant other at home: No Do you presently have visiting nurse or other home services: No Unable to assess alcohol history related to: Unknown Alcohol intake: former Patient Tobacco Use Status: Former Tobacco user Substance Use Type: Unknown Advance Directives: Yes Advance Directives on File: Yes Advance Directives Date on File: 05/13/21 Do you have thoughts of harming others: None Do you have a plan to hurt others: No Plan Nutrition Risks: No Nutritional Risk Patient : No Poor oral hygiene: No service: No Current occupational status: retired Meds Allergies Allergy/AdvReac Type Severity Reaction Status Date / Time cefadroxil [From DURICEF] Allergy Unknown RASH Verified 12/28/22 12:13 cortisone Allergy Unknown RASH, Verified 12/28/22 12:13 REDDENED CHEST FROM CORTISONE INJECTIONS levofloxacin [From LEVAQUIN] Allergy Unknown TINNITIS Verified 12/28/22 12:13 penicillin V Allergy Unknown Unknown Verified 12/28/22 12:13 Sulfa (Sulfonamide Allergy Unknown UNKNOWN Verified 12/28/22 12:13 Antibiotics) sulfamethoxazole Allergy Unknown RASH Verified 12/28/22 12:13 [From BACTRIM] trimethoprim [From BACTRIM] Allergy Unknown RASH Verified 12/28/22 12:13 Active Medications: Current Medications Cefazolin Sodium/Dextrose (Ancef) 2 gm in 50 mls @ 100 mls/hr IV PREOP ONE Stop: 03/11/23 07:29 Home Medications Medication Instructions Recorded Confirmed Last Taken Type cyanocobalamin (vitamin B-12) 500 500 mcg PO DAILY@1200 04/08/20 03/10/23 03/10/23 History mcg tablet acetaminophen 500 mg tablet 1,000 mg PO BID PRN Fever Or Pain 02/16/21 03/10/23 02/16/21 History cholecalciferol (vitamin D3) 10 20 mcg PO DAILY@1200 02/16/21 03/10/23 03/10/23 History mcg (400 unit) tablet prednisone 5 mg tablet 5 mg PO DAILY@1200 02/16/21 03/10/23 03/10/23 History netarsudil 0.02 %-latanoprost 1 drp ophthalmic (eye) BEDTIME 02/17/21 03/10/23 04/11/21 History 0.005 % eye drops (Rocklatan) aspirin 81 mg chewable tablet 81 mg PO Q2D 04/12/21 03/10/23 Unknown History pyridoxine (vitamin B6) 50 mg 50 mg PO DAILY@1200 04/12/21 03/10/23 03/10/23 History tablet (Vitamin B-6) amlodipine 5 mg tablet 5 mg PO QAM 03/10/23 03/10/23 03/10/23 History levetiracetam 250 mg tablet 125 mg PO QPM 03/10/23 03/10/23 Unknown History levetiracetam 250 mg tablet 250 mg PO QAM 03/10/23 03/10/23 03/10/23 History risperidone 0.5 mg tablet 0.5 mg PO BID 03/10/23 03/10/23 03/10/23 History sertraline 50 mg tablet 50 mg PO QAM 03/10/23 03/10/23 03/10/23 History thiamine HCl (vitamin B1) 100 mg 100 mg PO DAILY@1200 03/10/23 03/10/23 03/10/23 History tablet Physical Exam Vital Signs and Narrative: Vital Signs: Last Vital Signs Temp 98.0 F 03/10/23 16:29 Pulse 86 03/10/23 16:29 Resp 15 03/10/23 16:29 BP 185/77 H 03/10/23 16:29 Pulse Ox 95 03/10/23 16:29 O2 Del Method Room Air 03/10/23 16:29 BMI result Body Mass Index 20.2 Appearing in no acute distress head is normocephalic atraumatic eyes pupils are PERRLA sclera is anicteric mouth throat mucous membranes are intact and moist neck is supple no lymphadenopathy, no JVD noted lung sounds are clear to auscultation heart regular rate rhythm, clear S1, S2 positive bowel sounds, abdomen is soft, nontender neuro patient is alert , confused with history of Alzheimer's dementia Right hip shortened and rotated Results Labs 03/11/23 05:59 03/11/23 05:59 Labs: Laboratory Results - last 24 hr 03/10/23 03/10/23 15:44 17:20 MCV 98.3 H MCH 31.8 MCHC 32.3 RDW 13.2 Plt Count 338 MPV 9.5 Immature Gran % (Auto) 0.8 H Neut % (Auto) 82.3 H Lymph % (Auto) 7.6 L [place] % (Auto) 7.3 Eos % (Auto) 1.2 Baso % (Auto) 0.8 Lymph # (Auto) 0.6 L [place] # (Auto) 0.6 Eos # (Auto) 0.1 Baso # (Auto) 0.1 Abs Immat Gran (auto) 0.06 H Absolute Neuts (auto) 6.2 Absolute Nucleated RBC 0.000 Nucleated RBC % (auto) 0.0 PT 10.5 L INR 0.9 Anion Gap 14 Estim Creat Clear Calc 38.0 Estimated GFR > 60 Random Glucose 182 H Calcium 9.2 Total Bilirubin 0.3 AST 23 ALT 15 Alkaline Phosphatase 77 Total Protein 6.4 L Albumin 3.8 Imaging Radiologist's Impressions: Impressions Chest X-Ray 03/10/23 16:08 IMPRESSION: Mildly hypoexpanded lungs. No acute cardiopulmonary disease. Hip/Pelvis X-Ray 03/10/23 16:08 FINDINGS/IMPRESSION: Examination demonstrates a fracture of the femoral neck. There is associated varus angulation. The distal fragment is displaced in the cephalad direction approximately one quarter bone shaft's width relative to the proximal fragment. No other fracture or dislocation is appreciated. Cervical Spine CT 03/10/23 16:27 IMPRESSION: Head: There are numerous chronic small vessel ischemic changes within the periventricular white matter, basal ganglia, and daniel. Grossly no evidence of acute territorial infarct or hemorrhage. Cervical Spine: There is advanced multilevel degenerative spondylosis of the cervical spine. No evidence of acute fracture and no posttraumatic spinal subluxation. There is at least mild canal stenosis at multiple levels. Uncovertebral joint spurring and congestion with facet degenerative change causes moderate to severe neuroforaminal encroachment at multiple levels. Head CT 03/10/23 16:27 IMPRESSION: Head: There are numerous chronic small vessel ischemic changes within the periventricular white matter, basal ganglia, and daniel. Grossly no evidence of acute territorial infarct or hemorrhage. Cervical Spine: There is advanced multilevel degenerative spondylosis of the cervical spine. No evidence of acute fracture and no posttraumatic spinal subluxation. There is at least mild canal stenosis at multiple levels. Uncovertebral joint spurring and congestion with facet degenerative change causes moderate to severe neuroforaminal encroachment at multiple levels. Assessment and Plan (1) Closed fracture of neck of right femur: Status: Acute Plan 83-year-old woman admitted with acute femoral neck fracture after a fall at home with no loss of consciousness Acute femoral neck fracture secondary to fall Orthopedic surgery team consultation will likely plan for surgery tomorrow Pain management Bed rest UA pending Hypertension Elevated blood pressure reading, pain likely contributing Continue amlodipine History of seizure disorder Seizure precautions Continue [facility] Continue home medications Alzheimer's dementia Supportive care DVT prophylaxis with pneumatic compression boots Full code Patient required 2 inpatient midnights for treatment of acute femoral neck fracture necessitating orthopedic surgery consultation for surgical repair Quality Stroke Does the patient have a stroke diagnosis?: No VTE Prior VTE?: No VTE Risk Level:: Medical - moderate - high VTE Device Contraindication: N/A - Device Ordered VTE Drug Contraindication: Treatment Not Indicated
[2023-03-10] MEDS: 0.9 % Sodium Chloride 1,000 ML 80 ML IVCONT (18:01)
[2023-03-10] MEDS: HYDROmorphone HCl 0.5 MG/0.5 ML SYRINGE 0.25 MG IVPUSH (18:04)
[2023-03-10 18:05] VITALS: BP 160/72; PULSE 85; RESP 12; O2SAT 94
[2023-03-10] MEDS: Dextrose 5 % and 0.9 % NaCl 1,000 ML 100 ML IVCONT (18:20)
--- NOTE | 2023-03-10 18:38 | PHA.MEDREC ---
Pharmacy Consult ? Medication Reconciliation Pharmacy has completed the medication reconciliation. patients niece provided a list of medications from home and verified it with me. She reports that she decreased the levetiracetam because the patient could not tolerate the higher dose. She says the patient took her morning and afternoon medications but has not had the evening doses. The amlodipine on the list reports 10mg however recent claims say 5, niece told me that the dose is whatever she has been recently picking up. She also no longer takes ocuvite because she cannot swallow the capsules.
[2023-03-10] MEDS: levETIRAcetam 250 MG TABLET PO (19:03)
[2023-03-10] MEDS: levETIRAcetam 250 MG TABLET 125 MG PO (19:04)
[2023-03-10] MEDS: amLODIPine Besylate 5 MG TABLET PO (19:04)
[2023-03-10] MEDS: Sertraline HCL 50 MG TABLET PO (19:04)
[2023-03-10 19:46] VITALS: BP 143/78; PULSE 98; RESP 17; TEMP 36.2; O2SAT 93
[2023-03-10] MEDS: risperiDONE 0.5 MG TABLET PO (20:15)
[2023-03-10] MEDS: 0.9 % Sodium Chloride Flush 3 ML SYRINGE IVFLUSH (20:15)
[2023-03-10] MEDS: Morphine Sulfate 2 MG/ML CARTRIDGE 1 MG IVPUSH (20:46)
[2023-03-10 22:00] VITALS: BMI 19.9
[2023-03-10] MEDS: oxyCODONE HCl Immed Release 5 MG TABLET PO (23:19)
[2023-03-11] VITALS (13 sets, daily range): BP systolic 105–140; BP diastolic 43–87; PULSE 70–101; RESP 14–18; TEMP 36.1–36.7; O2SAT 93–98
[2023-03-11 01:06] LABS: Appearance Urine Cloudy; Color Urine Yellow; Glucose Urine UA Negative (Negative); Leukocyte Esterase Urine Negative (Negative); Nitrite Urine Negative (Negative); PH 5.5 (5.0-9.0); Specific Gravity - Urine 1.015 (1.005-1.025); Urine Blood Negative (Negative); Urine Ketones Negative (Negative); Urine Protein Negative (Neg-Trace)
--- NOTE | 2023-03-11 01:08 | PC.NURSE ---
@11:37 pm pt in room 363 is having surgery tomorrow 0800. Pt has an order for UA clean catch. PT is on [employer], is okay to straight cath. Dr. Cortes was notified. HE replied yes and put in an order for staight cath. Pt was straight cath an sent to the lab.
[2023-03-11] MEDS: Dextrose 5 % and 0.9 % NaCl 1,000 ML 100 ML IVCONT (04:40)
[2023-03-11 06:16] LABS: MANUAL DIFF FLAG NO
[2023-03-11 06:18] LABS: Basophils Absolute Auto 0.1 X10*3/uL (0.0-0.2); Basophils Percent Auto 0.4 % (0-2); Eosinophils Absolute Auto 0.1 X10*3/uL (0.0-0.4); Eosinophils Percent Auto 0.5 % (0-4); Hematocrit 36.3 % (37.0-47.0); Imm Gran Abs Auto 0.06 X10*3/uL (0.00-0.03); Imm Gran Pct Auto 0.5 % (0.0-0.4); Lymphocytes Absolute Auto 0.6 X10*3/uL (1.2-4.9); Lymphocytes Percent Auto 4.9 % (20-40); Mean Corpuscular HGB Conc 33.1 g/dl (31.0-35.0); Mean Corpuscular Hemoglobin 31.3 pg (27.0-33.0); Mean Corpuscular Volume 94.5 fL (80.0-98.0); Mean Platelet Volume 9.1 fL (9.4-12.3); Monocytes Absolute Auto 1.3 X10*3/uL (0.1-1.2); Monocytes Percent Auto 10.2 % (2-11); Neutrophils Absolute Auto 10.6 x10*3/uL (2.0-8.3); Neutrophils Percent Auto 83.5 % (45-73); Platelet Count 326 X10*3/uL (160-400); Red Blood Count 3.84 X10*6/uL (4.20-5.50); White Blood Count 12.7 X10*3/uL (4.8-10.8)
[2023-03-11 06:35] LABS: Anion Gap 10 (12-20); Blood Urea Nitrogen 10 mg/dL (9-16); Calcium 8.7 mg/dL (8.4-10.2); Carbon Dioxide 28 mmol/L (22-29); Chloride 104 mmol/L (96-108); Creatinine Clr Calc Pharmacy 50.9; Estimated Glomerular Filt Rate > 60; Glucose Random 151 mg/dL (60-115); Potassium 3.6 mmol/L (3.3-5.1); Sodium 138 mmol/L (135-145)
[2023-03-11] MEDS: 0.9 % Sodium Chloride 1,000 ML 80 ML IVCONT ×2 (08:17→20:54)
[2023-03-11] MEDS: Morphine Sulfate 2 MG/ML CARTRIDGE 1 MG IVPUSH ×2 (08:18→23:46)
[2023-03-11] MEDS: Sertraline HCL 50 MG TABLET PO (08:32)
[2023-03-11] MEDS: levETIRAcetam 250 MG TABLET PO (08:32)
[2023-03-11] MEDS: amLODIPine Besylate 5 MG TABLET PO (08:32)
[2023-03-11] MEDS: risperiDONE 0.5 MG TABLET PO (08:32)
--- NOTE | 2023-03-11 09:34 | HO.PM.IMPN ---
Subjective Subjective Date of Service: 03/11/23 Review of Systems Follow up femur fx down to OR Physical Exam Vital Signs: Vital Signs: Last Vital Signs Temp 98.1 F 03/11/23 07:37 Pulse 101 H 03/11/23 07:37 Resp 18 03/11/23 07:37 BP 131/63 03/11/23 07:37 Pulse Ox 93 03/11/23 07:37 O2 Del Method Room Air 03/11/23 07:37 BMI result Body Mass Index 19.9 Appearing in no acute distress lung sounds are clear to auscultation heart regular rate rhythm, clear S1, S2 positive bowel sounds, abdomen is soft, nontender right hip shortened and rotated neuro patient is alert, confused Objective Data Active Medications Acetaminophen (Acetaminophen 325 Mg Tablet) 650 mg PO Q6H PRN PRN Reason: Pain, Mild (Pain Scale 1-3) Amlodipine Besylate (Amlodipine Besylate 5 Mg Tablet) 5 mg PO DAILY [facility]; Protocol Last Admin: 03/11/23 08:32 Dose: 5 mg Documented By: ADAM Cyanocobalamin (Cyanocobalamin (Vitamin B-12) 500 Mcg Tablet) 500 mcg PO DAILY@1200 DI Sodium Chloride (Ns) 1,000 mls @ 80 mls/hr IVCONT .[id number] [facility] Last Admin: 03/11/23 08:17 Dose: 80 mls/hr Documented By: ADAM Levetiracetam (Levetiracetam 250 Mg Tablet) 125 mg PO DAILY@1800 DI Last Admin: 03/10/23 19:04 Dose: 125 mg Documented By: PÉREZ Levetiracetam (Levetiracetam 250 Mg Tablet) 250 mg PO DAILY [facility] Last Admin: 03/11/23 08:32 Dose: 250 mg Documented By: ADAM Morphine Sulfate (Morphine Sulfate 2 Mg/Ml Cartridge) 1 mg IVPUSH Q3H PRN; Protocol PRN Reason: Pain, Moderate(Pain Scale 4-6) Last Admin: 03/11/23 08:18 Dose: 1 mg Documented By: ADAM Non-Formulary Medication (Netarsudil-Latanoprost [Rocklatan]) 1 drop EYE-BOTH BEDTIME [facility] Ondansetron HCl (Ondansetron Hcl 4 Mg/2 Ml Vial) 4 mg IVPUSH Q8H PRN PRN Reason: Nausea and Vomiting Oxycodone HCl (Oxycodone Hcl Immed Release 5 Mg Tablet) 5 mg PO Q6H PRN PRN Reason: Pain, Severe (Pain Scale 7-10) Last Admin: 03/10/23 23:19 Dose: 5 mg Documented By: MEGHANN Pyridoxine HCl (Pyridoxine Hcl (Vitamin B6) 50 Mg Tablet) 50 mg PO DAILY@1200 [facility] Risperidone (Risperidone 0.5 Mg Tablet) 0.5 mg PO BID [facility] Last Admin: 03/11/23 08:32 Dose: 0.5 mg Documented By: ADAM Sertraline HCl (Sertraline Hcl 50 Mg Tablet) 50 mg PO DAILY [facility] Last Admin: 03/11/23 08:32 Dose: 50 mg Documented By: ADAM Sodium Chloride (0.9 % Sodium Chloride Flush 3 Ml Syringe) 3 ml IVFLUSH QSHIFT [facility] Last Admin: 03/11/23 08:25 Dose: Not Given Documented By: ADAM Non-Admin Reason: IV Running Thiamine HCl (Thiamine Hcl 100 Mg Tablet) 100 mg PO DAILY@1200 [facility] Vitamin D (Cholecalciferol (Vitamin D3) 10 Mcg Tablet) 20 mcg PO DAILY@1200 [facility] Labs 03/11/23 05:59 03/11/23 05:59 Labs: Laboratory Results - last 24 hr 03/10/23 03/10/23 03/11/23 15:44 17:20 00:55 MCV 98.3 H MCH 31.8 MCHC 32.3 RDW 13.2 Plt Count 338 MPV 9.5 Immature Gran % (Auto) 0.8 H Neut % (Auto) 82.3 H Lymph % (Auto) 7.6 L [place] % (Auto) 7.3 Eos % (Auto) 1.2 Baso % (Auto) 0.8 Lymph # (Auto) 0.6 L [place] # (Auto) 0.6 Eos # (Auto) 0.1 Baso # (Auto) 0.1 Abs Immat Gran (auto) 0.06 H Absolute Neuts (auto) 6.2 Absolute Nucleated RBC 0.000 Nucleated RBC % (auto) 0.0 PT 10.5 L INR 0.9 Anion Gap 14 Estim Creat Clear Calc 38.0 Estimated GFR > 60 Random Glucose 182 H Calcium 9.2 Total Bilirubin 0.3 AST 23 ALT 15 Alkaline Phosphatase 77 Total Protein 6.4 L Albumin 3.8 Urine Color Yellow Urine Appearance Cloudy Urine pH 5.5 Ur Specific [place] 1.015 Urine Protein Negative Urine Glucose (UA) Negative Urine Ketones Negative Urine Blood Negative Urine Nitrite Negative Ur Leukocyte Esterase Negative Blood Type B Positive Antibody Screen NEGATIVE 03/11/23 05:59 MCV 94.5 MCH 31.3 MCHC 33.1 RDW 13.0 Plt Count 326 MPV 9.1 L Immature Gran % (Auto) 0.5 H Neut % (Auto) 83.5 H Lymph % (Auto) 4.9 L [place] % (Auto) 10.2 Eos % (Auto) 0.5 Baso % (Auto) 0.4 Lymph # (Auto) 0.6 L [place] # (Auto) 1.3 H Eos # (Auto) 0.1 Baso # (Auto) 0.1 Abs Immat Gran (auto) 0.06 H Absolute Neuts (auto) 10.6 H Absolute Nucleated RBC 0.000 Nucleated RBC % (auto) 0.0 PT INR Anion Gap 10 L Estim Creat Clear Calc 50.9 Estimated GFR > 60 Random Glucose 151 H Calcium 8.7 Total Bilirubin AST ALT Alkaline Phosphatase Total Protein Albumin Urine Color Urine Appearance Urine pH Ur Specific [place] Urine Protein Urine Glucose (UA) Urine Ketones Urine Blood Urine Nitrite Ur Leukocyte Esterase Blood Type Antibody Screen Assessment and Plan (1) Closed fracture of neck of right femur: Status: Acute Plan 83-year-old woman admitted with acute femoral neck fracture after a fall at home with no loss of consciousness Acute femoral neck fracture secondary to fall Pain management Bed rest UA neg, cxr neg for consolidation Orthopedic surgery team following, down to OR today Hypertension Elevated blood pressure reading, pain likely contributing Continue amlodipine History of seizure disorder Seizure precautions Continue [facility] Continue home medications Alzheimer's dementia Supportive care DVT prophylaxis with pneumatic compression boots Attendinf Dr. Henley Full code continued hospital stay for treatment of acute femoral neck fracture necessitating orthopedic surgery consultation for surgical repair Quality Stroke Does the patient have a stroke diagnosis?: No VTE Prior VTE?: No VTE Risk Level:: Medical - moderate - high VTE Device Contraindication: N/A - Device Ordered VTE Drug Contraindication: Treatment Not Indicated
--- NOTE | 2023-03-11 09:34 | HO.ANESPROP2 ---
[facility] Active Problems Active Problems: All Active Problems (Updated 03/10/23 @ 18:00 by Muriel Garcia MD) Closed fracture of neck of right femur (Acute) Fall (Acute) Sacral fracture (Acute) Hypokalemia (Acute) Thiamine deficiency (Acute) Seizure (Acute) Syncope (Acute) Syncopal episodes (Acute) Syncope (Acute) intermediate frame tender systemic steroid user (Acute) Past Medical History Medical History Alzheimer's dementia Multifactorial dementia Cerebral microvascular disease Glaucoma IBS (irritable bowel syndrome) HTN (hypertension) UTI (urinary tract infection) Elevated C-reactive protein Osteoporosis PMR (polymyalgia rheumatica) Primary osteoarthritis of hands, bilateral Family History Family history of problems with anesthesia: No Surgical History Surgical History Hx of appendectomy H/O cataract removal with insertion of prosthetic lens History of wisdom tooth extraction History of tonsillectomy H/O: hysterectomy History of Problems with Anesthesia: No Social History Social History Household Members: Family Household Members Other:: NIECE Housing: House Are you a primary clinical manager home care to a significant other at home: No Do you presently have visiting nurse or other home services: No Unable to assess alcohol history related to: Unknown Alcohol intake: former Patient Tobacco Use Status: Former Tobacco user Substance Use Type: Unknown Advance Directives: Yes Advance Directives on File: Yes Advance Directives Date on File: 05/13/21 Do you have thoughts of harming others: None Do you have a plan to hurt others: No Plan Nutrition Risks: No Nutritional Risk Patient : No Poor oral hygiene: No service: No Current occupational status: retired Meds Allergies Allergy/AdvReac Type Severity Reaction Status Date / Time cefadroxil [From DURICEF] Allergy Unknown RASH Verified 12/28/22 12:13 cortisone Allergy Unknown RASH, Verified 12/28/22 12:13 REDDENED CHEST FROM CORTISONE INJECTIONS levofloxacin [From LEVAQUIN] Allergy Unknown TINNITIS Verified 12/28/22 12:13 penicillin V Allergy Unknown Unknown Verified 12/28/22 12:13 Sulfa (Sulfonamide Allergy Unknown UNKNOWN Verified 12/28/22 12:13 Antibiotics) sulfamethoxazole Allergy Unknown RASH Verified 12/28/22 12:13 [From BACTRIM] trimethoprim [From BACTRIM] Allergy Unknown RASH Verified 12/28/22 12:13 Active Medications: Current Medications Acetaminophen (Acetaminophen 325 Mg Tablet) 650 mg PO Q6H PRN PRN Reason: Pain, Mild (Pain Scale 1-3) Amlodipine Besylate (Amlodipine Besylate 5 Mg Tablet) 5 mg PO DAILY [facility]; Protocol Last Admin: 03/11/23 08:32 Dose: 5 mg Cyanocobalamin (Cyanocobalamin (Vitamin B-12) 500 Mcg Tablet) 500 mcg PO DAILY@1200 DI Sodium Chloride (Ns) 1,000 mls @ 80 mls/hr IVCONT .[id number] [facility] Last Admin: 03/11/23 08:17 Dose: 80 mls/hr Levetiracetam (Levetiracetam 250 Mg Tablet) 125 mg PO DAILY@1800 [facility] Last Admin: 03/10/23 19:04 Dose: 125 mg Levetiracetam (Levetiracetam 250 Mg Tablet) 250 mg PO DAILY [facility] Last Admin: 03/11/23 08:32 Dose: 250 mg Morphine Sulfate (Morphine Sulfate 2 Mg/Ml Cartridge) 1 mg IVPUSH Q3H PRN; Protocol PRN Reason: Pain, Moderate(Pain Scale 4-6) Last Admin: 03/11/23 08:18 Dose: 1 mg Non-Formulary Medication (Netarsudil-Latanoprost [Rocklatan]) 1 drop EYE-BOTH BEDTIME [facility] Ondansetron HCl (Ondansetron Hcl 4 Mg/2 Ml Vial) 4 mg IVPUSH Q8H PRN PRN Reason: Nausea and Vomiting Oxycodone HCl (Oxycodone Hcl Immed Release 5 Mg Tablet) 5 mg PO Q6H PRN PRN Reason: Pain, Severe (Pain Scale 7-10) Last Admin: 03/10/23 23:19 Dose: 5 mg Pyridoxine HCl (Pyridoxine Hcl (Vitamin B6) 50 Mg Tablet) 50 mg PO DAILY@1200 DI Risperidone (Risperidone 0.5 Mg Tablet) 0.5 mg PO BID [facility] Last Admin: 03/11/23 08:32 Dose: 0.5 mg Sertraline HCl (Sertraline Hcl 50 Mg Tablet) 50 mg PO DAILY [facility] Last Admin: 03/11/23 08:32 Dose: 50 mg Sodium Chloride (0.9 % Sodium Chloride Flush 3 Ml Syringe) 3 ml IVFLUSH QSHIFT [facility] Last Admin: 03/11/23 08:25 Dose: Not Given Thiamine HCl (Thiamine Hcl 100 Mg Tablet) 100 mg PO DAILY@1200 [facility] Vitamin D (Cholecalciferol (Vitamin D3) 10 Mcg Tablet) 20 mcg PO DAILY@1200 [facility] Home Medications Medication Instructions Recorded Confirmed Last Taken Type cyanocobalamin (vitamin B-12) 500 500 mcg PO DAILY@1200 04/08/20 03/10/23 03/10/23 History mcg tablet acetaminophen 500 mg tablet 1,000 mg PO BID PRN Fever Or Pain 02/16/21 03/10/23 02/16/21 History cholecalciferol (vitamin D3) 10 20 mcg PO DAILY@1200 02/16/21 03/10/23 03/10/23 History mcg (400 unit) tablet prednisone 5 mg tablet 5 mg PO DAILY@1200 02/16/21 03/10/23 03/10/23 History netarsudil 0.02 %-latanoprost 1 drp ophthalmic (eye) BEDTIME 02/17/21 03/10/23 04/11/21 History 0.005 % eye drops (Rocklatan) aspirin 81 mg chewable tablet 81 mg PO Q2D 04/12/21 03/10/23 Unknown History pyridoxine (vitamin B6) 50 mg 50 mg PO DAILY@1200 04/12/21 03/10/23 03/10/23 History tablet (Vitamin B-6) amlodipine 5 mg tablet 5 mg PO QAM 03/10/23 03/10/23 03/10/23 History levetiracetam 250 mg tablet 125 mg PO QPM 03/10/23 03/10/23 Unknown History levetiracetam 250 mg tablet 250 mg PO QAM 03/10/23 03/10/23 03/10/23 History risperidone 0.5 mg tablet 0.5 mg PO BID 03/10/23 03/10/23 03/10/23 History sertraline 50 mg tablet 50 mg PO QAM 03/10/23 03/10/23 03/10/23 History thiamine HCl (vitamin B1) 100 mg 100 mg PO DAILY@1200 03/10/23 03/10/2323 History tablet Exam Exam Date and Time: March 11, 2023 0934 Height,Weight and Vital Signs: Height 5 ft Weight 46.3 kg Last Vital Signs Temp 98.1 F 03/11/23 07:37 Pulse 101 H 03/11/23 07:37 Resp 18 03/11/23 07:37 BP 131/63 03/11/23 07:37 Pulse Ox 93 03/11/23 07:37 O2 Del Method Room Air 03/11/23 07:37 Pertinent Lab Results Pertinent Lab Results: Laboratory Tests 03/10/23 03/10/23 03/11/23 15:44 17:20 00:55 WBC 7.5 RBC 4.06 L Hgb 12.9 Hct 39.9 MCV 98.3 H MCH 31.8 MCHC 32.3 RDW 13.2 Plt Count 338 MPV 9.5 Immature Gran % (Auto) 0.8 H Neut % (Auto) 82.3 H Lymph % (Auto) 7.6 L [place] % (Auto) 7.3 Eos % (Auto) 1.2 Baso % (Auto) 0.8 Lymph # (Auto) 0.6 L [place] # (Auto) 0.6 Eos # (Auto) 0.1 Baso # (Auto) 0.1 Abs Immat Gran (auto) 0.06 H Absolute Neuts (auto) 6.2 Absolute Nucleated RBC 0.000 Nucleated RBC % (auto) 0.0 PT 10.5 L INR 0.9 Sodium 142 Potassium 3.9 Chloride 102 Carbon Dioxide 30 H Anion Gap 14 BUN 16 Creatinine 0.79 Estim Creat Clear Calc 38.0 Estimated GFR > 60 Random Glucose 182 H Calcium 9.2 Total Bilirubin 0.3 AST 23 ALT 15 Alkaline Phosphatase 77 Total Protein 6.4 L Albumin 3.8 Urine Color Yellow Urine Appearance Cloudy Urine pH 5.5 Ur Specific [place] 1.015 Urine Protein Negative Urine Glucose (UA) Negative Urine Ketones Negative Urine Blood Negative Urine Nitrite Negative Ur Leukocyte Esterase Negative Blood Type B Positive Antibody Screen NEGATIVE 03/11/23 05:59 WBC 12.7 H RBC 3.84 L Hgb 12.0 Hct 36.3 L MCV 94.5 MCH 31.3 MCHC 33.1 RDW 13.0 Plt Count 326 MPV 9.1 L Immature Gran % (Auto) 0.5 H Neut % (Auto) 83.5 H Lymph % (Auto) 4.9 L [place] % (Auto) 10.2 Eos % (Auto) 0.5 Baso % (Auto) 0.4 Lymph # (Auto) 0.6 L [place] # (Auto) 1.3 H Eos # (Auto) 0.1 Baso # (Auto) 0.1 Abs Immat Gran (auto) 0.06 H Absolute Neuts (auto) 10.6 H Absolute Nucleated RBC 0.000 Nucleated RBC % (auto) 0.0 PT INR Sodium 138 Potassium 3.6 Chloride 104 Carbon Dioxide 28 Anion Gap 10 L BUN 10 Creatinine 0.59 Estim Creat Clear Calc 50.9 Estimated GFR > 60 Random Glucose 151 H Calcium 8.7 Total Bilirubin AST ALT Alkaline Phosphatase Total Protein Albumin Urine Color Urine Appearance Urine pH Ur Specific [place] Urine Protein Urine Glucose (UA) Urine Ketones Urine Blood Urine Nitrite Ur Leukocyte Esterase Blood Type Antibody Screen Airway Mallampati Class: III TM Dist: >3cm Neck ROM: Limited Loose/Missing/Broken Teeth: Yes, Upper and Lower Assessment and Plan Assessment Anesthesia Assessment: Anesthesia Plan Discussed and Chart Reviewed Final Anesthetic Review Family History of Problems with Anesthesia: No History of Problems with Anesthesia: No NPO: Yes ASA Class: III and Emergency Final Preanesthetic Review: No Changes in Pt Med Stat, Meds/Allgs Chart Reviewed, Consent Obtained/Reviewed and Anes Risks/Benef Reviewed Patient Risk: Intermediate Procedure Risk: Intermediate Anesthetic Plan Anesthetic Plan: GA Disposition: Standard PACU
--- NOTE | 2023-03-11 11:08 | PM.OP ---
Brief Operative Note Date of Service: 03/11/23 Pre-op diagnosis: Right hip displaced femoral neck fracture Post-op diagnosis: same Procedure: Right hip cemented bipolar hemiarthroplasty Implants: Sonia cemented bipolar hemiarthroplasty with an Accolade C femoral stem size 2 with a 127 degree neck-shaft angle, distal centralizer size 10, a small cement plug, femoral head size 26 with a +0 neck, femoral shell size 43 Surgeon: Norman Davila MD Anesthesia: GETA Was an Career Development Consultant used for this Procedure?: Yes Career Development Consultant: Samuel Morales Estimated blood loss (mL): 150 Pathology: none sent (Right femoral head) Condition: stable Disposition: PACU
--- NOTE | 2023-03-11 11:13 | P.OP_ITS ---
Operative Note Operative Note Date of Service: 03/11/23 Narrative: After the patient was identified as Adela Godoy and their right hip was initialed by myself the patient was brought to the operating room where general anesthesia via endotracheal tube was induced by the anesthesiologist in routine fashion. Because of the patient's allergy to penicillin she was given 900 mg of IV clindamycin for infection prophylaxis. The patient was then gently rolled into the lateral position. An axillary roll was put into place. All bony prominences were well padded. The patient's pelvis was held securely with hip bolsters. The patient's right hip region and lower extremity were prepped and draped in sterile fashion. A #10 scalpel blade was then used to make a curvilinear incision centered over the greater trochanter. The subcutaneous tissues were dissected using electrocautery down to the fascia jarad. The fascia jarad was then split in line with the skin incision using electrocautery. The split in the fascia jarad was curved posteriorly along its cephalad aspect to help prevent injury to the innervation of the tensor fascia jarad muscle. The patient's leg was gently externally rotated. A lateral Jimenez approach was then taken down to the anterior joint capsule. The anterior half of the vastus lateralis was split 1 cm from its insertion and tagged with #2 Ethibond suture. The anterior 1/3 of the gluteus medius incision was then split using electrocautery and tagged with #2 Ethibond suture. An anterior capsulectomy was then performed using electrocautery. The femoral neck fracture was identified. The patient's lower extremity was gently externally rotated. The femoral neck cut was made 1 cm proximal to the lesser trochanter. The femoral head was then removed using a corkscrew. The femoral head measured to be a size 43 . The trial size 43 femoral head was put into the acetabulum. The trial fit well. The trial was removed. The acetabulum was irrigated with copious amounts of normal saline solution via pulse lavage. The patient's leg was then placed into a sterile pouch along the anterior aspect of the surgical suite table. Soft tissues were retracted around the proximal femur. A box cutting osteotome was used to make a groove in the medial aspect of the greater trochanter. Broaching was begun with a size 0 press-fit broach. Broaching was increased up to a size 2 cemented broach. The 2 broach fit well. The broach was removed. The distal centralizer was measured to be a size 10. A small cement plug was put into place. The intramedullary canal was irrigated with copious amounts of normal saline solution via pulse lavage while the cement was mixed. Once the cement reached a doughy state it was pressurized into the intramedullary canal. The final implant was put into place. Once the cement had hardened a trial size 43 shell with a +0 mm neck was put into place. The hip was reduced. Leg lengths were clinically equal. The hip was taken through a full range of motion. There was no instability. The hip was dislocated and the patient's leg was placed into the sterile pouch. The trial head was removed. The wound was irrigated with copious amounts of normal saline solution via pulse lavage. The final head and shell were impacted in the place. Leg lengths were clinically equal. Hip was taken through a full range of motion. There was no instability. The patient's leg was then placed onto a well-padded [place] stand. The wound was once again irrigated. The vastus lateralis and tensor fascia jarad tendons were repaired with #2 Ethibond [id number] interrupted suture. The wound was once again irrigated. The fascia jarad was closed with #2 Ethibond [id number] interrupted suture as well as #1 Vicryl [id number] interrupted suture. The wound was once again irrigated. The subcutaneous tiss ues were closed with 0 Vicryl and 2-0 Vicryl interrupted suture. The skin was closed with skin zofia. Dry sterile dressing was placed over the incision. The patient was gently rolled into the supine position. The patient was awoken and extubated in the operating room. The patient was transferred to the recovery room in stable condition.
--- NOTE | 2023-03-11 11:34 | PC.NURSE ---
no seizure activity noted pt resting comfortable
--- NOTE | 2023-03-11 16:37 | MHC.CM.PN ---
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 [facility] 2. [facility] 3.[facility] TRANSP[facility]
[2023-03-11] MEDS: Clindamycin Phosphate/D5W 600 MG/50 ML PIGGYBACK 100 MG IV (17:25)
[2023-03-11] MEDS: levETIRAcetam 250 MG TABLET 125 MG PO (17:27)
[2023-03-12] MEDS: Clindamycin Phosphate/D5W 600 MG/50 ML PIGGYBACK 100 MG IV ×2 (01:21→10:36)
[2023-03-12 03:59] VITALS: BP 121/58; PULSE 102; RESP 16; TEMP 36.5; O2SAT 93
[2023-03-12 05:58] LABS: Hematocrit 33.7 % (37.0-47.0); Hemoglobin 11.1 g/dl (12.0-16.0); Mean Corpuscular HGB Conc 32.9 g/dl (31.0-35.0); Mean Corpuscular Hemoglobin 31.4 pg (27.0-33.0); Mean Corpuscular Volume 95.2 fL (80.0-98.0); Mean Platelet Volume 9.9 fL (9.4-12.3); Platelet Count 283 X10*3/uL (160-400); Red Blood Count 3.54 X10*6/uL (4.20-5.50); Red Cell Distribution Width 13.2 % (11.0-16.0); White Blood Count 11.6 X10*3/uL (4.8-10.8)
[2023-03-12 06:11] LABS: Anion Gap 12 (12-20); Blood Urea Nitrogen 11 mg/dL (9-16); Calcium 8.6 mg/dL (8.4-10.2); Carbon Dioxide 27 mmol/L (22-29); Chloride 104 mmol/L (96-108); Creatinine Clr Calc Pharmacy 41.1; Estimated Glomerular Filt Rate > 60; Glucose Random 103 mg/dL (60-115); Potassium 3.9 mmol/L (3.3-5.1); Sodium 139 mmol/L (135-145)
[2023-03-12 07:17] VITALS: BP 126/60; PULSE 100; RESP 16; TEMP 36.6; O2SAT 90
--- NOTE | 2023-03-12 07:32 | PM.PNORT ---
Subjective Subjective Date of Service: 03/12/23 Interval history: POD1 s/p right hip joseph. Patient is laying in bed comfortably. No overnight events. Pain is well managed. No additional complaints. Physical Exam Vital Signs: Vital Signs: Last Vital Signs Temp 97.8 F 03/12/23 07:17 Pulse 100 03/12/23 07:17 Resp 16 03/12/23 07:17 BP 126/60 03/12/23 07:17 Pulse Ox 90 L 03/12/23 07:17 O2 Del Method Room Air 03/12/23 07:17 O2 Flow Rate 2 03/11/23 15:58 BMI result Body Mass Index 19.9 Const: General: cooperative, healthy appearing and no acute distress Resp: Effort & Inspection: normal respiratory effort and able to speak in complete sentences Cardio: Rate: regular rate Peripheral pulses: Peripheral pulses 2+ throughout GI: Palpation (GI): Soft to palpation Skin: Lesions: no lesions Rashes: no rashes Extrem: Other: Right hip dressings are c/d/i. Sensation intact. Procedures Date of Service Date of Service: 03/12/23 Progress Note: A&P Assessment and plan (1) Closed fracture of neck of right femur: Status: Acute Assessment and Plan: Continue pain mgmnt Begin Lovenox for dvt ppx begin PT for right hip joseph - wbat Dispo planning-Pending PT eval, pain mgmnt (2) Fall: Status: Acute Time Spent With Patient Time: Total time managing care of this patient today ____ minutes. Quality Stroke Does the patient have a stroke diagnosis?: No VTE Prior VTE?: No VTE Risk Level:: Medical - moderate - high VTE Device Contraindication: N/A - Device Ordered VTE Drug Contraindication: Treatment Not Indicated
--- NOTE | 2023-03-12 08:55 | HO.POSTANES ---
Post Anesthesia Evaluation Post Anesthesia Evaluation Date of Service: 03/12/23 Vital Signs: Vital Signs Temp Pulse Resp BP Pulse Ox O2 Del Method 03/12/23 07:17 97.8 F 100 16 126/60 90 L Room Air 03/12/23 03:59 97.7 F 102 H 16 121/58 L 93 Room Air Anesthesia: General Mental Status: Awake Pain Control: Satisfactory Nausea/Vomiting: None Hydration: Adequate Anesthesia-Related Issues: No Anes. Related Issues
--- NOTE | 2023-03-12 09:01 | HO.PM.IMPN ---
Subjective Subjective Date of Service: 03/12/23 Review of Systems Follow up femur fx History of Alzheimer's dementia denied pain, resting in bed Physical Exam Vital Signs: Vital Signs: Last Vital Signs Temp 97.8 F 03/12/23 07:17 Pulse 100 03/12/23 07:17 Resp 16 03/12/23 07:17 BP 126/60 03/12/23 07:17 Pulse Ox 90 L 03/12/23 07:17 O2 Del Method Room Air 03/12/23 07:17 O2 Flow Rate 2 03/11/23 15:58 BMI result Body Mass Index 19.9 Appearing in no acute distress lung sounds are clear to auscultation heart regular rate rhythm, clear S1, S2 positive bowel sounds, abdomen is soft, nontender Right hip surgical dressing intact, surgical incision not visualized neuro patient is alert x3, no focal deficits Objective Data Active Medications Acetaminophen (Acetaminophen 325 Mg Tablet) 650 mg PO Q6H PRN PRN Reason: Pain, Mild (Pain Scale 1-3) Amlodipine Besylate (Amlodipine Besylate 5 Mg Tablet) 5 mg PO DAILY [facility]; Protocol Last Admin: 03/11/23 08:32 Dose: 5 mg Documented By: ADAM Aspirin (Aspirin 325 Mg Tablet) 325 mg PO BID [facility] Last Admin: 03/11/23 21:01 Dose: Not Given Documented By: TAYE Non-Admin Reason: Patient Refused Cyanocobalamin (Cyanocobalamin (Vitamin B-12) 500 Mcg Tablet) 500 mcg PO DAILY@1200 DI Last Admin: 03/11/23 13:04 Dose: Not Given Documented By: ADAM Non-Admin Reason: pt drowsy from surgery Sodium Chloride (Ns) 1,000 mls @ 80 mls/hr IVCONT .[id number] [facility] Last Infusion: 03/12/23 01:54 Dose: 80 mls/hr Documented By: GEORGE Clindamycin Phosphate (Cleocin) 600 mg in 50 mls @ 100 mls/hr IV Q8H [facility] Stop: 03/12/23 17:29 Last Infusion: 03/12/23 01:54 Dose: Infused Documented By: GEORGE Levetiracetam (Levetiracetam 250 Mg Tablet) 125 mg PO DAILY@1800 DI Last Admin: 03/11/23 17:27 Dose: 125 mg Documented By: ADAM Levetiracetam (Levetiracetam 250 Mg Tablet) 250 mg PO DAILY [facility] Last Admin: 03/11/23 08:32 Dose: 250 mg Documented By: ADAM Morphine Sulfate (Morphine Sulfate 2 Mg/Ml Cartridge) 1 mg IVPUSH Q3H PRN; Protocol PRN Reason: Pain, Moderate(Pain Scale 4-6) Last Admin: 03/11/23 23:46 Dose: 1 mg Documented By: GEORGE Non-Formulary Medication (Netarsudil-Latanoprost [Rocklatan]) 1 drop EYE-BOTH BEDTIME [facility] Ondansetron HCl (Ondansetron Hcl 4 Mg/2 Ml Vial) 4 mg IVPUSH Q8H PRN PRN Reason: Nausea and Vomiting Ondansetron HCl (Ondansetron Hcl 4 Mg/2 Ml Vial) 4 mg IVPUSH ONCE PRN PRN Reason: Nausea and Vomiting Oxycodone HCl (Oxycodone Hcl Immed Release 5 Mg Tablet) 5 mg PO Q6H PRN PRN Reason: Pain, Severe (Pain Scale 7-10) Last Admin: 03/10/23 23:19 Dose: 5 mg Pyridoxine HCl (Pyridoxine Hcl (Vitamin B6) 50 Mg Tablet) 50 mg PO DAILY@1200 DI Last Admin: 03/11/23 13:04 Dose: Not Given Documented By: ADAM Non-Admin Reason: pt drowsy from surgery Risperidone (Risperidone 0.5 Mg Tablet) 0.5 mg PO BID [facility] Last Admin: 03/11/23 08:32 Dose: 0.5 mg Documented By: ADAM Sertraline HCl (Sertraline Hcl 50 Mg Tablet) 50 mg PO DAILY [facility] Last Admin: 03/11/23 08:32 Dose: 50 mg Documented By: ADAM Sodium Chloride (0.9 % Sodium Chloride Flush 3 Ml Syringe) 3 ml IVFLUSH QSHIFT [facility] Last Admin: 03/12/23 01:08 Dose: Not Given Documented By: GEORGE Non-Admin Reason: IV Running Thiamine HCl (Thiamine Hcl 100 Mg Tablet) 100 mg PO DAILY@1200 DI Last Admin: 03/11/23 13:04 Dose: Not Given Documented By: ADAM Non-Admin Reason: pt drowsy from surgery Vitamin D (Cholecalciferol (Vitamin D3) 10 Mcg Tablet) 20 mcg PO DAILY@1200 DI Last Admin: 03/11/23 13:04 Dose: Not Given Documented By: ADAM Non-Admin Reason: pt drowsy from surgery Labs 03/12/23 05:26 03/12/23 05:26 Labs: Laboratory Results - last 24 hr 03/12/23 05:26 MCV 95.2 MCH 31.4 MCHC 32.9 RDW 13.2 Plt Count 283 MPV 9.9 Absolute Nucleated RBC 0.000 Nucleated RBC % (auto) 0.0 Anion Gap 12 Estim Creat Clear Calc 41.1 Estimated GFR > 60 Random Glucose 103 Calcium 8.6 Assessment and Plan (1) Closed fracture of neck of right femur: Status: Acute Plan 83-year-old woman admitted with acute femoral neck fracture after a fall at home with no loss of consciousness Acute femoral neck fracture secondary to fall Pain management Bed rest UA neg, cxr neg for consolidation status post right hip ORIF PT consultation Hypertension blood pressure better controlled post surgery Continue amlodipine History of seizure disorder Seizure precautions Continue [facility] Continue home medications Alzheimer's dementia Supportive care DVT prophylaxis with pneumatic compression boots Attendinf Dr. Corrales Full code/DNI continued hospital stay for treatment of acute femoral neck fracture necessitating orthopedic surgery consultation for surgical repair Quality Stroke Does the patient have a stroke diagnosis?: No VTE Prior VTE?: No VTE Risk Level:: Medical - moderate - high VTE Device Contraindication: N/A - Device Ordered VTE Drug Contraindication: Treatment Not Indicated
[2023-03-12] MEDS: Cyanocobalamin (Vitamin B-12) 500 MCG TABLET PO (10:35)
[2023-03-12] MEDS: Aspirin 325 MG TABLET PO ×2 (10:35→19:41)
[2023-03-12] MEDS: levETIRAcetam 250 MG TABLET PO (10:35)
[2023-03-12] MEDS: Pyridoxine HCl (Vitamin B6) 50 MG TABLET PO (10:36)
[2023-03-12] MEDS: Thiamine HCL 100 MG TABLET PO (10:36)
[2023-03-12] MEDS: 0.9 % Sodium Chloride 1,000 ML 80 ML IVCONT (10:36)
[2023-03-12] MEDS: Cholecalciferol (Vitamin D3) 10 MCG TABLET 20 MCG PO (10:36)
[2023-03-12] MEDS: Sertraline HCL 50 MG TABLET PO (10:36)
[2023-03-12] MEDS: 0.9 % Sodium Chloride Flush 3 ML SYRINGE IVFLUSH ×3 (10:36→19:41)
[2023-03-12] MEDS: oxyCODONE HCl Immed Release 5 MG TABLET PO ×2 (10:39→19:40)
[2023-03-12 11:01] VITALS: BP 126/60; PULSE 100; O2SAT 90
--- NOTE | 2023-03-12 14:49 | MHC.CLN ---
NUTRITION CONSULT FOR POOR PO. HIP SURGERY PERFORMED 03/11. DIET=REGULAR. PO INTAKE 0-50%. PATIENT WITH ALZHEIMERS DEMENTIA. ADDING ENSURE MAX PROTEIN BID. PROVIDES 300 KCALS, [address] TO FOLLOW UP WITHIN 5 DAYS.
--- NOTE | 2023-03-12 14:55 | MHC.CM.PN ---
Patient was evaluated by PT. The recommendation is for STR. Met with pts john in room 363. An update on bed offers has been provided. [facility] 3rd choice offering a bed. [facility] 2nd choice will check on beds tomorrow. [facility]st choice [facility] is following. A financial consult has been sent to the financial councilors. A [employer] application has been submitted. A request to check on the status of was faxed. CM will follow for placement.
[2023-03-12 15:11] VITALS: BP 111/53; PULSE 97; RESP 17; TEMP 36.8; O2SAT 93
[2023-03-12] MEDS: levETIRAcetam 250 MG TABLET 125 MG PO (18:33)
[2023-03-12 19:30] VITALS: BP 143/58; PULSE 105; RESP 18; TEMP 36.4; O2SAT 92
[2023-03-13 03:33] VITALS: BP 137/63; PULSE 88; RESP 16; TEMP 37.3; O2SAT 92
[2023-03-13] MEDS: oxyCODONE HCl Immed Release 5 MG TABLET PO ×2 (05:22→16:06)
--- NOTE | 2023-03-13 05:26 | PC.NURSE ---
Blanchable redness noted on the coccyx during care, area cleansed, triad cream applied, foam dressing applied
[2023-03-13 07:29] VITALS: BP 124/61; PULSE 86; RESP 18; TEMP 36.3; O2SAT 90
--- NOTE | 2023-03-13 07:36 | P.PNOP_ITS ---
Subjective Subjective Date of Service: 03/13/23 Interval history: POD 2 s/p right hip joseph. Patient is laying in bed comfortably. No overnight events. Pain is well managed. No additional complaints. Physical Exam Vital Signs: Vital Signs: Last Vital Signs Temp 97.3 F 03/13/23 07:29 Pulse 86 03/13/23 07:29 Resp 18 03/13/23 07:29 BP 124/61 03/13/23 07:29 Pulse Ox 90 L 03/13/23 07:29 O2 Del Method Room Air 03/13/23 07:29 O2 Flow Rate 2 03/11/23 15:58 BMI result Body Mass Index 19.9 Const: General: cooperative, healthy appearing and no acute distress Resp: Effort & Inspection: normal respiratory effort and able to speak in complete sentences Cardio: Rate: regular rate Peripheral pulses: Peripheral pulses 2+ throughout GI: Palpation (GI): Soft to palpation Skin: Lesions: no lesions Rashes: no rashes Extrem: Other: Right hip dressings are c/d/i. Sensation intact. Procedures Date of Service Date of Service: 03/13/23 Progress Note: A&P Assessment and plan (1) Closed fracture of neck of right femur: Status: Acute Assessment and Plan: * Continue pain mgmnt * continue ASA for dvt ppx * continue PT for hemiarthroplasty * Dispo planning-Pending PT eval, pain mgmnt Need for continued inpatient stay: rehab placement, pain control, PT clearance (2) Fall: Status: Acute Time Spent With Patient Time: Total time managing care of this patient today ____ minutes. Quality Stroke Does the patient have a stroke diagnosis?: No VTE Prior VTE?: No VTE Risk Level:: Medical - moderate - high VTE Device Contraindication: N/A - Device Ordered VTE Drug Contraindication: Treatment Not Indicated
--- NOTE | 2023-03-13 09:08 | P.PNIM_ITS ---
Subjective Subjective Date of Service: 03/13/23 Review of Systems Follow up femur fx History of Alzheimer's dementia denied pain, resting in bed Physical Exam 2 Vital Signs: Vital Signs: Last Vital Signs Temp 97.3 F 03/13/23 07:29 Pulse 86 03/13/23 07:29 Resp 18 03/13/23 07:29 BP 124/61 03/13/23 07:29 Pulse Ox 90 L 03/13/23 07:29 O2 Del Method Room Air 03/13/23 07:29 O2 Flow Rate 2 03/11/23 15:58 BMI result Body Mass Index 19.9 Appearing in no acute distress lung sounds are clear to auscultation heart regular rate rhythm, clear S1, S2 positive bowel sounds, abdomen is soft, nontender neuro patient is alert x3, no focal deficits MSK Right hip surgical dsg clean, dry and intact Objective Data Active Medications Acetaminophen (Acetaminophen 325 Mg Tablet) 650 mg PO Q6H PRN PRN Reason: Pain, Mild (Pain Scale 1-3) Amlodipine Besylate (Amlodipine Besylate 5 Mg Tablet) 5 mg PO DAILY [facility]; Protocol Last Admin: 03/11/23 08:32 Dose: 5 mg Documented By: ADAM Aspirin (Aspirin 325 Mg Tablet) 325 mg PO BID [facility] Last Admin: 03/12/23 19:41 Dose: 325 mg Documented By: DEBORAH Cyanocobalamin (Cyanocobalamin (Vitamin B-12) 500 Mcg Tablet) 500 mcg PO DAILY@1200 [facility] Last Admin: 03/12/23 10:35 Dose: 500 mcg Documented By: JACINTO Levetiracetam (Levetiracetam 250 Mg Tablet) 125 mg PO DAILY@1800 [facility] Last Admin: 03/12/23 18:33 Dose: 125 mg Documented By: ANDRÉS Levetiracetam (Levetiracetam 250 Mg Tablet) 250 mg PO DAILY [facility] Last Admin: 03/12/23 10:35 Dose: 250 mg Documented By: JACINTO Morphine Sulfate (Morphine Sulfate 2 Mg/Ml Cartridge) 1 mg IVPUSH Q3H PRN; Protocol PRN Reason: Pain, Moderate(Pain Scale 4-6) Last Admin: 03/11/23 23:46 Dose: 1 mg Documented By: GEORGE Non-Formulary Medication (Netarsudil-Latanoprost [Rocklatan]) 1 drop EYE-BOTH BEDTIME [facility] Ondansetron HCl (Ondansetron Hcl 4 Mg/2 Ml Vial) 4 mg IVPUSH Q8H PRN PRN Reason: Nausea and Vomiting Ondansetron HCl (Ondansetron Hcl 4 Mg/2 Ml Vial) 4 mg IVPUSH ONCE PRN PRN Reason: Nausea and Vomiting Oxycodone HCl (Oxycodone Hcl Immed Release 5 Mg Tablet) 5 mg PO Q6H PRN PRN Reason: Pain, Severe (Pain Scale 7-10) Last Admin: 03/13/23 05:22 Dose: 5 mg Documented By: DEBORAH Pyridoxine HCl (Pyridoxine Hcl (Vitamin B6) 50 Mg Tablet) 50 mg PO DAILY@1200 [facility] Last Admin: 03/12/23 10:36 Dose: 50 mg Documented By: JACINTO Risperidone (Risperidone 0.5 Mg Tablet) 0.5 mg PO BID [facility] Last Admin: 03/11/23 08:32 Dose: 0.5 mg Documented By: ADAM Sertraline HCl (Sertraline Hcl 50 Mg Tablet) 50 mg PO DAILY [facility] Last Admin: 03/12/23 10:36 Dose: 50 mg Documented By: JACINTO Sodium Chloride (0.9 % Sodium Chloride Flush 3 Ml Syringe) 3 ml IVFLUSH QSHIFT [facility] Last Admin: 03/12/23 19:41 Dose: 3 ml Documented By: DEBORAH Thiamine HCl (Thiamine Hcl 100 Mg Tablet) 100 mg PO DAILY@1200 [facility] Last Admin: 03/12/23 10:36 Dose: 100 mg Documented By: JACINTO Vitamin D (Cholecalciferol (Vitamin D3) 10 Mcg Tablet) 20 mcg PO DAILY@1200 [facility] Last Admin: 03/12/23 10:36 Dose: 20 mcg Documented By: JACINTO Labs 03/12/23 05:26 03/12/23 05:26 Assessment and Plan (1) Closed fracture of neck of right femur: Status: Acute Plan 83-year-old woman admitted with acute femoral neck fracture after a fall at home with no loss of consciousness Acute femoral neck fracture secondary to fall Pain management Bed rest UA neg, cxr neg for consolidation status post right hip ORIF PT consultation>STR Hypertension blood pressure better controlled post surgery Continue amlodipine History of seizure disorder Seizure precautions Continue [facility] Continue home medications Alzheimer's dementia Supportive care DVT prophylaxis with pneumatic compression boots Attendinf Dr. Corrales Full code/DNI continued hospital stay for treatment of acute femoral neck fracture necessitating orthopedic surgery consultation for surgical repair Quality Stroke Does the patient have a stroke diagnosis?: No VTE Prior VTE?: No VTE Risk Level:: Medical - moderate - high VTE Device Contraindication: N/A - Device Ordered VTE Drug Contraindication: Treatment Not Indicated
[2023-03-13] MEDS: levETIRAcetam 250 MG TABLET PO (10:45)
[2023-03-13] MEDS: Sertraline HCL 50 MG TABLET PO (10:45)
[2023-03-13] MEDS: Aspirin 325 MG TABLET PO ×2 (10:45→20:42)
[2023-03-13] MEDS: 0.9 % Sodium Chloride Flush 3 ML SYRINGE IVFLUSH ×3 (10:46→20:42)
[2023-03-13 11:50] VITALS: BP 124/61; PULSE 86; O2SAT 90
[2023-03-13] MEDS: Cholecalciferol (Vitamin D3) 10 MCG TABLET 20 MCG PO (13:46)
[2023-03-13] MEDS: Pyridoxine HCl (Vitamin B6) 50 MG TABLET PO (13:47)
[2023-03-13] MEDS: Cyanocobalamin (Vitamin B-12) 500 MCG TABLET PO (13:47)
[2023-03-13] MEDS: Thiamine HCL 100 MG TABLET PO (13:47)
--- NOTE | 2023-03-13 14:25 | HO.WOUND ---
Wound Consult: Initial 83yr old female admitted to [facility] on? No03/10/23 18:01 - See progress notes and H&P for detailed history. Right Elbow Etiology: Skin Tear Measurements: 1cm x 0.5cm x 0.1cm Wound Bed: driend scabed area Drainage / Odor: None Edges: ? Irregular and lifting Padmini wound: ? Intact fragile thin tissue No Induration, No Fluctuance, No Erythema, No Warmth Pain: Denies Goals of Treatment: ? Moist wound healing with xeroform Recommendations: 1. Turn and Reposition every 2 hours and as needed for patient comfort consider use of wedges available in the storeroom. 2. Off Load all bony prominences with use of pillows, wedges and heel boots. 3. Monitor for incontinence and moisture control. 4. Provide adequate and supplemental nutrition. 5. Order or Continue low air loss mattress. 6.Right Elbow - Cleanse with normal saline, pat dry. ?Apply double layer Xeroform secure with Abd pads, gauze wrap and tape. ?Do not apply tape to patients skin.? Avoid Adhesive application to skin - when necessary, apply skin prep prior.? Re-consult wound care Nurse for wound deterioration or wound changes.
[2023-03-13 15:23] VITALS: BP 134/61; PULSE 95; RESP 16; TEMP 37.7; O2SAT 94
[2023-03-13] MEDS: levETIRAcetam 250 MG TABLET 125 MG PO (17:49)
[2023-03-13 19:20] VITALS: BP 125/75; PULSE 78; RESP 16; TEMP 37.7; O2SAT 95
[2023-03-14 04:00] VITALS: BP 138/62; PULSE 88; RESP 14; TEMP 36.9; O2SAT 93
[2023-03-14] MEDS: oxyCODONE HCl Immed Release 5 MG TABLET PO ×2 (05:12→12:35)
[2023-03-14 07:43] VITALS: BP 106/51; PULSE 81; RESP 18; TEMP 36.6; O2SAT 93
[2023-03-14] MEDS: 0.9 % Sodium Chloride Flush 3 ML SYRINGE IVFLUSH (08:57)
[2023-03-14] MEDS: Sertraline HCL 50 MG TABLET PO (08:57)
[2023-03-14] MEDS: Aspirin 325 MG TABLET PO (08:57)
[2023-03-14] MEDS: levETIRAcetam 250 MG TABLET PO (08:57)
--- NOTE | 2023-03-14 09:29 | MHC.CM.PN ---
IMM 03/14/23 verbal delivery to HCP Cary Kaur. Patient will discharge to [facility]. Transport is booked for 1pm corn picker.
[2023-03-14 10:17] VITALS: BP 106/51; PULSE 81; O2SAT 93
--- NOTE | 2023-03-14 10:51 | P.DS_ITS ---
DS: Providers Provider Date of Service: 03/14/23 Date of admission: 03/10/23 18:01 Primary care physician: Alexandro Rodriguez DO Consults: 03/10/23 18:01 Consult to Orthopedics Routine Consulting Provider: [facility] Reason for consultation: femoral neck fx 03/12/23 14:33 Consult to Wound Care Routine Reason for consultation: skin tear right elbow DS: Diagnosis Discharge Diagnosis (1) Closed fracture of neck of right femur: Status: Acute DS: Summary Hospital Course Hospital Course: 83 year old women with hx of htn and seizure disorder presenting after a fall. She went to throw away some paper and lost her balance and fell. She lives with her niece , who is her healthcare proxy, and has dementia. her niece reported that she heard the patient help from the other room and she did not think there was any loss of consciousness as that time the patient fell to when she arrived to help her was seconds. Hip CT showing femoral neck fracture. Case discussed with orthopedic surgery and plan is to take the patient for surgical correction of fracture in the morning. unable to sinus review of systems suggestive Alzheimer's dementia but when asked if she was having pain she shook her head no. In the ED, her labs were all within acceptable limits, blood pressure elevated. She received Toradol and dilaudid in the ED. She will be admitted for management of acute femoral neck fracture 83-year-old woman status post hemiarthroplasty after having a fall and sustaining a femoral neck fracture. Surgery was unremarkable. Patient was seen evaluated by Physical therapy who recommended short-term rehab. Patient has history of Alzheimer's dementia and has been difficult to obtain any information from her. During hospitalization her labs have been within normal limits, vital signs have been stable. The plan is to continue aspirin full dose twice daily for 4 weeks. Plan for transfer to rehabilitation. Hypertension. Blood pressure has been stable during hospitalization. Continue amlodipine History of seizure disorder. No seizures during hospitalization. Continue [facility]. Continue home medications Alzheimer's dementia. Supportive care. Time Attestation Discharge coordination time: Greater than 30 minutes Quality: Safe Use of Opioids Does Pt have an Active Cancer Diagnosis on the Problem List?: No Quality: Stroke Does the patient have a stroke diagnosis?: No Physical Exam Vital Signs: Vital Signs: Last Vital Signs Temp 97.8 F 03/14/23 07:43 Pulse 81 03/14/23 10:17 Resp 18 03/14/23 07:43 BP 106/51 L 03/14/23 10:17 Pulse Ox 93 03/14/23 10:17 O2 Del Method Room Air 03/14/23 07:43 O2 Flow Rate 2 03/11/23 15:58 BMI result Body Mass Index 19.9 Appearing in no acute distress head is normocephalic atraumatic eyes pupils are PERRLA sclera is anicteric mouth throat mucous membranes are intact and moist neck is supple no lymphadenopathy, no JVD noted lung sounds are clear to auscultation heart regular rate rhythm, clear S1, S2 positive bowel sounds, abdomen is soft, nontender neuro patient is alert , confused MSK right hip dressing, clean dry and intact DS: Data Data Completed and Pending Completed studies during hospitalization [Text1]: Pending at discharge 03/11/23 09:47 Surgical [PTH] Routine Discharge Plan Discharge Anticipated Discharge Date/Time: 03/14/23 10:31 Patient Disposition: Xfer Inpatient Rehab Fac Discharge Diagnosis: Acute femoral neck fracture Hemiarthroplasty Fall Referrals: Alexandro Rodriguez DO [Primary Care Provider] - 1 Week Discharge Medications: New aspirin 325 mg Tablet 325 mg PO BID 28 Days Qty: 56 0RF oxycodone 5 mg Tablet 5 mg PO Q6H PRN (Reason: Pain, Severe (Pain Scale 7-10)) Qty: 12 0RF Rx Instructions: Partial Fill upon patient request. Continued cyanocobalamin (vitamin B-12) 500 mcg Tablet 500 mcg PO DAILY@1200 acetaminophen 500 mg Tablet 1,000 mg PO BID PRN (Reason: Fever Or Pain) cholecalciferol (vitamin D3) 10 mcg (400 unit) Tablet 20 mcg PO DAILY@1200 prednisone 5 mg tablet 5 mg PO DAILY@1200 Rocklatan 0.02-0.005 % drops 1 drp ophthalmic (eye) BEDTIME pyridoxine (vitamin B6) [Vitamin B-6] 50 mg Tablet 50 mg PO DAILY@1200 amlodipine 5 mg tablet 5 mg PO QAM levetiracetam 250 mg tablet 125 mg PO QPM sertraline 50 mg tablet 50 mg PO QAM risperidone 0.5 mg tablet 0.5 mg PO BID thiamine HCl (vitamin B1) 100 mg tablet 100 mg PO DAILY@1200 levetiracetam 250 mg tablet 250 mg PO QAM Discontinued aspirin 81 mg Tablet,Chewable 81 mg PO Q2D Discharge Orders: Discharge Order (Routine); Ordered 03/14/23 Ordered By: Mag Weston Diet: Advance to usual diet Activity on Discharge: As tolerated Stand Alone Forms: Patient Portal Discharge page Activity Restrictions/Additional Instructions: Physical Therapy for total hip arthroplasty: no precautions, gait training, ROM, strength Limit stair climbing No showering, no tub bath-keep dressing clean, dry and intact No driving x6 weeks Continue Aspirin 325mg tabs twice a day x 4 weeks Follow up with [facility] in 2 weeks Care Plan Goals: transfer to short-term rehab Health Concerns: Acute femoral neck fracture Hemiarthroplasty Fall Plan of Treatment: follow-up with orthopedic surgery for scheduled appointment take all medications as prescribed Assessment: see discharge summary
[2023-03-14] MEDS: Thiamine HCL 100 MG TABLET PO (12:35)
[2023-03-14] MEDS: Cholecalciferol (Vitamin D3) 10 MCG TABLET 20 MCG PO (12:36)
[2023-03-14] MEDS: Cyanocobalamin (Vitamin B-12) 500 MCG TABLET PO (12:36)
[2023-03-14] MEDS: Pyridoxine HCl (Vitamin B6) 50 MG TABLET PO (12:36)
== END 2023-03-14 13:29 | DRG 522 ==
LOC: HO.ED 18:00 → HO.EDOVER 18:11 → HO.S3 18:46
PROVIDERS: Orthopaedic Surgery; Admitting Provider Nurse Practitioner Acute Care; Emergency Provider Student in an Organized Health Care Education/Training Program; PCP Internal Medicine; Visit Provider Nurse Practitioner Acute Care
PROC: 0SRR0J9 Replacement of Right Hip Joint, Femoral Surface with Synthetic Substitute, Cemented, Open Approach (ICD-10-PCS; CPT 27125; principal; 2023-03-11 08:00)
DX: S72.001A Fracture of unspecified part of neck of right femur, initial encounter for closed fracture (principal); M35.3 Polymyalgia rheumatica; W19.XXXA Unspecified fall, initial encounter; G30.9 Alzheimer's disease, unspecified; F02.80 Dementia in other diseases classified elsewhere, unspecified severity, without behavioral disturbance, psychotic disturbance, mood disturbance, and anxiety; G40.909 Epilepsy, unspecified, not intractable, without status epilepticus; Z87.891 Personal history of nicotine dependence; Z79.52 Long term (current) use of systemic steroids; Z79.899 Other long term (current) drug therapy
CPT/HCPCS: 36415; 70450; 71045; 72125; 72170; 73502; 80048; 80053; 81003; 85025; 85027; 85610; 86850; 86900; 86901; 88304; 88305; 88311; 93005; 97110; 97162; 97166; 97530; 97535; 99285; C1713; C1758; C1776; J0131; J0690; J0736; J1100; J1170; J1885; J2270; J2405; J2704; J2795; J3010; J3370

== ENCOUNTER → 2023-03-10 18:01 | Outpatient (BNV) | payer MEDICARE, SELFPAY | PROVIDERS: Admitting Provider Nurse Practitioner Acute Care; Emergency Provider Student in an Organized Health Care Education/Training Program; Visit Provider Nurse Practitioner Acute Care | DX: S72.001A Fracture of unspecified part of neck of right femur, initial encounter for closed fracture (principal) | CPT/HCPCS: 99223; 99232; 99239 ==

== ENCOUNTER → 2023-03-10 18:01 | Outpatient (BNV) | payer MEDICARE, SELFPAY | PROVIDERS: Admitting Provider Nurse Practitioner Acute Care; Emergency Provider Student in an Organized Health Care Education/Training Program; Visit Provider Orthopaedic Surgery | DX: S72.001A Fracture of unspecified part of neck of right femur, initial encounter for closed fracture (principal); W19.XXXA Unspecified fall, initial encounter | CPT/HCPCS: 27236; 99024 ==

== ENCOUNTER 2023-03-26 12:02 | Outpatient (REF) | payer OTHER, MEDICARE, SELFPAY ==
--- NOTE | ~2023-03-26 | XR_ITS ---
EXAMINATION: XR FEMUR, LEFT CLINICAL INFORMATION: Fracture neck of right femur. COMPARISON: X-ray the pelvis February 2023. TECHNIQUE: AP and lateral views of the left femur were obtained. FINDINGS: There is no fracture. There is osteoarthritis right knee patellofemoral and medial compartment manifested by marginal osteophytes. Hip joint unremarkable without arthrosis. Arterial calcification. XR/XR femur LT 2V IMPRESSION: Please note the requisition states fracture neck of RIGHT femur and the radiograph is of the LEFT femur. No fracture the LEFT femur. If concern for right femur fracture recommend follow-up x-ray of the right femur
--- NOTE | ~2023-03-26 | XR_ITS ---
EXAMINATION: XR FEMUR, RIGHT CLINICAL INFORMATION: Pain COMPARISON: AP pelvis from 03/12/2026 TECHNIQUE: AP and lateral views of the right femur were obtained. FINDINGS: Patient is status post total hip replacement with well positioned prosthesis, no evidence of fracture. Soft tissues unremarkable. XR/XR femur RT 2V IMPRESSION: The position of the right hip prosthesis
== END 2023-03-26 12:03 | disposition home or self-care (01) ==
LOC: HO.HOSX 12:02
PROVIDERS: PCP Internal Medicine; Visit Provider Physician Assistant
DX: S72.001D Fracture of unspecified part of neck of right femur, subsequent encounter for closed fracture with routine healing (principal); Z96.641 Presence of right artificial hip joint; X58.XXXD Exposure to other specified factors, subsequent encounter
CPT/HCPCS: 73552; 99212

== ENCOUNTER 2023-03-26 12:02 | Outpatient (AMB) | payer MEDICARE, SELFPAY ==
--- NOTE | 2023-03-26 12:21 | MHC.OFFVIS ---
Intake Intake Visit Reasons: P.O . Closed fracture of neck of right femur Intake Note: Adela is a 83 year old female who presents today for a post op appointment s/p closed fx of neck of right femur, 03/11/23 DRLouisa Patient reports having sharp pain and discomfort. Allergies cefadroxil [From DURICEF] Allergy (Unknown, Verified 03/26/23 12:23) RASH cortisone Allergy (Unknown, Verified 03/26/23 12:23) RASH, REDDENED CHEST FROM CORTISONE INJECTIONS levofloxacin [From LEVAQUIN] Allergy (Unknown, Verified 03/26/23 12:23) TINNITIS penicillin V Allergy (Unknown, Verified 03/26/23 12:23) Unknown Sulfa (Sulfonamide Antibiotics) Allergy (Unknown, Verified 03/26/23 12:23) UNKNOWN sulfamethoxazole [From BACTRIM] Allergy (Unknown, Verified 03/26/23 12:23) RASH trimethoprim [From BACTRIM] Allergy (Unknown, Verified 03/26/23 12:23) RASH HPI P.O . Closed fracture of neck of right femur HPI Details 83-year-old female who presents in the office today 2 weeks status post right hip cemented bipolar hemiarthroplasty, which was performed on 03/11/[address] Davila. While in the office today the patient reports he is having sharp pain and discomfort. Her daughter accompanies her to today's appt. and reports that she has been walking with physical therapy. [facility] Medical History Alzheimer's dementia Multifactorial dementia Cerebral microvascular disease Glaucoma IBS (irritable bowel syndrome) HTN (hypertension) UTI (urinary tract infection) Elevated C-reactive protein Osteoporosis PMR (polymyalgia rheumatica) Primary osteoarthritis of hands, bilateral Surgical History Hx of appendectomy H/O cataract removal with insertion of prosthetic lens History of wisdom tooth extraction History of tonsillectomy H/O: hysterectomy Household Members: Family Household Members Other:: NIECE Both parents involved: No Housing: House Are you a primary field care manager to a significant other at home: No Do you presently have visiting nurse or other home services: No Unable to assess alcohol history related to: Unknown Alcohol intake: former Patient Tobacco Use Status: Former Tobacco user Substance Use Type: Unknown Advance Directives Date on File: 05/13/21 service: No Current occupational status: retired Review of Systems Const All systems reviewed & are unremarkable except as noted in HPI and below Physical Exam Const General: cooperative, healthy appearing and no acute distress Resp Effort & Inspection: normal respiratory effort and able to speak in complete sentences Cardio Rate: regular rate Peripheral pulses: Peripheral pulses 2+ throughout GI Palpation (GI): Soft to palpation Skin Lesions: no lesions Rashes: no rashes Extrem Other: Right hip: Incision site is clean, dry, and intact. Jose intact. No surrounding erythema or drainage. No signs of infection. No pain with passive ROM. Able to dorsiflex and plantarflex. Sensation intact. NVI. Assessment & Plan Assessment & Plan (1) History of hemiarthroplasty of right hip: Comment: 03/11/2023 Code(s): Z96.641 - Presence of right artificial hip joint Plan Ms. Godoy is an 83-year-old female who presents in the office today 2 weeks status post right hip cemented bipolar hemiarthroplasty, which was performed on 03/11/[address] Davila. While in the office today the patient reports he is having sharp pain and discomfort. Her daughter accompanies her to today's appt. and reports that she has been walking with physical therapy. [place] were removed and steri-stripes were applied while in the office today. She will continue to work with physical therapy on glute, quad, core strengthening, and gait training. Follow up will be in 4 weeks, or sooner if needed. X-rays of the right hip which were obtained while in the office today and were reviewed by , Selene Aguillon PA-C, revealed orthopedic hardware intact with routine healing. Orders: Orders XR femur RT 2V Today S72.001A - Fracture of unspecified part of neck of right femur, initial encounter for closed fracture XR femur LT 2V Today S72.001A - Fracture of unspecified part of neck of right femur, initial encounter for closed fracture Patient Instructions: Scribed for Selene Aguillon PA-C by Idania Jeff medical genetics director, on 03/26/2023 at 12:23 pm, EST. Coding Level of Care Code Global (62922) Diagnoses History of hemiarthroplasty of right hip Z96.641
== END 2023-03-26 13:03 | disposition home or self-care (01) ==
PROVIDERS: PCP Internal Medicine; Visit Provider Physician Assistant
DX: Z96.641 Presence of right artificial hip joint (principal)
CPT/HCPCS: 99024

== ENCOUNTER 2023-05-03 11:22 | Outpatient (REF) | payer MEDICARE, SELFPAY ==
--- NOTE | ~2023-05-03 | XR_ITS ---
EXAMINATION: XR PELVIS CLINICAL INFORMATION: Presence of right artificial hip joint. COMPARISON: 03/26/2023. TECHNIQUE: 2 AP views of the pelvis. FINDINGS: Bones are diffusely demineralized. Degenerative changes in the imaged lower lumbar spine. Moderate degenerative changes left hip. Right total hip prosthesis appears intact on the 2 AP images provided. Extensive vascular calcifications. Evaluation limited due to overlying bowel. XR/XR pelvis 1-2V IMPRESSION: 1. Moderate degenerative changes in the left hip. 2. Right total hip prosthesis appears intact on the 2 AP images provided. Correlation with clinical exam recommended to determine further management. If there is concern for fracture or other underlying pathology, MRI could be obtained for further evaluation.
== END 2023-05-03 11:23 | disposition home or self-care (01) ==
LOC: HO.HOSX 11:22
PROVIDERS: Visit Provider Orthopaedic Surgery
DX: Z13.89 Encounter for screening for other disorder (principal)
CPT/HCPCS: 72170; 99212

== ENCOUNTER 2023-05-03 13:02 | Outpatient (AMB) | payer MEDICARE, SELFPAY ==
--- NOTE | 2023-05-03 13:11 | MHC.OFFVIS ---
Intake Intake Visit Reasons: PO-Rt Hip Hemiarthroplasty 03/11/23 DR Intake Note: Adela is a 83 yr old female, She is here with her niece that is her medical proxy she states she needs to be assisted before the surgery she was independent but she was told she now is a 2 person assist. She has attempted to get out of her wheelchair but with significant difficulty. The patient did fall once when trying to get out of her wheelchair by herself. The patient was complaining of pain yesterday but niece is not sure where the pain was coming from. The patient is nonverbal during today's office visit. Tuber Machine Operator Helper Required: No Allergies cefadroxil [From DURICEF] Allergy (Unknown, Verified 05/03/23 13:15) RASH cortisone Allergy (Unknown, Verified 05/03/23 13:15) RASH, REDDENED CHEST FROM CORTISONE INJECTIONS levofloxacin [From LEVAQUIN] Allergy (Unknown, Verified 05/03/23 13:15) TINNITIS penicillin V Allergy (Unknown, Verified 05/03/23 13:15) Unknown Sulfa (Sulfonamide Antibiotics) Allergy (Unknown, Verified 05/03/23 13:15) UNKNOWN sulfamethoxazole [From BACTRIM] Allergy (Unknown, Verified 05/03/23 13:15) RASH trimethoprim [From BACTRIM] Allergy (Unknown, Verified 05/03/23 13:15) RASH Medication List - Last Reconciled 05/03/23 by Norman Davila MD acetaminophen 1,000 mg PO BID PRN amlodipine 5 mg PO QAM aspirin 325 mg PO BID 4 weeks cholecalciferol (vitamin D3) 20 mcg PO DAILY@1200 cyanocobalamin (vitamin B-12) 500 mcg PO DAILY@1200 levetiracetam 250 mg PO QAM levetiracetam 125 mg PO QPM netarsudil-latanoprost 0.02-0.005 % (Rocklatan) 1 drp ophthalmic (eye) BEDTIME oxycodone 5 mg PO Q6H PRN prednisone 5 mg PO DAILY@1200 pyridoxine (vitamin B6) (Vitamin B-6) 50 mg PO DAILY@1200 risperidone 0.5 mg PO BID sertraline 50 mg PO QAM thiamine HCl (vitamin B1) 100 mg PO DAILY@1200 PFSH Medical History Alzheimer's dementia Multifactorial dementia Cerebral microvascular disease Glaucoma IBS (irritable bowel syndrome) HTN (hypertension) UTI (urinary tract infection) Elevated C-reactive protein Osteoporosis PMR (polymyalgia rheumatica) Primary osteoarthritis of hands, bilateral Surgical History Hx of appendectomy H/O cataract removal with insertion of prosthetic lens History of wisdom tooth extraction History of tonsillectomy H/O: hysterectomy Social History Household Members: Family Household Members Other:: NIECE Housing: House Are you a primary field care advocate to a significant other at home: No Do you presently have visiting nurse or other home services: No Unable to assess alcohol history related to: Unknown Alcohol intake: former Comment: md notified Patient Tobacco Use Status: Former Tobacco user Substance Use Type: Unknown Advance Directives Date on File: 05/13/21 service: No Current occupational status: retired Physical Exam Extrem Other: Right lower extremity examination shows minimal discomfort with range of motion Results Reviewed Results Reviewed: X-rays of the patient's right hip show a cemented bipolar hemiarthroplasty in good position with no signs loosening, no acute bony abnormalities Assessment & Plan Assessment & Plan (1) History of hemiarthroplasty of right hip: Comment: 03/11/2023 DR Code(s): Z96.641 - Presence of right artificial hip joint Plan Ms. Godoy does not appear to have suffered any damage to her right hip hemiarthroplasty in spite of her recent fall. She can continue activities as tolerated. She can follow up with me on an as-needed basis should any further questions or concerns arise. Feel free to call me at any time should questions regarding her orthopedic management arise. Orders: Orders XR pelvis 1-2V Today Z96.641 - Presence of right artificial hip joint Coding Level of Care Code Global (48441) Diagnoses History of hemiarthroplasty of right hip Z96.641
== END 2023-05-03 13:34 | disposition home or self-care (01) ==
PROVIDERS: PCP Internal Medicine; Visit Provider Orthopaedic Surgery
DX: Z96.641 Presence of right artificial hip joint (principal)
CPT/HCPCS: 99024

== ENCOUNTER 2023-05-03 13:42 | Emergency (ER) | payer MEDICARE, SELFPAY ==
[2023-05-03 14:11] VITALS: BP 137/65; PULSE 76; RESP 16; TEMP 36.9; O2SAT 96; BMI 20.7
== END 2023-05-03 22:09 | disposition left against medical advice (07) ==
LOC: HO.ED 22:05
PROVIDERS: Emergency Provider Emergency Medicine; PCP Internal Medicine
DX: U07.1 COVID-19 (principal); L97.419 Non-pressure chronic ulcer of right heel and midfoot with unspecified severity; R53.81 Other malaise; R62.7 Adult failure to thrive; Z68.20 Body mass index [BMI] 20.0-20.9, adult; G30.9 Alzheimer's disease, unspecified; F02.80 Dementia in other diseases classified elsewhere, unspecified severity, without behavioral disturbance, psychotic disturbance, mood disturbance, and anxiety; I10 Essential (primary) hypertension; Z87.891 Personal history of nicotine dependence; Z79.52 Long term (current) use of systemic steroids
CPT/HCPCS: 0241U; 36415; 72170; 80053; 84484; 86140; 93005; 99212; 99283; 99284

== ENCOUNTER → 2023-05-03 14:21 | Outpatient (BNV) | payer MEDICARE, SELFPAY | PROVIDERS: Emergency Provider Emergency Medicine; PCP Internal Medicine; Visit Provider Internal Medicine Cardiovascular Disease | DX: R94.31 Abnormal electrocardiogram [ECG] [EKG] (principal) | CPT/HCPCS: 93010 ==

== ENCOUNTER 2023-05-04 12:51 | Outpatient (RCR) | payer MEDICARE, SELFPAY | END 2023-08-13 15:00 | disposition home or self-care (01) | LOC: HO.WCC 12:51 | PROVIDERS: PCP Internal Medicine; Visit Provider Physician Assistant | DX: I70.234 Atherosclerosis of native arteries of right leg with ulceration of heel and midfoot (principal); L89.613 Pressure ulcer of right heel, stage 3; F03.90 Unspecified dementia, unspecified severity, without behavioral disturbance, psychotic disturbance, mood disturbance, and anxiety; Z74.09 Other reduced mobility | CPT/HCPCS: 11042; 99212; 99213 ==

== ENCOUNTER 2023-06-21 05:05 | Inpatient (IN) | payer MEDICARE, SELFPAY ==
[2023-06-21] VITALS (9 sets, daily range): BP systolic 144–177; BP diastolic 65–92; PULSE 76–90; RESP 12–18; TEMP 36.4–37; O2SAT 95–98; BMI 16.8
--- NOTE | ~2023-06-21 | CT_ITS ---
EXAMINATION: CT CERVICAL SPINE WITHOUT CONTRAST CLINICAL INFORMATION: Unwitnessed fall. Pain COMPARISON: CT cervical spine 05/14/2021 TECHNIQUE: Thin section axial images with sagittal and coronal reformats are obtained. This CT examination was performed using dose optimization techniques as appropriate, variously including the following: *Automated exposure control *Adjustment of mA and/or kV according to patient size (this includes techniques or standardized protocols for targeted exams where dose is matched to indication/reason for exam; i.e. extremities or head) *Use of iterative reconstruction technique DLP: 240 mGy-cm FINDINGS: There is advanced degenerative change noted, C3-C7 with areas of ankylosis present but no fracture or destructive process. Minor anterolisthesis C7 upon T1 is unchanged. Prominent posterior spurs throughout, to create slight mass effect on the ventral aspect of the canal, no change. No evidence for an acute fracture or destructive process. The prevertebral soft tissues are normal. CT/CT cervical spine wo IV con IMPRESSION: Advanced multilevel degenerative change. No fracture. Fleischner guidelines were followed.
--- NOTE | ~2023-06-21 | XR_ITS ---
EXAMINATION: XR HIP, LEFT CLINICAL INFORMATION: Left hip pain COMPARISON: None available. TECHNIQUE: Two views of the left hip. FINDINGS: No fracture, dislocation, or destructive process. Pelvis intact. Right hip prosthesis intact. XR/XR hip LT w PEL1V IMPRESSION: No acute findings.
--- NOTE | ~2023-06-21 | XR_ITS ---
EXAMINATION: XR CHEST CLINICAL INFORMATION: Persistent tachycardia. COMPARISON: 03/10/2023. TECHNIQUE: Frontal view of the chest was obtained. FINDINGS: The cardiomediastinal silhouette is stable. There is apparent blunting of the costophrenic angles. The lungs are otherwise clear. The bony structures are osteopenic. The soft tissues are unremarkable. XR/XR chest 1V IMPRESSION: Blunting of the costophrenic angles could represent pleural scarring versus small pleural effusions. No other significant abnormality seen.
--- NOTE | ~2023-06-21 | XR_ITS ---
EXAMINATION: XR SHOULDER, RIGHT CLINICAL INFORMATION: Right shoulder pain after falling COMPARISON: None available. TECHNIQUE: AP external rotation, Grashey, scapular Y, and axillary views of the right shoulder. FINDINGS: There is advanced degenerative change in the right shoulder joint with narrowing of the glenohumeral joint space and right AC joint. No fracture, dislocation, or destructive process. XR/XR shoulder RT min 2V IMPRESSION: No acute findings.
--- NOTE | ~2023-06-21 | CT_ITS ---
EXAMINATION: CT HEAD WITHOUT CONTRAST CLINICAL INFORMATION: Unwitnessed fall. Headache. COMPARISON: None available. TECHNIQUE: Contiguous axial imaging was performed from the skull base to vertex without intravenous administration of contrast. This CT examination was performed using dose optimization techniques as appropriate, variously including the following: *Automated exposure control *Adjustment of mA and/or kV according to patient size (this includes techniques or standardized protocols for targeted exams where dose is matched to indication/reason for exam; i.e. extremities or head) *Use of iterative reconstruction technique DLP: 579 mGy-cm FINDINGS: There is prominence to the sulci and ventricles with extensive deep white matter gliosis. No intra or extra-axial fluid collection or hemorrhage, mass, or mass effect. Calvarium is intact. CT/CT head/brain wo IV con IMPRESSION: No acute intracranial pathology.
--- NOTE | 2023-06-21 05:23 | ECG_ITS ---
Test Reason : DIZZY Blood Pressure : / mmHG Vent. Rate : 073 BPM Atrial Rate : 073 BPM P-R Int : 198 ms QRS Dur : 082 ms QT Int : 364 ms P-R-T Axes : 060 -38 020 degrees QTc Int : 401 ms Normal sinus rhythm Left axis deviation Cannot rule out Anterior infarct (cited on or before 03-MAY-2023) Abnormal ECG When compared with ECG of 03-MAY-2023 16:33, Questionable change in initial forces of Septal leads Referred By: Generic ED Physician Electronically Signed By:BELLE DAILEY MD
[2023-06-21 05:48] LABS: Basophils Percent Auto 0.6 % (0-2); Eosinophils Absolute Auto 0.1 X10*3/uL (0.0-0.4); Eosinophils Percent Auto 1.3 % (0-4); Hematocrit 36.8 % (37.0-47.0); Hemoglobin 11.7 g/dl (12.0-16.0); Imm Gran Abs Auto 0.02 X10*3/uL (0.00-0.03); Imm Gran Pct Auto 0.3 % (0.0-0.4); Lymphocytes Absolute Auto 0.5 X10*3/uL (1.2-4.9); Lymphocytes Percent Auto 8.5 % (20-40); Mean Corpuscular HGB Conc 31.8 g/dl (31.0-35.0); Mean Corpuscular Hemoglobin 30.8 pg (27.0-33.0); Mean Corpuscular Volume 96.8 fL (80.0-98.0); Mean Platelet Volume 9.5 fL (9.4-12.3); Monocytes Percent Auto 15.4 % (2-11); Neutrophils Absolute Auto 4.7 x10*3/uL (2.0-8.3); Neutrophils Percent Auto 73.9 % (45-73); PLT CLUMP 1; SCAN SMEAR FLAG 1
[2023-06-21 05:49] LABS: MANUAL DIFF FLAG NO; Platelet Count 233 X10*3/uL (160-400); White Blood Count 6.4 X10*3/uL (4.8-10.8)
[2023-06-21 06:05] LABS: Alanine Aminotransferase 12 U/L (0-31); Albumin Level 3.5 g/dL (3.5-5.0); Alkaline Phosphatase 113 U/L (39-117); Anion Gap 15 (12-20); Aspartate Amino Transferase 25 U/L (5-31); Bilirubin Total 0.3 mg/dL (0.0-1.0); Blood Urea Nitrogen 16 mg/dL (9-16); Calcium 9.2 mg/dL (8.4-10.2); Carbon Dioxide 26 mmol/L (22-29); Chloride 104 mmol/L (96-108); Creatinine Clr Calc Pharmacy 42.4; Estimated Glomerular Filt Rate > 60; Glucose Random 94 mg/dL (60-115); Potassium 4.4 mmol/L (3.3-5.1); Sodium 141 mmol/L (135-145); Total Protein 6.5 g/dL (6.5-8.0)
--- NOTE | 2023-06-21 06:11 | PC.NURSE ---
This RN spoke with HCP/Niece ,Cary. Who reports PT was sleeping upstairs and HCP was downstairs. HCP heard a loud bang. Pt Made it from bed to hallway and then fell. Found sitting on floor. she reported to HCP that her R shoulder hurt as well as her left hip. PT is wheelchair bound, hx of advanced dementia, hx of right hip partial replacement after fall in february, being treated at the wound clinic for pressure wounds on heel. PT incontinent of bowel and urine. Has history of L droopy eyelid and is Weak and tremorous at baseline.
--- NOTE | 2023-06-21 07:23 | ED.FALL ---
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 Per HCP/Josefina Townsend, patient was upstairs trying to walk from the bed to the whole way to use the restroom when she fell. HCP heard a loud being and immediately came upstairs to check on patient. HCP states that patient was reporting right shoulder pain as well as left hip pain. She was found sitting on the floor however fall was unwitnessed and it is unclear whether patient hit her head. She has a history of a right partial hip replacement following a mechanical fall 4 months ago. She is currently being treated at the wound clinic for pressure wounds to heal. On my initial interview with patient, she states that she does not remember falling and does not know why she is here. She currently has no complaints and states that nothing is hurting her. Patient is poor historian due to history of advanced dementia. Related Data Home Medications Medication Instructions Recorded Confirmed cyanocobalamin (vitamin B-12) 500 500 mcg PO DAILY 04/08/20 06/21/23 mcg tablet acetaminophen 500 mg tablet 1,000 mg PO BID PRN Fever Or Pain 02/16/21 06/21/23 cholecalciferol (vitamin D3) 10 20 mcg PO DAILY 02/16/21 06/21/23 mcg (400 unit) tablet prednisone 5 mg tablet 5 mg PO DAILY@1200 02/16/21 06/21/23 netarsudil 0.02 %-latanoprost 1 drp ophthalmic (eye) BEDTIME 02/17/21 06/21/23 0.005 % eye drops ([facility]) pyridoxine (vitamin B6) 50 mg 50 mg PO DAILY 04/12/21 06/21/23 tablet (Vitamin B-6) amlodipine 5 mg tablet 5 mg PO DAILY 03/10/23 06/21/23 levetiracetam 250 mg tablet 125 mg PO BEDTIME 03/10/23 06/21/23 levetiracetam 250 mg tablet 250 mg PO DAILY 03/10/23 06/21/23 risperidone 0.5 mg tablet 0.5 mg PO BID 03/10/23 06/21/23 sertraline 50 mg tablet 50 mg PO DAILY 03/10/23 06/21/23 thiamine HCl (vitamin B1) 100 mg 100 mg PO DAILY 03/10/23 06/21/23 tablet aspirin 81 mg tablet,delayed 81 mg PO Q48H 06/21/23 06/21/23 release Allergies Allergy/AdvReac Type Severity Reaction Status Date / Time cefadroxil [From DURICEF] Allergy Unknown RASH Verified 05/03/23 13:15 cortisone Allergy Unknown RASH, Verified 05/03/23 13:15 REDDENED CHEST FROM CORTISONE INJECTIONS levofloxacin [From LEVAQUIN] Allergy Unknown TINNITIS Verified 05/03/23 13:15 penicillin V Allergy Unknown Unknown Verified 05/03/23 13:15 Sulfa (Sulfonamide Allergy Unknown UNKNOWN Verified 05/03/23 13:15 Antibiotics) sulfamethoxazole Allergy Unknown RASH Verified 05/03/23 13:15 [From BACTRIM] trimethoprim [From BACTRIM] Allergy Unknown RASH Verified 05/03/23 13:15 Review of Systems Review of Systems: Yes Unobtainable due to mental condition (advanced dementia) Neurologic: Reports confusion Psychiatric: Psychiatric: Reports confusion PMFSH Past Medical History Attestation statement: The following information was validated with the patient. Source: old records reviewed and nursing notes reviewed Medical History Alzheimer's dementia Multifactorial dementia Cerebral microvascular disease Glaucoma IBS (irritable bowel syndrome) HTN (hypertension) UTI (urinary tract infection) Elevated C-reactive protein Osteoporosis PMR (polymyalgia rheumatica) Primary osteoarthritis of hands, bilateral Surgical History Hx of appendectomy H/O cataract removal with insertion of prosthetic lens History of wisdom tooth extraction History of tonsillectomy H/O: hysterectomy Social History Social History Household Members: Family Household Members Other:: NIECE Housing: House Are you a primary career placement services counselor to a significant other at home: No Do you presently have visiting nurse or other home services: No Unable to assess alcohol history related to: Unknown Alcohol intake: former Comment: md notified Patient Tobacco Use Status: Former Tobacco user Smoked in Last 30 Days: No Use of substances other than those prescribed or required for medical reasons: No Substance Use Type: Unknown Advance Directives: Yes Advance Directives on File: Yes Advance Directives Date on File: 05/13/21 service: No Current occupational status: retired Physical Exam Vital Signs: Vital Signs: Last Vital Signs Temp 101.8 F H 06/22/23 08:40 Pulse 108 H 06/22/23 08:40 Resp 20 06/22/23 08:40 BP 141/69 H 06/22/23 08:40 Pulse Ox 96 06/22/23 08:40 O2 Del Method Room Air 06/22/23 08:40 BMI result Body Mass Index 16.8 Patient hypertensive, vitals otherwise WNL. Const: General: cooperative, healthy appearing, comfortable, no acute distress, alert, awake and confusion Orientation/consciousness: confusion Limitations: no limitations HEENT: Head: Yes normal to inspection, Yes No palpable skull fracture present and Yes normocephalic Eyes: General: appearance normal, both eyes and all related structures Conjunctivae: conjunctivae normal Sclerae: sclerae normal Pupils: Equal, round and reactive pupils present EOM: EOMs intact bilaterally Neck: Neck: Yes normal visual inspection and Yes full ROM Chest: Chest palpation & inspection: normal inspection of the chest, normal palpation of entire chest wall, no crepitus and no tenderness Resp: Effort & Inspection: normal respiratory effort, able to speak in complete sentences and symmetric chest movement Auscultation: clear to auscultation bilaterally Cardio: Other: + 2+ radial pulses Rate: regular rate Rhythm: regular rhythm GI: Inspection: Yes normal to inspection Palpation (GI): Soft to palpation and nontender : General: Yes no CVA tenderness Back/Spine/Pelvis: Other: No midline spinous tenderness or step off deformity. No paraspinal muscle tenderness. pelvis stable. Back: no CVA tenderness Skin: General skin exam: no rashes or lesions noted Neuro: General: confusion Cranial nerves: Yes Equal, round and reactive pupils present Pupils: Normal pupillary reactivity/response: bilateral Extrem: Other: + No obvious deformity or overlying skin changes noted to right or left hip. No rotation or adduction/abduction of LEs. Full ROM intact to left hip, somewhat restricted to right hip s/p replacement. No palpable tenderness or deformity. Unable to assess gait. 2+dp/pt pulses b/l. General: Yes normal to inspection Course Course Course Narrative: 0755-- CBC without leukocytosis. Chronic stable anemia. H&H stable. No left shift. Chemistry without acute electrolyte abnormality requiring intervention. Normal renal and liver function. > xrays and cts pending 932-- x-rays shoulder and pelvis unremarkable. CT scan head/brain does not demonstrate bleed or skull fracture. CT cervical spine does not demonstrate fracture. UA pending. Physician observation initiated pending physical therapy evaluation. 1158-- HCP/ Niece Cary at bedside. Admits patient has been increasingly agitated over the last few days. Urine shows infection > I discussed these findings with Cary who does not feel comfortable with patient being discharged home due to her increased agitation and history of urosepsis. I am in agreement. I have no concern for sepsis at this time as labs are within normal limits, there is no GUS, patient is afebrile and vitals are all WNL > patient does not meet admission criteria. Will place PT/case management consult and start her on antibiotics. Given her extensive list of allergies to antibiotics, will start her on Nitrofurantoin which cultures have been susceptible to in the past and she has tolerated well. Physician observation continued. Reevaluation(s) Reevaluation #1: Patient tachycardic, febrile with evidence of urinary tract infection. At this time infection suspected blood cultures, lactic acid as well as ceftriaxone ordered. Will cancel Macrobid. Time: 09:02 Reevaluation #2: Plan hospital admission. Patient meeting SIRS criteria leukocytosis fever, tachycardia. Chemistry and lactic acid pending. Medications Administered Generic Name Dose Route Start Last Admin Trade Name Freq PRN Reason Stop Dose Admin Sodium Chloride 1,329 mls @ 1,329 mls/hr 06/22/23 08:58 06/22/23 09:18 Ns 30 ml/kg infuse over 1 hr (1329 ml) 06/22/23 09:57 1,329 mls/hr IV Administration .Q1H STA Nitrofurantoin Macrocrystals 100 mg 06/21/23 12:15 06/22/23 08:01 Nitrofurantoin Monohyd/M-Cryst 100 Mg Capsule PO 06/28/23 12:14 100 mg BID DI Administration Discontinued Medications Generic Name Dose Route Start Last Admin Trade Name Gilmer PRN Reason Stop Dose Admin Diphenhydramine HCl 25 mg 06/22/23 08:58 06/22/23 09:21 Diphenhydramine Hcl 50 Mg/Ml Vial IVPUSH 06/22/23 08:59 25 mg ONCE ONE Administration Ceftriaxone Sodium 1 gm/ 50 mls @ 100 mls/hr 06/22/23 08:58 06/22/23 09:21 Sodium Chloride IV 06/22/23 09:27 100 mls/hr ONCE ONE Administration Olanzapine 20 mg 06/21/23 21:38 06/21/23 21:45 Olanzapine Odt 10 Mg Tab.Rapdis TRANSLINGU 06/21/23 21:39 20 mg ONCE ONE Administration Medical Decision Making Medical Decision Making [facility] Narrative: 83 year old female with pmhx significant for seizure disorder, Alzheimer?s dementia, cerebral microvascular disease, HTN, PMR, osteoporosis, glaucoma, IBS presents to the ED this morning via EMS from home 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 vital signs stable. patient is nontoxic appearing and in NAD. Head is normocephalic, atraumatic. PERRLA. RRR. Lungs CTA/ b/l. No obvious deformity or overlying skin changes noted to right or left hip. No rotation or adduction/abduction of LEs. Full ROM intact to left hip, somewhat restricted to right hip s/p replacement. No palpable tenderness or deformity. Unable to assess gait. 2+dp/pt pulses b/l. Abd soft, nd/nt. normoactive bsx4. Clinical concern for msk sprain/strain, contusion, fracture, dislocation. Lower suspicion for arrhythmia, UTI, ICH, CVA/TIA. Plan for labs, UA, imaging. Differential Diagnosis Differential Diagnoses: The differential diagnosis associated with the presentation includes As above Admission/Observation Consideration of admission/observation: Escalation of care including admission/observation considered In this 83-year-old female with history of advanced dementia presenting with unwitnessed fall, admission was considered. Lab Data [facility] Lab Attestation statement: I reviewed the patient's lab results. as above. 06/22/23 09:06 06/21/23 05:40 Labs: Lab Results 06/21/23 06/21/23 06/21/23 Range/Units 05:39 05:40 10:43 WBC 6.4 (4.8-10.8) X10*3/uL RBC 3.80 L (4.20-5.50) X10*6/uL Hgb 11.7 L (12.0-16.0) g/dl Hct 36.8 L (37.0-47.0) % MCV 96.8 (80.0-98.0) fL MCH 30.8 (27.0-33.0) pg MCHC 31.8 (31.0-35.0) g/dl RDW 14.0 (11.0-16.0) % Plt Count 233 (160-400) X10*3/uL MPV 9.5 (9.4-12.3) fL Immature Gran % (Auto) 0.3 (0.0-0.4) % Neut % (Auto) 73.9 H (45-73) % Lymph % (Auto) 8.5 L (20-40) % [place] % (Auto) 15.4 H (2-11) % Eos % (Auto) 1.3 (0-4) % Baso % (Auto) 0.6 (0-2) % Lymph # (Auto) 0.5 L (1.2-4.9) X10*3/uL [place] # (Auto) 1.0 (0.1-1.2) X10*3/uL Eos # (Auto) 0.1 (0.0-0.4) X10*3/uL Baso # (Auto) 0.0 (0.0-0.2) X10*3/uL Abs Immat Gran (auto) 0.02 (0.00-0.03) X10*3/uL Absolute Neuts (auto) 4.7 (2.0-8.3) x10*3/uL Absolute Nucleated RBC 0.000 (0.0-0.012) X10*3/uL Nucleated RBC % (auto) 0.0 (0.0-0.2) /100WBC Sodium 141 (135-145) mmol/L Potassium 4.4 (3.3-5.1) mmol/L Chloride 104 (96-108) mmol/L Carbon Dioxide 26 (22-29) mmol/L Anion Gap 15 (12-20) BUN 16 (9-16) mg/dL Creatinine 0.69 (0.5-1.4) mg/dL Estim Creat Clear Calc 42.4 Estimated GFR > 60 Random Glucose 94 (60-115) mg/dL Lactic Acid (0.5-2.0) mmol/L Calcium 9.2 (8.4-10.2) mg/dL Total Bilirubin 0.3 (0.0-1.0) mg/dL AST 25 (5-31) U/L ALT 12 (0-31) U/L Alkaline Phosphatase 113 (39-117) U/L Total Protein 6.5 (6.5-8.0) g/dL Albumin 3.5 (3.5-5.0) g/dL Urine Color Yellow Urine Appearance Cloudy Urine pH 6.5 (5.0-9.0) Ur Specific [place] 1.010 (1.005-1.025) Urine Protein Negative (Neg-Trace) mg/dL Urine Glucose (UA) Negative (Negative) mg/dL Urine Ketones Negative (Negative) mg/dL Urine Blood Negative (Negative) Urine Nitrite Positive H (Negative) Ur Leukocyte Esterase Negative (Negative) Urine RBC 0-2 (0-2) /HPF Urine WBC 0-5 (0-5) /HPF Ur Squamous Epith Cells 0-2 (0-2) /HPF Urine Bacteria 4+ (None Seen) Hyaline Casts 0-2 (0-2) /LPF COVID-19 (BRENT) (Negative) COVID-19 Clin Com 06/21/23 06/22/23 Range/Units 16:09 09:06 WBC 17.7 H (4.8-10.8) X10*3/uL RBC 4.26 (4.20-5.50) X10*6/uL Hgb 13.1 (12.0-16.0) g/dl Hct 39.9 (37.0-47.0) % MCV 93.7 (80.0-98.0) fL MCH 30.8 (27.0-33.0) pg MCHC 32.8 (31.0-35.0) g/dl RDW 14.0 (11.0-16.0) % Plt Count 331 D (160-400) X10*3/uL MPV 9.3 L (9.4-12.3) fL Immature Gran % (Auto) (0.0-0.4) % Neut % (Auto) (45-73) % Lymph % (Auto) (20-40) % [place] % (Auto) (2-11) % Eos % (Auto) (0-4) % Baso % (Auto) (0-2) % Lymph # (Auto) (1.2-4.9) X10*3/uL [place] # (Auto) (0.1-1.2) X10*3/uL Eos # (Auto) (0.0-0.4) X10*3/uL Baso # (Auto) (0.0-0.2) X10*3/uL Abs Immat Gran (auto) (0.00-0.03) X10*3/uL Absolute Neuts (auto) (2.0-8.3) x10*3/uL Absolute Nucleated RBC (0.0-0.012) X10*3/uL Nucleated RBC % (auto) (0.0-0.2) /100WBC Sodium (135-145) mmol/L Potassium (3.3-5.1) mmol/L Chloride (96-108) mmol/L Carbon Dioxide (22-29) mmol/L Anion Gap (12-20) BUN (9-16) mg/dL Creatinine (0.5-1.4) mg/dL Estim Creat Clear Calc Estimated GFR Random Glucose (60-115) mg/dL Lactic Acid 1.7 (0.5-2.0) mmol/L Calcium (8.4-10.2) mg/dL Total Bilirubin (0.0-1.0) mg/dL AST (5-31) U/L ALT (0-31) U/L Alkaline Phosphatase (39-117) U/L Total Protein (6.5-8.0) g/dL Albumin (3.5-5.0) g/dL Urine Color Urine Appearance Urine pH (5.0-9.0) Ur Specific [place] (1.005-1.025) Urine Protein (Neg-Trace) mg/dL Urine Glucose (UA) (Negative) mg/dL Urine Ketones (Negative) mg/dL Urine Blood (Negative) Urine Nitrite (Negative) Ur Leukocyte Esterase (Negative) Urine RBC (0-2) /HPF Urine WBC (0-5) /HPF Ur Squamous Epith Cells (0-2) /HPF Urine Bacteria (None Seen) Hyaline Casts (0-2) /LPF COVID-19 (BRENT) Negative (Negative) COVID-19 Clin Com See Note Independent Interpretation I performed an independent interpretation of an: Plain X-Ray and CT Scan Interpretation: I personally reviewed x-rays and agree with radiologist's interpretation. I personally reviewed CT scans and agree with radiologist's interpretation. Radiology Impression Discussion of test interpretation with radiology: I have reviewed the radiologist's reading. Radiologist Impression: XR shoulder RT min 2V IMPRESSION: No acute findings. XR hip LT w PEL1V IMPRESSION: No acute findings. Independent Historian Clinical information obtained from an independent historian. History obtained from or confirmed by: EMS and Other (HCP/ NIECE) External Record Review External record reviewed: Inpatient record, Office record, Outpatient record, Prior outpatient labs, Prior outpatient radiology, Primary care record and Outside ED record Prescription Management I considered prescription management with: Pain Medication Chronic Conditions Patient?s care impacted by: Other (dementia) Social Determinants Patient?s care significantly limited by Social Determinants of Health including: Other Social Determinant of Health Critical Care Time Critical Care Time Critical Care Time: Yes Total Critical Care Time: 31 Attestation: Critical care time in the amount of 31 minutes has been provided to the patient in terms of direct patient care, frequent reevaluation, review and interpretation of medical data and results, and management of potentially life-threatening conditions. This is all outside of any medical procedures. Discharge Plan Discharge Clinical Impression: Accident due to mechanical fall without injury, Urinary tract infection Patient Disposition: Still a Patient Instructions: Fall Prevention for Older Adults (ED) Prescriptions: No Action cyanocobalamin (vitamin B-12) 500 mcg Tablet 500 mcg PO DAILY acetaminophen 500 mg Tablet 1,000 mg PO BID PRN (Reason: Fever Or Pain) cholecalciferol (vitamin D3) 10 mcg (400 unit) Tablet 20 mcg PO DAILY prednisone 5 mg tablet 5 mg PO DAILY@1200 Rocklatan 0.02-0.005 % drops 1 drp ophthalmic (eye) BEDTIME pyridoxine (vitamin B6) [Vitamin B-6] 50 mg Tablet 50 mg PO DAILY amlodipine 5 mg tablet 5 mg PO DAILY levetiracetam 250 mg tablet 125 mg PO BEDTIME sertraline 50 mg tablet 50 mg PO DAILY risperidone 0.5 mg tablet 0.5 mg PO BID thiamine HCl (vitamin B1) 100 mg tablet 100 mg PO DAILY levetiracetam 250 mg tablet 250 mg PO DAILY aspirin 81 mg Tablet,Delayed Release (Dr/Ec) 81 mg PO Q48H Referrals: Alexandro Rodriguez DO [Primary Care Provider] -
--- NOTE | 2023-06-21 08:43 | PHA.MEDREC ---
Pharmacy Consult ? Medication Reconciliation Pharmacy has completed the medication reconciliation. med rec complete using list provided by pt
--- NOTE | 2023-06-21 10:54 | PC.NURSE ---
family at bedside to bring patient home. reports she is primarily wheelchair bound however can take steps. awaiting urine sample at this time, straight cath patient to obtain urine with approx 300mL output.
[2023-06-21 11:00] LABS: Appearance Urine Cloudy; Color Urine Yellow; Glucose Urine UA Negative (Negative); Leukocyte Esterase Urine Negative (Negative); Nitrite Urine Positive (Negative); PH 6.5 (5.0-9.0); UMIC TRIGGER UACC YES; Urine Blood Negative (Negative); Urine Ketones Negative (Negative); Urine Protein Negative (Neg-Trace)
[2023-06-21 11:10] LABS: Bacteria Urine 4+ (None Seen); Hyaline Casts Urine 0-2 /LPF (0-2); RBC Urine 0-2 /HPF (0-2); Squamous Epithelial Cell Urine 0-2 /HPF (0-2); UACC Culture Trigger YES; WBC Urine 0-5 /HPF (0-5)
--- NOTE | 2023-06-21 13:59 | MHC.CM.ED ---
Addendum entered by Amaya Vaughn 06/21/23 16:03: Cary has a copy of patient's [employer] application and will provide it to CM. Original Note: Received case management consult from Agatha WOODY. Patient came to the ER due to a fall. Work up essentially negative. Physical therapy eval completed. Short term rehab is recommended. Received notification from Jessica at [facility] that nijose miguel, Cary, has been trying to find LTC. [facility] application was completed with the help of Kip Vu of [facility]. Left voicemail for Tyra requesting a return call and copy of [facility] application. Spoke with patient's niece, SHANAE, via telephone at [phone]. Patient lives with Cary. Patient has been to [facility] [address]. Cary was not happy with either facility. [facility] is Cary's 1st choice. Cary aware that 4 facilities closed locally making LTC placement difficult at time. Cary agreeable to referral being broadcasted locally to see if there is any bed availability. Cary will see if she has a copy of the [facility] application. Referral made via [employer]. Continue to monitor for d/c needs.
[2023-06-21] MEDS: Nitrofurantoin Monohyd/M-Cryst 100 MG CAPSULE PO ×2 (15:28→20:28)
--- NOTE | 2023-06-21 15:42 | MHC.EDTECH ---
THIS PCT ASSUMED CARE OF PATIENT AT 1500 ,VITALS TAKEN ,PATIENT WAS CHANGE INTO HOSPITAL ATTIRE ,BELONINGS LIST DONE ,PATIENT WAS REPOSITION AND BOOSTED UP IN BED ,RN AWARE THAT PATIENT HAVE PRESSURE ULCER ON HER RIGHT HEEL .
--- NOTE | 2023-06-21 16:21 | PC.NURSE ---
patient medicated per the MAR, changed and repositioned in bed. appears very fearful, feels as if she is trapped in the room. lowered one side of the bed railings with improvement. patient unsteady on her feet, two assist to stand. remains pt/cm at this time with the call butcher in reach.
[2023-06-21 16:39] LABS: COVID-19 Test Negative (Negative); IDNOW Serial# 152EDE1D
--- NOTE | 2023-06-21 19:30 | MHC.EDTECH ---
Patient used her call butcher, When this tech answered it, this tech found her to be wet, the bed wet. This tech then gathered supplies and cleaned up the patient and cleaned and changed over the bed.
--- NOTE | 2023-06-21 20:45 | PC.NURSE ---
Assumed care for pt at 1900. Pt calm and cooperative, resting at the bedside. VSS. Reports no pain at this time. Medicated PO as scheduled. Monitoring is on going.
[2023-06-21] MEDS: OLANZapine ODT 10 MG TAB.RAPDIS 20 MG TRANSLINGU (21:45)
--- NOTE | 2023-06-21 23:38 | PC.NURSE ---
this rn assumed care of pt. pt resting in stretcher, no acute distress at this time. respirations even and unlabored.
[2023-06-22] VITALS (10 sets, daily range): BP systolic 90–161; BP diastolic 48–70; PULSE 72–136; RESP 13–20; TEMP 37.3–39.2; O2SAT 92–97
--- NOTE | 2023-06-22 03:21 | MHC.EDTECH ---
Obs room called and stated PT was soiled. This tech went in and cleaned the patient, changed out the bed pads, changed the solomon. put the pillows under her lower legs, and covered her with a warm blanket. All set
--- NOTE | 2023-06-22 05:20 | PC.NURSE ---
pt resting in stretcher at this time, no acute distress noted. pt denies pain. camera in place for pt safety.
--- NOTE | 2023-06-22 06:27 | PC.NURSE ---
pt bed changed, pt repositioned to right side. pt noted to have skin tears to the right arm covered with bandages and a right foot ulcer wrapped in a dry bandage.
[2023-06-22] MEDS: Nitrofurantoin Monohyd/M-Cryst 100 MG CAPSULE PO (08:01)
--- NOTE | 2023-06-22 08:03 | PC.NURSE ---
PT IS A/O X 1 NO SOB/CORRINA NOTED. PT HAS MULTI SKIN TEARS TO R UPPER FOREARM AND A CLEAN DRY DRESSING TO R FOOT. NO EDEMA NOTED. PT TOOK MEDS WHOLE IN APPLESAUCE AT THIS TIME. WILL CONTINUE TO MONITOR.
--- NOTE | 2023-06-22 08:41 | MHC.EDTECH ---
patient washed and changed, rody carbajal, positioned onto left side. rectal temp 101.8
--- NOTE | 2023-06-22 08:42 | MHC.EDTECH ---
mouth care performed, patient tolerated well
--- NOTE | 2023-06-22 08:48 | MHC.CM.ED ---
Addendum entered by Amaya Vaughn 06/22/23 09:36: Received notification from Nellie WOODY that patient will be admitted due to sepsis r/t UTI. Original Note: Patient remains in ER. Copy of [employer] santa provided by gilmar Townsend/SHANAE. [place] will complete [employer] questionnaire and 6 months of bank statements. Clinical updates sent to facilities still following: [place] at [place], [facility], [facility] and [place] for [facility]. Continue to monitor for d/c needs.
[2023-06-22 09:14] LABS: Hematocrit 39.9 % (37.0-47.0); Hemoglobin 13.1 g/dl (12.0-16.0); Mean Corpuscular HGB Conc 32.8 g/dl (31.0-35.0); Mean Corpuscular Hemoglobin 30.8 pg (27.0-33.0); Mean Corpuscular Volume 93.7 fL (80.0-98.0); Mean Platelet Volume 9.3 fL (9.4-12.3); Platelet Count 331 X10*3/uL (160-400); Red Blood Count 4.26 X10*6/uL (4.20-5.50); White Blood Count 17.7 X10*3/uL (4.8-10.8)
[2023-06-22] MEDS: diphenhydrAMINE HCL 50 MG/ML VIAL 25 MG IVPUSH (09:21)
[2023-06-22] MEDS: cefTRIAXone sodium 1 GM in 0.9 % Sodium Chloride 50 ML IV ×2 (09:21→20:06)
--- NOTE | 2023-06-22 09:23 | MHC.EDTECH ---
placed a purewick on patient to obtain a urine sample. will monitor output
[2023-06-22 09:31] LABS: Lactic Acid 1.7 mmol/L (0.5-2.0)
[2023-06-22] MEDS: Acetaminophen 325 MG TABLET 650 MG PO ×2 (09:43→18:39)
[2023-06-22 09:45] LABS: Band Neutrophils Percent 7 % (3-5); Basophils Abs Manual 0.2 X10*3/uL (0.0-0.2); Basophils Percent Manual 1 % (0-2); Lymphocytes Absolute Manual 0.4 X10*3/uL (1.2-4.9); Lymphocytes Percent Manual 2 % (20-40); Monocytes Absolute Manual 1.1 X10*3/uL (0.1-1.2); Monocytes Percent Manual 6 % (2-11); Neutrophils Absolute Manual 16.1 X10*3/uL (2.0-8.3); Neutrophils Percent Manual 84 % (45-73); RBC Morphology NORMAL; Toxic Vacuolation PRESENT
[2023-06-22 09:46] LABS: Platelet Estimate NORMAL (NORMAL); Platelet Morphology Comment NORMAL
[2023-06-22 10:03] LABS: Alanine Aminotransferase 11 U/L (0-31); Albumin Level 3.4 g/dL (3.5-5.0); Alkaline Phosphatase 101 U/L (39-117); Anion Gap 15 (12-20); Aspartate Amino Transferase 20 U/L (5-31); Bilirubin Total 0.5 mg/dL (0.0-1.0); Blood Urea Nitrogen 11 mg/dL (9-16); Calcium 8.8 mg/dL (8.4-10.2); Carbon Dioxide 26 mmol/L (22-29); Chloride 103 mmol/L (96-108); Estimated Glomerular Filt Rate > 60; Glucose Random 153 mg/dL (60-115); Magnesium 1.8 mg/dL (1.6-2.6); Potassium 3.8 mmol/L (3.3-5.1); Sodium 140 mmol/L (135-145)
--- NOTE | 2023-06-22 11:24 | P.HPHOSP_ITS ---
History of Present Illness Date of Service: 06/22/23 Attending physician on admission: Claribel Cano Chief Complaint: UTI with sepsis Pt is a -year-old female with a PMH significant for?HTN, seizure disorder, Alzheimer's dementia, glaucoma, osteoporosis, and IBS who initially presented to the ED yesterday via EMS from home after mechanical fall at home. Patient with advanced dementia at baseline and is unable to remember events surrounding her presentation to the ED or her time here and is thus incapable of providing accurate HPI which is instead obtained from chart and provider review. According to patient's HCP, patient was found attempting to walk down the hallway to the bathroom multiple when she tripped and fell. Patient initially reporting right shoulder and left hip pain. Patient was found sitting on the floor and it was unclear whether she had a head strike. Of note, patient had a partial right hip replacement after mechanical fall at home 4 months prior, and is currently being treated at [facility] pressure to heel. Workup in the ED was significant patient testing positive for UTI. Patient lives with niece/HCP and she reports patient had been increasingly agitated the past few days. Vitals WNL and no leukocytosis; pt did not meet sepsis criteria and was started on Macrobid. Imaging of hips and pelvis, left shoulder, head, and cervical spine were negative for acute fractures or intracranial pathology. Given recent falls and current infection, patient was not discharged home but initially placed in PT/case management. Repeated labs this morning showed new leukocytosis of 17.7 and fever of 101.8. Lactic acid WNL at 1.7. All other labs grossly unremarkable and at baseline for patient. Patient will be admitted to the hospital for UTI with sepsis. Review of Systems 2 Review of Systems: Unable to obtain due to patient's mentation [facility] Medical History Alzheimer's dementia Multifactorial dementia Cerebral microvascular disease Glaucoma IBS (irritable bowel syndrome) HTN (hypertension) UTI (urinary tract infection) Elevated C-reactive protein Osteoporosis PMR (polymyalgia rheumatica) Primary osteoarthritis of hands, bilateral Surgical History Hx of appendectomy H/O cataract removal with insertion of prosthetic lens History of wisdom tooth extraction History of tonsillectomy H/O: hysterectomy Social History Household Members: Children Household Members Other:: NIECE Housing: House Are you a primary child care center administrator to a significant other at home: No Do you presently have visiting nurse or other home services: Yes ([facility], PT, OT, [employer]) Unable to assess alcohol history related to: Unknown Alcohol intake: former Comment: md notified Patient Tobacco Use Status: Former Tobacco user Smoked in Last 30 Days: No Use of substances other than those prescribed or required for medical reasons: No Substance Use Type: Unknown Currently Displaying Signs/Symptoms of Drug Intoxication Withdrawal: No Advance Directives: Yes Advance Directives on File: Yes Advance Directives Date on File: 05/13/21 Do you have thoughts of harming others: None Do you have a plan to hurt others: No Plan Recently lost weight without trying: Unsure How much weight loss: Unsure Eating poorly because of decreased appetite: No Nutrition screen score: 4 Nutrition Risks: Difficulty chewing Patient : No : No Poor oral hygiene: No service: No Current occupational status: retired [employer] Allergies Allergy/AdvReac Type Severity Reaction Status Date / Time cefadroxil [From DURICEF] Allergy Unknown RASH Verified 05/03/23 13:15 cortisone Allergy Unknown RASH, Verified 05/03/23 13:15 REDDENED CHEST FROM CORTISONE INJECTIONS levofloxacin [From LEVAQUIN] Allergy Unknown TINNITIS Verified 05/03/23 13:15 penicillin V Allergy Unknown Unknown Verified 05/03/23 13:15 Sulfa (Sulfonamide Allergy Unknown UNKNOWN Verified 05/03/23 13:15 Antibiotics) sulfamethoxazole Allergy Unknown RASH Verified 05/03/23 13:15 [From BACTRIM] trimethoprim [From BACTRIM] Allergy Unknown RASH Verified 05/03/23 13:15 Active Medications: Current Medications Nitrofurantoin Macrocrystals (Nitrofurantoin Monohyd/M-Cryst 100 Mg Capsule) 100 mg PO BID DI Stop: 06/28/23 12:14 Last Admin: 06/22/23 08:01 Dose: 100 mg Home Medications Medication Instructions Recorded Confirmed Last Taken Type cyanocobalamin (vitamin B-12) 500 500 mcg PO DAILY 04/08/20 06/21/23 03/10/23 History mcg tablet acetaminophen 500 mg tablet 1,000 mg PO BID PRN Fever Or Pain 02/16/21 06/21/23 02/16/21 History cholecalciferol (vitamin D3) 10 20 mcg PO DAILY 02/16/21 06/21/23 03/10/23 History mcg (400 unit) tablet prednisone 5 mg tablet 5 mg PO DAILY@1200 02/16/21 06/21/23 03/10/23 History netarsudil 0.02 %-latanoprost 1 drp ophthalmic (eye) BEDTIME 02/17/21 06/21/23 04/11/21 History 0.005 % eye drops (Rocklatan) pyridoxine (vitamin B6) 50 mg 50 mg PO DAILY 04/12/21 06/21/23 03/10/23 History tablet (Vitamin B-6) amlodipine 5 mg tablet 5 mg PO DAILY 03/10/23 06/21/23 03/10/23 History levetiracetam 250 mg tablet 125 mg PO BEDTIME 03/10/23 06/21/23 Unknown History levetiracetam 250 mg tablet 250 mg PO DAILY 03/10/23 06/21/23 03/10/23 History risperidone 0.5 mg tablet 0.5 mg PO BID 03/10/23 06/21/23 03/10/23 History sertraline 50 mg tablet 50 mg PO DAILY 03/10/23 06/21/23 03/10/23 History thiamine HCl (vitamin B1) 100 mg 100 mg PO DAILY 03/10/23 06/21/23 03/10/23 History tablet aspirin 81 mg tablet,delayed 81 mg PO Q48H 06/21/23 06/21/23 Unknown History release Physical Exam 2 Vital Signs and Narrative: Vital Signs: Last Vital Signs Temp 101.2 F H 06/22/23 11:22 Pulse 79 06/22/23 11:22 Resp 20 06/22/23 11:22 BP 119/63 06/22/23 11:22 Pulse Ox 94 06/22/23 11:22 O2 Del Method Room Air 06/22/23 11:22 BMI result Body Mass Index 16.8 Constitutional: Alert but somnolent, falling back asleep during interview. Frail looking. In no acute distress. Mental Status: Oriented to person only. Eyes: Pupils are equal, round, and reactive to light. Ear, Nose, and Throat: Oropharynx clear, mucous membranes moist. Ears and nose without deformities. Trachea midline. Respiratory: Clear to auscultation bilaterally. No wheezing, rales, or rhonchi. Cardiovascular: S1, S2 regular. No murmurs, rubs, or gallops. Gastrointestinal: Abdomen soft, non-tender, non-distended. Normal bowel sounds. Neurologic: Cranial nerves II-XII are grossly intact bilaterally. No focal neurological deficits. Moves all extremities spontaneously. Skin: Warm, dry. Musculoskeletal: No cyanosis or clubbing. Extremities: No edema. Small chronic open wound on right heel. As pictured below. Psychiatric: Pleasantly confused. Results Labs 06/23/23 05:12 06/23/23 05:10 Labs: Laboratory Results - last 24 hr 06/21/23 06/22/23 06/22/23 16:09 09:06 09:39 MCV 93.7 MCH 30.8 MCHC 32.8 RDW 14.0 Plt Count 331 D MPV 9.3 L Immature Gran % (Auto) Cancelled Neut % (Auto) Cancelled Lymph % (Auto) Cancelled [place] % (Auto) Cancelled Eos % (Auto) Cancelled Baso % (Auto) Cancelled Lymph # (Auto) Cancelled [place] # (Auto) Cancelled Eos # (Auto) Cancelled Baso # (Auto) Cancelled Abs Immat Gran (auto) Cancelled Absolute Neuts (auto) Cancelled Absolute Nucleated RBC 0.000 Nucleated RBC % (auto) 0.0 Neutrophils % (Manual) 84 H Band Neutrophils % 7 H Lymphocytes % (Manual) 2 L Monocytes % (Manual) 6 Basophils % (Manual) 1 Abs Neuts (Manual) 16.1 H Lymphocytes # (Manual) 0.4 L Monocytes # (Manual) 1.1 Basophils # (Manual) 0.2 Toxic Vacuolation PRESENT Platelet Estimate NORMAL Plt Morphology Comment NORMAL RBC Morphology NORMAL Anion Gap 15 Estim Creat Clear Calc 38.0 Estimated GFR > 60 Random Glucose 153 H Lactic Acid 1.7 Calcium 8.8 Magnesium 1.8 Total Bilirubin 0.5 AST 20 ALT 11 Alkaline Phosphatase 101 Total Protein 6.0 L Albumin 3.4 L COVID-19 (BRENT) Negative COVID-19 Clin Com See Note Assessment and Plan (1) Urinary tract infection: Status: Acute Plan Pt is a -year-old female with a PMH significant for?HTN, seizure disorder, Alzheimer's dementia, glaucoma, osteoporosis, and IBS who initially presented to the ED yesterday via EMS from home after mechanical fall at home. Workup in the ED was significant patient testing positive for UTI. Initially placed in PT/case management, though this morning patient developed new fever and leukocytosis. Patient be admitted to the medical floor for treatment UTI with sepsis. UTI with sepsis Patient with increasing agitation at home the past few days, UA positive for UTI Patient with advanced dementia, possibly at baseline mentation but will verify with family/PCP Patient meets sepsis criteria: Fever, tachycardia, leukocytosis; lactic acid WNL at 1.7 Patient given fluid and started on IV antibiotics in ED Will treat with ceftriaxone, started 06/22/[address] on maintenance fluids Follow CBC Question of urinary retention Pt changed this morning and pure wick placed No urine 3+ hours Patient eating and drinking normally Will be placed on maintenance fluids Will bladder scan if patient continues to have little to no urine output Straight cath as necessary Monitor I/O Chronic right heel wound Pt follows with wound care clinic Will get wound care consult Seizure disorder Continue Keppra Alzheimer's dementia Continue risperidone, sertraline HTN Continue amlodipine Osteoarthritis Has been on low-dose prednisone for years, continue DNR/DNI, verified with family/HCP at bedside Attending:?Dr. Cano DVT Prophylaxis: Heparin Pt will require a hospitalization of at least two nights for treatment of?UTI with sepsis. Given patient's advanced age, comorbidities including Alzheimer's dementia, limited mobility, and meeting sepsis criteria patient is at serious risk of rapid decline without hospitalization for administration of IV antibiotics, IVF, and PT evaluation. Quality Stroke Does the patient have a stroke diagnosis?: No VTE Prior VTE?: No VTE Risk Level:: Medical - moderate - high VTE Device Contraindication: Treatment Not Indicated VTE Drug Contraindication: N/A - Med Ordered
[2023-06-22] MEDS: Sertraline HCL 50 MG TABLET PO (15:17)
[2023-06-22] MEDS: Aspirin Enteric Coated 81 MG TABLET.DR PO (15:17)
[2023-06-22] MEDS: Cholecalciferol (Vitamin D3) 10 MCG TABLET 20 MCG PO (15:17)
[2023-06-22] MEDS: levETIRAcetam 250 MG TABLET PO (15:18)
[2023-06-22] MEDS: Thiamine HCL 100 MG TABLET PO (15:18)
[2023-06-22] MEDS: amLODIPine Besylate 5 MG TABLET PO (15:18)
[2023-06-22] MEDS: Cyanocobalamin (Vitamin B-12) 500 MCG TABLET PO (15:18)
[2023-06-22] MEDS: Pyridoxine HCl (Vitamin B6) 50 MG TABLET PO (15:18)
[2023-06-22] MEDS: risperiDONE 0.5 MG TABLET PO (15:19)
[2023-06-22] MEDS: Heparin Sodium,Porcine 5,000 UNIT/ML VIAL 5000 UNIT SUBCUT (15:19)
[2023-06-22] MEDS: 0.9 % Sodium Chloride 1,000 ML 80 ML IVCONT (15:20)
[2023-06-22] MEDS: Ibuprofen 400 MG TABLET PO (17:01)
[2023-06-23] VITALS: BP 147/71; TEMP 36.3
[2023-06-23 00:36] LABS: Influenza A PCR NEGATIVE (Negative); Influenza B PCR NEGATIVE (Negative); Resp Syncy Virus RNA Qual PCR NEGATIVE (Negative); SARS COV2 PCR INHOUSE NEGATIVE (Negative)
[2023-06-23] MEDS: Heparin Sodium,Porcine 5,000 UNIT/ML VIAL 5000 UNIT SUBCUT ×2 (01:11→12:43)
[2023-06-23 04:00] VITALS: BP 141/64; PULSE 81; RESP 16; TEMP 36.8; O2SAT 94
[2023-06-23] MEDS: 0.9 % Sodium Chloride 1,000 ML 80 ML IVCONT ×2 (05:01→15:13)
[2023-06-23 06:01] LABS: Hematocrit 34.5 % (37.0-47.0); Hemoglobin 11.1 g/dl (12.0-16.0); Mean Corpuscular HGB Conc 32.2 g/dl (31.0-35.0); Mean Corpuscular Hemoglobin 30.7 pg (27.0-33.0); Mean Corpuscular Volume 95.3 fL (80.0-98.0); Platelet Count 275 X10*3/uL (160-400); Red Blood Count 3.62 X10*6/uL (4.20-5.50); Red Cell Distribution Width 14.3 % (11.0-16.0); White Blood Count 12.9 X10*3/uL (4.8-10.8)
[2023-06-23 06:24] LABS: Anion Gap 15 (12-20); Blood Urea Nitrogen 13 mg/dL (9-16); Calcium 8.4 mg/dL (8.4-10.2); Carbon Dioxide 24 mmol/L (22-29); Chloride 107 mmol/L (96-108); Creatinine Clr Calc Pharmacy 36.1; Estimated Glomerular Filt Rate > 60; Glucose Random 67 mg/dL (60-115); Potassium 3.4 mmol/L (3.3-5.1); Sodium 143 mmol/L (135-145)
[2023-06-23 07:22] VITALS: BP 139/63; PULSE 66; RESP 16; TEMP 37.6; O2SAT 93
[2023-06-23] MEDS: Thiamine HCL 100 MG TABLET PO (08:47)
[2023-06-23] MEDS: amLODIPine Besylate 5 MG TABLET PO (08:47)
[2023-06-23] MEDS: levETIRAcetam 250 MG in 0.9 % Sodium Chloride 100 ML 410 MG IV (08:47)
[2023-06-23] MEDS: Sertraline HCL 50 MG TABLET PO (08:47)
[2023-06-23] MEDS: Cyanocobalamin (Vitamin B-12) 500 MCG TABLET PO (08:48)
[2023-06-23] MEDS: Pyridoxine HCl (Vitamin B6) 50 MG TABLET PO (08:48)
[2023-06-23] MEDS: Cholecalciferol (Vitamin D3) 10 MCG TABLET 20 MCG PO (08:48)
[2023-06-23] MEDS: cefTRIAXone sodium 2 GM in 0.9 % Sodium Chloride 50 ML IV (09:56)
[2023-06-23] MEDS: Acetaminophen 325 MG TABLET 975 MG PO ×2 (10:01→16:27)
--- NOTE | 2023-06-23 10:08 | MHC.CM.PN ---
PATIENT IS ABLE TO STATE HER NAME AND AND THAT SHE IS IN A HOSPITAL. SHE REPORTS BEING FUZZY ON DETAILS OF INSURANCE AND WHERE SHE LIVES, WELL DATE AND TIME. SHE HAS A HCP THAT HAS BEEN INVOKED AND CALL MADE TO MARTIN (AGENT) AT [phone]. MARTIN MADE AWARE OF PATIENT'S [facility]/MEDICARE RIGHTS AND RIGHT TO APPEAL ANY DC DECISION. IMM LEFT IN ROOM FOR MARTIN WHEN SHE VISITS TODAY, PER CONVERSATION. HCP AND INVOCATION PRINTED AND PLACED IN CHART IMM 06/23/23 COPY IN CHART
[2023-06-23] MEDS: predniSONE 5 MG TABLET PO (12:43)
--- NOTE | 2023-06-23 13:44 | HO.PM.IMPN ---
Subjective Subjective Date of Service: 06/23/23 Interval History: sepsis ,pyelonephritis Review of Systems no new fevers seems more awake and calmer Physical Exam Vital Signs: Vital Signs: Last Vital Signs Temp 99.7 F 06/23/23 07:22 Pulse 66 06/23/23 07:22 Resp 16 06/23/23 07:22 BP 139/63 06/23/23 07:22 Pulse Ox 93 06/23/23 07:22 O2 Del Method Room Air 06/23/23 07:22 BMI result Body Mass Index 16.8 Appearing in no acute distress lung sounds are clear to auscultation heart regular rate rhythm, clear S1, S2 positive bowel sounds, abdomen is soft, nontender neuro aox1 , moves allext Objective Data Active Medications Acetaminophen (Acetaminophen 325 Mg Tablet) 975 mg PO Q6H PRN PRN Reason: Pain, Mild (Pain Scale 1-3) Last Admin: 06/23/23 10:01 Dose: 975 mg Documented By: SHAUNNA Amlodipine Besylate (Amlodipine Besylate 5 Mg Tablet) 5 mg PO DAILY [facility]; Protocol Last Admin: 06/23/23 08:47 Dose: 5 mg Documented By: SHAUNNA Aspirin (Aspirin Enteric Coated 81 Mg Tablet.) 81 mg PO Q48H [facility] Last Admin: 06/22/23 15:17 Dose: 81 mg Documented By: SCOC Benzonatate (Benzonatate 100 Mg Capsule) 100 mg PO TID PRN PRN Reason: Cough Cyanocobalamin (Cyanocobalamin (Vitamin B-12) 500 Mcg Tablet) 500 mcg PO DAILY [facility] Last Admin: 06/23/23 08:48 Dose: 500 mcg Documented By: SHAUNNA Docusate Sodium (Docusate Sodium 100 Mg Capsule) 100 mg PO DAILY PRN PRN Reason: Constipation Heparin Sodium (Porcine) (Heparin Sodium,Porcine 5,000 Unit/Ml Vial) 5,000 unit SUBCUT Q12H [facility] Last Admin: 06/23/23 12:43 Dose: 5,000 unit Documented By: SHAUNNA Sodium Chloride (Ns) 1,000 mls @ 80 mls/hr IVCONT .[id number] [facility] Last Admin: 06/23/23 05:01 Dose: 80 mls/hr Documented By: DOBROB Levetiracetam 125 mg/ Sodium (Chloride) 101.25 mls @ 405 mls/hr IV BEDTIME [facility] Last Infusion: 06/22/23 22:29 Dose: Infused Documented By: BROBashir Levetiracetam 250 mg/ Sodium (Chloride) 102.5 mls @ 410 mls/hr IV DAILY [facility] Last Infusion: 06/23/23 09:15 Dose: Infused Documented By: SHAUNNA Ceftriaxone Sodium 2 gm/ (Sodium Chloride) 50 mls @ 100 mls/hr IV Q24H [facility] Last Infusion: 06/23/23 10:39 Dose: Infused Documented By: SHAUNNA Melatonin (Melatonin 3 Mg Tablet) 6 mg PO BEDTIME PRN PRN Reason: Insomnia Non-Formulary Medication (Netarsudil-Latanoprost [Rocklatan]) 1 drop EYE-BOTH BEDTIME [facility] Ondansetron HCl (Ondansetron Hcl 4 Mg/2 Ml Vial) 4 mg IVPUSH Q8H PRN PRN Reason: Nausea and Vomiting Prednisone (Prednisone 5 Mg Tablet) 5 mg PO DAILY@1200 [facility] Last Admin: 06/23/23 12:43 Dose: 5 mg Documented By: SHAUNNA Pyridoxine HCl (Pyridoxine Hcl (Vitamin B6) 50 Mg Tablet) 50 mg PO DAILY [facility] Last Admin: 06/23/23 08:48 Dose: 50 mg Documented By: SHAUNNA Risperidone (Risperidone 0.5 Mg Tablet) 0.5 mg PO BID [facility] Last Admin: 06/22/23 15:19 Dose: 0.5 mg Documented By: JUAN FRANCISCO Sertraline HCl (Sertraline Hcl 50 Mg Tablet) 50 mg PO DAILY [facility] Last Admin: 06/23/23 08:47 Dose: 50 mg Documented By: SHAUNNA Sodium Chloride (0.9 % Sodium Chloride Flush 3 Ml Syringe) 3 ml IVFLUSH QSHIFT [facility] Last Admin: 06/23/23 08:49 Dose: Not Given Documented By: SHAUNNA Non-Admin Reason: IV Running Thiamine HCl (Thiamine Hcl 100 Mg Tablet) 100 mg PO DAILY [facility] Last Admin: 06/23/23 08:47 Dose: 100 mg Documented By: SHAUNNA Vitamin D (Cholecalciferol (Vitamin D3) 10 Mcg Tablet) 20 mcg PO DAILY [facility] Last Admin: 06/23/23 08:48 Dose: 20 mcg Documented By: SHAUNNA Labs 06/23/23 05:12 06/23/23 05:10 Labs: Laboratory Results - last 24 hr 06/22/23 06/23/23 06/23/23 23:49 05:10 05:12 MCV 95.3 MCH 30.7 MCHC 32.2 RDW 14.3 Plt Count 275 MPV 10.0 Absolute Nucleated RBC 0.000 Nucleated RBC % (auto) 0.0 Anion Gap 15 Estim Creat Clear Calc 36.1 Estimated GFR > 60 Random Glucose 67 Calcium 8.4 Influenza Type A (PCR) NEGATIVE Influenza Type B (PCR) NEGATIVE RSV RNA Qual (PCR) NEGATIVE SARS-CoV-2 RNA (RT-PCR) NEGATIVE Microbiology Microbiology Results: Microbiology 06/22/23 09:19 Blood Culture - Preliminary Blood - Venous No growth after 24 hours. 06/22/23 09:16 Blood Culture - Preliminary Blood - Venous No growth after 24 hours. 06/21/23 Unknown Urine Culture - Final Urine clean catch - Urine salazar top Escherichia coli Streptococcus viridans group Assessment and Plan (1) Urinary tract infection: Status: Acute Plan patient with ?HTN, seizure disorder, Alzheimer's dementia, glaucoma, osteoporosis, and IBS who initially presented to the ED yesterday via EMS from home after mechanical fall at home. Workup in the ED was significant patient testing positive for UTI. Initially placed in PT/case management, though this morning patient developed new fever and leukocytosis. Patient be admitted to the medical floor for treatment UTI with sepsis. UTI with sepsis Patient with increasing agitation at home the past few days, UA positive for UTI Patient with advanced dementia, possibly at baseline mentation but will verify with family/PCP met sepsis criteria: Fever, tachycardia, leukocytosis; lactic acid WNL at 1.7 continue ceftriaxone, started 06/22/2023,ivf Follow CBC Question of urinary retention Pt changed this morning and pure wick placed No urine 3+ hours Patient eating and drinking normally bladder scan if patient continues to have little to no urine output Straight cath as necessary Monitor I/O Chronic right heel wound Pt follows with wound care clinic, frequent turning wound care consult Seizure disorder Continue Keppra Alzheimer's dementia Continue risperidone, sertraline HTN Continue amlodipine Osteoarthritis Has been on low-dose prednisone for years, continue DNR/DNI, verified with family/HCP at bedside DVT Prophylaxis: Heparin ongoning hospitalization need 48-72 hrs for treatment of?UTI with sepsis. Given patient's advanced age, comorbidities including Alzheimer's dementia, limited mobility, and meeting sepsis criteria patient is at serious risk of rapid decline without hospitalization for administration of IV antibiotics, IVF, and PT evaluation. Quality Stroke Does the patient have a stroke diagnosis?: No VTE Prior VTE?: No VTE Risk Level:: Medical - moderate - high VTE Device Contraindication: Treatment Not Indicated VTE Drug Contraindication: N/A - Med Ordered
[2023-06-23 15:01] VITALS: BP 108/53; PULSE 84; RESP 16; TEMP 36.8; O2SAT 93
[2023-06-23 20:00] VITALS: BP 126/61; PULSE 76; RESP 18; TEMP 36.6; O2SAT 94
[2023-06-23] MEDS: Melatonin 3 MG TABLET 6 MG PO (20:59)
[2023-06-24] MEDS: Heparin Sodium,Porcine 5,000 UNIT/ML VIAL 5000 UNIT SUBCUT ×3 (00:20→23:56)
--- NOTE | 2023-06-24 02:47 | PC.NURSE ---
Bladder Scan 457 ~ midnight, shortly after, patient voided on bedpan 150mL and incontinent large amount. No need for st cath
[2023-06-24 03:42] VITALS: BP 166/70; PULSE 71; RESP 18; TEMP 36.9; O2SAT 96
[2023-06-24] MEDS: 0.9 % Sodium Chloride 1,000 ML 80 ML IVCONT (06:42)
[2023-06-24 07:28] VITALS: BP 182/75; PULSE 68; RESP 12; TEMP 36.4; O2SAT 95
[2023-06-24] MEDS: levETIRAcetam 250 MG in 0.9 % Sodium Chloride 100 ML 410 MG IV (09:21)
[2023-06-24] MEDS: Sertraline HCL 50 MG TABLET PO (09:25)
[2023-06-24] MEDS: Acetaminophen 325 MG TABLET 975 MG PO (09:25)
[2023-06-24] MEDS: Thiamine HCL 100 MG TABLET PO (09:25)
[2023-06-24] MEDS: Docusate Sodium 100 MG CAPSULE PO (09:26)
[2023-06-24] MEDS: amLODIPine Besylate 5 MG TABLET PO (09:26)
[2023-06-24] MEDS: Cyanocobalamin (Vitamin B-12) 500 MCG TABLET PO (09:26)
[2023-06-24] MEDS: Pyridoxine HCl (Vitamin B6) 50 MG TABLET PO (09:26)
[2023-06-24] MEDS: Cholecalciferol (Vitamin D3) 10 MCG TABLET 20 MCG PO (09:26)
[2023-06-24] MEDS: cefTRIAXone sodium 2 GM in 0.9 % Sodium Chloride 50 ML IV (09:46)
--- NOTE | 2023-06-24 10:57 | HO.PM.IMPN ---
Subjective Subjective Date of Service: 06/24/23 Interval History: sepsis ,pyelonephritis Review of Systems Patient more awake knows name and daytime No fever Physical Exam Vital Signs: Vital Signs: Last Vital Signs Temp 97.5 F 06/24/23 07:28 Pulse 68 06/24/23 07:28 Resp 12 06/24/23 07:28 BP 182/75 H 06/24/23 07:28 Pulse Ox 95 06/24/23 07:28 O2 Del Method Room Air 06/24/23 07:28 BMI result Body Mass Index 16.8 Appearance: Alert.? Oriented x1-2 cvs: rrr, [id number] . res: clear to auscultation ,no rhonchii or wheezing abd: no rebound or guarding ,nt, bs present. ext pulses present , no cyanosis . neuro: moves all ext. Objective Data Active Medications Acetaminophen (Acetaminophen 325 Mg Tablet) 975 mg PO Q6H PRN PRN Reason: Pain, Mild (Pain Scale 1-3) Last Admin: 06/24/23 09:25 Dose: 975 mg Documented By: SHAUNNA Amlodipine Besylate (Amlodipine Besylate 5 Mg Tablet) 5 mg PO DAILY [facility]; Protocol Last Admin: 06/24/23 09:26 Dose: 5 mg Documented By: SHAUNNA Aspirin (Aspirin Enteric Coated 81 Mg Tablet.) 81 mg PO Q48H [facility] Last Admin: 06/22/23 15:17 Dose: 81 mg Documented By: SCOC Benzonatate (Benzonatate 100 Mg Capsule) 100 mg PO TID PRN PRN Reason: Cough Cyanocobalamin (Cyanocobalamin (Vitamin B-12) 500 Mcg Tablet) 500 mcg PO DAILY [facility] Last Admin: 06/24/23 09:26 Dose: 500 mcg Documented By: SHAUNNA Docusate Sodium (Docusate Sodium 100 Mg Capsule) 100 mg PO DAILY PRN PRN Reason: Constipation Last Admin: 06/24/23 09:26 Dose: 100 mg Documented By: SHAUNNA Heparin Sodium (Porcine) (Heparin Sodium,Porcine 5,000 Unit/Ml Vial) 5,000 unit SUBCUT Q12H [facility] Last Admin: 06/24/23 00:20 Dose: 5,000 unit Documented By: ELIA Sodium Chloride (Ns) 1,000 mls @ 80 mls/hr IVCONT .[id number] [facility] Last Admin: 06/24/23 06:42 Dose: 80 mls/hr Documented By: ELIA Levetiracetam 125 mg/ Sodium (Chloride) 101.25 mls @ 405 mls/hr IV BEDTIME DI Last Infusion: 06/23/23 22:09 Dose: Infused Documented By: JOIE Levetiracetam 250 mg/ Sodium (Chloride) 102.5 mls @ 410 mls/hr IV DAILY [facility] Last Infusion: 06/24/23 09:45 Dose: Infused Documented By: SHAUNNA Ceftriaxone Sodium 2 gm/ (Sodium Chloride) 50 mls @ 100 mls/hr IV Q24H [facility] Last Infusion: 06/24/23 10:19 Dose: Infused Documented By: SHAUNNA Melatonin (Melatonin 3 Mg Tablet) 6 mg PO BEDTIME PRN PRN Reason: Insomnia Last Admin: 06/23/23 20:59 Dose: 6 mg Documented By: JOIE Non-Formulary Medication (Netarsudil-Latanoprost [Rocklatan]) 1 drop EYE-BOTH BEDTIME [facility] Ondansetron HCl (Ondansetron Hcl 4 Mg/2 Ml Vial) 4 mg IVPUSH Q8H PRN PRN Reason: Nausea and Vomiting Prednisone (Prednisone 5 Mg Tablet) 5 mg PO DAILY@1200 [facility] Last Admin: 06/23/23 12:43 Dose: 5 mg Documented By: SHAUNNA Pyridoxine HCl (Pyridoxine Hcl (Vitamin B6) 50 Mg Tablet) 50 mg PO DAILY [facility] Last Admin: 06/24/23 09:26 Dose: 50 mg Documented By: SHAUNNA Risperidone (Risperidone 0.5 Mg Tablet) 0.5 mg PO BID [facility] Last Admin: 06/22/23 15:19 Dose: 0.5 mg Documented By: JUAN FRANCISCO Sertraline HCl (Sertraline Hcl 50 Mg Tablet) 50 mg PO DAILY [facility] Last Admin: 06/24/23 09:25 Dose: 50 mg Documented By: SHAUNNA Sodium Chloride (0.9 % Sodium Chloride Flush 3 Ml Syringe) 3 ml IVFLUSH QSHIFT [facility] Last Admin: 06/24/23 09:15 Dose: Not Given Documented By: SHAUNNA Non-Admin Reason: IV Running Thiamine HCl (Thiamine Hcl 100 Mg Tablet) 100 mg PO DAILY [facility] Last Admin: 06/24/23 09:25 Dose: 100 mg Documented By: SHAUNNA Vitamin D (Cholecalciferol (Vitamin D3) 10 Mcg Tablet) 20 mcg PO DAILY [facility] Last Admin: 06/24/23 09:26 Dose: 20 mcg Documented By: SHAUNNA Labs 06/23/23 05:12 06/23/23 05:10 Microbiology Microbiology Results: Microbiology 06/22/23 09:19 Blood Culture - Preliminary Blood - Venous No growth after 24 hours. 06/22/23 09:16 Blood Culture - Preliminary Blood - Venous No growth after 24 hours. 06/21/23 Unknown Urine Culture - Final Urine clean catch - Urine salazar top Escherichia coli Streptococcus viridans group Assessment and Plan (1) Urinary tract infection: Status: Acute Plan patient with ?HTN, seizure disorder, Alzheimer's dementia, glaucoma, osteoporosis, and IBS who initially presented to the ED yesterday via EMS from home after mechanical fall at home. Workup in the ED was significant patient testing positive for UTI. Initially placed in PT/case management, though this morning patient developed new fever and leukocytosis. Patient be admitted to the medical floor for treatment UTI with sepsis. UTI with sepsis UA positive ,Patient with advanced dementia, possibly at baseline mentation. met sepsis criteria: Fever, tachycardia, leukocytosis; lactic acid WNL at 1.7 urine cultures -ecoli/strep viridans,blood cultures neg@24hrs continue ceftriaxone, started 06/22/2023,ivf Follow CBC Question of urinary retention Pt changed this morning and pure wick placed No urine 3+ hours Patient eating and drinking normally, bladder scan -no retention Straight cath as necessary Monitor I/O Chronic right heel wound Pt follows with wound care clinic, frequent turning wound care consult Seizure disorder Continue Keppra(switched back po) Alzheimer's dementia Continue risperidone, sertraline HTN Continue amlodipine Osteoarthritis Has been on low-dose prednisone for years, continue DNR/DNI, verified with family/HCP at bedside DVT Prophylaxis: Heparin ongoning hospitalization need 48-72 hrs for treatment of?UTI with sepsis. Given patient's advanced age, comorbidities including Alzheimer's dementia, limited mobility, and meeting sepsis criteria patient is at serious risk of rapid decline without hospitalization for administration of IV antibiotics, IVF, and PT evaluation. Quality Stroke Does the patient have a stroke diagnosis?: No VTE Prior VTE?: No VTE Risk Level:: Medical - moderate - high VTE Device Contraindication: Treatment Not Indicated VTE Drug Contraindication: N/A - Med Ordered
[2023-06-24] MEDS: predniSONE 5 MG TABLET PO (12:30)
[2023-06-24] MEDS: Benzonatate 100 MG CAPSULE PO (12:30)
[2023-06-24] MEDS: Aspirin Enteric Coated 81 MG TABLET.DR PO (12:30)
[2023-06-24 15:41] VITALS: BP 149/68; PULSE 77; RESP 16; TEMP 36.4; O2SAT 95
[2023-06-24 18:25] VITALS: PULSE 123
[2023-06-24] MEDS: risperiDONE 0.5 MG TABLET PO (18:35)
[2023-06-24] MEDS: levETIRAcetam 250 MG TABLET 125 MG PO (19:53)
[2023-06-24] MEDS: OLANZapine 10 MG VIAL 2.5 MG IM ×2 (20:00→23:56)
[2023-06-24] MEDS: 0.9 % Sodium Chloride Flush 3 ML SYRINGE IVFLUSH (20:03)
[2023-06-24 21:10] VITALS: BP 160/71; PULSE 88; RESP 16; TEMP 36.8; O2SAT 95
--- NOTE | 2023-06-25 | ECG_ITS ---
Test Reason : tachycardia Blood Pressure : / mmHG Vent. Rate : 080 BPM Atrial Rate : 080 BPM P-R Int : 170 ms QRS Dur : 078 ms QT Int : 376 ms P-R-T Axes : 063 -22 033 degrees QTc Int : 433 ms Normal sinus rhythm Normal ECG When compared with ECG of 21-JUN-2023 05:32, No significant change was found Referred By: David Zuniga Electronically Signed By:MARYLOU CHATMAN
--- NOTE | 2023-06-25 01:54 | PC.NURSE ---
06/24/231899: This patient has become fixated on trying to leave the hospital, multiple attempts at climbing out of bed, aggressive and noncooperative towards staff. (A decline from her baseline dementia/affect) Heart rate was elevated to 130's-160's. PRN Haldol was given prior at around 1830. MD aware of heart rate increase and was attributed to agitation/anxiety. Pt is on telemetry and has been documented as sinus tachycardia, but has not sustained such a high number. This RN spoke to Night Hospitalist about pt's HR and impulsiveness, which did not seem to subside with the dose of Haldol. New order: Zyprexa 2.5mg IM - given at 20:00. Pt's HR had dropped to maintain around 112bpm, much closer to her baseline. Over the next few hours, patient had started to become impulsive again, unable to redirect, only causing pt's agitation to worsen. New order: Zyprexa 2.5mg IM - given at 23:56 after multiple attempts to calm patient and reorient and redirect her to stay in bed had failed. Patient did not respond therapeutically, still impulsive and with a HR climbing. (back to 130-150) 0130: communication with night hospitalist resumed, pt still agitated and HR still up so new orders: Lab workup, CXR, EKG, Bolus ordered. - Will continue to monitor and communicate with Hospitalist about pt's condition.
[2023-06-25 01:55] LABS: MANUAL DIFF FLAG NO
[2023-06-25 01:56] LABS: Basophils Percent Auto 0.6 % (0-2); Eosinophils Absolute Auto 0.3 X10*3/uL (0.0-0.4); Eosinophils Percent Auto 4.4 % (0-4); Hemoglobin 12.2 g/dl (12.0-16.0); Imm Gran Abs Auto 0.03 X10*3/uL (0.00-0.03); Imm Gran Pct Auto 0.4 % (0.0-0.4); Lymphocytes Absolute Auto 0.3 X10*3/uL (1.2-4.9); Lymphocytes Percent Auto 4.7 % (20-40); Mean Corpuscular Hemoglobin 30.5 pg (27.0-33.0); Mean Corpuscular Volume 92.5 fL (80.0-98.0); Mean Platelet Volume 9.3 fL (9.4-12.3); Monocytes Absolute Auto 0.7 X10*3/uL (0.1-1.2); Monocytes Percent Auto 10.7 % (2-11); Neutrophils Absolute Auto 5.4 x10*3/uL (2.0-8.3); Neutrophils Percent Auto 79.2 % (45-73); Platelet Count 302 X10*3/uL (160-400); Red Cell Distribution Width 13.8 % (11.0-16.0); White Blood Count 6.8 X10*3/uL (4.8-10.8)
[2023-06-25 02:04] LABS: Lactic Acid 1.4 mmol/L (0.5-2.0)
[2023-06-25 02:10] LABS: Alanine Aminotransferase 17 U/L (0-31); Albumin Level 3.6 g/dL (3.5-5.0); Alkaline Phosphatase 113 U/L (39-117); Anion Gap 13 (12-20); Aspartate Amino Transferase 24 U/L (5-31); Bilirubin Total 0.2 mg/dL (0.0-1.0); Blood Urea Nitrogen 8 mg/dL (9-16); Carbon Dioxide 26 mmol/L (22-29); Chloride 108 mmol/L (96-108); Creatinine Clr Calc Pharmacy 45.1; Estimated Glomerular Filt Rate > 60; Glucose Random 105 mg/dL (60-115); Magnesium 1.7 mg/dL (1.6-2.6); Potassium 3.5 mmol/L (3.3-5.1); Sodium 143 mmol/L (135-145); Total Protein 6.6 g/dL (6.5-8.0)
[2023-06-25] MEDS: 0.9 % Sodium Chloride 500 ML IV (02:13)
[2023-06-25 02:15] LABS: Troponin-I High Sensitivity 5.2 ng/L (<3.5-17.0)
[2023-06-25 03:59] VITALS: BP 184/83; PULSE 90; RESP 18; TEMP 36.8; O2SAT 96
[2023-06-25 07:40] VITALS: BP 158/73; PULSE 85; RESP 18; TEMP 36.3; O2SAT 95
[2023-06-25] MEDS: Thiamine HCL 100 MG TABLET PO (08:28)
[2023-06-25] MEDS: amLODIPine Besylate 10 MG TABLET PO (08:28)
[2023-06-25] MEDS: Cyanocobalamin (Vitamin B-12) 500 MCG TABLET PO (08:29)
[2023-06-25] MEDS: levETIRAcetam 250 MG TABLET PO (08:29)
[2023-06-25] MEDS: Pyridoxine HCl (Vitamin B6) 50 MG TABLET PO (08:29)
[2023-06-25] MEDS: risperiDONE 0.5 MG TABLET PO ×2 (08:29→19:10)
[2023-06-25] MEDS: Sertraline HCL 50 MG TABLET PO (08:29)
[2023-06-25] MEDS: Cholecalciferol (Vitamin D3) 10 MCG TABLET 20 MCG PO (08:29)
[2023-06-25] MEDS: cefTRIAXone sodium 2 GM in 0.9 % Sodium Chloride 50 ML IV (08:29)
[2023-06-25] MEDS: 0.9 % Sodium Chloride Flush 3 ML SYRINGE IVFLUSH ×2 (08:30→23:23)
[2023-06-25] MEDS: Heparin Sodium,Porcine 5,000 UNIT/ML VIAL 5000 UNIT SUBCUT (12:10)
[2023-06-25] MEDS: predniSONE 5 MG TABLET PO (12:10)
--- NOTE | 2023-06-25 12:31 | P.CNPS_ITS ---
History of Present Illness Date of Service: 06/25/23 Chief Complaint: FALL Reason for Consult: agitation, anxiety, behavioral disturbance, delusion, dementia; consult requested to evaluate medications and recommned medications for above Requesting physician: Claribel Cano Discussed with referring provider: Yes Sources of Information: patient interviewed and chart reviewed Additional Sources of Information: HCP Lanny Thurman [phone] HPI Narrative: Pt is a 83 -year-old female with a PMH significant for?HTN, seizure disorder, Alzheimer's dementia, glaucoma, osteoporosis, and IBS who initially presented to the ED via EMS from home after mechanical fall at home. Patient with advanced dementia at baseline and is unable to remember events surrounding her presentation to the ED or her time here and is thus incapable of providing accurate HPI which is instead obtained from chart and provider review. According to patient's HCP, patient was found attempting to walk down the hallway to the bathroom multiple when she tripped and fell. Patient initially reporting right shoulder and left hip pain. Patient was found sitting on the floor and it was unclear [id number] she had a head strike. Of note, patient had a partial right hip replacement after mechanical fall at home 4 months prior, and is currently being treated at [facility] pressure to heel. Workup in the ED was significant patient testing positive for UTI. Patient lives with niece/HCP and she reports patient had been increasingly agitated the past few days. Vitals WNL and no leukocytosis; pt did not meet sepsis criteria and was started on Macrobid. Imaging of hips and pelvis, left shoulder, head, and cervical spine were negative for acute fractures or intracranial pathology. Given recent falls and current infection, patient was not discharged home but initially placed in PT/case management. Repeated labs this morning showed new leukocytosis of 17.7 and fever of 101.8. Lactic acid WNL at 1.7. All other labs grossly unremarkable and at baseline for patient. She is admitted to 367 bed 1 for treatmetn of acute UTI with fever and leukocytisi. Past Psychiatric History: Dx with Alzheimer's with anxiety, agitation and delusions. Review of Systems Review of Systems Patient more awake knows name and daytime No fever Yes Unobtainable due to mental condition (advanced dementia) Reports confusion Psychiatric: Reports confusion [facility] Medical History (Updated 06/25/23 @ 12:43 by Eileen Leo APRN) Alzheimer's dementia Multifactorial dementia Cerebral microvascular disease Glaucoma IBS (irritable bowel syndrome) HTN (hypertension) UTI (urinary tract infection) Elevated C-reactive protein Osteoporosis PMR (polymyalgia rheumatica) Primary osteoarthritis of hands, bilateral Surgical History Hx of appendectomy H/O cataract removal with insertion of prosthetic lens History of wisdom tooth extraction History of tonsillectomy H/O: hysterectomy Family History: lives with [place] [facility] Social History: pt unable to answer Substance History: none Trauma History: unknown Diagnostics Vital Signs (24Hr): Vital Signs - 24 hr 06/24/23 15:41 06/24/23 18:25 06/24/23 21:10 Temperature 97.6 F 98.3 F Pulse Rate 77 123 H 88 Respiratory Rate 16 16 Blood Pressure 149/68 H 160/71 H Pulse Oximetry 95 95 Oxygen Delivery Method Room Air Room Air 06/25/23 03:59 06/25/23 07:40 Temperature 98.3 F 97.3 F Pulse Rate 90 85 Respiratory Rate 18 18 Blood Pressure 184/83 H 158/73 H Pulse Oximetry 96 95 Oxygen Delivery Method Room Air Room Air BMI result Body Mass Index 16.8 Labs 06/25/23 01:50 06/25/23 01:50 Labs: Laboratory Results - last 48 hr 06/25/23 01:50 WBC 6.8 RBC 4.00 L Hgb 12.2 Hct 37.0 MCV 92.5 MCH 30.5 MCHC 33.0 RDW 13.8 Plt Count 302 MPV 9.3 L Immature Gran % (Auto) 0.4 Neut % (Auto) 79.2 H Lymph % (Auto) 4.7 L [place] % (Auto) 10.7 Eos % (Auto) 4.4 H Baso % (Auto) 0.6 Lymph # (Auto) 0.3 L [place] # (Auto) 0.7 Eos # (Auto) 0.3 Baso # (Auto) 0.0 Abs Immat Gran (auto) 0.03 Absolute Neuts (auto) 5.4 Absolute Nucleated RBC 0.000 Nucleated RBC % (auto) 0.0 Sodium 143 Potassium 3.5 Chloride 108 Carbon Dioxide 26 Anion Gap 13 BUN 8 L Creatinine 0.65 Estim Creat Clear Calc 45.1 Estimated GFR > 60 Random Glucose 105 Lactic Acid 1.4 Calcium 9.0 D Magnesium 1.7 Total Bilirubin 0.2 AST 24 ALT 17 Alkaline Phosphatase 113 Troponin I High Sens 5.2 D Total Protein 6.6 Albumin 3.6 Imaging Radiology Impressions: ITS Impressions Hip/Pelvis X-Ray 06/21/23 08:05 IMPRESSION: No acute findings. Shoulder X-Ray 06/21/23 08:05 IMPRESSION: No acute findings. Cervical Spine CT 06/21/23 08:15 IMPRESSION: Advanced multilevel degenerative change. No fracture. Fleischner guidelines were followed. Head CT 06/21/23 08:15 IMPRESSION: No acute intracranial pathology. Chest X-Ray 06/25/23 01:45 IMPRESSION: Blunting of the costophrenic angles could represent pleural scarring versus small pleural effusions. No other significant abnormality seen. Mental Status Exam Mental Status Exam Patient Appearance: Appropriate Level of Consciousness: Restless Patient Behavior: Appropriate and Restless Behavior Comments: stafff and pt HCP report sun downing Mood Description: Anxious Affect Description: Flat Patient Cognition Impaired: Yes Ability to Follow Directions: Poor Speech Pattern: Perseverating, Difficulty Finding Words and Inappropriate Memory Description: Remote Impaired, Immediate Impaired, Recent Impaired and Working Impaired Delusions: Bizarre Thought Process: Disoriented and Confusion Thought Content: positive for Disorganized Judgement: Poor Judgement and Insight: poor insight and judgment Medications Medications Current Medications Acetaminophen (Acetaminophen 325 Mg Tablet) 975 mg PO Q6H PRN PRN Reason: Pain, Mild (Pain Scale 1-3) Last Admin: 06/24/23 09:25 Dose: 975 mg Amlodipine Besylate (Amlodipine Besylate 10 Mg Tablet) 10 mg PO DAILY [facility]; Protocol Last Admin: 06/25/23 08:28 Dose: 10 mg Aspirin (Aspirin Enteric Coated 81 Mg Tablet.) 81 mg PO Q48H [facility] Last Admin: 06/24/23 12:30 Dose: 81 mg Benzonatate (Benzonatate 100 Mg Capsule) 100 mg PO TID PRN PRN Reason: Cough Last Admin: 06/24/23 12:30 Dose: 100 mg Cyanocobalamin (Cyanocobalamin (Vitamin B-12) 500 Mcg Tablet) 500 mcg PO DAILY [facility] Last Admin: 06/25/23 08:29 Dose: 500 mcg Docusate Sodium (Docusate Sodium 100 Mg Capsule) 100 mg PO DAILY PRN PRN Reason: Constipation Last Admin: 06/24/23 09:26 Dose: 100 mg Heparin Sodium (Porcine) (Heparin Sodium,Porcine 5,000 Unit/Ml Vial) 5,000 unit SUBCUT Q12H [facility] Last Admin: 06/25/23 12:10 Dose: 5,000 unit Ceftriaxone Sodium 2 gm/ (Sodium Chloride) 50 mls @ 100 mls/hr IV Q24H [facility] Last Infusion: 06/25/23 09:12 Dose: Infused Levetiracetam (Levetiracetam 250 Mg Tablet) 125 mg PO BEDTIME [facility] Last Admin: 06/24/23 19:53 Dose: 125 mg Levetiracetam (Levetiracetam 250 Mg Tablet) 250 mg PO DAILY [facility] Last Admin: 06/25/23 08:29 Dose: 250 mg Melatonin (Melatonin 3 Mg Tablet) 6 mg PO BEDTIME PRN PRN Reason: Insomnia Last Admin: 06/23/23 20:59 Dose: 6 mg Non-Formulary Medication (Netarsudil-Latanoprost [Rocklatan]) 1 drop EYE-BOTH BEDTIME [facility] Ondansetron HCl (Ondansetron Hcl 4 Mg/2 Ml Vial) 4 mg IVPUSH Q8H PRN PRN Reason: Nausea and Vomiting Prednisone (Prednisone 5 Mg Tablet) 5 mg PO DAILY@1200 [facility] Last Admin: 06/25/23 12:10 Dose: 5 mg Pyridoxine HCl (Pyridoxine Hcl (Vitamin B6) 50 Mg Tablet) 50 mg PO DAILY [facility] Last Admin: 06/25/23 08:29 Dose: 50 mg Risperidone (Risperidone 0.5 Mg Tablet) 0.5 mg PO BID [facility] Last Admin: 06/25/23 08:29 Dose: 0.5 mg Sertraline HCl (Sertraline Hcl 50 Mg Tablet) 50 mg PO DAILY [facility] Last Admin: 06/25/23 08:29 Dose: 50 mg Sodium Chloride (0.9 % Sodium Chloride Flush 3 Ml Syringe) 3 ml IVFLUSH QSHIFT [facility] Last Admin: 06/25/23 08:30 Dose: 3 ml Thiamine HCl (Thiamine Hcl 100 Mg Tablet) 100 mg PO DAILY [facility] Last Admin: 06/25/23 08:28 Dose: 100 mg Vitamin D (Cholecalciferol (Vitamin D3) 10 Mcg Tablet) 20 mcg PO DAILY [facility] Last Admin: 06/25/23 08:29 Dose: 20 mcg Allergies Allergies Allergy/AdvReac Type Severity Reaction Status Date / Time cefadroxil [From DURICEF] Allergy Unknown RASH Verified 05/03/23 13:15 cortisone Allergy Unknown RASH, Verified 05/03/23 13:15 REDDENED CHEST FROM CORTISONE INJECTIONS levofloxacin [From LEVAQUIN] Allergy Unknown TINNITIS Verified 05/03/23 13:15 penicillin V Allergy Unknown Unknown Verified 05/03/23 13:15 Sulfa (Sulfonamide Allergy Unknown UNKNOWN Verified 05/03/23 13:15 Antibiotics) sulfamethoxazole Allergy Unknown RASH Verified 05/03/23 13:15 [From BACTRIM] trimethoprim [From BACTRIM] Allergy Unknown RASH Verified 05/03/23 13:15 Assessment & Plan Assessment & Plan (1) Urinary tract infection: Status: Acute Code(s): N39.0 - Urinary tract infection, site not specified (2) Alzheimer's dementia: Status: Acute Code(s): G30.9 - Alzheimer's disease, unspecified; F02.80 - Dementia in other diseases classified elsewhere, unspecified severity, without behavioral disturbance, psychotic disturbance, mood disturbance, and anxiety Plan patient with ?HTN, seizure disorder, Alzheimer's dementia, glaucoma, osteoporosis, and IBS who initially presented to the ED yesterday via EMS from home after mechanical fall at home. Workup in the ED was significant patient testing positive for UTI. Initially placed in PT/case management, though this morning patient developed new fever and leukocytosis. Patient be admitted to the medical floor for treatment UTI with sepsis. UTI with sepsis UA positive ,Patient with advanced dementia, possibly at baseline mentation. met sepsis criteria: Fever, tachycardia, leukocytosis; lactic acid WNL at 1.7 urine cultures -ecoli/strep viridans,blood cultures neg@24hrs continue ceftriaxone, started 06/22/2023,ivf Follow CBC Question of urinary retention Pt changed this morning and pure wick placed No urine 3+ hours Patient eating and drinking normally, bladder scan -no retention Straight cath as necessary Monitor I/O Chronic right heel wound Pt follows with wound care clinic, frequent turning wound care consult Seizure disorder Continue Keppra(switched back po) Alzheimer's dementia Continue risperidone, sertraline HTN Continue amlodipine Osteoarthritis Has been on low-dose prednisone for years, continue DNR/DNI, verified with family/HCP at bedside DVT Prophylaxis: Heparin ongoning hospitalization need 48-72 hrs for treatment of?UTI with sepsis. Given patient's advanced age, comorbidities including Alzheimer's dementia, limited mobility, and meeting sepsis criteria patient is at serious risk of rapid decline without hospitalization for administration of IV antibiotics, IVF, and PT evaluation. 06/25/23 Psychiatry: Spoke with HCP Cary Thurman [phone] she reports risperdal only medication that has helped with delusions, anxiety and sun downing. Reports patient has tolerated it well. discussed increasing the risperdal to TID and she agreed Recommend 1mg in am 1/2 mg at 3pm and 1 mg at bedtime and can titrate up if needed consider increasing zoloft if needed to 75mg daily Total time managing care of this patient today __90__ minutes. Guardian/Caregiver educated on: diagnosis, medication risk/benefits and therapeutic strategies Informed Consent: understands
--- NOTE | 2023-06-25 12:52 | HO.PM.IMPN ---
Subjective Subjective Date of Service: 06/25/23 Interval History: uti Review of Systems possible sundowning episodes no fevers Physical Exam Vital Signs: Vital Signs: Last Vital Signs Temp 97.3 F 06/25/23 07:40 Pulse 85 06/25/23 07:40 Resp 18 06/25/23 07:40 BP 158/73 H 06/25/23 07:40 Pulse Ox 95 06/25/23 07:40 O2 Del Method Room Air 06/25/23 07:40 BMI result Body Mass Index 16.8 Appearance: Alert.? Oriented x1-2 cvs: rrr, [id number] . res: clear to auscultation ,no rhonchii or wheezing abd: no rebound or guarding ,nt, bs present. ext pulses present , no cyanosis . neuro: moves all ext. Objective Data Active Medications Acetaminophen (Acetaminophen 325 Mg Tablet) 975 mg PO Q6H PRN PRN Reason: Pain, Mild (Pain Scale 1-3) Last Admin: 06/24/23 09:25 Dose: 975 mg Documented By: SHAUNNA Amlodipine Besylate (Amlodipine Besylate 10 Mg Tablet) 10 mg PO DAILY [facility]; Protocol Last Admin: 06/25/23 08:28 Dose: 10 mg Documented By: JEANE Aspirin (Aspirin Enteric Coated 81 Mg Tablet.) 81 mg PO Q48H [facility] Last Admin: 06/24/23 12:30 Dose: 81 mg Documented By: SHAUNNA Benzonatate (Benzonatate 100 Mg Capsule) 100 mg PO TID PRN PRN Reason: Cough Last Admin: 06/24/23 12:30 Dose: 100 mg Documented By: SHAUNNA Cyanocobalamin (Cyanocobalamin (Vitamin B-12) 500 Mcg Tablet) 500 mcg PO DAILY [facility] Last Admin: 06/25/23 08:29 Dose: 500 mcg Documented By: JEANE Docusate Sodium (Docusate Sodium 100 Mg Capsule) 100 mg PO DAILY PRN PRN Reason: Constipation Last Admin: 06/24/23 09:26 Dose: 100 mg Documented By: SHAUNNA Heparin Sodium (Porcine) (Heparin Sodium,Porcine 5,000 Unit/Ml Vial) 5,000 unit SUBCUT Q12H [facility] Last Admin: 06/25/23 12:10 Dose: 5,000 unit Documented By: JEANE Ceftriaxone Sodium 2 gm/ (Sodium Chloride) 50 mls @ 100 mls/hr IV Q24H [facility] Last Infusion: 06/25/23 09:12 Dose: Infused Documented By: JEANE Levetiracetam (Levetiracetam 250 Mg Tablet) 125 mg PO BEDTIME [facility] Last Admin: 06/24/23 19:53 Dose: 125 mg Documented By: JOIE Levetiracetam (Levetiracetam 250 Mg Tablet) 250 mg PO DAILY [facility] Last Admin: 06/25/23 08:29 Dose: 250 mg Documented By: JEANE Melatonin (Melatonin 3 Mg Tablet) 6 mg PO BEDTIME PRN PRN Reason: Insomnia Last Admin: 06/23/23 20:59 Dose: 6 mg Documented By: JOIE Non-Formulary Medication (Netarsudil-Latanoprost [Rocklatan]) 1 drop EYE-BOTH BEDTIME [facility] Ondansetron HCl (Ondansetron Hcl 4 Mg/2 Ml Vial) 4 mg IVPUSH Q8H PRN PRN Reason: Nausea and Vomiting Prednisone (Prednisone 5 Mg Tablet) 5 mg PO DAILY@1200 [facility] Last Admin: 06/25/23 12:10 Dose: 5 mg Documented By: JEANE Pyridoxine HCl (Pyridoxine Hcl (Vitamin B6) 50 Mg Tablet) 50 mg PO DAILY [facility] Last Admin: 06/25/23 08:29 Dose: 50 mg Documented By: JEANE Risperidone (Risperidone 0.5 Mg Tablet) 0.5 mg PO BID [facility] Last Admin: 06/25/23 08:29 Dose: 0.5 mg Documented By: JEANE Sertraline HCl (Sertraline Hcl 50 Mg Tablet) 50 mg PO DAILY [facility] Last Admin: 06/25/23 08:29 Dose: 50 mg Documented By: JEANE Sodium Chloride (0.9 % Sodium Chloride Flush 3 Ml Syringe) 3 ml IVFLUSH QSHIFT [facility] Last Admin: 06/25/23 08:30 Dose: 3 ml Documented By: JEANE Thiamine HCl (Thiamine Hcl 100 Mg Tablet) 100 mg PO DAILY [facility] Last Admin: 06/25/23 08:28 Dose: 100 mg Documented By: JEANE Vitamin D (Cholecalciferol (Vitamin D3) 10 Mcg Tablet) 20 mcg PO DAILY [facility] Last Admin: 06/25/23 08:29 Dose: 20 mcg Documented By: JEANE Labs 06/25/23 01:50 06/25/23 01:50 Labs: Laboratory Results - last 24 hr 06/25/23 01:50 MCV 92.5 MCH 30.5 MCHC 33.0 RDW 13.8 Plt Count 302 MPV 9.3 L Immature Gran % (Auto) 0.4 Neut % (Auto) 79.2 H Lymph % (Auto) 4.[address] [place] % (Auto) 10.7 Eos % (Auto) 4.4 H Baso % (Auto) 0.6 Lymph # (Auto) 0.[address] [place] # (Auto) 0.7 Eos # (Auto) 0.3 Baso # (Auto) 0.0 Abs Immat Gran (auto) 0.03 Absolute Neuts (auto) 5.4 Absolute Nucleated RBC 0.000 Nucleated RBC % (auto) 0.0 Anion Gap 13 Estim Creat Clear Calc 45.1 Estimated GFR > 60 Random Glucose 105 Lactic Acid 1.4 Calcium 9.0 D Magnesium 1.7 Total Bilirubin 0.2 AST 24 ALT 17 Alkaline Phosphatase 113 Troponin I High Sens 5.2 D Total Protein 6.6 Albumin 3.6 Microbiology Microbiology Results: Microbiology 06/22/23 09:19 Blood Culture - Preliminary Blood - Venous No growth after 48 hours. 06/22/23 09:16 Blood Culture - Preliminary Blood - Venous No growth after 48 hours. Assessment and Plan (1) Alzheimer's dementia: Status: Acute (2) Urinary tract infection: Status: Acute Plan 83 y/o F ?HTN, seizure disorder, Alzheimer's dementia, glaucoma, osteoporosis, and IBS who initially presented to the ED yesterday via EMS from home after mechanical fall at home. Workup in the ED was significant patient testing positive for UTI. Initially placed in PT/case management, though this morning patient developed new fever and leukocytosis. Patient be admitted to the medical floor for treatment UTI with sepsis. Dementia with in received zyprexa overnight avoid sedative meds sitter psych eval UTI with sepsis UA positive ,Patient with advanced dementia, possibly at baseline mentation. met sepsis criteria: Fever, tachycardia, leukocytosis; lactic acid WNL at 1.7 urine cultures -ecoli-sensstive to ceftriaxone/strep viridans,blood cultures neg@48hrs continue ceftriaxone started 06/22/2023. Follow CBC Question of urinary retention Pt changed this morning and pure wick placed Patient eating and drinking somewhat better, bladder scan -no retention Monitor I/O Seizure disorder Continue Keppra(switched back po) Alzheimer's dementia Continue risperidone, sertraline HTN Continue amlodipine Osteoarthritis Has been on low-dose prednisone for years. Chronic right heel wound Pt follows with wound care clinic, frequent turning wound care recomendations: 1. Turn and Reposition every 2 hours and as needed for patient comfort consider use of wedges available in the storeroom. 2. Off Load all bony prominences with use of pillows, wedges and heel boots. 3. Monitor for incontinence and moisture control. 4. Provide adequate and supplemental nutrition. 5. Order or Continue low air loss mattress. 6.Right Elbow - Cleanse with normal saline, pat dry. ?Apply double layer Xeroform secure with Abd pads, gauze wrap and tape. ?Do not apply tape to patients skin.? Avoid Adhesive application to skin - when necessary, apply skin prep prior.? Pt -str DNR/DNI, verified with family/HCP at bedside DVT Prophylaxis: Heparin ongoning hospitalization need for treatment of?UTI with sepsis. Given patient's advanced age, comorbidities including Alzheimer's dementia, limited mobility, and meeting sepsis criteria patient is at serious risk of rapid decline without hospitalization for administration of IV antibiotics,. Quality Stroke Does the patient have a stroke diagnosis?: No VTE Prior VTE?: No VTE Risk Level:: Medical - moderate - high VTE Device Contraindication: Treatment Not Indicated VTE Drug Contraindication: N/A - Med Ordered
[2023-06-25 13:58] VITALS: BMI 16.8
--- NOTE | 2023-06-25 14:01 | MHC.CM.PN ---
EMR REVIEWED AND PER MD ROUNDS, PT IS NOT MEDICALLY CLEARED FOR DC . CM SPOKE WITH NIEX=CE/HCP/CAREGIVER MARTIN WHO STATES HER AUNT WAS NOT APPROVED FOR MH AND SHE WILL BE ONLY AT REHAB FOR STR. SHE WILL TAKE HER HOME WHEN REHAB COMPLETE. CENTERS UPDATED. A FEW CENTERS FOLLOWING, WILL CONTINUE TO UPDATE.
--- NOTE | 2023-06-25 14:09 | MHC.CLN ---
NUTRITION DIET=REGULAR. ADDING MAGIC CUP BID (580 KCALS, 18 G PROTEIN) TO INCREASE NUTRITIONAL INTAKE. QUALIFIES MODERATELY MALNOURISHED WITH SIGNIFICANT WEIGHT LOSS X 6 MONTHS, MODERATE DEPLETION OF BODY FAT AND MUSCLE MASS. ATE VERY WELL AT LUNCH TODAY. SKIN WITH CHRONIC WOUND TO RIGHT HEEL; SKIN TEARS TO RIGHT ARMS; REDNESS TO COCCYX. CONTINUE REGULAR DIET WITH MAGIC CUP SUPPLEMENT. ENCOURAGE INTAKE AT MEALS AND SNACKS ABLE. SEE CLINICAL NUTRITION ASSESSMENT 06/25/23.
[2023-06-25 15:21] VITALS: BP 133/63; PULSE 87; RESP 16; TEMP 37.4; O2SAT 92
[2023-06-25] MEDS: Acetaminophen 325 MG TABLET 975 MG PO (16:43)
[2023-06-25 19:07] VITALS: BP 136/69; PULSE 107; RESP 18; TEMP 36; O2SAT 95
[2023-06-25] MEDS: levETIRAcetam 250 MG TABLET 125 MG PO (19:11)
[2023-06-25 20:00] VITALS: BP 151/67; PULSE 98; RESP 16; TEMP 37.3; O2SAT 94
[2023-06-26] MEDS: Heparin Sodium,Porcine 5,000 UNIT/ML VIAL 5000 UNIT SUBCUT ×2 (01:31→11:53)
[2023-06-26 04:00] VITALS: BP 164/73; PULSE 70; RESP 18; TEMP 36.4; O2SAT 95
[2023-06-26 06:17] LABS: Hemoglobin 10.5 g/dl (12.0-16.0); Mean Corpuscular HGB Conc 32.8 g/dl (31.0-35.0); Mean Corpuscular Hemoglobin 30.3 pg (27.0-33.0); Mean Corpuscular Volume 92.2 fL (80.0-98.0); Platelet Count 313 X10*3/uL (160-400); Red Blood Count 3.47 X10*6/uL (4.20-5.50); Red Cell Distribution Width 14.2 % (11.0-16.0); White Blood Count 6.1 X10*3/uL (4.8-10.8)
[2023-06-26 06:29] LABS: Anion Gap 12 (12-20); Blood Urea Nitrogen 11 mg/dL (9-16); Carbon Dioxide 30 mmol/L (22-29); Chloride 104 mmol/L (96-108); Creatinine Clr Calc Pharmacy 42.4; Estimated Glomerular Filt Rate > 60; Glucose Random 93 mg/dL (60-115); Potassium 3.1 mmol/L (3.3-5.1); Sodium 143 mmol/L (135-145)
[2023-06-26 07:49] VITALS: BP 170/74; PULSE 76; RESP 18; TEMP 36.2; O2SAT 93
[2023-06-26] MEDS: Pyridoxine HCl (Vitamin B6) 50 MG TABLET PO (07:54)
[2023-06-26] MEDS: risperiDONE 1 MG TABLET PO ×2 (07:54→20:07)
[2023-06-26] MEDS: Cholecalciferol (Vitamin D3) 10 MCG TABLET 20 MCG PO (07:54)
[2023-06-26] MEDS: Thiamine HCL 100 MG TABLET PO (07:54)
[2023-06-26] MEDS: Sertraline HCL 50 MG TABLET PO (07:54)
[2023-06-26] MEDS: amLODIPine Besylate 10 MG TABLET PO (07:54)
[2023-06-26] MEDS: levETIRAcetam 250 MG TABLET PO (07:55)
[2023-06-26] MEDS: cefTRIAXone sodium 2 GM in 0.9 % Sodium Chloride 50 ML IV (07:55)
[2023-06-26] MEDS: Cyanocobalamin (Vitamin B-12) 500 MCG TABLET PO (07:55)
[2023-06-26] MEDS: 0.9 % Sodium Chloride Flush 3 ML SYRINGE IVFLUSH ×2 (08:02→14:33)
[2023-06-26 11:53] VITALS: BP 150/66; PULSE 80
[2023-06-26] MEDS: Aspirin Enteric Coated 81 MG TABLET.DR PO (11:53)
[2023-06-26] MEDS: predniSONE 5 MG TABLET PO (11:53)
--- NOTE | 2023-06-26 12:58 | P.PNIM_ITS ---
Subjective Subjective Date of Service: 06/26/23 Interval History: no fever calm but has sundowning episodes and thus has sitter Review of Systems Review of Systems: Yes all other systems are reviewed and are negative Physical Exam 2 Vital Signs: Vital Signs: Last Vital Signs Temp 97.1 F 06/26/23 07:49 Pulse 80 06/26/23 11:53 Resp 18 06/26/23 07:49 BP 150/66 H 06/26/23 11:53 Pulse Ox 93 06/26/23 07:49 O2 Del Method Room Air 06/26/23 07:49 BMI result Body Mass Index 16.8 Gen: in no acute distress, muscle wasting HEENT: sclera anicteric, moist mucus membranes Neck: supple Lungs: clear to auscultation bilaterally Heart: regular rate and rhythm, no murmurs Abd: soft, non-tender, non-distended Ext: no edema Skin: warm/well-perfused Neuro: alert and oriented to self only Psych: impaired insight Objective Data Active Medications Acetaminophen (Acetaminophen 325 Mg Tablet) 975 mg PO Q6H PRN PRN Reason: Pain, Mild (Pain Scale 1-3) Last Admin: 06/25/23 16:43 Dose: 975 mg Documented By: MICKI Amlodipine Besylate (Amlodipine Besylate 10 Mg Tablet) 10 mg PO DAILY [facility]; Protocol Last Admin: 06/26/23 07:54 Dose: 10 mg Documented By: GEOVANNA Aspirin (Aspirin Enteric Coated 81 Mg Tablet.) 81 mg PO Q48H [facility] Last Admin: 06/26/23 11:53 Dose: 81 mg Documented By: GEOVANNA Benzonatate (Benzonatate 100 Mg Capsule) 100 mg PO TID PRN PRN Reason: Cough Last Admin: 06/24/23 12:30 Dose: 100 mg Documented By: SHAUNNA Cyanocobalamin (Cyanocobalamin (Vitamin B-12) 500 Mcg Tablet) 500 mcg PO DAILY [facility] Last Admin: 06/26/23 07:55 Dose: 500 mcg Documented By: GEOVANNA Docusate Sodium (Docusate Sodium 100 Mg Capsule) 100 mg PO DAILY PRN PRN Reason: Constipation Last Admin: 06/24/23 09:26 Dose: 100 mg Documented By: SHAUNNA Heparin Sodium (Porcine) (Heparin Sodium,Porcine 5,000 Unit/Ml Vial) 5,000 unit SUBCUT Q12H [facility] Last Admin: 06/26/23 11:53 Dose: 5,000 unit Documented By: GEOVANNA Ceftriaxone Sodium 2 gm/ (Sodium Chloride) 50 mls @ 100 mls/hr IV Q24H [facility] Last Infusion: 06/26/23 08:31 Dose: Infused Documented By: GEOVANNA Levetiracetam (Levetiracetam 250 Mg Tablet) 125 mg PO BEDTIME [facility] Last Admin: 06/25/23 19:11 Dose: 125 mg Documented By: MICKI Levetiracetam (Levetiracetam 250 Mg Tablet) 250 mg PO DAILY [facility] Last Admin: 06/26/23 07:55 Dose: 250 mg Documented By: GEOVANNA Melatonin (Melatonin 3 Mg Tablet) 6 mg PO BEDTIME PRN PRN Reason: Insomnia Last Admin: 06/23/23 20:59 Dose: 6 mg Documented By: JOIE Non-Formulary Medication (Netarsudil-Latanoprost [Rocklatan]) 1 drop EYE-BOTH BEDTIME [facility] Ondansetron HCl (Ondansetron Hcl 4 Mg/2 Ml Vial) 4 mg IVPUSH Q8H PRN PRN Reason: Nausea and Vomiting Prednisone (Prednisone 5 Mg Tablet) 5 mg PO DAILY@1200 [facility] Last Admin: 06/26/23 11:53 Dose: 5 mg Documented By: GEOVANNA Pyridoxine HCl (Pyridoxine Hcl (Vitamin B6) 50 Mg Tablet) 50 mg PO DAILY [facility] Last Admin: 06/26/23 07:54 Dose: 50 mg Documented By: GEOVANNA Risperidone (Risperidone 0.5 Mg Tablet) 0.5 mg PO DAILY@1500 [facility] Risperidone (Risperidone 1 Mg Tablet) 1 mg PO BID [facility] Last Admin: 06/26/23 07:54 Dose: 1 mg Documented By: GEOVANNA Sertraline HCl (Sertraline Hcl 50 Mg Tablet) 50 mg PO DAILY [facility] Last Admin: 06/26/23 07:54 Dose: 50 mg Documented By: GEOVANNA Sodium Chloride (0.9 % Sodium Chloride Flush 3 Ml Syringe) 3 ml IVFLUSH QSHIFT [facility] Last Admin: 06/26/23 08:02 Dose: 3 ml Documented By: GEOVANNA Thiamine HCl (Thiamine Hcl 100 Mg Tablet) 100 mg PO DAILY [facility] Last Admin: 06/26/23 07:54 Dose: 100 mg Documented By: GEOVANNA Vitamin D (Cholecalciferol (Vitamin D3) 10 Mcg Tablet) 20 mcg PO DAILY [facility] Last Admin: 06/26/23 07:54 Dose: 20 mcg Documented By: GEOVANNA Labs 06/26/23 05:31 06/26/23 05:31 Labs: Laboratory Results - last 24 hr 06/26/23 05:31 MCV 92.2 MCH 30.3 MCHC 32.8 RDW 14.2 Plt Count 313 MPV 10.0 Absolute Nucleated RBC 0.000 Nucleated RBC % (auto) 0.0 Anion Gap 12 Estim Creat Clear Calc 42.4 Estimated GFR > 60 Random Glucose 93 Calcium 9.0 Assessment and Plan (1) Alzheimer's dementia: Status: Acute (2) Urinary tract infection: Status: Acute Plan d5 83yo F with HTN, seizure disorder, Alzheimer dementia, osteoarthritis with chronic prednisone dependence admitted after mechanical fall at home and developed sepsis from UTI while waiting for placement dementia with sundowning - increased risperidone as per Psychiatry consultation; sitter UTI with sepsis - E coli intermediate to ampicillin; on ceftriaxone 06/22-06/28 (can complete with cefuroxime) - no retention on bladder scan seizure disorder - levetiracetam Alzheimer dementia - risperidone + sertraline HTN - amlodipine OA - continue prednisone 5 mg/d [chronic dose for years] chronic R heel wound - Wound Care consultation moderate protein-calorie malnutrition - supplements VTE ppx - LMWH dispo - STR In my clinical judgment, the patient requires continued inpatient hospitalization for the following reasons: IV ABX, sundowning, placement Total time managing care of this patient today: 35 minutes. Quality Stroke Does the patient have a stroke diagnosis?: No VTE Prior VTE?: No VTE Risk Level:: Medical - moderate - high VTE Device Contraindication: Treatment Not Indicated VTE Drug Contraindication: N/A - Med Ordered
[2023-06-26] MEDS: Enoxaparin Sodium 30 MG/0.3 ML SYRINGE SUBCUT (14:33)
[2023-06-26] MEDS: risperiDONE 0.5 MG TABLET PO (14:33)
[2023-06-26 16:00] VITALS: BP 134/62; PULSE 77; RESP 17; TEMP 36.9; O2SAT 93
--- NOTE | 2023-06-26 17:57 | HO.WOUND ---
Wound Consult: Initial 68yr old?Female admitted to [facility] on 06/22/23 - See progress notes and H&P for detailed history.? Wound consult placed for Coccyx, Right Heel and right arm sin tear.? Patient had limited interaction with her environment - she allowed repositioning and wound assessment. Incontinence care provided - Purewick in place and adjusted to better capture and soft stool incontinence care provided. The right upper arm was assessed and noted for a skin tear - She had dry gauze in place - NS applied and removed with some trauma - wound beds needs moisture to allow for healing and to prevent traumatic dressing removal. Two lesions noted clean and partial thickness tissue loss noted - clean wound bed with dried drainage around wound bed edge. Cleansed and completed with xeroform and gauze wrap. Buttocks and Sacrum assessed - there was not pressure injury noted at this time - tissue remains intact red pink but blanchable throughout - noted for MASD -IAD (Moisture associated skin damage - Incontinence associated dermatitis) Off load pressure to prevent pressure injury development and treat MASD with [employer] clear barrier cream (Light purple pink top). Left Heel Etiology: ?Suspected stage 2 pressure injury - Present on Admission Wound Bed: scabbed over difficult to assess due to scab over wound bed - suspect partial thickness tissue loss Drainage / Odor: None Edges: ? irregular dry and calloused Padmini wound: red pink erythema blanchable ? No Induration, Fluctuance or Warmth noted Pain: Patient responds with pain Goals of Treatment: ? Foam application and off load pressure Right Heel Etiology: ?Stage 3 Pressure Injury - Present on Admission Wound Bed: Full thickness tissue loss pale pink wound bed with thin yellow slough Drainage / Odor: scant yellow drainage Edges: ? irregular and calloused Padmini wound: red pink erythema blanchable? No Induration, Fluctuance or Warmth noted Pain: Patient responds with pain Goals of Treatment: ? Foam application and off load pressure Recommendations: 1. Turn and Reposition every 2 hours and as needed for patient comfort.? Use pillows or wedges to support off loading positions. 2. Off Load all bony prominences with use of pillows and heel boots if needed.? Apply Preventative foams where needed. ? 3. Monitor for incontinence and moisture control, use barrier creams when needed for prevention and treatment. 4. Provide adequate and supplemental nutrition.? 5. Order or Continue low air loss mattress. 6. When applicable maintain blood glucose levels per Providers order. 7. Right arm - Cleanse with normal saline, pat dry. ?Apply double layer Xeroform secure with Abd pads, gauze wrap and tape. ?Do not apply tape to patients skin.? Avoid Adhesive application to skin - when necessary, apply skin prep prior.? 8. Sacrum and Buttock - Off Load Pressure - Cleanse with PH balance spray or wipes, pat dry. ?Apply thin layer [employer] clear barrier cream (Light purple pink top) to wound bed - only pat and dab no scrub and rub when soiling occurs. Reapply thin layer PRN after each episode of incontinence. 9. Bilateral Heels - Off Load Heels with heelcare boots - Cleanse with NS moist gauze, pat dry. Apply cut to size Durafiber AG cover with foam dressing, change every other day.
[2023-06-26 19:19] VITALS: BP 103/52; PULSE 89; RESP 18; TEMP 36.6; O2SAT 93
[2023-06-26] MEDS: levETIRAcetam 250 MG TABLET 125 MG PO (20:07)
[2023-06-27] MEDS: 0.9 % Sodium Chloride Flush 3 ML SYRINGE IVFLUSH ×3 (00:11→16:33)
[2023-06-27 04:00] VITALS: BP 125/58; PULSE 75; RESP 16; TEMP 37; O2SAT 92
[2023-06-27 06:53] VITALS: BP 132/63; PULSE 78; RESP 20; TEMP 36.7; O2SAT 95
[2023-06-27] MEDS: risperiDONE 1 MG TABLET PO ×2 (08:51→20:00)
[2023-06-27] MEDS: Pyridoxine HCl (Vitamin B6) 50 MG TABLET PO (08:51)
[2023-06-27] MEDS: Cholecalciferol (Vitamin D3) 10 MCG TABLET 20 MCG PO (08:51)
[2023-06-27] MEDS: Sertraline HCL 50 MG TABLET PO (08:51)
[2023-06-27] MEDS: amLODIPine Besylate 10 MG TABLET PO (08:51)
[2023-06-27] MEDS: Thiamine HCL 100 MG TABLET PO (08:51)
[2023-06-27] MEDS: Acetaminophen 325 MG TABLET 975 MG PO ×2 (08:51→16:10)
[2023-06-27] MEDS: levETIRAcetam 250 MG TABLET PO (08:51)
[2023-06-27] MEDS: Cyanocobalamin (Vitamin B-12) 500 MCG TABLET PO (08:51)
[2023-06-27] MEDS: cefTRIAXone sodium 2 GM in 0.9 % Sodium Chloride 50 ML IV (08:52)
[2023-06-27] MEDS: Potassium Chloride Packet 20 MEQ PACKET 40 MEQ PO (08:52)
--- NOTE | 2023-06-27 09:15 | HO.PM.IMPN ---
Subjective Subjective Date of Service: 06/27/23 Interval History: no fever c/o arthritis pain Review of Systems Review of Systems: Yes all other systems are reviewed and are negative Physical Exam Vital Signs: Vital Signs: Last Vital Signs Temp 98.1 F 06/27/23 06:53 Pulse 78 06/27/23 06:53 Resp 20 06/27/23 06:53 BP 132/63 06/27/23 06:53 Pulse Ox 95 06/27/23 06:53 O2 Del Method Room Air 06/27/23 06:53 BMI result Body Mass Index 16.8 Gen: in no acute distress, muscle wasting HEENT: sclera anicteric, moist mucus membranes Neck: supple Lungs: clear to auscultation bilaterally Heart: regular rate and rhythm, no murmurs Abd: soft, non-tender, non-distended Ext: no edema Skin: warm/well-perfused Neuro: alert and oriented to self only Psych: impaired insight Objective Data Active Medications Acetaminophen (Acetaminophen 325 Mg Tablet) 975 mg PO Q6H PRN PRN Reason: Pain, Mild (Pain Scale 1-3) Last Admin: 06/27/23 08:51 Dose: 975 mg Documented By: JACINTO Amlodipine Besylate (Amlodipine Besylate 10 Mg Tablet) 10 mg PO DAILY [facility]; Protocol Last Admin: 06/27/23 08:51 Dose: 10 mg Documented By: JACINTO Aspirin (Aspirin Enteric Coated 81 Mg Tablet.) 81 mg PO Q48H [facility] Last Admin: 06/26/23 11:53 Dose: 81 mg Documented By: GEOVANNA Benzonatate (Benzonatate 100 Mg Capsule) 100 mg PO TID PRN PRN Reason: Cough Last Admin: 06/24/23 12:30 Dose: 100 mg Documented By: SHAUNNA Cyanocobalamin (Cyanocobalamin (Vitamin B-12) 500 Mcg Tablet) 500 mcg PO DAILY [facility] Last Admin: 06/27/23 08:51 Dose: 500 mcg Documented By: JACINTO Docusate Sodium (Docusate Sodium 100 Mg Capsule) 100 mg PO DAILY PRN PRN Reason: Constipation Last Admin: 06/24/23 09:26 Dose: 100 mg Documented By: SHAUNNA Enoxaparin Sodium (Enoxaparin Sodium 30 Mg/0.3 Ml Syringe) 30 mg SUBCUT Q24H [facility] Last Admin: 06/26/23 14:33 Dose: 30 mg Documented By: GEOVANNA Ceftriaxone Sodium 2 gm/ (Sodium Chloride) 50 mls @ 100 mls/hr IV Q24H [facility] Last Admin: 06/27/23 08:52 Dose: 100 mls/hr Documented By: JACINTO Levetiracetam (Levetiracetam 250 Mg Tablet) 125 mg PO BEDTIME [facility] Last Admin: 06/26/23 20:07 Dose: 125 mg Documented By: BRADEN Levetiracetam (Levetiracetam 250 Mg Tablet) 250 mg PO DAILY [facility] Last Admin: 06/27/23 08:51 Dose: 250 mg Documented By: JACINTO Melatonin (Melatonin 3 Mg Tablet) 6 mg PO BEDTIME PRN PRN Reason: Insomnia Last Admin: 06/23/23 20:59 Dose: 6 mg Documented By: JOIE Ondansetron HCl (Ondansetron Hcl 4 Mg/2 Ml Vial) 4 mg IVPUSH Q8H PRN PRN Reason: Nausea and Vomiting Oxycodone HCl (Oxycodone Hcl Immed Release 5 Mg Tablet) 2.5 mg PO Q4H PRN PRN Reason: severe pain Prednisone (Prednisone 5 Mg Tablet) 5 mg PO DAILY@1200 [facility] Last Admin: 06/26/23 11:53 Dose: 5 mg Documented By: GEOVANNA Pyridoxine HCl (Pyridoxine Hcl (Vitamin B6) 50 Mg Tablet) 50 mg PO DAILY [facility] Last Admin: 06/27/23 08:51 Dose: 50 mg Documented By: JACINTO Risperidone (Risperidone 0.5 Mg Tablet) 0.5 mg PO DAILY@1500 [facility] Last Admin: 06/26/23 14:33 Dose: 0.5 mg Documented By: GEOVANNA Risperidone (Risperidone 1 Mg Tablet) 1 mg PO BID [facility] Last Admin: 06/27/23 08:51 Dose: 1 mg Documented By: JACINTO Sertraline HCl (Sertraline Hcl 50 Mg Tablet) 50 mg PO DAILY [facility] Last Admin: 06/27/23 08:51 Dose: 50 mg Documented By: JACINTO Sodium Chloride (0.9 % Sodium Chloride Flush 3 Ml Syringe) 3 ml IVFLUSH QSHIFT [facility] Last Admin: 06/27/23 08:52 Dose: 3 ml Documented By: JACINTO Thiamine HCl (Thiamine Hcl 100 Mg Tablet) 100 mg PO DAILY [facility] Last Admin: 06/27/23 08:51 Dose: 100 mg Documented By: JACINTO Vitamin D (Cholecalciferol (Vitamin D3) 10 Mcg Tablet) 20 mcg PO DAILY [facility] Last Admin: 06/27/23 08:51 Dose: 20 mcg Documented By: JACINTO Labs 06/26/23 05:31 06/26/23 05:31 Assessment and Plan (1) Alzheimer's dementia: Status: Acute (2) Urinary tract infection: Status: Acute Plan d6 83yo F with HTN, seizure disorder, Alzheimer dementia, osteoarthritis with chronic prednisone dependence admitted after mechanical fall at home and developed sepsis from UTI while waiting for placement dementia with sundowning - increased risperidone as per Psychiatry consultation; d/c sitter; continue sertraline UTI with sepsis - E coli intermediate to ampicillin; on ceftriaxone 06/22-06/28 (can complete with cefuroxime) - no retention on bladder scan seizure disorder - levetiracetam HTN - amlodipine OA - continue prednisone 5 mg/d [chronic dose for years] MASD/IAD buttocks and sacrum L heel stage 2 pressure injury POA R heel stage 3 pressure injury POA - Wound Care consulted: 1. Turn and Reposition every 2 hours and as needed for patient comfort.? Use pillows or wedges to support off loading positions. 2. Off Load all bony prominences with use of pillows and heel boots if needed.? Apply Preventative foams where needed. ? 3. Monitor for incontinence and moisture control, use barrier creams when needed for prevention and treatment. 4. Provide adequate and supplemental nutrition.? 5. Order or Continue low air loss mattress. 6. When applicable maintain blood glucose levels per Providers order. 7. Right arm - Cleanse with normal saline, pat dry. ?Apply double layer Xeroform secure with Abd pads, gauze wrap and tape. ?Do not apply tape to patients skin.? Avoid Adhesive application to skin - when necessary, apply skin prep prior.? 8. Sacrum and Buttock - Off Load Pressure - Cleanse with PH balance spray or wipes, pat dry. ?Apply thin layer [employer] clear barrier cream (Light purple pink top) to wound bed - only pat and dab no scrub and rub when soiling occurs. Reapply thin layer PRN after each episode of incontinence. 9. Bilateral Heels - Off Load Heels with heelcare boots - Cleanse with NS moist gauze, pat dry. Apply cut to size Durafiber AG cover with foam dressing, change every other day. moderate protein-calorie malnutrition - supplements VTE ppx - LMWH dispo - STR In my clinical judgment, the patient requires continued inpatient hospitalization for the following reasons: IV ABX, sundowning, placement Total time managing care of this patient today: 35 minutes. Quality Stroke Does the patient have a stroke diagnosis?: No VTE Prior VTE?: No VTE Risk Level:: Medical - moderate - high VTE Device Contraindication: Treatment Not Indicated VTE Drug Contraindication: N/A - Med Ordered
[2023-06-27 09:54] VITALS: BP 132/63; PULSE 78; O2SAT 95
--- NOTE | 2023-06-27 10:10 | MHC.CLN ---
F/U DIET=REGULAR. MAGIC CUP BID (580 KCALS, 18 G PROTEIN) TO INCREASE NUTRITIONAL INTAKE. INTAKE APPEARS GOOD, USUALLY 50-100%. SKIN WITH STAGE II TO LEFT HEEL, STAGE III TO RIGHT HEEL. CONTINUE REGULAR DIET WITH MAGIC CUP SUPPLEMENT. ENCOURAGE INTAKE AT MEALS AND SNACKS ABLE.
--- NOTE | 2023-06-27 11:47 | MHC.CM.PN ---
PER MD ROUNDS SITTER WAS D/C'D THIS MORNING. NO CONCERNS AT THIS TIME. BED OFFER FROM [facility] ACCEPTED BY [facility]. PLAN FOR TRANSFER TO [facility] IF 24 HRS W/OUT SITTER.
[2023-06-27] MEDS: predniSONE 5 MG TABLET PO (12:31)
[2023-06-27] MEDS: Enoxaparin Sodium 30 MG/0.3 ML SYRINGE SUBCUT (13:45)
[2023-06-27] MEDS: risperiDONE 0.5 MG TABLET PO (13:45)
[2023-06-27 16:00] VITALS: BP 117/57; PULSE 104; RESP 16; TEMP 36.8; O2SAT 93
[2023-06-27 19:14] VITALS: BP 120/57; PULSE 92; RESP 20; TEMP 36.8; O2SAT 93
[2023-06-27] MEDS: levETIRAcetam 250 MG TABLET 125 MG PO (20:00)
[2023-06-28] MEDS: 0.9 % Sodium Chloride Flush 3 ML SYRINGE IVFLUSH ×2 (00:48→08:25)
[2023-06-28 04:00] VITALS: BP 155/70; PULSE 88; RESP 14; TEMP 36; O2SAT 95
--- NOTE | 2023-06-28 05:25 | PC.NURSE ---
0030-Noted with 200ml of urine to purewick, bladder scan amount revealed 309ml, md order is to st cath >350ml, therefore will continue to monitor output. Pt denied bladder pain or pressure and the shortly afterwards noted additional 200ml to purewick canister.
[2023-06-28 06:58] LABS: Hematocrit 33.2 % (37.0-47.0); Hemoglobin 10.5 g/dl (12.0-16.0); Mean Corpuscular HGB Conc 31.6 g/dl (31.0-35.0); Mean Corpuscular Hemoglobin 30.3 pg (27.0-33.0); Mean Platelet Volume 9.8 fL (9.4-12.3); Platelet Count 333 X10*3/uL (160-400); Red Blood Count 3.46 X10*6/uL (4.20-5.50); Red Cell Distribution Width 14.5 % (11.0-16.0); White Blood Count 6.1 X10*3/uL (4.8-10.8)
[2023-06-28 06:59] LABS: Immature Retic Fraction 15.1 % (3.0-15.9); Retic HGB Equivalent 33.8 pg (30.0-35.0); Reticulocytes Absolute 0.034 X10*6/uL (0.026-0.095)
[2023-06-28 07:00] LABS: Anion Gap 10 (12-20); Blood Urea Nitrogen 17 mg/dL (9-16); Calcium 9.1 mg/dL (8.4-10.2); Carbon Dioxide 30 mmol/L (22-29); Chloride 106 mmol/L (96-108); Creatinine Clr Calc Pharmacy 44.4; Estimated Glomerular Filt Rate > 60; Glucose Random 99 mg/dL (60-115); Iron 27 mcg/dL (30-160); Percent Iron Saturation 12 % (15-50); Potassium 4.2 mmol/L (3.3-5.1); Sodium 142 mmol/L (135-145); Total Iron Binding Capacity 225 mcg/dL (228-428); Unsaturated Iron Binding 198 ug/dL
[2023-06-28 07:33] LABS: Folate 2.5 ng/mL (> or = 4.0); Vitamin B12 682 pg/mL (200-900)
[2023-06-28 07:52] VITALS: BP 165/68; PULSE 78; RESP 16; TEMP 36.2; O2SAT 96
[2023-06-28] MEDS: cefTRIAXone sodium 2 GM in 0.9 % Sodium Chloride 50 ML IV (08:23)
[2023-06-28] MEDS: risperiDONE 1 MG TABLET PO (08:24)
[2023-06-28] MEDS: Sertraline HCL 50 MG TABLET PO (08:24)
[2023-06-28] MEDS: Folic Acid 1 MG TABLET PO (08:24)
[2023-06-28] MEDS: amLODIPine Besylate 10 MG TABLET PO (08:24)
[2023-06-28] MEDS: levETIRAcetam 250 MG TABLET PO (08:24)
[2023-06-28] MEDS: Cholecalciferol (Vitamin D3) 10 MCG TABLET 20 MCG PO (08:24)
[2023-06-28] MEDS: Ferrous Sulfate 324 MG TABLET.DR PO (08:24)
[2023-06-28] MEDS: Cyanocobalamin (Vitamin B-12) 500 MCG TABLET PO (08:24)
[2023-06-28] MEDS: Thiamine HCL 100 MG TABLET PO (08:24)
[2023-06-28] MEDS: Pyridoxine HCl (Vitamin B6) 50 MG TABLET PO (08:24)
--- NOTE | 2023-06-28 10:51 | MHC.CM.PN ---
PT WILL DC TO [facility] TODAY VIA [facility] AT 1230 HOURS CM SPOKE TO PTS HCP, MARTIN [phone], WHO IS AWARE OF DC PLAN AND IN AGREEMENT MEDICARE RIGHTS REVIEWED AND A COPY WAS PLACED AT PTS BEDSIDE PER LV REQUEST
--- NOTE | 2023-06-28 10:51 | PM.DS ---
DS: Providers Provider Date of Service: 06/28/23 Date of admission: 06/22/23 12:06 Date of discharge: 06/28/23 Primary care physician: Alexandro Rodriguez DO Consults: 06/21/23 11:57 Consult to Case Management Stat Comment: 06/22/23 11:59 Consult to Wound Care Routine Reason for consultation: Right heel pressure ulcer 06/25/23 08:39 Consult to Psychiatry Routine Consulting Provider: Psych Covering Reason for consultation: Dementia with behavioral disturbance 06/26/23 13:02 Consult to Wound Care Routine Reason for consultation: R heel pressure ulcer DS: Diagnosis Discharge Diagnosis (1) Alzheimer's dementia: Status: Acute (2) Urinary tract infection: Status: Acute (3) Sundowning: Status: Acute (4) Sepsis: Status: Acute (5) Folate deficiency anemia: Status: Acute (6) Iron deficiency anemia: Status: Acute (7) Essential hypertension: Status: Acute (8) Moderate malnutrition: Status: Acute (9) Dermatitis associated with moisture: Status: Acute (10) Heel ulcer: Status: Acute DS: Summary Hospital Course Hospital Course: From the history and physical by the admitting hospitalist, BONG Wolff, 06/22/23: Pt is a -year-old female with a PMH significant for?HTN, seizure disorder, Alzheimer's dementia, glaucoma, osteoporosis, and IBS who initially presented to the ED yesterday via EMS from home after mechanical fall at home. Patient with advanced dementia at baseline and is unable to remember events surrounding her presentation to the ED or her time here and is thus incapable of providing accurate HPI which is instead obtained from chart and provider review. According to patient's HCP, patient was found attempting to walk down the hallway to the bathroom multiple when she tripped and fell. Patient initially reporting right shoulder and left hip pain. Patient was found sitting on the floor and it was unclear whether she had a head strike. Of note, patient had a partial right hip replacement after mechanical fall at home 4 months prior, and is currently being treated at [facility] pressure to heel. Workup in the ED was significant patient testing positive for UTI. Patient lives with niece/HCP and she reports patient had been increasingly agitated the past few days. Vitals WNL and no leukocytosis; pt did not meet sepsis criteria and was started on Macrobid. Imaging of hips and pelvis, left shoulder, head, and cervical spine were negative for acute fractures or intracranial pathology. Given recent falls and current infection, patient was not discharged home but initially placed in PT/case management. Repeated labs this morning showed new leukocytosis of 17.7 and fever of 101.8. Lactic acid WNL at 1.7. All other labs grossly unremarkable and at baseline for patient. Patient will be admitted to the hospital for UTI with sepsis. 83yo F with HTN, seizure disorder, Alzheimer dementia, and osteoarthritis with chronic prednisone dependence. She was admitted after a mechanical fall at home and developed sepsis from UTI while waiting for placement. Hospital course by problem: UTI with sepsis - urine culture grew E. coli intermediate to ampicillin; treated with 7 days of ceftriaxone - no urine retention on bladder scan dementia with sundowning - increased risperidone as per Psychiatry consultation; sertraline continued HTN - increased amlodipine for improved BP control iron deficiency anemia folate deficiency anemia - normocytic anemia prompted measurement of vitamin/mineral levels, demonstrating iron and folate deficiency; repletion was started MASD/IAD buttocks and sacrum L heel stage 2 pressure injury POA R heel stage 3 pressure injury POA - Wound Care consulted: 1. Turn and Reposition every 2 hours and as needed for patient comfort.? Use pillows or wedges to support off loading positions. 2. Off Load all bony prominences with use of pillows and heel boots if needed.? Apply Preventative foams where needed. ? 3. Monitor for incontinence and moisture control, use barrier creams when needed for prevention and treatment. 4. Provide adequate and supplemental nutrition.? 5. Order or Continue low air loss mattress. 6. When applicable maintain blood glucose levels per Providers order. 7. Right arm - Cleanse with normal saline, pat dry. ?Apply double layer Xeroform secure with Abd pads, gauze wrap and tape. ?Do not apply tape to patients skin.? Avoid Adhesive application to skin - when necessary, apply skin prep prior.? 8. Sacrum and Buttock - Off Load Pressure - Cleanse with PH balance spray or wipes, pat dry. ?Apply thin layer [employer] clear barrier cream (Light purple pink top) to wound bed - only pat and dab no scrub and rub when soiling occurs. Reapply thin layer PRN after each episode of incontinence. 9. Bilateral Heels - Off Load Heels with heelcare boots - Cleanse with NS moist gauze, pat dry. Apply cut to size Durafiber AG cover with foam dressing, change every other day. moderate protein-calorie malnutrition - supplementation started She was transferred to [facility] for [facility]. Time Attestation Total time managing care of this patient today: 45 mintues. Discharge coordination time: Greater than 30 minutes Quality: Safe Use of Opioids Does Pt have an Active Cancer Diagnosis on the Problem List?: No Quality: Stroke Does the patient have a stroke diagnosis?: No Physical Exam Vital Signs: Vital Signs: Last Vital Signs Temp 97.1 F 06/28/23 07:52 Pulse 78 06/28/23 07:52 Resp 16 06/28/23 07:52 BP 165/68 H 06/28/23 07:52 Pulse Ox 96 06/28/23 07:52 O2 Del Method Room Air 06/28/23 07:52 BMI result Body Mass Index 16.8 Gen: in no acute distress, muscle wasting HEENT: sclera anicteric, moist mucus membranes Neck: supple Lungs: clear to auscultation bilaterally Heart: regular rate and rhythm, no murmurs Abd: soft, non-tender, non-distended Ext: no edema Skin: warm/well-perfused Neuro: alert and oriented to self only Psych: impaired insight DS: Data Data Completed and Pending Completed studies during hospitalization [Text1]: Laboratory Results WBC 6.1 X10*3/uL (4.8-10.8) 06/28/23 06: RBC 3.46 X10*6/uL (4.20-5.50) L 06/28/23 06:29 Hgb 10.5 g/dl (12.0-16.0) L 06/28/23 06:29 Hct 33.2 % (37.0-47.0) L 06/28/23 06:29 MCV 96.0 fL (80.0-98.0) 06/28/23 06: MCH 30.3 pg (27.0-33.0) 06/28/23 06: MCHC 31.6 g/dl (31.0-35.0) 06/28/23 06:29 RDW 14.5 % (11.0-16.0) 06/28/23 06:29 Plt Count 333 X10*3/uL (160-400) 06/28/23 06:29 MPV 9.8 fL (9.4-12.3) 06/28/23 06:29 Immature Gran % (Auto) 0.4 % (0.0-0.4) 06/25/23 01:50 Neut % (Auto) 79.2 % (45-73) H 06/25/23 01:50 Lymph % (Auto) 4.7 % (20-40) L 06/25/23 01:50 Barren % (Auto) 10.7 % (2-11) 06/25/23 01:50 Eos % (Auto) 4.4 % (0-4) H 06/25/23 01:50 Baso % (Auto) 0.6 % (0-2) 06/25/23 01:50 Lymph # (Auto) 0.3 X10*3/uL (1.2-4.9) L 06/25/23 01:50 Barren # (Auto) 0.7 X10*3/uL (0.1-1.2) 06/25/23 01:50 Eos # (Auto) 0.3 X10*3/uL (0.0-0.4) 06/25/23 01:50 Baso # (Auto) 0.0 X10*3/uL (0.0-0.2) 06/25/23 01:50 Abs Immat Gran (auto) 0.03 X10*3/uL (0.00-0.03) 06/25/23 01:50 Absolute Neuts (auto) 5.4 x10*3/uL (2.0-8.3) 06/25/23 01:50 Absolute Nucleated RBC 0.000 X10*3/uL (0.0-0.012) 06/28/23 06:29 Nucleated RBC % (auto) 0.0 /100WBC (0.0-0.2) 06/28/23 06:29 Neutrophils % (Manual) 84 % (45-73) H 06/22/23 09:06 Band Neutrophils % 7 % (3-5) H 06/22/23 09:06 Lymphocytes % (Manual) 2 % (20-40) L 06/22/23 09:06 Monocytes % (Manual) 6 % (2-11) 06/22/23 09:06 Basophils % (Manual) 1 % (0-2) 06/22/23 09:06 Abs Neuts (Manual) 16.1 X10*3/uL (2.0-8.3) H 06/22/23 09:06 Lymphocytes # (Manual) 0.4 X10*3/uL (1.2-4.9) L 06/22/23 09:06 Monocytes # (Manual) 1.1 X10*3/uL (0.1-1.2) 06/22/23 09:06 Basophils # (Manual) 0.2 X10*3/uL (0.0-0.2) 06/22/23 09:06 Toxic Vacuolation PRESENT 06/22/23 09:06 Platelet Estimate NORMAL (NORMAL) 06/22/23 09:06 Plt Morphology Comment NORMAL 06/22/23 09:06 RBC Morphology NORMAL 06/22/23 09:06 Absolute Retic 0.034 X10*6/uL (0.026-0.095) 06/28/23 06:29 Percent Retic 1.0 % (0.5-1.8) 06/28/23 06:29 Immature Retic Fraction 15.1 % (3.0-15.9) 06/28/23 06:29 Retic Hgb Equivalent 33.8 pg (30.0-35.0) 06/28/23 06:29 Sodium 142 mmol/L (135-145) 06/28/23 06:29 Potassium 4.2 mmol/L (3.3-5.1) D 06/28/23 06:29 Chloride 106 mmol/L (96-108) 06/28/23 06:29 Carbon Dioxide 30 mmol/L (22-29) H 06/28/23 06:29 Anion Gap 10 (12-20) L 06/28/23 06:29 BUN 17 mg/dL (9-16) H 06/28/23 06:29 Creatinine 0.66 mg/dL (0.5-1.4) 06/28/23 06:29 Estim Creat Clear Calc 44.4 06/28/23 06:29 Estimated GFR > 60 06/28/23 06:29 Random Glucose 99 mg/dL (60-115) 06/28/23 06:29 Lactic Acid 1.4 mmol/L (0.5-2.0) 06/25/23 01:50 Calcium 9.1 mg/dL (8.4-10.2) 06/28/23 06: Magnesium 1.7 mg/dL (1.6-2.6) 06/25/23 01:50 Iron 27 mcg/dL (30-160) L 06/28/23 06: TIBC 225 mcg/dL (228-428) L 06/28/23 06:29 % Saturation 12 % (15-50) L 06/28/23 06:29 Unsat Iron Binding 198 ug/dL 06/28/23 06:29 Total Bilirubin 0.2 mg/dL (0.0-1.0) 06/25/23 01:50 AST 24 U/L (5-31) 06/25/23 01:50 ALT 17 U/L (0-31) 06/25/23 01:50 Alkaline Phosphatase 113 U/L (39-117) 06/25/23 01:50 Troponin I High Sens 5.2 ng/L (<3.5-17.0) D 06/25/23 01:50 Total Protein 6.6 g/dL (6.5-8.0) 06/25/23 01:50 Albumin 3.6 g/dL (3.5-5.0) 06/25/23 01:50 Vitamin B12 682 pg/mL (200-900) 06/28/23 06: Folate 2.5 ng/mL (> or = 4.0) L 06/28/23 06:29 Urine Color Yellow 06/21/23 10:43 Urine Appearance Cloudy 06/21/23 10:43 Urine pH 6.5 (5.0-9.0) 06/21/23 10:43 Ur Specific [place] 1.010 (1.005-1.025) 06/21/23 10:43 Urine Protein Negative mg/dL (Neg-Trace) 06/21/23 10:43 Urine Glucose (UA) Negative mg/dL (Negative) 06/21/23 10:43 Urine Ketones Negative mg/dL (Negative) 06/21/23 10:43 Urine Blood Negative (Negative) 06/21/23 10:43 Urine Nitrite Positive (Negative) H 06/21/23 10:43 Ur Leukocyte Esterase Negative (Negative) 06/21/23 10:43 Urine RBC 0-2 /HPF (0-2) 06/21/23 10:43 Urine WBC 0-5 /HPF (0-5) 06/21/23 10:43 Ur Squamous Epith Cells 0-2 /HPF (0-2) 06/21/23 10:43 Urine Bacteria 4+ (None Seen) 06/21/23 10:43 Hyaline Casts 0-2 /LPF (0-2) 06/21/23 10:43 COVID-19 (BRENT) Negative (Negative) 06/21/23 16:09 COVID-19 Clin Com See Note 06/21/23 16:09 Influenza Type A (PCR) NEGATIVE (Negative) 06/22/23 23:49 Influenza Type B (PCR) NEGATIVE (Negative) 06/22/23 23:49 RSV RNA Qual (PCR) NEGATIVE (Negative) 06/22/23 23:49 SARS-CoV-2 RNA (RT-PCR) NEGATIVE (Negative) 06/22/23 23:49 Impressions Hip/Pelvis X-Ray 06/21/23 08:05 IMPRESSION: No acute findings. Shoulder X-Ray 06/21/23 08:05 IMPRESSION: No acute findings. Cervical Spine CT 06/21/23 08:15 IMPRESSION: Advanced multilevel degenerative change. No fracture. Fleischner guidelines were followed. Head CT 06/21/23 08:15 IMPRESSION: No acute intracranial pathology. Chest X-Ray 06/25/23 01:45 IMPRESSION: Blunting of the costophrenic angles could represent pleural scarring versus small pleural effusions. No other significant abnormality seen. Discharge Plan Discharge Anticipated Discharge Date/Time: 06/28/23 10:41 Patient Disposition: Xfer SNF Discharge Diagnosis: UTI dementia with sundown hypertension fall moderate malnutrition folate and iron deficiency anemia heel pressure ulcers Referrals: [facility] [Outside] Alexandro Rodriguez DO [Primary Care Provider] - Discharge Medications: New amlodipine 10 mg Tablet 10 mg PO DAILY Qty: 30 0RF Protocol: Hold for SBP< HOLD for SBP < : 90 folic acid 1 mg Tablet 1 mg PO DAILY Qty: 30 0RF risperidone 1 mg Tablet 1 mg PO BID Qty: 60 0RF ferrous sulfate 324 mg (65 mg iron) Tablet,Delayed Release (Dr/Ec) 324 mg PO DAILY Qty: 30 0RF Continued cyanocobalamin (vitamin B-12) 500 mcg Tablet 500 mcg PO DAILY acetaminophen 500 mg Tablet 1,000 mg PO BID PRN (Reason: Fever Or Pain) cholecalciferol (vitamin D3) 10 mcg (400 unit) Tablet 20 mcg PO DAILY prednisone 5 mg tablet 5 mg PO DAILY@1200 Rocklatan 0.02-0.005 % drops 1 drp ophthalmic (eye) BEDTIME pyridoxine (vitamin B6) [Vitamin B-6] 50 mg Tablet 50 mg PO DAILY levetiracetam 250 mg tablet 125 mg PO BEDTIME sertraline 50 mg tablet 50 mg PO DAILY thiamine HCl (vitamin B1) 100 mg tablet 100 mg PO DAILY levetiracetam 250 mg tablet 250 mg PO DAILY aspirin 81 mg Tablet,Delayed Release (Dr/Ec) 81 mg PO Q48H Discontinued amlodipine 5 mg tablet 5 mg PO DAILY risperidone 0.5 mg tablet 0.5 mg PO BID Discharge Orders: Discharge Order (Routine); Ordered 06/28/23 Ordered By: Mari Irwin Diet: Advance to usual diet Activity on Discharge: As tolerated Stand Alone Forms: Patient Portal Discharge page Care Plan Goals: recovery from infection improved mental status BP control fall prevention improved nutrition wound healing Health Concerns: UTI dementia with sundown hypertension fall moderate malnutrition folate and iron deficiency anemia heel pressure ulcers Plan of Treatment: completed 7 days of antibiotics in the hospital increase risperidone to 1 mg in the morning and at bedtime, 0.5 mg mid-afternoon increase amlodipine to 10 mg daily physical therapy Ensure or Boost 1 can twice daily start folic acid 1 mg daily plus ferrous sulfate 325 mg daily wound care: 1. Turn and Reposition every 2 hours and as needed for patient comfort.? Use pillows or wedges to support off loading positions. 2. Off Load all bony prominences with use of pillows and heel boots if needed.? Apply Preventative foams where needed. ? 3. Monitor for incontinence and moisture control, use barrier creams when needed for prevention and treatment. 4. Provide adequate and supplemental nutrition.? 5. Order or Continue low air loss mattress. 6. When applicable maintain blood glucose levels per Providers order. 7. Right arm - Cleanse with normal saline, pat dry. ?Apply double layer Xeroform secure with Abd pads, gauze wrap and tape. ?Do not apply tape to patients skin.? Avoid Adhesive application to skin - when necessary, apply skin prep prior.? 8. Sacrum and Buttock - Off Load Pressure - Cleanse with PH balance spray or wipes, pat dry. ?Apply thin layer [employer] clear barrier cream (Light purple pink top) to wound bed - only pat and dab no scrub and rub when soiling occurs. Reapply thin layer PRN after each episode of incontinence. 9. Bilateral Heels - Off Load Heels with heelcare boots - Cleanse with NS moist gauze, pat dry. Apply cut to size Durafiber AG cover with foam dressing, change every other day. Assessment: See Discharge Summary. Patient Instructions: Fall Prevention for Older Adults (ED)
[2023-06-28] MEDS: Aspirin Enteric Coated 81 MG TABLET.DR PO (12:41)
[2023-06-28] MEDS: predniSONE 5 MG TABLET PO (12:41)
== END 2023-06-28 13:42 | disposition skilled nursing facility (03) | DRG 871 ==
LOC: HO.ED 19:16 → HO.EDOVER 06-22 12:25 → HO.S3 06-22 12:33
PROVIDERS: Internal Medicine; Physician Assistant; Physician Assistant Medical; Admitting Provider Student in an Organized Health Care Education/Training Program; Emergency Provider Emergency Medicine; PCP Internal Medicine; Visit Provider Family Medicine
DX: A41.9 Sepsis, unspecified organism (principal); L89.613 Pressure ulcer of right heel, stage 3; F05 Delirium due to known physiological condition; E44.0 Moderate protein-calorie malnutrition; Z68.1 Body mass index [BMI] 19.9 or less, adult; N39.0 Urinary tract infection, site not specified; M35.3 Polymyalgia rheumatica; E87.6 Hypokalemia; Z66 Do not resuscitate; L24.A0 Irritant contact dermatitis due to friction or contact with body fluids, unspecified; I10 Essential (primary) hypertension; D52.9 Folate deficiency anemia, unspecified; D50.9 Iron deficiency anemia, unspecified; L89.622 Pressure ulcer of left heel, stage 2; G40.909 Epilepsy, unspecified, not intractable, without status epilepticus; W19.XXXA Unspecified fall, initial encounter; B96.20 Unspecified Escherichia coli [E. coli] as the cause of diseases classified elsewhere; B95.4 Other streptococcus as the cause of diseases classified elsewhere; G30.9 Alzheimer's disease, unspecified; F02.80 Dementia in other diseases classified elsewhere, unspecified severity, without behavioral disturbance, psychotic disturbance, mood disturbance, and anxiety; Z20.822 Contact with and (suspected) exposure to COVID-19; Z87.891 Personal history of nicotine dependence; Z88.0 Allergy status to penicillin; Z88.2 Allergy status to sulfonamides; Z79.52 Long term (current) use of systemic steroids; Z79.82 Long term (current) use of aspirin; Z79.899 Other long term (current) drug therapy
CPT/HCPCS: 0241U; 36415; 70450; 71045; 72125; 73030; 73502; 80048; 80053; 81001; 81003; 82607; 82746; 83540; 83605; 83735; 84484; 85007; 85025; 85027; 85045; 87040; 87086; 87088; 87186; 87635; 93005; 97116; 97162; 99285; J0696; J1200; J1644; J1650; J1953; J2359

== ENCOUNTER → 2023-06-21 05:23 | Outpatient (BNV) | payer MEDICARE, SELFPAY | PROVIDERS: Emergency Provider Emergency Medicine; PCP Internal Medicine; Visit Provider Internal Medicine Cardiovascular Disease | DX: R94.31 Abnormal electrocardiogram [ECG] [EKG] (principal) | CPT/HCPCS: 93010 ==

== ENCOUNTER 2023-06-22 12:06 | Outpatient (BNV) | payer MEDICARE, SELFPAY | END 2023-06-25 07:22 | PROVIDERS: Admitting Provider Student in an Organized Health Care Education/Training Program; Emergency Provider Emergency Medicine; PCP Internal Medicine; Visit Provider Internal Medicine | DX: R00.0 Tachycardia, unspecified (principal) | CPT/HCPCS: 93010 ==

== ENCOUNTER → 2023-06-22 12:06 | Outpatient (BNV) | payer MEDICARE, SELFPAY | PROVIDERS: Admitting Provider Student in an Organized Health Care Education/Training Program; Emergency Provider Emergency Medicine; PCP Internal Medicine; Visit Provider Student in an Organized Health Care Education/Training Program | DX: A41.9 Sepsis, unspecified organism (principal); E44.0 Moderate protein-calorie malnutrition; G30.9 Alzheimer's disease, unspecified; F02.80 Dementia in other diseases classified elsewhere, unspecified severity, without behavioral disturbance, psychotic disturbance, mood disturbance, and anxiety; F05 Delirium due to known physiological condition; N39.0 Urinary tract infection, site not specified; D52.9 Folate deficiency anemia, unspecified; D50.9 Iron deficiency anemia, unspecified; I10 Essential (primary) hypertension; L30.8 Other specified dermatitis; L97.409 Non-pressure chronic ulcer of unspecified heel and midfoot with unspecified severity | CPT/HCPCS: 99223; 99232; 99239 ==

== ENCOUNTER → 2023-06-22 12:06 | Outpatient (BNV) | payer MEDICARE, SELFPAY | PROVIDERS: Admitting Provider Student in an Organized Health Care Education/Training Program; Emergency Provider Emergency Medicine; PCP Internal Medicine; Visit Provider Clinical Nurse Specialist Psychiatric/Mental Health | DX: G30.9 Alzheimer's disease, unspecified (principal); F02.811 Dementia in other diseases classified elsewhere, unspecified severity, with agitation; N39.0 Urinary tract infection, site not specified | CPT/HCPCS: 99223 ==

== ENCOUNTER 2023-07-02 16:53 | Emergency (ER) | payer MEDICARE, SELFPAY ==
--- NOTE | ~2023-07-02 | CT_ITS ---
EXAMINATION: CT HEAD WITHOUT CONTRAST CLINICAL INFORMATION: Altered mental status COMPARISON: CT head 06/21/2023 TECHNIQUE: Contiguous axial imaging was performed from the skull base to vertex without intravenous administration of contrast. This CT examination was performed using dose optimization techniques as appropriate, variously including the following: *Automated exposure control *Adjustment of mA and/or kV according to patient size (this includes techniques or standardized protocols for targeted exams where dose is matched to indication/reason for exam; i.e. extremities or head) *Use of iterative reconstruction technique DLP: 577 mGy-cm FINDINGS: There is no evidence of acute intracranial hemorrhage or edematous territorial infarction. No abnormal mass effect or midline shift is seen. Martinez to white matter differentiation is well preserved. No abnormal extra-axial fluid collections are identified. Commensurate prominence of the ventricles and sulci is compatible with generalized parenchymal volume loss. There is prominent periventricular and subcortical white matter hypoattenuation, most likely representing microangiopathic disease. No acute calvarial fracture.. Paranasal sinuses and mastoid air cells are well-aerated. CT/CT head/brain wo IV con IMPRESSION: No CT evidence of acute intracranial hemorrhage or edematous territorial infarction.
--- NOTE | ~2023-07-02 | XR_ITS ---
EXAMINATION: XR CHEST CLINICAL INFORMATION: Elevated white blood cell count COMPARISON: 06/25/2023 TECHNIQUE: Frontal view of the chest was obtained. FINDINGS: The heart and pulmonary vessels appear normal. There is no evidence of CHF. Some minimal left basilar atelectasis is present. At the time of the prior study, there is mild blunting of the left costophrenic angle which appears improved with no evidence of pleural effusion at this time. XR/XR chest 1V IMPRESSION: No acute intrathoracic disease. Minimal left basilar atelectasis.
--- NOTE | 2023-07-02 17:02 | ECG_ITS ---
Test Reason : ams Blood Pressure : / mmHG Vent. Rate : 089 BPM Atrial Rate : 089 BPM P-R Int : 178 ms QRS Dur : 086 ms QT Int : 352 ms P-R-T Axes : 058 -59 038 degrees QTc Int : 428 ms Normal sinus rhythm Left axis deviation Septal infarct , age undetermined Abnormal ECG When compared with ECG of 25-JUN-2023 07:22, Septal infarct is now Present Nonspecific T wave abnormality has replaced inverted T waves in Anterior leads Referred By: Crow Levin Electronically Signed By:Nicolas Covarrubias
[2023-07-02 17:04] LABS: Glucose, Whole Blood 136 mg/dL (60-115)
[2023-07-02 17:13] VITALS: BP 133/61; BP 134/71; PULSE 89; PULSE 92; RESP 16; TEMP 36.7; O2SAT 95; O2SAT 96; BMI 21.4
--- NOTE | 2023-07-02 17:16 | PC.NURSE ---
pt LENEAA from [facility] as stroke alert. pt evaluated by Dr. Levin and determined not to be stroke alert but rather AMS. per EMS, pt family sts that pt became unresponsive at 1605 about 30 min before EMS arrival. pt became more responsive once in ED. hx of dementia and recent UTI. 18G IV placed to LAC by EMS. per EMS, [facility] initially gave wrong patient packet and stated they would fax over pt's information. pt back from CT scan, EKG obtained. VSS. plan of care ongoing.
[2023-07-02 17:28] LABS: MANUAL DIFF FLAG NO
[2023-07-02 17:34] LABS: Basophils Absolute Auto 0.1 X10*3/uL (0.0-0.2); Basophils Percent Auto 0.4 % (0-2); Eosinophils Absolute Auto 0.1 X10*3/uL (0.0-0.4); Eosinophils Percent Auto 0.6 % (0-4); Hematocrit 37.7 % (37.0-47.0); Hemoglobin 12.1 g/dl (12.0-16.0); Imm Gran Abs Auto 0.09 X10*3/uL (0.00-0.03); Imm Gran Pct Auto 0.6 % (0.0-0.4); Lymphocytes Absolute Auto 0.6 X10*3/uL (1.2-4.9); Lymphocytes Percent Auto 4.3 % (20-40); Mean Corpuscular HGB Conc 32.1 g/dl (31.0-35.0); Mean Corpuscular Hemoglobin 30.3 pg (27.0-33.0); Mean Corpuscular Volume 94.3 fL (80.0-98.0); Mean Platelet Volume 9.4 fL (9.4-12.3); Monocytes Absolute Auto 0.9 X10*3/uL (0.1-1.2); Monocytes Percent Auto 6.5 % (2-11); Neutrophils Absolute Auto 12.7 x10*3/uL (2.0-8.3); Neutrophils Percent Auto 87.6 % (45-73); Platelet Count 446 X10*3/uL (160-400); Red Cell Distribution Width 14.3 % (11.0-16.0); White Blood Count 14.5 X10*3/uL (4.8-10.8)
[2023-07-02 17:42] LABS: Anion Gap 15 (12-20); Blood Urea Nitrogen 21 mg/dL (9-16); Calcium 9.2 mg/dL (8.4-10.2); Carbon Dioxide 29 mmol/L (22-29); Chloride 103 mmol/L (96-108); Creatinine Clr Calc Pharmacy 35.7; Estimated Glomerular Filt Rate > 60; Glucose Random 151 mg/dL (60-115); Potassium 4.5 mmol/L (3.3-5.1); Sodium 142 mmol/L (135-145)
[2023-07-02 17:52] LABS: Troponin-I High Sensitivity < 2.7 ng/L (<3.5-17.0)
[2023-07-02 18:56] VITALS: BP 125/56; PULSE 103; RESP 16; TEMP 36.7; O2SAT 94
--- NOTE | 2023-07-02 19:04 | MHC.EDTECH ---
Patient inc stool and urine patient cleaned and repositioned
--- NOTE | 2023-07-02 20:07 | PC.NURSE ---
pt bladder scanned at 2005- 156mls. Unable to straight cath at this time.
--- NOTE | 2023-07-02 21:29 | ED.AMS ---
HPI - Altered Mental Status General Chief Complaint: Altered Mental Status Stated Complaint: CONFUSED,R SIDE FACIAL DROOP,FIXED GAZE Source: EMS Mode of arrival: EMS Limitations: physical limitation (dementia) History of Present Illness HPI narrative: Patient with an episode of unresponsiveness for a few minutes. Patient with a history of dementia living in a shelter. There was a concern of right facial droop, no other focal weakness noted, no seizure activity MD complaint: decreased responsiveness Onset (ago): minute(s) Timing confirmed by: caregiver Severity: moderate Related Data Home Medications Medication Instructions Recorded Confirmed cyanocobalamin (vitamin B-12) 500 500 mcg PO DAILY 04/08/20 06/21/23 mcg tablet acetaminophen 500 mg tablet 1,000 mg PO BID PRN Fever Or Pain 02/16/21 06/21/23 cholecalciferol (vitamin D3) 10 20 mcg PO DAILY 02/16/21 06/21/23 mcg (400 unit) tablet prednisone 5 mg tablet 5 mg PO DAILY@1200 02/16/21 06/21/23 netarsudil 0.02 %-latanoprost 1 drp ophthalmic (eye) BEDTIME 02/17/21 06/21/23 0.005 % eye drops (Rocklatan) pyridoxine (vitamin B6) 50 mg 50 mg PO DAILY 04/12/21 06/21/23 tablet (Vitamin B-6) levetiracetam 250 mg tablet 125 mg PO BEDTIME 03/10/23 06/21/23 levetiracetam 250 mg tablet 250 mg PO DAILY 03/10/23 06/21/23 sertraline 50 mg tablet 50 mg PO DAILY 03/10/23 06/21/23 thiamine HCl (vitamin B1) 100 mg 100 mg PO DAILY 03/10/23 06/21/23 tablet aspirin 81 mg tablet,delayed 81 mg PO Q48H 06/21/23 06/21/23 release Previous Rx's Medication Instructions Recorded amlodipine 10 mg tablet 10 mg PO DAILY #30 tabs 06/28/23 ferrous sulfate 324 mg (65 mg 324 mg PO DAILY #30 tabs 06/28/23 iron) tablet,delayed release folic acid 1 mg tablet 1 mg PO DAILY #30 tabs 06/28/23 risperidone 1 mg tablet 1 mg PO BID #60 tabs 06/28/23 Allergies Allergy/AdvReac Type Severity Reaction Status Date / Time cefadroxil [From DURICEF] Allergy Unknown RASH Verified 05/03/23 13:15 cortisone Allergy Unknown RASH, Verified 05/03/23 13:15 REDDENED CHEST FROM CORTISONE INJECTIONS levofloxacin [From LEVAQUIN] Allergy Unknown TINNITIS Verified 05/03/23 13:15 penicillin V Allergy Unknown Unknown Verified 05/03/23 13:15 Sulfa (Sulfonamide Allergy Unknown UNKNOWN Verified 05/03/23 13:15 Antibiotics) sulfamethoxazole Allergy Unknown RASH Verified 05/03/23 13:15 [From BACTRIM] trimethoprim [From BACTRIM] Allergy Unknown RASH Verified 05/03/23 13:15 Review of Systems Review of Systems: Yes Unobtainable due to mental status Neurologic: Denies Sensory deficit (Neuro) [facility] Past Medical History Medical History Alzheimer's dementia Multifactorial dementia Cerebral microvascular disease Glaucoma IBS (irritable bowel syndrome) HTN (hypertension) UTI (urinary tract infection) Elevated C-reactive protein Osteoporosis PMR (polymyalgia rheumatica) Primary osteoarthritis of hands, bilateral Surgical History Hx of appendectomy H/O cataract removal with insertion of prosthetic lens History of wisdom tooth extraction History of tonsillectomy H/O: hysterectomy Social History Social History Household Members: Children Household Members Other:: NIECE Housing: House Are you a primary childbirth and infant care teacher to a significant other at home: No Do you presently have visiting nurse or other home services: Yes (VNA, PT, OT, [employer]) Unable to assess alcohol history related to: Unknown Alcohol intake: former Comment: md notified Patient Tobacco Use Status: Former Tobacco user Smoked in Last 30 Days: No Use of substances other than those prescribed or required for medical reasons: No Substance Use Type: Unknown Advance Directives: Yes Advance Directives on File: Yes Advance Directives Date on File: 05/13/21 service: No Current occupational status: retired Physical Exam ED Vital Signs: Vital Signs - 24 hr 07/02/23 17:13 07/02/23 18:56 07/02/23 21:46 Temperature 98.0 F 98.1 F 98.3 F Pulse Rate 92 103 H 93 Respiratory Rate 16 16 14 Blood Pressure 134/71 125/56 L 128/60 Pulse Oximetry 95 94 Oxygen Delivery Method Room Air Room Air BMI result Body Mass Index 21.4 Const Other: thin female chronically ill awake but unable to talk or tell a story, she is following commands Nutritional Appearance: thin Limitations: altered mental status HENMT Head: Yes normal to inspection Ears: external ears normal General nose exam: Normal external nose present Mouth: Normal oral and palatal mucosa present and oropharynx normal Throat: Yes posterior oropharynx normal Eyes Other: right eye blind Neck Neck: Yes normal visual inspection Chest Chest palpation & inspection: normal inspection of the chest Resp Auscultation: clear to auscultation bilaterally Cardio Jugular venous distension: no JVD Rate: regular rate Rhythm: regular rhythm Heart sounds: S1 normal heart sound present and S2 normal heart sound present GI Inspection: Yes normal to inspection Palpation (GI): Soft to palpation, nontender and No hepatosplenomegaly present Auscultation: normal bowel sounds General: Yes no CVA tenderness Back/Spine/Pelvis Back: no CVA tenderness Skin General skin exam: no rashes or lesions noted Neuro Other: moves all extremities no focal deficit Sensory Exam: No Sensory deficit (Neuro) Extrem General: Yes normal to inspection Psych Other: dementia patient not able to assess Course Reevaluation(s) Reevaluation #1: patient more awake, no evidence of stroke, likely a syncopal event or seizure as patient with significant atrophy on head ct Time: 21:34 Reevaluation #2: I spent 40 minutes of critical care, with interventions, assessments, speaking to consultants, and EMS. Time: 21:52 Reevaluation #3: awaiting UA Time: 21:52 Medical Decision Making Differential Diagnosis Differential Diagnoses: The differential diagnosis associated with the presentation includes (CVA, seizure, UTI, encephalopathy, pneumonia were all considered) Admission/Observation Consideration of admission/observation: Escalation of care including admission/observation considered (upon arrival patient considered for admission) Lab Data 07/02/23 17:23 07/02/23 17:23 Labs: Lab Results 07/02/23 07/02/23 Range/Units 16:56 17:23 WBC 14.5 H (4.8-10.8) X10*3/uL RBC 4.00 L (4.20-5.50) X10*6/uL Hgb 12.1 (12.0-16.0) g/dl Hct 37.7 (37.0-47.0) % MCV 94.3 (80.0-98.0) fL MCH 30.3 (27.0-33.0) pg MCHC 32.1 (31.0-35.0) g/dl RDW 14.3 (11.0-16.0) % Plt Count 446 H D (160-400) X10*3/uL MPV 9.4 (9.4-12.3) fL Immature Gran % (Auto) 0.6 H (0.0-0.4) % Neut % (Auto) 87.6 H (45-73) % Lymph % (Auto) 4.3 L (20-40) % [place] % (Auto) 6.5 (2-11) % Eos % (Auto) 0.6 (0-4) % Baso % (Auto) 0.4 (0-2) % Lymph # (Auto) 0.6 L (1.2-4.9) X10*3/uL [place] # (Auto) 0.9 (0.1-1.2) X10*3/uL Eos # (Auto) 0.1 (0.0-0.4) X10*3/uL Baso # (Auto) 0.1 (0.0-0.2) X10*3/uL Abs Immat Gran (auto) 0.09 H (0.00-0.03) X10*3/uL Absolute Neuts (auto) 12.7 H (2.0-8.3) x10*3/uL Absolute Nucleated RBC 0.000 (0.0-0.012) X10*3/uL Nucleated RBC % (auto) 0.0 (0.0-0.2) /100WBC Whole Blood PT 12.0 (11.1-13.5) sec Whole Blood INR 1.0 (0.9-1.1) Sodium 142 (135-145) mmol/L Potassium 4.5 (3.3-5.1) mmol/L Chloride 103 (96-108) mmol/L Carbon Dioxide 29 (22-29) mmol/L Anion Gap 15 (12-20) BUN 21 H (9-16) mg/dL Creatinine 0.80 (0.5-1.4) mg/dL Estim Creat Clear Calc 35.7 Estimated GFR > 60 POC Glucose 136 H (60-115) mg/dL Random Glucose 151 H (60-115) mg/dL Calcium 9.2 (8.4-10.2) mg/dL Troponin I High Sens < 2.7 (<3.5-17.0) ng/L Independent Interpretation I performed an independent interpretation of an: EKG (sinus 90, no st or twave changes), Plain X-Ray (no infiltrate) and CT Scan (atrophy on head ct) Radiology Impression Discussion of test interpretation with radiology: I have reviewed the radiologist's reading. Independent Historian Clinical information obtained from an independent historian. History obtained from or confirmed by: EMS Prescription Management I considered prescription management with: Antibiotic (no infection noted) Chronic Conditions Patient?s care impacted by: Other (dementia) Discharge Plan Discharge Clinical Impression: Unresponsive episode Patient Disposition: Still a Patient Instructions: Altered Mental Status (ED) Prescriptions: No Action cyanocobalamin (vitamin B-12) 500 mcg Tablet 500 mcg PO DAILY acetaminophen 500 mg Tablet 1,000 mg PO BID PRN (Reason: Fever Or Pain) cholecalciferol (vitamin D3) 10 mcg (400 unit) Tablet 20 mcg PO DAILY prednisone 5 mg tablet 5 mg PO DAILY@1200 Rocklatan 0.02-0.005 % drops 1 drp ophthalmic (eye) BEDTIME pyridoxine (vitamin B6) [Vitamin B-6] 50 mg Tablet 50 mg PO DAILY levetiracetam 250 mg tablet 125 mg PO BEDTIME sertraline 50 mg tablet 50 mg PO DAILY thiamine HCl (vitamin B1) 100 mg tablet 100 mg PO DAILY levetiracetam 250 mg tablet 250 mg PO DAILY aspirin 81 mg Tablet,Delayed Release (Dr/Ec) 81 mg PO Q48H amlodipine 10 mg Tablet 10 mg PO DAILY Qty: 30 0RF Protocol: Hold for SBP< HOLD for SBP < : 90 folic acid 1 mg Tablet 1 mg PO DAILY Qty: 30 0RF risperidone 1 mg Tablet 1 mg PO BID Qty: 60 0RF ferrous sulfate 324 mg (65 mg iron) Tablet,Delayed Release (Dr/Ec) 324 mg PO DAILY Qty: 30 0RF Referrals: Cresencio Franco MD [Primary Care Provider] - 3 days
[2023-07-02 21:46] VITALS: BP 128/60; PULSE 93; RESP 14; TEMP 36.8
--- NOTE | 2023-07-02 21:58 | PC.NURSE ---
pt straight cath- tolerated well. urine sample sent down to lab. PT repositioned. Vitals taken and are stable. PT A/Ox1. complains of generalized pain 12/07. Plan of are ongoing
[2023-07-02 22:02] LABS: Appearance Urine Clear; Color Urine Yellow; Glucose Urine UA Negative (Negative); Leukocyte Esterase Urine Negative (Negative); Nitrite Urine Negative (Negative); Urine Blood Negative (Negative); Urine Ketones Negative (Negative); Urine Protein Negative (Neg-Trace)
[2023-07-03 00:28] VITALS: BP 125/56; PULSE 95; RESP 17; TEMP 36.9; O2SAT 94
== END 2023-07-03 00:45 | disposition skilled nursing facility (03) ==
PROVIDERS: Emergency Provider Emergency Medicine; PCP Family Medicine
DX: R40.4 Transient alteration of awareness (principal); G30.9 Alzheimer's disease, unspecified; F02.80 Dementia in other diseases classified elsewhere, unspecified severity, without behavioral disturbance, psychotic disturbance, mood disturbance, and anxiety; I10 Essential (primary) hypertension
CPT/HCPCS: 36415; 70450; 71045; 80048; 81003; 82947; 84484; 85025; 85610; 93005; 99285

== ENCOUNTER → 2023-07-02 17:02 | Outpatient (BNV) | payer MEDICARE, SELFPAY | PROVIDERS: Emergency Provider Emergency Medicine; PCP Family Medicine; Visit Provider Internal Medicine Cardiovascular Disease | DX: R94.31 Abnormal electrocardiogram [ECG] [EKG] (principal) | CPT/HCPCS: 93010 ==

== ENCOUNTER 2023-07-30 11:41 | Inpatient (IN) | payer MEDICARE, SELFPAY ==
--- NOTE | ~2023-07-30 | XR_ITS ---
EXAMINATION: XR CHEST CLINICAL INFORMATION: Cough COMPARISON: 07/02/2023 TECHNIQUE: Frontal view of the chest was obtained. FINDINGS: No significant abnormality is noted involving the heart, lungs or mediastinum. There is evidence of bilateral rotator cuff disease and degenerative changes in the shoulder. XR/XR chest 1V IMPRESSION: No acute intrathoracic disease.
[2023-07-30 11:53] VITALS: BP 120/62; BP 123/72; PULSE 90; PULSE 94; RESP 18; TEMP 37.7; O2SAT 92; O2SAT 94; BMI 17.3
--- NOTE | 2023-07-30 12:04 | ECG_ITS ---
Test Reason : ELEVATED SODIUM Blood Pressure : / mmHG Vent. Rate : 093 BPM Atrial Rate : 093 BPM P-R Int : 146 ms QRS Dur : 068 ms QT Int : 334 ms P-R-T Axes : 049 -27 029 degrees QTc Int : 415 ms Normal sinus rhythm Normal ECG When compared with ECG of 02-JUL-2023 17:11, Criteria for Septal infarct are no longer Present Referred By: Muriel Garcia Electronically Signed By:BELLE DAILEY MD
[2023-07-30 12:05] VITALS: BP 121/62; PULSE 96; RESP 19; TEMP 37.7; O2SAT 92
--- NOTE | 2023-07-30 12:06 | PC.NURSE ---
Pt presents to ED via EMS from SNF ([facility]). EMS reports facility called for AMS/ decrease in responsiveness (normally confused but alert at baseline). Facility paperwork shows labs drawn yesterday with a sodium of 165 and WBC of 17. EMS called sepsis alert. Pt has IV from EMS, 18G in left wrist. Pt has multiple wounds on body, one to buttock area and bilat heels, covered by facility. Pt is alert to painful stimuli, answers slow but does not answer most questions. Breathing even and unlabored, skin dry and hot. Rectal temp 99.8F. Pt placed on bedside patient monitor, NSR. RA SPO2 90-93%, pt placed on 2L NC. Vital signs stable otherwise. MD Tatum notified of pts condition.
--- NOTE | 2023-07-30 12:30 | ED_ITS ---
HPI - Altered Mental Status General Chief Complaint: Altered Mental Status Stated Complaint: AMS,HTN,FEVER FROM SNF PER EMS Time Seen by Provider: 07/30/23 12:03 Source: EMS and other Mode of arrival: EMS History of Present Illness HPI narrative: 83-year-old female brought in by EMS from group home, patient is DNR/DNI, facility was concern for altered mental status, patient has dementia at baseline as well as a seizure history and depression. No history obtained from the patient herself, she is following commands but not speaking to us. Related Data Home Medications Medication Instructions Recorded Confirmed cyanocobalamin (vitamin B-12) 500 500 mcg PO DAILY 04/08/20 06/21/23 mcg tablet acetaminophen 500 mg tablet 1,000 mg PO BID PRN Fever Or Pain 02/16/21 06/21/23 cholecalciferol (vitamin D3) 10 20 mcg PO DAILY 02/16/21 06/21/23 mcg (400 unit) tablet prednisone 5 mg tablet 5 mg PO DAILY@1200 02/16/21 06/21/23 netarsudil 0.02 %-latanoprost 1 drp ophthalmic (eye) BEDTIME 02/17/21 06/21/23 0.005 % eye drops (Rocklatan) pyridoxine (vitamin B6) 50 mg 50 mg PO DAILY 04/12/21 06/21/23 tablet (Vitamin B-6) levetiracetam 250 mg tablet 125 mg PO BEDTIME 03/10/23 06/21/23 levetiracetam 250 mg tablet 250 mg PO DAILY 03/10/23 06/21/23 sertraline 50 mg tablet 50 mg PO DAILY 03/10/23 06/21/23 thiamine HCl (vitamin B1) 100 mg 100 mg PO DAILY 03/10/23 06/21/23 tablet aspirin 81 mg tablet,delayed 81 mg PO Q48H 06/21/23 06/21/23 release Previous Rx's Medication Instructions Recorded amlodipine 10 mg tablet 10 mg PO DAILY #30 tabs 06/28/23 ferrous sulfate 324 mg (65 mg 324 mg PO DAILY #30 tabs 06/28/23 iron) tablet,delayed release folic acid 1 mg tablet 1 mg PO DAILY #30 tabs 06/28/23 risperidone 1 mg tablet 1 mg PO BID #60 tabs 06/28/23 Allergies Allergy/AdvReac Type Severity Reaction Status Date / Time cefadroxil [From DURICEF] Allergy Unknown RASH Verified 05/03/23 13:15 cortisone Allergy Unknown RASH, Verified 05/03/23 13:15 REDDENED CHEST FROM CORTISONE INJECTIONS levofloxacin [From LEVAQUIN] Allergy Unknown TINNITIS Verified 05/03/23 13:15 penicillin V Allergy Unknown Unknown Verified 05/03/23 13:15 Sulfa (Sulfonamide Allergy Unknown UNKNOWN Verified 05/03/23 13:15 Antibiotics) sulfamethoxazole Allergy Unknown RASH Verified 05/03/23 13:15 [From BACTRIM] trimethoprim [From BACTRIM] Allergy Unknown RASH Verified 05/03/23 13:15 Review of Systems 2 Review of Systems: Yes Unobtainable due to mental condition PMFSH Past Medical History Source: nursing notes reviewed Medical History Accident due to mechanical fall without injury Alzheimer's dementia Multifactorial dementia Cerebral microvascular disease Glaucoma IBS (irritable bowel syndrome) HTN (hypertension) UTI (urinary tract infection) Elevated C-reactive protein Osteoporosis PMR (polymyalgia rheumatica) Primary osteoarthritis of hands, bilateral Surgical History Hx of appendectomy H/O cataract removal with insertion of prosthetic lens History of wisdom tooth extraction History of tonsillectomy H/O: hysterectomy Social History Social History Household Members: Children Household Members Other:: NIECE Housing: House Are you a primary healthcare science specialist to a significant other at home: No Do you presently have visiting nurse or other home services: Yes (VNA, PT, OT, [employer]) Unable to assess alcohol history related to: Unknown Alcohol intake: former Comment: notified Patient Tobacco Use Status: Former Tobacco user Substance Use Type: Unknown Advance Directives: Yes Advance Directives on File: Yes Advance Directives Date on File: 05/13/21 service: No Current occupational status: retired Physical Exam ED Vital Signs: Vital Signs - 24 hr 07/30/23 11:53 07/30/23 12:05 07/30/23 12:33 Temperature 99.8 F 99.8 F Pulse Rate 94 96 90 Respiratory Rate 18 19 17 Blood Pressure 120/62 121/62 122/64 Pulse Oximetry 92 92 96 Oxygen Delivery Method Room Air Room Air Nasal Cannula Oxygen Flow Rate 2 BMI result Body Mass Index 17.3 VITAL SIGNS: Reviewed. GENERAL: Well developed, well nourished, in no acute distress. HEAD: Normocephalic/atraumatic EYES: PERRLA, EOMI, pinpoint bilaterally EARS: Ext canals without abnormality NOSE: Nares patent bilateral OROPHARYNX: no oral lesions noted, deplorable oral care as there is food within the oral cavity caked along the teeth, the tongue is terribly dried out NECK: Supple, no adenopathy LUNGS: Decreased breath sounds, no increased work of breathing or tachypnea noted SpO2<96> supplemental oxygen 2 L CARDIOVASCULAR: Regular rate and rhythm without noted murmurs, no JVD or lower extremity edema. ABDOMEN: Soft, non-tender, non-distended with bowel sounds. MUSCULOSKELETAL: No tenderness, deformities, or effusions noted on gross inspection. EXTREMITIES: No cyanosis, clubbing or edema. SKIN: Inspection of the skin reveals no rashes, chronic wounds noted to bilateral heels, skin tear to right upper extremity NEUROLOGIC: Alert and Strength and sensation to light touch were grossly intact x 4. Medications Administered Discontinued Medications Generic Name Dose Route Start Last Admin Trade Name Freq PRN Reason Stop Dose Admin Sodium Chloride 500 mls @ 999 mls/hr 07/30/23 13:30 07/30/23 13:46 Ns IV 07/30/23 14:00 999 mls/hr .Q31M DI Administration Medical Decision Making Medical Decision Making [facility] Narrative: 1235: 83-year-old female with history and clinical presentation, DDX: Hypernatremia and suspect that this is secondary to lack of hydration possibly due to patient's baseline interest in food or offering a food and water, patient is not febrile/tachycardic/tachypneic and blood pressure is stable and therefore no clinical suspicion for sepsis at this time. I suspect that the altered mental status if in fact this is a change is likely secondary to elevated sodium levels. I have asked the nurse to contact the decision maker for the patient in an effort to ascertain whether not percutaneous gastrostomy tube would be more appropriate for hydration and nutrition. 1318: I reviewed all investigations, I note that there is a leukocytosis however there is no source and I suspect that this is secondary to hemoconcentration from significant lack of adequate hydration, there is no anemia or thrombocytopenia. Chemistry indices at this time indicate hyperosmolar hypernatremia without GUS or liver enzyme derangements, will provide patient with initial 500 cc of normal saline, plan for patient admission. Chest x-ray negative for infiltrate or venous congestion otherwise my interpretation is in agreement with radiology's impression. 1323: I have discussed the case with inpatient hospitalist who accepts admission. Differential Diagnosis Differential Diagnoses: The differential diagnosis associated with the presentation includes Please see the discussion above Admission/Observation Consideration of admission/observation: Escalation of care including admission/observation considered Please see the discussion above Consult Healthcare Provider Management of the patient was discussed with: Hospitalist Please see the discussion above Lab Data MDM Lab Attestation statement: I reviewed the patient's lab results. Please see the discussion above 07/30/23 12:34 07/30/23 12:34 Labs: Lab Results 07/30/23 07/30/23 07/30/23 Range/Units 12:34 12:44 13:30 WBC 15.5 H (4.8-10.8) X10*3/uL RBC 4.15 L (4.20-5.50) X10*6/uL Hgb 12.4 (12.0-16.0) g/dl Hct 41.9 (37.0-47.0) % MCV 101.0 H (80.0-98.0) fL MCH 29.9 (27.0-33.0) pg MCHC 29.6 L (31.0-35.0) g/dl RDW 15.0 (11.0-16.0) % Plt Count 317 D (160-400) X10*3/uL MPV 10.0 (9.4-12.3) fL Immature Gran % (Auto) 0.6 H (0.0-0.4) % Neut % (Auto) 87.0 H (45-73) % Lymph % (Auto) 5.6 L (20-40) % [place] % (Auto) 3.9 (2-11) % Eos % (Auto) 2.2 (0-4) % Baso % (Auto) 0.7 (0-2) % Lymph # (Auto) 0.9 L (1.2-4.9) X10*3/uL [place] # (Auto) 0.6 (0.1-1.2) X10*3/uL Eos # (Auto) 0.3 (0.0-0.4) X10*3/uL Baso # (Auto) 0.1 (0.0-0.2) X10*3/uL Abs Immat Gran (auto) 0.09 H (0.00-0.03) X10*3/uL Absolute Neuts (auto) 13.5 H (2.0-8.3) x10*3/uL Absolute Nucleated RBC 0.000 (0.0-0.012) X10*3/uL Nucleated RBC % (auto) 0.0 (0.0-0.2) /100WBC Sodium 166 H* (135-145) mmol/L Potassium 3.9 (3.3-5.1) mmol/L Chloride 128 H D (96-108) mmol/L Carbon Dioxide 28 (22-29) mmol/L Anion Gap 14 (12-20) BUN 34 H (9-16) mg/dL Creatinine 0.85 (0.5-1.4) mg/dL Estim Creat Clear Calc 31.3 Estimated GFR > 60 Random Glucose 159 H (60-115) mg/dL Osmolality 353 H (281-305) mosm/kg Lactic Acid 2.1 H* (0.5-2.0) mmol/L Calcium 9.5 (8.4-10.2) mg/dL Magnesium 2.8 H (1.6-2.6) mg/dL Total Bilirubin 0.4 (0.0-1.0) mg/dL AST 16 (5-31) U/L ALT 27 (0-31) U/L Alkaline Phosphatase 224 H (39-117) U/L Total Protein 6.4 L (6.5-8.0) g/dL Albumin 3.1 L (3.5-5.0) g/dL Procalcitonin 0.38 ng/mL Urine Color Yellow Urine Appearance Clear Urine pH 5.0 (5.0-9.0) Ur Specific [place] 1.015 (1.005-1.025) Urine Protein Negative (Neg-Trace) mg/dL Urine Glucose (UA) Negative (Negative) mg/dL Urine Ketones Trace (Negative) mg/dL Urine Blood Negative (Negative) Urine Nitrite Negative (Negative) Ur Leukocyte Esterase Small (1+) H (Negative) Urine RBC 0-2 (0-2) /HPF Urine WBC 6-10 (0-5) /HPF Ur Squamous Epith Cells 3-5 (0-2) /HPF Urine Bacteria None Seen (None Seen) Hyaline Casts 3-5 (0-2) /LPF Granular Casts Present Independent Interpretation I performed an independent interpretation of an: EKG Interpretation: Significant artifact, normal sinus rhythm, HR-93, no STEMI, MT/QRS/QTC is within normal limits. Radiology Impression Discussion of test interpretation with radiology: I have reviewed the radiologist's reading. Radiologist Impression: Please see the discussion above External Record Review External record reviewed: Outpatient record, Prior outpatient labs and Prior outpatient radiology Chronic Conditions Patient?s care impacted by: Other Dementia, seizures Critical Care Time Critical Care Time Critical Care Time: Yes Total Critical Care Time: 60 Attestation: I personally attest to this time spent taking care of the patient. Discharge Plan Discharge Clinical Impression: Hyperosmolality with hypernatremia, Altered mental status, Dehydration Patient Disposition: Admitted As Inpatient
[2023-07-30 12:33] VITALS: BP 122/64; PULSE 90; RESP 17; O2SAT 96
[2023-07-30 12:41] LABS: MANUAL DIFF FLAG NO
[2023-07-30 12:43] LABS: Basophils Absolute Auto 0.1 X10*3/uL (0.0-0.2); Basophils Percent Auto 0.7 % (0-2); Eosinophils Absolute Auto 0.3 X10*3/uL (0.0-0.4); Eosinophils Percent Auto 2.2 % (0-4); Hematocrit 41.9 % (37.0-47.0); Hemoglobin 12.4 g/dl (12.0-16.0); Imm Gran Abs Auto 0.09 X10*3/uL (0.00-0.03); Imm Gran Pct Auto 0.6 % (0.0-0.4); Lymphocytes Absolute Auto 0.9 X10*3/uL (1.2-4.9); Lymphocytes Percent Auto 5.6 % (20-40); Mean Corpuscular HGB Conc 29.6 g/dl (31.0-35.0); Mean Corpuscular Hemoglobin 29.9 pg (27.0-33.0); Monocytes Absolute Auto 0.6 X10*3/uL (0.1-1.2); Monocytes Percent Auto 3.9 % (2-11); Neutrophils Absolute Auto 13.5 x10*3/uL (2.0-8.3); Platelet Count 317 X10*3/uL (160-400); Red Blood Count 4.15 X10*6/uL (4.20-5.50); White Blood Count 15.5 X10*3/uL (4.8-10.8)
[2023-07-30 12:54] LABS: Appearance Urine Clear; Color Urine Yellow; Glucose Urine UA Negative (Negative); Leukocyte Esterase Urine Small (1+) (Negative); Nitrite Urine Negative (Negative); Specific Gravity - Urine 1.015 (1.005-1.025); UMIC TRIGGER UACC YES; Urine Blood Negative (Negative); Urine Ketones Trace mg/dL (Negative); Urine Protein Negative (Neg-Trace)
[2023-07-30 12:55] LABS: Osmolality, Serum 353 mosm/kg (281-305)
[2023-07-30 13:06] LABS: Bacteria Urine None Seen (None Seen); Granular Casts Urine Present; RBC Urine 0-2 /HPF (0-2); UACC Culture Trigger YES
--- NOTE | 2023-07-30 13:32 | PC.NURSE ---
Pt noted with large dressing to buttocks, removed and excoriated/red buttocks noted. Right heel noted with pressure wound, new DCD applied. Photos taken, sent to Dr Garcia.
[2023-07-30 13:39] LABS: Alanine Aminotransferase 27 U/L (0-31); Albumin Level 3.1 g/dL (3.5-5.0); Alkaline Phosphatase 224 U/L (39-117); Anion Gap 14 (12-20); Aspartate Amino Transferase 16 U/L (5-31); Bilirubin Total 0.4 mg/dL (0.0-1.0); Blood Urea Nitrogen 34 mg/dL (9-16); Calcium 9.5 mg/dL (8.4-10.2); Carbon Dioxide 28 mmol/L (22-29); Chloride 128 mmol/L (96-108); Creatinine Clr Calc Pharmacy 31.3; Estimated Glomerular Filt Rate > 60; Glucose Random 159 mg/dL (60-115); Magnesium 2.8 mg/dL (1.6-2.6); Potassium 3.9 mmol/L (3.3-5.1); Sodium 166 mmol/L (135-145); Total Protein 6.4 g/dL (6.5-8.0)
[2023-07-30] MEDS: 0.9 % Sodium Chloride 500 ML 999 ML IV (13:46)
[2023-07-30 13:50] LABS: Lactic Acid 2.1 mmol/L (0.5-2.0)
--- NOTE | 2023-07-30 13:51 | P.HPHOSP_ITS ---
History of Present Illness Date of Service: 07/30/23 Chief Complaint: altered mental status dehydration. 83year-old female with a PMH significant for?HTN, seizure disorder, advanced Alzheimer's dementia, glaucoma, osteoporosis, and IBS, coming from group home where she who has been noted to become more confused and less responsive, with decrease oral intake and concern fo dehydration. Labs work was done at the facility and she was noted to have a sodium level of 165 which is confirmed in the ED. Further work up show clean urine other than leukocyte esterase, and WBC of 15, lactic acid 2.1. She is givein normal saline to begin with, she respond to some yes/no question Review of Systems 2 Review of Systems: Yes Unobtainable due to mental condition [facility] Medical History Accident due to mechanical fall without injury Alzheimer's dementia Multifactorial dementia Cerebral microvascular disease Glaucoma IBS (irritable bowel syndrome) HTN (hypertension) UTI (urinary tract infection) Elevated C-reactive protein Osteoporosis PMR (polymyalgia rheumatica) Primary osteoarthritis of hands, bilateral Surgical History Hx of appendectomy H/O cataract removal with insertion of prosthetic lens History of wisdom tooth extraction History of tonsillectomy H/O: hysterectomy Social History Household Members: Children Household Members Other:: NIECE Housing: House Are you a primary certified caregiver to a significant other at home: No Do you presently have visiting nurse or other home services: Yes (VNA, PT, OT, CHILD WELFARE SPECIALIST) Unable to assess alcohol history related to: Unknown Alcohol intake: former Comment: notified Patient Tobacco Use Status: Former Tobacco user Substance Use Type: Unknown Advance Directives: Yes Advance Directives on File: Yes Advance Directives Date on File: 05/13/21 service: No Current occupational status: retired Meds Allergies Allergy/AdvReac Type Severity Reaction Status Date / Time cefadroxil [From DURICEF] Allergy Unknown RASH Verified 05/03/23 13:15 cortisone Allergy Unknown RASH, Verified 05/03/23 13:15 REDDENED CHEST FROM CORTISONE INJECTIONS levofloxacin [From LEVAQUIN] Allergy Unknown TINNITIS Verified 05/03/23 13:15 penicillin V Allergy Unknown Unknown Verified 05/03/23 13:15 Sulfa (Sulfonamide Allergy Unknown UNKNOWN Verified 05/03/23 13:15 Antibiotics) sulfamethoxazole Allergy Unknown RASH Verified 05/03/23 13:15 [From BACTRIM] trimethoprim [From BACTRIM] Allergy Unknown RASH Verified 05/03/23 13:15 Active Medications: Current Medications Sodium Chloride (Ns) 500 mls @ 999 mls/hr IV .Q31M DI Stop: 07/30/23 14:00 Last Admin: 07/30/23 13:46 Dose: 999 mls/hr Home Medications Medication Instructions Recorded Confirmed Last Taken Type cyanocobalamin (vitamin B-12) 500 500 mcg PO DAILY 04/08/20 07/30/23 03/10/23 History mcg tablet acetaminophen 500 mg tablet 1,000 mg PO BID PRN Fever Or Pain 02/16/21 07/30/23 02/16/21 History cholecalciferol (vitamin D3) 10 20 mcg PO DAILY 02/16/21 07/30/23 03/10/23 History mcg (400 unit) tablet prednisone 5 mg tablet 5 mg PO DAILY 02/16/21 07/30/23 03/10/23 History netarsudil 0.02 %-latanoprost 1 drp ophthalmic (eye) BEDTIME 02/17/21 07/30/23 04/11/21 History 0.005 % eye drops (Rocklatan) pyridoxine (vitamin B6) 50 mg 50 mg PO DAILY 04/12/21 07/30/23 03/10/23 History tablet (Vitamin B-6) levetiracetam 250 mg tablet 125 mg PO BEDTIME 03/10/23 07/30/23 Unknown History levetiracetam 250 mg tablet 250 mg PO DAILY 03/10/23 07/30/23 03/10/23 History sertraline 50 mg tablet 50 mg PO DAILY 03/10/23 07/30/23 03/10/23 History thiamine HCl (vitamin B1) 100 mg 100 mg PO DAILY 03/10/23 07/30/23 03/10/23 History tablet aspirin 81 mg tablet,delayed 81 mg PO Q48H 06/21/23 07/30/23 Unknown History release Saccharomyces boulardii 10 billion 10,000 mmu cells PO BID 07/30/23 07/30/23 Unknown History cell capsule amlodipine 5 mg tablet 5 mg PO DAILY 07/30/23 07/30/23 Unknown History potassium chloride 20 mEq 20 meq PO DAILY 07/30/23 07/30/23 Unknown History tablet,extended release risperidone 0.5 mg tablet 0.5 mg PO BID 07/30/23 07/30/23 Unknown History risperidone 0.5 mg tablet 0.5 mg PO DAILY PRN depression 07/30/23 07/30/23 Unknown History Physical Exam 2 Vital Signs and Narrative: Vital Signs: Last Vital Signs Temp 99.8 F 07/30/23 12:05 Pulse 90 07/30/23 12:33 Resp 17 07/30/23 12:33 BP 122/64 07/30/23 12:33 Pulse Ox 96 07/30/23 12:33 O2 Del Method Nasal Cannula 07/30/23 12:33 O2 Flow Rate 2 07/30/23 12:33 BMI result Body Mass Index 17.3 Constitutional: Alert, but confused, not talking other than some yes/no responses, cachectic Mental Status: Confused Eyes: Pupils are equal, round and reactive to light. Ear, Nose and Throat: Oropharynx clear, mucous membranes dry Respiratory: Clear to auscultation. No wheezing, rales or rhonchi. Cardiovascular: S1 S2 regular. No murmurs, rubs or gallops. Gastrointestinal: Abdomen soft, non-tender, non-distended. Normal bowel sounds.? Neurologic: Cranial nerves II-XII grossly intact. No focal neurological deficits. Moves all extremities spontaneously.? Skin: No rashes or lesions.? Musculoskeletal: No cyanosis or clubbing. Psychiatric: affect?float Results Labs 07/30/23 16:00 07/30/23 16:00 Labs: Laboratory Results - last 24 hr 07/30/23 07/30/23 07/30/23 12:34 12:44 13:30 MCV 101.0 H MCH 29.9 MCHC 29.6 L RDW 15.0 Plt Count 317 D MPV 10.0 Immature Gran % (Auto) 0.6 H Neut % (Auto) 87.0 H Lymph % (Auto) 5.6 L Dawson % (Auto) 3.9 Eos % (Auto) 2.2 Baso % (Auto) 0.7 Lymph # (Auto) 0.9 L Dawson # (Auto) 0.6 Eos # (Auto) 0.3 Baso # (Auto) 0.1 Abs Immat Gran (auto) 0.09 H Absolute Neuts (auto) 13.5 H Absolute Nucleated RBC 0.000 Nucleated RBC % (auto) 0.0 Anion Gap 14 Estim Creat Clear Calc 31.3 Estimated GFR > 60 Random Glucose 159 H Osmolality 353 H Lactic Acid 2.1 H* Calcium 9.5 Magnesium 2.8 H Total Bilirubin 0.4 AST 16 ALT 27 Alkaline Phosphatase 224 H Total Protein 6.4 L Albumin 3.1 L Urine Color Yellow Urine Appearance Clear Urine pH 5.0 Ur Specific [place] 1.015 Urine Protein Negative Urine Glucose (UA) Negative Urine Ketones Trace Urine Blood Negative Urine Nitrite Negative Ur Leukocyte Esterase Small (1+) H Urine RBC 0-2 Urine WBC 6-10 Ur Squamous Epith Cells 3-5 Urine Bacteria None Seen Hyaline Casts 3-5 Granular Casts Present Imaging Radiologist's Impressions: Impressions Chest X-Ray 07/30/23 12:28 IMPRESSION: No acute intrathoracic disease. Assessment and Plan (1) Dehydration: Status: Acute (2) Altered mental status: Status: Acute (3) Heel ulcer: Status: Acute (4) Hyperosmolality with hypernatremia: Status: Acute Plan 83 yo F with advanced dementia from SNF here with metabolic encephalopath d/t hypernatremia Hypernatremia d/t dehydration, given some normal saline as initial hydration, given relatively borderline BP, subsequently will add 1/2NS and check sodium Q6 and readjust fluid as needed. Dementia-- resume meds after med rec completed Leukocytosis--suspect reactive d/t leukoconcentration, and chronic steroid use, she's on prednisone 5 daily indicaton not clear PRM--she is quite rigid, she take Prednisone 5 daily, she's NPO and will add Solumedrol Seizure d/o resume Keppra once med rec completed HTN--previously on Norvasc, awaiting med rec Acute lactic acidosis, not du to sepsis, likely d/t tissue hypoperfusion from dehydration, repeat, dementia with sundowning - increased risperidone as per Psychiatry consultation; d/c sitter; continue sertraline left heel pressure ulcer, POA, off loading shoe DNR/DNI, MOLST in chart admission for at least 2 midngihts for management of acute hypenatremia/encephalopath with IVF and frequent lab check Quality Stroke Does the patient have a stroke diagnosis?: No VTE Prior VTE?: No VTE Risk Level:: Medical - moderate - high VTE Device Contraindication: Treatment Not Indicated VTE Drug Contraindication: N/A - Med Ordered
[2023-07-30 14:15] LABS: Procalcitonin 0.38 ng/mL
--- NOTE | 2023-07-30 14:44 | PHA.MEDREC ---
Pharmacy Consult ? Medication Reconciliation Pharmacy has completed the medication reconciliation. Patient from [facility] with med list. Jocelyne Alvarado, MayeD
[2023-07-30 15:34] LABS: Reflex Lactate? Lactic Acid Added
[2023-07-30] MEDS: Sodium Chloride 0.45 % 1,000 ML 100 ML IVCONT (15:45)
[2023-07-30 15:50] VITALS: BP 107/48; PULSE 78; RESP 15; O2SAT 99
[2023-07-30 16:10] LABS: Hematocrit 39.7 % (37.0-47.0); Hemoglobin 11.8 g/dl (12.0-16.0); Mean Corpuscular HGB Conc 29.7 g/dl (31.0-35.0); Mean Corpuscular Hemoglobin 29.6 pg (27.0-33.0); Mean Corpuscular Volume 99.7 fL (80.0-98.0); Mean Platelet Volume 10.3 fL (9.4-12.3); Platelet Count 292 X10*3/uL (160-400); Red Blood Count 3.98 X10*6/uL (4.20-5.50); Red Cell Distribution Width 14.9 % (11.0-16.0); White Blood Count 17.2 X10*3/uL (4.8-10.8)
[2023-07-30 16:16] LABS: ~Lactic Acid-LAB USE ONLY 1.8 mmol/L (0.5-2.0)
[2023-07-30 16:28] LABS: Anion Gap 9 (12-20); Carbon Dioxide 28 mmol/L (22-29); Chloride 132 mmol/L (96-108); Potassium 4.2 mmol/L (3.3-5.1); Sodium 165 mmol/L (135-145)
--- NOTE | 2023-07-30 16:38 | PC.NURSE ---
Assumed care of patient, patient transferred to hospital bed, perfecto care provided, pt positioned with pillows at this time.
[2023-07-30] MEDS: Heparin Sodium,Porcine 5,000 UNIT/ML VIAL 5000 UNIT SUBCUT (16:59)
[2023-07-30] MEDS: Dextrose 5 % 1,000 ML 100 ML IVCONT (17:01)
[2023-07-30] MEDS: methylPREDNISolone Sod Succ 40 MG/ML VIAL 20 MG IVPUSH (17:22)
[2023-07-30 20:29] VITALS: BP 112/48; PULSE 63; RESP 16; TEMP 36.3; O2SAT 98
--- NOTE | 2023-07-30 22:29 | MHC.CM.ED ---
IMM 07/29. Reviewed with HCP/niece. Copy left at bedside per niece's request. Pt with advance Alzeheimer's. Non-verbal. From [facility] ( [facility]). Came to ED with increased AMS. Admitted. Normally lives with niece/HCP Cary Marcus ([phone]). Cary also cares for her disabled sister. Pt was at [facility] after [place] [facility] [place] with fever and UTI. Niece does not want patient to return to [facility] d/t lack of care and new coccyx pressure sore. Cary tells CM that she cannot care for the patient anymore in her home. She needs too much care. Cary did apply for MH in January and has sent them all the requested forms. Has not yet heard if she has MH yet. Cary is aware that pays for LTC and that LTC beds are sometimes hard to find. CM will check with financial services regarding MH application. Pt is wheelchair bound. Only pivots to bed and W/C. Her PCP is Dr. Rodriguez. Her HCP is on file. She has a MOLST on file DNR/DNI. D/C plan: LTC. HCP does not want pt to return to [facility]. Assess status of MH application Make referrals to LTC.
[2023-07-30 22:47] LABS: Anion Gap 11 (12-20); Carbon Dioxide 28 mmol/L (22-29); Chloride 126 mmol/L (96-108); Potassium 3.9 mmol/L (3.3-5.1); Sodium 161 mmol/L (135-145)
--- NOTE | 2023-07-30 23:25 | PC.NURSE ---
Late entry: Assumed care of pt at 1900. PT arousable to painful stimuli (repositioning). Did vocalize pain by saying ouch but otherwise not communicating or opening eyes at this time. Fluids running at 100mls/hr. Iv line patent and intact, vss- pt on 2l NC. Pericare provided as pt was incontinent of stool. Purewick in place but no urine outpt PT found to have stage 3 pressure wound on coccyx and on right heel. Stage 1 pressure sore noted on left heel- wound care provide and foam dressing applied to affected area. PO medications held due to pts risk for aspiration. Discussed with Hospitalist, Dr. Villarreal. Administered IV keppra as per JUN. Received critical from labs sodium level 161 notified provider. Safety precautions on place. Call butcher within reach. Plan of care ongoing
[2023-07-30 23:43] VITALS: BP 108/51; PULSE 76; RESP 16; TEMP 36.1; O2SAT 97
[2023-07-31] MEDS: Heparin Sodium,Porcine 5,000 UNIT/ML VIAL 5000 UNIT SUBCUT ×2 (01:19→14:57)
[2023-07-31 02:28] LABS: Anion Gap 8 (12-20); Carbon Dioxide 29 mmol/L (22-29); Chloride 125 mmol/L (96-108); Potassium 3.7 mmol/L (3.3-5.1); Sodium 158 mmol/L (135-145)
[2023-07-31] MEDS: Dextrose 5 % 1,000 ML 100 ML IVCONT ×3 (02:51→18:48)
[2023-07-31 05:52] VITALS: BP 131/53; PULSE 68; RESP 14; TEMP 36.1; O2SAT 100
[2023-07-31 06:28] LABS: MANUAL DIFF FLAG NO
[2023-07-31 06:37] LABS: Basophils Percent Auto 0.3 % (0-2); Eosinophils Absolute Auto 0.1 X10*3/uL (0.0-0.4); Eosinophils Percent Auto 0.8 % (0-4); Hematocrit 37.1 % (37.0-47.0); Imm Gran Abs Auto 0.07 X10*3/uL (0.00-0.03); Imm Gran Pct Auto 0.6 % (0.0-0.4); Lymphocytes Absolute Auto 0.7 X10*3/uL (1.2-4.9); Lymphocytes Percent Auto 5.9 % (20-40); Mean Corpuscular HGB Conc 29.6 g/dl (31.0-35.0); Mean Corpuscular Hemoglobin 29.8 pg (27.0-33.0); Mean Corpuscular Volume 100.5 fL (80.0-98.0); Mean Platelet Volume 10.4 fL (9.4-12.3); Monocytes Absolute Auto 0.5 X10*3/uL (0.1-1.2); Neutrophils Absolute Auto 10.6 x10*3/uL (2.0-8.3); Neutrophils Percent Auto 88.4 % (45-73); Platelet Count 271 X10*3/uL (160-400); Red Blood Count 3.69 X10*6/uL (4.20-5.50); Red Cell Distribution Width 14.5 % (11.0-16.0)
[2023-07-31 06:58] LABS: Anion Gap 10 (12-20); Carbon Dioxide 27 mmol/L (22-29); Chloride 123 mmol/L (96-108); Potassium 3.5 mmol/L (3.3-5.1); Sodium 156 mmol/L (135-145)
[2023-07-31 07:04] LABS: Anion Gap 10 (12-20); Blood Urea Nitrogen 29 mg/dL (9-16); Calcium 8.9 mg/dL (8.4-10.2); Carbon Dioxide 28 mmol/L (22-29); Chloride 123 mmol/L (96-108); Creatinine Clr Calc Pharmacy 35.4; Estimated Glomerular Filt Rate > 60; Glucose Random 245 mg/dL (60-115); Potassium 3.5 mmol/L (3.3-5.1); Sodium 157 mmol/L (135-145)
--- NOTE | 2023-07-31 07:15 | MHC.PIE ---
Patient currently sleeping, D5 running at 100ml/hr at this time. morning PO meds held d/t patient AMS and not alert, will discuss with MD.
[2023-07-31 10:40] LABS: Anion Gap 8 (12-20); Carbon Dioxide 28 mmol/L (22-29); Chloride 122 mmol/L (96-108); Potassium 3.3 mmol/L (3.3-5.1); Sodium 155 mmol/L (135-145)
--- NOTE | 2023-07-31 10:54 | PC.NURSE ---
Dr. Cano made aware of pt's po meds being held d/t her not being alert enough to swallow. Per Dr. Cano he will be down to see her shortly.
[2023-07-31 10:55] VITALS: BMI 17.3
--- NOTE | 2023-07-31 11:00 | PC.NURSE ---
Patient has open area to coccyx and on right heel, Dr. Calhoun made aware, wound consult in place.
--- NOTE | 2023-07-31 11:00 | MHC.CLN ---
PT IS MODERATELY MALNOURISHED MILDLY DEPLETED SUBCUTANEOUS FAT AND MUSCLE MASS WITH 22% SIGNIFICANT WT LOSS X 6 MONTHS WITH INCREASED NUTRITION RISK R/T PRESSURE INJURY PREVIOUSLY SEEN 06/25/23 AND DX MALNOURISHED PT IS CURRENTLY NPO WHEN DIET TO ADVANCE; RECOMMEND ADDING NUTRITION SUPPLEMENT (MAGIC CUP BID) TO INCREASE KCALS FOLLOWING FOR DIET ADVANCEMENT SEE ALSO FULL CLINICAL NUTRITION ASSESSMENT
--- NOTE | 2023-07-31 11:35 | MHC.EDTECH ---
This tech gave the patient a complete bed bath. Pt was incontinent of urine and her bowels. New purewick is in place and working. Pt also has a wound on her bottom, RN AWARE
--- NOTE | 2023-07-31 12:53 | P.CONNP_ITS ---
History of Present Illness Reason for Consult Consult date: 07/31/23 Chief Complaint Chief complaint: metabolic encephalopathy, hypernatremia History of Present Illness Narrative: 83year-old female with a PMH significant for?HTN, seizure disorder, advanced Alzheimer's dementia, glaucoma, osteoporosis, and IBS, coming from long term where she who has been noted to become more confused and less responsive, with decrease oral intake and concern for dehydration. Labs work was done at the facility and she was noted to have a sodium level of 165 which is confirmed in the ED. Further work up show clean urine other than leukocyte esterase, and WBC of 15, lactic acid 2.1. She was admitted for further management. Nephrology has been consulted to assist in her clinical care during her current hospital stay. Review of Systems Review of Systems Yes Unobtainable due to mental condition [facility] Past Medical History Medical History Accident due to mechanical fall without injury Alzheimer's dementia Multifactorial dementia Cerebral microvascular disease Glaucoma IBS (irritable bowel syndrome) HTN (hypertension) UTI (urinary tract infection) Elevated C-reactive protein Osteoporosis PMR (polymyalgia rheumatica) Primary osteoarthritis of hands, bilateral Surgical History Surgical History Hx of appendectomy H/O cataract removal with insertion of prosthetic lens History of wisdom tooth extraction History of tonsillectomy H/O: hysterectomy Social History Social History Household Members: Children Household Members Other:: NIECE Housing: House Are you a primary care administrative tech to a significant other at home: No Do you presently have visiting nurse or other home services: Yes (VNA, PT, OT, MOBILE HOME MECHANIC) Unable to assess alcohol history related to: Unknown Alcohol intake: former Comment: notified Patient Tobacco Use Status: Former Tobacco user Substance Use Type: Unknown Advance Directives: Yes Advance Directives on File: Yes Advance Directives Date on File: 05/13/21 service: No Current occupational status: retired Meds Allergies Allergy/AdvReac Type Severity Reaction Status Date / Time cefadroxil [From DURICEF] Allergy Unknown RASH Verified 05/03/23 13:15 cortisone Allergy Unknown RASH, Verified 05/03/23 13:15 REDDENED CHEST FROM CORTISONE INJECTIONS levofloxacin [From LEVAQUIN] Allergy Unknown TINNITIS Verified 05/03/23 13:15 penicillin V Allergy Unknown Unknown Verified 05/03/23 13:15 Sulfa (Sulfonamide Allergy Unknown UNKNOWN Verified 05/03/23 13:15 Antibiotics) sulfamethoxazole Allergy Unknown RASH Verified 05/03/23 13:15 [From BACTRIM] trimethoprim [From BACTRIM] Allergy Unknown RASH Verified 05/03/23 13:15 Active Medications: Current Medications Acetaminophen (Acetaminophen 325 Mg Tablet) 650 mg PO Q6H PRN PRN Reason: Pain, Mild (Pain Scale 1-3) Al Hydroxide/Mg Hydroxide (Magnesium Hydrox/Alum Hydrox 30 Ml Oral.Susp) 30 ml PO Q4H PRN PRN Reason: Heartburn/Nausea Amlodipine Besylate (Amlodipine Besylate 5 Mg Tablet) 5 mg PO DAILY [facility]; Protocol Last Admin: 07/31/23 10:39 Dose: Not Given Aspirin (Aspirin Enteric Coated 81 Mg Tablet.) 81 mg PO Q48H [facility] Last Admin: 07/31/23 10:39 Dose: Not Given Cyanocobalamin (Cyanocobalamin (Vitamin B-12) 500 Mcg Tablet) 500 mcg PO DAILY [facility] Last Admin: 07/31/23 10:39 Dose: Not Given Ferrous Sulfate (Ferrous Sulfate 324 Mg Tablet.) 324 mg PO DAILY [facility] Last Admin: 07/31/23 10:52 Dose: Not Given Folic Acid (Folic Acid 1 Mg Tablet) 1 mg PO DAILY [facility] Last Admin: 07/31/23 10:52 Dose: Not Given Heparin Sodium (Porcine) (Heparin Sodium,Porcine 5,000 Unit/Ml Vial) 5,000 unit SUBCUT Q12H [facility] Last Admin: 07/31/23 01:19 Dose: 5,000 unit Dextrose (D5w) 1,000 mls @ 100 mls/hr IVCONT .Q10H [facility] Last Admin: 07/31/23 12:47 Dose: 100 mls/hr Latanoprost (Latanoprost 0.005 % Ophth Yajaira 2.5 Ml Drops) 1 drop EYE-BOTH BEDTIME [facility] Last Admin: 07/30/23 22:15 Dose: Not Given Levetiracetam (Levetiracetam 250 Mg Tablet) 125 mg PO BEDTIME [facility] Last Admin: 07/30/23 22:15 Dose: Not Given Levetiracetam (Levetiracetam 250 Mg Tablet) 250 mg PO DAILY [facility] Last Admin: 07/31/23 10:52 Dose: Not Given Magnesium Hydroxide (Milk Of Magnesia 30 Ml Oral.Susp) 30 ml PO DAILY PRN PRN Reason: Constipation Melatonin (Melatonin 3 Mg Tablet) 3 mg PO BEDTIME PRN PRN Reason: Insomnia Methylprednisolone Sodium Succinate (Methylprednisolone Sod Succ 40 Mg/Ml Vial) 20 mg IVPUSH Q24H [facility] Last Admin: 07/30/23 17:22 Dose: 20 mg Ondansetron HCl (Ondansetron Hcl 4 Mg/2 Ml Vial) 4 mg IVPUSH Q8H PRN PRN Reason: Nausea and Vomiting Potassium Chloride (Potassium Chloride Er 20 Meq Tab.Er.Prt) 20 meq PO DAILY [facility] Last Admin: 07/31/23 10:52 Dose: Not Given Prednisone (Prednisone 5 Mg Tablet) 5 mg PO DAILY [facility] Last Admin: 07/31/23 10:53 Dose: Not Given Pyridoxine HCl (Pyridoxine Hcl (Vitamin B6) 50 Mg Tablet) 50 mg PO DAILY [facility] Last Admin: 07/31/23 10:53 Dose: Not Given Risperidone (Risperidone 0.5 Mg Tablet) 0.5 mg PO BID [facility] Last Admin: 07/31/23 10:39 Dose: Not Given Risperidone (Risperidone 0.5 Mg Tablet) 0.5 mg PO DAILY PRN PRN Reason: depression Sertraline HCl (Sertraline Hcl 50 Mg Tablet) 50 mg PO DAILY [facility] Last Admin: 07/31/23 10:53 Dose: Not Given Sodium Chloride (0.9 % Sodium Chloride Flush 3 Ml Syringe) 3 ml IVFLUSH QSHIFT [facility] Last Admin: 07/31/23 10:03 Dose: Not Given Thiamine HCl (Thiamine Hcl 100 Mg Tablet) 100 mg PO DAILY [facility] Last Admin: 07/31/23 10:53 Dose: Not Given Vitamin D (Cholecalciferol (Vitamin D3) 10 Mcg Tablet) 20 mcg PO DAILY [facility] Last Admin: 07/31/23 10:39 Dose: Not Given Home Medications Medication Instructions Recorded Confirmed Last Taken Type cyanocobalamin (vitamin B-12) 500 500 mcg PO DAILY 04/08/20 07/30/23 03/10/23 History mcg tablet acetaminophen 500 mg tablet 1,000 mg PO BID PRN Fever Or Pain 02/16/21 07/30/23 02/16/21 History cholecalciferol (vitamin D3) 10 20 mcg PO DAILY 02/16/21 07/30/23 03/10/23 History mcg (400 unit) tablet prednisone 5 mg tablet 5 mg PO DAILY 02/16/21 07/30/23 03/10/23 History netarsudil 0.02 %-latanoprost 1 drp ophthalmic (eye) BEDTIME 02/17/21 07/30/23 04/11/21 History 0.005 % eye drops (Rocklatan) pyridoxine (vitamin B6) 50 mg 50 mg PO DAILY 04/12/21 07/30/23 03/10/23 History tablet (Vitamin B-6) levetiracetam 250 mg tablet 125 mg PO BEDTIME 03/10/23 07/30/23 Unknown History levetiracetam 250 mg tablet 250 mg PO DAILY 03/10/23 07/30/23 03/10/23 History sertraline 50 mg tablet 50 mg PO DAILY 03/10/23 07/30/23 03/10/23 History thiamine HCl (vitamin B1) 100 mg 100 mg PO DAILY 03/10/23 07/30/23 03/10/23 History tablet aspirin 81 mg tablet,delayed 81 mg PO Q48H 06/21/23 07/30/23 Unknown History release Saccharomyces boulardii 10 billion 10,000 mmu cells PO BID 07/30/23 07/30/23 Unknown History cell capsule amlodipine 5 mg tablet 5 mg PO DAILY 07/30/23 07/30/23 Unknown History potassium chloride 20 mEq 20 meq PO DAILY 07/30/23 07/30/23 Unknown History tablet,extended release risperidone 0.5 mg tablet 0.5 mg PO BID 07/30/23 07/30/23 Unknown History risperidone 0.5 mg tablet 0.5 mg PO DAILY PRN depression 07/30/23 07/30/23 Unknown History Physical Exam Vital Signs: Last Vital Signs Temp 97.0 F 07/31/23 05:52 Pulse 68 07/31/23 05:52 Resp 14 07/31/23 05:52 BP 131/53 L 07/31/23 05:52 Pulse Ox 100 07/31/23 05:52 O2 Del Method Room Air, Nasal Cannula 07/31/23 05:52 O2 Flow Rate 2 07/31/23 05:52 BMI result Body Mass Index 17.3 Const General: comfortable and no acute distress HEENT Head: Yes normocephalic Mouth: Normal oral and palatal mucosa present Eyes EOM: EOMs intact bilaterally Neck Neck: Yes supple Resp Auscultation: clear to auscultation bilaterally Cardio Jugular venous distension: no JVD Rate: regular rate GI Palpation (GI): Soft to palpation Auscultation: normal bowel sounds Skin General skin exam: no rashes or lesions noted Neuro General: moves all extremities Results Lab Results 07/31/23 06:08 07/31/23 09:56 Lab results: Chemistry 07/30/23 07/30/23 07/30/23 12:34 16:00 22:27 Sodium 166 H* 165 H* 161 H* Potassium 3.9 4.2 3.9 Carbon Dioxide 28 28 28 BUN 34 H Creatinine 0.85 Calcium 9.5 07/31/23 07/31/23 07/31/23 02:10 06:08 06:08 Sodium 158 H 157 H 156 H Potassium 3.7 3.5 Carbon Dioxide 29 BUN Creatinine Calcium 07/31/23 07/31/23 07/31/23 06:08 06:08 09:56 Sodium 155 H Potassium 3.5 3.3 Carbon Dioxide 28 27 28 BUN 29 H Creatinine 0.75 Calcium 8.9 D Hematology 07/30/23 07/30/23 07/31/23 12:34 16:00 06:08 WBC 15.5 H 17.2 H 12.0 H Hgb 12.4 11.8 L 11.0 L Plt Count 317 D 292 271 Urinalysis 07/30/23 12:44 Urine Color Yellow Urine Appearance Clear Urine pH 5.0 Ur Specific [place] 1.015 Urine Protein Negative Urine Glucose (UA) Negative Urine Ketones Trace Urine Blood Negative Urine Nitrite Negative Ur Leukocyte Esterase Small (1+) H Urine RBC 0-2 Urine WBC 6-10 Ur Squamous Epith Cells 3-5 Hyaline Casts 3-5 Assessment and Plan (1) Hyperosmolality with hypernatremia: Status: Acute Plan Has a significant water deficit Serum sodium had improved with intravenous dextrose Shall increase the intravenous dextrose to 125 mL an hour Rate of correction of serum sodium is appropriate Continue rest of current management; shall follow up closely Procedures Date of Service Date of Service: 07/31/23
[2023-07-31 14:00] VITALS: BP 121/49; PULSE 56; RESP 16; TEMP 36.2; O2SAT 100
[2023-07-31 15:55] LABS: Anion Gap 8 (12-20); Blood Urea Nitrogen 23 mg/dL (9-16); Calcium 8.8 mg/dL (8.4-10.2); Carbon Dioxide 28 mmol/L (22-29); Chloride 122 mmol/L (96-108); Creatinine Clr Calc Pharmacy 41.6; Estimated Glomerular Filt Rate > 60; Glucose Random 184 mg/dL (60-115); Potassium 3.5 mmol/L (3.3-5.1); Sodium 154 mmol/L (135-145)
--- NOTE | 2023-07-31 16:18 | P.PNIM_ITS ---
Subjective Subjective Date of Service: 07/31/23 Interval History: hypernatremia Review of Systems awake ,able to say her name follows few simple commands ( able to move hands /wiggle toes) Physical Exam 2 Vital Signs: Vital Signs: Last Vital Signs Temp 97.2 F 07/31/23 14:00 Pulse 56 07/31/23 14:00 Resp 16 07/31/23 14:00 BP 121/49 L 07/31/23 14:00 Pulse Ox 100 07/31/23 14:00 O2 Del Method Nasal Cannula 07/31/23 14:00 O2 Flow Rate 2 07/31/23 14:00 BMI result Body Mass Index 17.3 Appearance: Alert.? Oriented X1.?ch sick,fragile.? cvs: rrr, [id number] . res: clear to auscultation ,no rhonchii or wheezing abd: no rebound or guarding ,nt, bs present. ext pulses present , no cyanosis . neuro: axo3 , nonfocal. Objective Data Active Medications Acetaminophen (Acetaminophen 325 Mg Tablet) 650 mg PO Q6H PRN PRN Reason: Pain, Mild (Pain Scale 1-3) Al Hydroxide/Mg Hydroxide (Magnesium Hydrox/Alum Hydrox 30 Ml Oral.Susp) 30 ml PO Q4H PRN PRN Reason: Heartburn/Nausea Amlodipine Besylate (Amlodipine Besylate 5 Mg Tablet) 5 mg PO DAILY [facility]; Protocol Last Admin: 07/31/23 10:39 Dose: Not Given Documented By: KALA Non-Admin Reason: See Note Aspirin (Aspirin Enteric Coated 81 Mg Tablet.) 81 mg PO Q48H [facility] Last Admin: 07/31/23 10:39 Dose: Not Given Documented By: KALA Non-Admin Reason: See Note Cyanocobalamin (Cyanocobalamin (Vitamin B-12) 500 Mcg Tablet) 500 mcg PO DAILY [facility] Last Admin: 07/31/23 10:39 Dose: Not Given Documented By: KALA Non-Admin Reason: See Note Ferrous Sulfate (Ferrous Sulfate 324 Mg Tablet.) 324 mg PO DAILY [facility] Last Admin: 07/31/23 10:52 Dose: Not Given Documented By: KALA Non-Admin Reason: See Note Folic Acid (Folic Acid 1 Mg Tablet) 1 mg PO DAILY [facility] Last Admin: 07/31/23 10:52 Dose: Not Given Documented By: KALA Non-Admin Reason: See Note Heparin Sodium (Porcine) (Heparin Sodium,Porcine 5,000 Unit/Ml Vial) 5,000 unit SUBCUT Q12H [facility] Last Admin: 07/31/23 14:57 Dose: 5,000 unit Documented By: KALA Dextrose (D5w) 1,000 mls @ 100 mls/hr IVCONT .Q10H [facility] Last Admin: 07/31/23 12:47 Dose: 100 mls/hr Documented By: KALA Latanoprost (Latanoprost 0.005 % Ophth Yajaira 2.5 Ml Drops) 1 drop EYE-BOTH BEDTIME [facility] Last Admin: 07/30/23 22:15 Dose: Not Given Documented By: DIEGO Non-Admin Reason: Med Not Available Levetiracetam (Levetiracetam 250 Mg Tablet) 125 mg PO BEDTIME [facility] Last Admin: 07/30/23 22:15 Dose: Not Given Documented By: DIEGO Non-Admin Reason: Patient Condition Contraindication Levetiracetam (Levetiracetam 250 Mg Tablet) 250 mg PO DAILY [facility] Last Admin: 07/31/23 10:52 Dose: Not Given Documented By: KALA Non-Admin Reason: See Note Magnesium Hydroxide (Milk Of Magnesia 30 Ml Oral.Susp) 30 ml PO DAILY PRN PRN Reason: Constipation Melatonin (Melatonin 3 Mg Tablet) 3 mg PO BEDTIME PRN PRN Reason: Insomnia Methylprednisolone Sodium Succinate (Methylprednisolone Sod Succ 40 Mg/Ml Vial) 20 mg IVPUSH Q24H [facility] Last Admin: 07/30/23 17:22 Dose: 20 mg Documented By: ERLIN Ondansetron HCl (Ondansetron Hcl 4 Mg/2 Ml Vial) 4 mg IVPUSH Q8H PRN PRN Reason: Nausea and Vomiting Potassium Chloride (Potassium Chloride Er 20 Meq Tab.Er.Prt) 20 meq PO DAILY [facility] Last Admin: 07/31/23 10:52 Dose: Not Given Documented By: KALA Non-Admin Reason: See Note Prednisone (Prednisone 5 Mg Tablet) 5 mg PO DAILY [facility] Last Admin: 07/31/23 10:53 Dose: Not Given Documented By: KALA Non-Admin Reason: See Note Pyridoxine HCl (Pyridoxine Hcl (Vitamin B6) 50 Mg Tablet) 50 mg PO DAILY [facility] Last Admin: 07/31/23 10:53 Dose: Not Given Documented By: KALA Non-Admin Reason: See Note Risperidone (Risperidone 0.5 Mg Tablet) 0.5 mg PO BID [facility] Last Admin: 07/31/23 10:39 Dose: Not Given Documented By: KALA Non-Admin Reason: See Note Risperidone (Risperidone 0.5 Mg Tablet) 0.5 mg PO DAILY PRN PRN Reason: depression Sertraline HCl (Sertraline Hcl 50 Mg Tablet) 50 mg PO DAILY [facility] Last Admin: 07/31/23 10:53 Dose: Not Given Documented By: KALA Non-Admin Reason: See Note Sodium Chloride (0.9 % Sodium Chloride Flush 3 Ml Syringe) 3 ml IVFLUSH QSHIFT [facility] Last Admin: 07/31/23 15:45 Dose: Not Given Documented By: KALA Non-Admin Reason: IV Running Thiamine HCl (Thiamine Hcl 100 Mg Tablet) 100 mg PO DAILY [facility] Last Admin: 07/31/23 10:53 Dose: Not Given Documented By: KALA Non-Admin Reason: See Note Vitamin D (Cholecalciferol (Vitamin D3) 10 Mcg Tablet) 20 mcg PO DAILY [facility] Last Admin: 07/31/23 10:39 Dose: Not Given Documented By: KALA Non-Admin Reason: See Note Labs 07/31/23 06:08 07/31/23 15:37 Labs: Laboratory Results - last 24 hr 07/30/23 07/30/23 07/31/23 16:00 22:27 02:10 MCV MCH MCHC RDW Plt Count MPV Immature Gran % (Auto) Neut % (Auto) Lymph % (Auto) [place] % (Auto) Eos % (Auto) Baso % (Auto) Lymph # (Auto) [place] # (Auto) Eos # (Auto) Baso # (Auto) Abs Immat Gran (auto) Absolute Neuts (auto) Absolute Nucleated RBC Nucleated RBC % (auto) Hold Purple Top Anion Gap 9 L 11 L 8 L Estim Creat Clear Calc Estimated GFR Random Glucose Calcium 07/31/23 07/31/23 07/31/23 06:08 06:08 07:22 MCV 100.5 H MCH 29.8 MCHC 29.6 L RDW 14.5 Plt Count 271 MPV 10.4 Immature Gran % (Auto) 0.6 H Neut % (Auto) 88.4 H Lymph % (Auto) 5.9 L [place] % (Auto) 4.0 Eos % (Auto) 0.8 Baso % (Auto) 0.3 Lymph # (Auto) 0.7 L [place] # (Auto) 0.5 Eos # (Auto) 0.1 Baso # (Auto) 0.0 Abs Immat Gran (auto) 0.07 H Absolute Neuts (auto) 10.6 H Absolute Nucleated RBC 0.000 Nucleated RBC % (auto) 0.0 Hold Purple Top SEE NOTE Anion Gap 10 L 10 L Estim Creat Clear Calc 35.4 Estimated GFR > 60 Random Glucose 245 H Calcium 8.9 D 07/31/23 07/31/23 09:56 15:37 MCV MCH MCHC RDW Plt Count MPV Immature Gran % (Auto) Neut % (Auto) Lymph % (Auto) [place] % (Auto) Eos % (Auto) Baso % (Auto) Lymph # (Auto) [place] # (Auto) Eos # (Auto) Baso # (Auto) Abs Immat Gran (auto) Absolute Neuts (auto) Absolute Nucleated RBC Nucleated RBC % (auto) Hold Purple Top Anion Gap 8 L 8 L Estim Creat Clear Calc 41.6 Estimated GFR > 60 Random Glucose 184 H Calcium 8.8 Microbiology Microbiology Results: Microbiology 07/30/23 13:30 Blood Culture - Preliminary Blood - Venous No growth after 24 hours. 07/30/23 13:30 Blood Culture - Preliminary Blood - Venous No growth after 24 hours. 07/30/23 Unknown Urine Culture - Final Urine clean catch - Urine salazar top No growth. 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 patient had sodium levels trend:[phone] adjust d5w 80 ml/hr moniter bmp closely Dementia-- resume meds after med rec completed Leukocytosis--improving ,thought to be suspect reactive d/t leukoconcentration, and chronic steroid use, she's on prednisone 5 daily indicaton not clear PRM--she is quite rigid, she take Prednisone 5 daily, she's NPO and will add Solumedrol Seizure d/o resume Keppra once med rec completed HTN--previously on Norvasc, awaiting med rec Acute lactic acidosis, not du to sepsis, likely d/t tissue hypoperfusion from dehydration, improved with hydration. dementia with sundowning- increased risperidone as per Psychiatry consultation; d/c sitter; continue sertraline left heel pressure ulcer, POA, off loading shoe wound care. DNR/DNI, MOLST in chart ongoing hospitlisation stay for management of acute hypenatremia/encephalopath with IVF and frequent renal function /electolytic monitering as well as nephrology eval. Quality Stroke Does the patient have a stroke diagnosis?: No VTE Prior VTE?: No VTE Risk Level:: Medical - moderate - high VTE Device Contraindication: Treatment Not Indicated VTE Drug Contraindication: N/A - Med Ordered
[2023-07-31] MEDS: methylPREDNISolone Sod Succ 40 MG/ML VIAL 20 MG IVPUSH (16:48)
--- NOTE | 2023-07-31 20:07 | PC.NURSE ---
Assumed care of pt at 19:15, pt laying in bed, eyes closed and appears to be sleeping. Resp even and unlabored and appears to be in no apparent distress. O2 running at 2L via nasal cannulla. D5 running @ 100mls/hr. Plan of care ongoing.
[2023-07-31 20:43] LABS: Anion Gap 8 (12-20); Blood Urea Nitrogen 23 mg/dL (9-16); Calcium 8.3 mg/dL (8.4-10.2); Carbon Dioxide 26 mmol/L (22-29); Chloride 117 mmol/L (96-108); Creatinine Clr Calc Pharmacy 47.5; Estimated Glomerular Filt Rate > 60; Glucose Random 241 mg/dL (60-115); Potassium 3.5 mmol/L (3.3-5.1); Sodium 147 mmol/L (135-145)
--- NOTE | 2023-07-31 21:58 | PC.NURSE ---
Called pharmacy re: Latanoprost not here in pt bin. Need for evening dosing.
[2023-07-31] MEDS: Latanoprost 0.005 % Ophth Sol 2.5 ML DROPS 1 DROP EYE-BOTH (22:52)
--- NOTE | 2023-07-31 23:15 | PC.NURSE ---
PT incontinent of stool. Large pasty thick stool noted. PT cleaned up and all linens changed. PT is minimally responsive to verbal stimuli. VSS @ this time. Dr. Villarreal made aware of current mental status.
[2023-07-31 23:19] VITALS: BP 120/50; PULSE 61; RESP 20; TEMP 36.7; O2SAT 99
[2023-08-01] MEDS: Heparin Sodium,Porcine 5,000 UNIT/ML VIAL 5000 UNIT SUBCUT ×2 (02:21→15:01)
[2023-08-01] MEDS: Dextrose 5 % 1,000 ML 100 ML IVCONT (04:04)
--- NOTE | 2023-08-01 06:51 | PC.NURSE ---
PT incontinent of stool and urine. Replaced bedding and cleansed pt.
[2023-08-01 11:30] LABS: Anion Gap 9 (12-20); Blood Urea Nitrogen 20 mg/dL (9-16); Calcium 8.3 mg/dL (8.4-10.2); Carbon Dioxide 26 mmol/L (22-29); Chloride 112 mmol/L (96-108); Creatinine Clr Calc Pharmacy 46.7; Estimated Glomerular Filt Rate > 60; Glucose Random 159 mg/dL (60-115); Potassium 3.3 mmol/L (3.3-5.1); Sodium 144 mmol/L (135-145)
--- NOTE | 2023-08-01 13:54 | P.PNIM_ITS ---
Subjective Subjective Date of Service: 08/02/23 Interval History: hypernatremia Review of Systems awake ,clinically similar no fevers Physical Exam 2 Vital Signs: Vital Signs: Last Vital Signs Temp 98.1 F 07/31/23 23:19 Pulse 61 07/31/23 23:19 Resp 20 07/31/23 23:19 BP 120/50 L 07/31/23 23:19 Pulse Ox 99 07/31/23 23:19 O2 Del Method Nasal Cannula 07/31/23 23:19 O2 Flow Rate 2 07/31/23 23:19 BMI result Body Mass Index 17.3 Appearance: Alert.? Oriented X1.?ch sick,fragile.? cvs: rrr, [id number] . res: clear to auscultation ,no rhonchii or wheezing abd: no rebound or guarding ,nt, bs present. ext pulses present , no cyanosis . neuro: axo3 , nonfocal. Objective Data Active Medications Acetaminophen (Acetaminophen 325 Mg Tablet) 650 mg PO Q6H PRN PRN Reason: Pain, Mild (Pain Scale 1-3) Al Hydroxide/Mg Hydroxide (Magnesium Hydrox/Alum Hydrox 30 Ml Oral.Susp) 30 ml PO Q4H PRN PRN Reason: Heartburn/Nausea Amlodipine Besylate (Amlodipine Besylate 5 Mg Tablet) 5 mg PO DAILY [facility]; Protocol Last Admin: 08/01/23 10:26 Dose: Not Given Documented By: DUY Non-Admin Reason: NPO Aspirin (Aspirin Enteric Coated 81 Mg Tablet.) 81 mg PO Q48H [facility] Last Admin: 07/31/23 10:39 Dose: Not Given Documented By: KALA Non-Admin Reason: See Note Cyanocobalamin (Cyanocobalamin (Vitamin B-12) 500 Mcg Tablet) 500 mcg PO DAILY [facility] Last Admin: 08/01/23 10:27 Dose: Not Given Documented By: DUY Non-Admin Reason: NPO Ferrous Sulfate (Ferrous Sulfate 324 Mg Tablet.) 324 mg PO DAILY [facility] Last Admin: 08/01/23 10:27 Dose: Not Given Documented By: DUY Non-Admin Reason: NPO Folic Acid (Folic Acid 1 Mg Tablet) 1 mg PO DAILY [facility] Last Admin: 08/01/23 10:27 Dose: Not Given Documented By: DUY Non-Admin Reason: NPO Heparin Sodium (Porcine) (Heparin Sodium,Porcine 5,000 Unit/Ml Vial) 5,000 unit SUBCUT Q12H [facility] Last Admin: 08/01/23 02:21 Dose: 5,000 unit Documented By: MARCOS Potassium Chloride (Potassium Chloride/H20) 10 meq in 100 mls @ 100 mls/hr IV Q1H [facility] Stop: 08/01/23 14:59 Latanoprost (Latanoprost 0.005 % Ophth Yajaira 2.5 Ml Drops) 1 drop EYE-BOTH BEDTIME [facility] Last Admin: 07/31/23 22:52 Dose: 1 drop Documented By: MARCOS Levetiracetam (Levetiracetam 250 Mg Tablet) 125 mg PO BEDTIME [facility] Last Admin: 07/30/23 22:15 Dose: Not Given Documented By: DIEGO Non-Admin Reason: Patient Condition Contraindication Levetiracetam (Levetiracetam 250 Mg Tablet) 250 mg PO DAILY [facility] Last Admin: 08/01/23 10:27 Dose: Not Given Documented By: DUY Non-Admin Reason: NPO Magnesium Hydroxide (Milk Of Magnesia 30 Ml Oral.Susp) 30 ml PO DAILY PRN PRN Reason: Constipation Melatonin (Melatonin 3 Mg Tablet) 3 mg PO BEDTIME PRN PRN Reason: Insomnia Methylprednisolone Sodium Succinate (Methylprednisolone Sod Succ 40 Mg/Ml Vial) 20 mg IVPUSH Q24H [facility] Last Admin: 07/31/23 16:48 Dose: 20 mg Documented By: KALA Ondansetron HCl (Ondansetron Hcl 4 Mg/2 Ml Vial) 4 mg IVPUSH Q8H PRN PRN Reason: Nausea and Vomiting Potassium Chloride (Potassium Chloride Er 20 Meq Tab.Er.Prt) 20 meq PO DAILY [facility] Last Admin: 08/01/23 10:27 Dose: Not Given Documented By: DUY Non-Admin Reason: NPO Prednisone (Prednisone 5 Mg Tablet) 5 mg PO DAILY [facility] Last Admin: 08/01/23 10:27 Dose: Not Given Documented By: DUY Non-Admin Reason: NPO Pyridoxine HCl (Pyridoxine Hcl (Vitamin B6) 50 Mg Tablet) 50 mg PO DAILY [facility] Last Admin: 08/01/23 10:27 Dose: Not Given Documented By: DYU Non-Admin Reason: NPO Risperidone (Risperidone 0.5 Mg Tablet) 0.5 mg PO BID [facility] Last Admin: 08/01/23 10:27 Dose: Not Given Documented By: DUY Non-Admin Reason: NPO Risperidone (Risperidone 0.5 Mg Tablet) 0.5 mg PO DAILY PRN PRN Reason: depression Sertraline HCl (Sertraline Hcl 50 Mg Tablet) 50 mg PO DAILY [facility] Last Admin: 08/01/23 10:27 Dose: Not Given Documented By: DUY Non-Admin Reason: NPO Sodium Chloride (0.9 % Sodium Chloride Flush 3 Ml Syringe) 3 ml IVFLUSH QSHIFT [facility] Last Admin: 08/01/23 10:28 Dose: Not Given Documented By: DUY Non-Admin Reason: IV Running Thiamine HCl (Thiamine Hcl 100 Mg Tablet) 100 mg PO DAILY [facility] Last Admin: 08/01/23 10:27 Dose: Not Given Documented By: DUY Non-Admin Reason: NPO Vitamin D (Cholecalciferol (Vitamin D3) 10 Mcg Tablet) 20 mcg PO DAILY [facility] Last Admin: 08/01/23 10:27 Dose: Not Given Documented By: DUY Non-Admin Reason: NPO Labs 07/31/23 06:08 08/01/23 10:00 Labs: Laboratory Results - last 24 hr 07/31/23 07/31/23 08/01/23 15:37 20:23 10:00 Hold Purple Top SEE NOTE Anion Gap 8 L 8 L 9 L Estim Creat Clear Calc 41.6 47.5 46.7 Estimated GFR > 60 > 60 > 60 Random Glucose 184 H 241 H 159 H Calcium 8.8 8.3 L 8.3 L Microbiology Microbiology Results: Microbiology 07/30/23 13:30 Blood Culture - Preliminary Blood - Venous No growth after 24 hours. 07/30/23 13:30 Blood Culture - Preliminary Blood - Venous No growth after 24 hours. 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 patient had sodium levels trend:[phone] stop ivf ,added swallow eval/nutrition eval for ppn moniter bmp closely Dementia-- resume meds after med rec completed. nutrition /swallow eval Leukocytosis--improving ,thought to be suspect reactive d/t leukoconcentration, and chronic steroid use, she's on prednisone 5 daily indicaton not clear PRM--she is quite rigid, she take Prednisone 5 daily and on Solumedrol(intiated 07/30/23). Seizure d/o resume Keppra once med rec completed. HTN--previously on Norvasc, awaiting med rec Acute lactic acidosis, not du to sepsis, likely d/t tissue hypoperfusion from dehydration, improved with hydration. dementia with sundowning- increased risperidone as per Psychiatry consultation; d/c sitter; continue sertraline left heel pressure ulcer? stage 2 ,also right heel ( please see skin care note) off loading shoe wound care. DNR/DNI, MOLST in chart ongoing hospitlisation stay for management of acute hypenatremia/encephalopath with IVF and frequent renal function /electolytic monitering as well as nephrology eval. Quality Stroke Does the patient have a stroke diagnosis?: No VTE Prior VTE?: No VTE Risk Level:: Medical - moderate - high VTE Device Contraindication: Treatment Not Indicated VTE Drug Contraindication: N/A - Med Ordered
--- NOTE | 2023-08-01 14:16 | P.CDIM_ITS ---
PROVIDER RESPONSE TEXT: To clarify, the appropriate diagnosis supported by the clinical indicators: stage 2 QUERY TEXT: PHYSICIAN'S DOCUMENTATION REQUEST Date of Query: 08/01/2023 07:50 AM EDT Patient Name: Adela Godoy Admit Date: 07/30/2023 Dear Claribel Cano, A review of the medical record indicates additional documentation may be needed. Please review below and update the documentation accordingly. Clinical Indicators: Per Hospitalist Progress Note 07/31/23: left heel pressure ulcer, POA, off loading shoe wound care. Based on the above, could you please provide further information regarding the stage of the ulcer/wou nd: stage 1 stage 2 stage 3 stage 4 DTI unstageable Other (explain) Clinically unable to determine (explain) Thank you, Vale Taylor RN Use of terms such as suspected, likely, concern for, or probable (associated with a specific diagnosi s that is being evaluated, monitored, or treated as if it exists) are acceptable and can be coded in the inpatient se tting, when documented at the time of discharge. Please use your independent medical judgment in providing your response. THIS QUERY IS PART OF THE PERMANENT MEDICAL RECORD
--- NOTE | 2023-08-01 14:34 | MHC.CLN ---
Addendum entered by Adri Gonzalez, CHRISTIAN 08/01/23 14:56: EFRA=10. OPEN AREAS NOTED TO LEFT AND RIGHT COCCYX AND BILATERAL HEELS. Original Note: F/U PT IS CURRENTLY NPO. RECEIVED IV HYDRATION. CHRONIC WOUNDS TO BILATERAL HEELS WITH STAGE II PRESSURE INJURY TO RIGHT HEEL. QUALIFIES MODERATELY MALNOURISHED. CONSIDER ALTERNATE NUTRITION IF UNABLE TO TOLERATE PO. IF ABLE, RECOMMEND ADDING NUTRITION SUPPLEMENT TO INCREASE KCALS. FOLLOWING FOR DIET ADVANCEMENT AND SKIN INTEGRITY.
--- NOTE | 2023-08-01 14:37 | P.CDIM_ITS ---
PROVIDER RESPONSE TEXT: To clarify, the appropriate diagnosis supported by the clinical indicators: Moderate Protein Calorie Malnutrition QUERY TEXT: PHYSICIAN'S DOCUMENTATION REQUEST Date of Query: 08/01/2023 07:54 AM EDT Patient Name: Adela Godoy Admit Date: 07/30/2023 Dear Claribel Cano, A review of the medical record indicates additional documentation may be needed. Please review below and update the documentation accordingly. Clinical Indicators: Per Clinical Nutrition Assessment 07/31/23: NPO diet, body fat: mild depletion rib cage, Muscle mass : mild depletion clavicle , dorsal hand Nutrition Diagnosis Malnutrition, 22% significant weight loss x 6 months and increased nutrition risk related to pressure injury Patient is moderately malnourished. Follow diet advancement Based on the above, could you clarify the appropriate diagnosis, if significant, that supports the ab ove abnormalities and additional evaluation, monitoring, and/or treatment rendered: Moderate Protein Calorie Malnutrition Underweight Cachexia Other (explain) Clinically unable to determine (explain) Thank you, Vale Taylor RN Use of terms such as suspected, likely, concern for, or probable (associated with a specific diagnosi s that is being evaluated, monitored, or treated as if it exists) are acceptable and can be coded in the inpatient se tting, when documented at the time of discharge. Please use your independent medical judgment in providing your response. THIS QUERY IS PART OF THE PERMANENT MEDICAL RECORD
--- NOTE | 2023-08-01 14:56 | PC.NURSE ---
right upper arm skin tear
--- NOTE | 2023-08-01 14:58 | PC.NURSE ---
left and right coccyx
[2023-08-01 14:59] VITALS: BP 136/63; PULSE 69; RESP 16; TEMP 36.1; O2SAT 100
[2023-08-01] MEDS: Potassium Chloride/H20 10 MEQ/100 ML PIGGYBACK 100 MEQ IV ×2 (15:01→16:17)
--- NOTE | 2023-08-01 15:49 | MHC.SL.SWA ---
Risk of Aspiration Due to: Lethargy Neurological Condition Reduced Cognition Weak Voice Dysphasia Diet Status: UPGRADE Liquid Consistency and Strategies for Safe Swallow: Liquid Intake Recommendation: Thin Solid Food Consistency: Dietary Recommendations: Pureed (NDD1) Oral Medication Intake: Crushed with Puree Please contact the pharmacy regarding appropriate crushable or liquid drug formulations that are available whenever modified delivery is recommended. Compensatory Strategies and Precautions to be Taken for Safe Swallow: Sitting Upright (90 deg) Small Bites and Sips Alternate Liquids/Solids Oral Check Supervision While Eating and Drinking for Safe Swallow: Total Assistance (1:1) Recommendation for Speech: Comment: Recommend UPGRADE to PUREE solids (NDD1) and THIN liquids. Meds crushed in puree. Patient requires 1-1 assistance feeding. TERRITORY SALES PROFESSIONAL to continue to follow during hospitalization. Interpretive Program Coordinator Clinican/Clinical Fellow: No Supervisory Statement: I have reviewed and agree with the student/clinical fellow's documentation: N/A Speech Language Pathologist: Ashley Ann M.A., CCC-TERRITORY SALES PROFESSIONAL
[2023-08-01] MEDS: methylPREDNISolone Sod Succ 40 MG/ML VIAL 20 MG IVPUSH (15:52)
[2023-08-01] MEDS: 0.9 % Sodium Chloride Flush 3 ML SYRINGE IVFLUSH ×2 (15:53→22:45)
--- NOTE | 2023-08-01 16:00 | PC.NURSE ---
Pt c/o significantly increased pain, rating it 9/10 to R upper arm as well as her coccyx. Wounds noted to these areas, see previous RN notes. MD aware of pt pain level. PRN PO tylenol adjusted from 650mg to 975mg.
[2023-08-01] MEDS: Acetaminophen 325 MG TABLET 975 MG PO (16:10)
[2023-08-01 18:54] VITALS: BP 118/56; PULSE 76; RESP 18; TEMP 36; O2SAT 97
[2023-08-01] MEDS: risperiDONE 0.5 MG TABLET PO (21:04)
[2023-08-01] MEDS: Latanoprost 0.005 % Ophth Sol 2.5 ML DROPS 1 DROP EYE-BOTH (22:19)
[2023-08-01 23:11] VITALS: BP 114/56; PULSE 64; RESP 18; TEMP 36.2; O2SAT 97
[2023-08-02] MEDS: Heparin Sodium,Porcine 5,000 UNIT/ML VIAL 5000 UNIT SUBCUT ×2 (01:52→15:12)
[2023-08-02 02:43] VITALS: BP 129/60; PULSE 55; RESP 17; TEMP 36.2; O2SAT 98
[2023-08-02 06:59] VITALS: BP 153/65; PULSE 80; RESP 18; TEMP 36.4; O2SAT 97
[2023-08-02] MEDS: Acetaminophen 325 MG TABLET 975 MG PO ×2 (07:46→16:14)
[2023-08-02] MEDS: Sertraline HCL 50 MG TABLET PO (07:47)
[2023-08-02] MEDS: Cholecalciferol (Vitamin D3) 10 MCG TABLET 20 MCG PO (07:47)
[2023-08-02] MEDS: amLODIPine Besylate 5 MG TABLET PO (07:47)
[2023-08-02] MEDS: Pyridoxine HCl (Vitamin B6) 50 MG TABLET PO (07:48)
[2023-08-02] MEDS: predniSONE 5 MG TABLET PO (07:48)
[2023-08-02] MEDS: risperiDONE 0.5 MG TABLET PO ×2 (07:48→20:00)
[2023-08-02] MEDS: Aspirin Enteric Coated 81 MG TABLET.DR PO (08:12)
[2023-08-02] MEDS: levETIRAcetam 250 MG TABLET PO (08:13)
[2023-08-02] MEDS: 0.9 % Sodium Chloride Flush 3 ML SYRINGE IVFLUSH ×2 (08:17→15:16)
[2023-08-02] MEDS: Dextrose 5 % and 0.45 % NaCl 1,000 ML 50 ML IVCONT (08:40)
--- NOTE | 2023-08-02 09:46 | MHC.CM.ED ---
Received telephone call from patient's niece, Cary. Cary is requesting an update on [employer] application status. T/W spoke with Gisell of [facility] financial counselors. Per Gisell, application was submitted to on 07/25/23. However it doesn't appear application has been processed by [employer]. Cary states she started the [employer] process in January. She has a copy of the application and all of the necessary financial documents. T/Khushbu explained some facilities will accept patients for LTC. However, it may not be in the [place] area only due to bed availability. Cary verbalized understanding and stated patient was recently at [facility]. Cary does not want patient to return there. Continue to monitor for d/c needs.
--- NOTE | 2023-08-02 12:29 | HO.PM.IMPN ---
Subjective Subjective Date of Service: 08/04/23 Interval History: decreased po intake,hypernatremia Review of Systems seems somewhat more awake eat some food this morning. Physical Exam Vital Signs: Vital Signs: Last Vital Signs Temp 97.5 F 08/02/23 06:59 Pulse 80 08/02/23 06:59 Resp 18 08/02/23 06:59 BP 153/65 H 08/02/23 06:59 Pulse Ox 97 08/02/23 06:59 O2 Del Method Room Air 08/02/23 06:59 O2 Flow Rate 0 08/01/23 14:59 BMI result Body Mass Index 17.3 Appearance: Alert.? Oriented X1.?ch sick,fragile.? cvs: rrr, [id number] . res: clear to auscultation ,no rhonchii or wheezing abd: no rebound or guarding ,nt, bs present. ext pulses present , no cyanosis . neuro: axo3 , nonfocal. Objective Data Active Medications Acetaminophen (Acetaminophen 325 Mg Tablet) 975 mg PO Q6H PRN PRN Reason: Pain, Mild (Pain Scale 1-3) Last Admin: 08/02/23 07:46 Dose: 975 mg Documented By: DUY Al Hydroxide/Mg Hydroxide (Magnesium Hydrox/Alum Hydrox 30 Ml Oral.Susp) 30 ml PO Q4H PRN PRN Reason: Heartburn/Nausea Amlodipine Besylate (Amlodipine Besylate 5 Mg Tablet) 5 mg PO DAILY [facility]; Protocol Last Admin: 08/02/23 07:47 Dose: 5 mg Documented By: DUY Aspirin (Aspirin Enteric Coated 81 Mg Tablet.) 81 mg PO Q48H [facility] Last Admin: 08/02/23 08:12 Dose: 81 mg Documented By: DUY Cyanocobalamin (Cyanocobalamin (Vitamin B-12) 500 Mcg Tablet) 500 mcg PO DAILY [facility] Last Admin: 08/02/23 12:18 Dose: Not Given Documented By: DUY Non-Admin Reason: Patient Refused Ferrous Sulfate (Ferrous Sulfate 324 Mg Tablet.) 324 mg PO DAILY [facility] Last Admin: 08/02/23 12:18 Dose: Not Given Documented By: DUY Non-Admin Reason: Patient Refused Folic Acid (Folic Acid 1 Mg Tablet) 1 mg PO DAILY [facility] Last Admin: 08/02/23 12:18 Dose: Not Given Documented By: DUY Non-Admin Reason: Patient Refused Heparin Sodium (Porcine) (Heparin Sodium,Porcine 5,000 Unit/Ml Vial) 5,000 unit SUBCUT Q12H [facility] Last Admin: 08/02/23 01:52 Dose: 5,000 unit Documented By: KETTY Dextrose/Sodium Chloride (D51/2ns) 1,000 mls @ 50 mls/hr IVCONT .Q20H [facility] Last Admin: 08/02/23 08:40 Dose: 50 mls/hr Documented By: DUY Latanoprost (Latanoprost 0.005 % Ophth Yajaira 2.5 Ml Drops) 1 drop EYE-BOTH BEDTIME [facility] Last Admin: 08/01/23 22:19 Dose: 1 drop Documented By: KETTY Levetiracetam (Levetiracetam 250 Mg Tablet) 125 mg PO BEDTIME [facility] Last Admin: 07/30/23 22:15 Dose: Not Given Documented By: DIEGO Non-Admin Reason: Patient Condition Contraindication Levetiracetam (Levetiracetam 250 Mg Tablet) 250 mg PO DAILY [facility] Last Admin: 08/02/23 08:13 Dose: 250 mg Documented By: DUY Magnesium Hydroxide (Milk Of Magnesia 30 Ml Oral.Susp) 30 ml PO DAILY PRN PRN Reason: Constipation Melatonin (Melatonin 3 Mg Tablet) 3 mg PO BEDTIME PRN PRN Reason: Insomnia Methylprednisolone Sodium Succinate (Methylprednisolone Sod Succ 40 Mg/Ml Vial) 20 mg IVPUSH Q24H [facility] Last Admin: 08/01/23 15:52 Dose: 20 mg Documented By: DUY Ondansetron HCl (Ondansetron Hcl 4 Mg/2 Ml Vial) 4 mg IVPUSH Q8H PRN PRN Reason: Nausea and Vomiting Potassium Chloride (Potassium Chloride Er 20 Meq Tab.Er.Prt) 20 meq PO DAILY [facility] Last Admin: 08/02/23 08:15 Dose: Not Given Documented By: DUY Non-Admin Reason: pt spit out Prednisone (Prednisone 5 Mg Tablet) 5 mg PO DAILY [facility] Last Admin: 08/02/23 07:48 Dose: 5 mg Documented By: DUY Pyridoxine HCl (Pyridoxine Hcl (Vitamin B6) 50 Mg Tablet) 50 mg PO DAILY [facility] Last Admin: 08/02/23 07:48 Dose: 50 mg Documented By: DUY Risperidone (Risperidone 0.5 Mg Tablet) 0.5 mg PO BID [facility] Last Admin: 08/02/23 07:48 Dose: 0.5 mg Documented By: DUY Risperidone (Risperidone 0.5 Mg Tablet) 0.5 mg PO DAILY PRN PRN Reason: depression Sertraline HCl (Sertraline Hcl 50 Mg Tablet) 50 mg PO DAILY [facility] Last Admin: 08/02/23 07:47 Dose: 50 mg Documented By: DUY Sodium Chloride (0.9 % Sodium Chloride Flush 3 Ml Syringe) 3 ml IVFLUSH QSHIFT [facility] Last Admin: 08/02/23 08:17 Dose: 3 ml Documented By: DUY Thiamine HCl (Thiamine Hcl 100 Mg Tablet) 100 mg PO DAILY [facility] Last Admin: 08/02/23 12:18 Dose: Not Given Documented By: DUY Non-Admin Reason: Patient Refused Vitamin D (Cholecalciferol (Vitamin D3) 10 Mcg Tablet) 20 mcg PO DAILY [facility] Last Admin: 08/02/23 07:47 Dose: 20 mcg Documented By: DUY Labs 07/31/23 06:08 08/01/23 10:00 Microbiology Microbiology Results: Microbiology 07/30/23 13:30 Blood Culture - Preliminary Blood - Venous No growth after 48 hours. 07/30/23 13:30 Blood Culture - Preliminary Blood - Venous No growth after 48 hours. Assessment and Plan (1) Dehydration: Status: Acute (2) Hyperosmolality with hypernatremia: Status: Acute (3) Moderate malnutrition: Status: Acute Plan 83 yo F with advanced dementia from SNF here with metabolic encephalopath d/t hypernatremia Hypernatremia d/t dehydration, given some normal saline as initial hydration, given relatively borderline BP. patient had sodium levels trend:improved added gentle ivf ,added swallow eval/nutrition eval for ppn moniter bmp closely Dementia-- resume meds after med rec completed. nutrition /swallow eval moderate malnutirsed : nutrition following po inake to day somewhat continue gentle hydration Leukocytosis--improving ,thought to be suspect reactive d/t leukoconcentration, and chronic steroid use, she's on prednisone 5 daily indicaton not clear PRM--she is quite rigid, she take Prednisone 5 daily and on Solumedrol(intiated 07/30/23). Seizure d/o resume Keppra once med rec completed. HTN--previously on Norvasc, awaiting med rec Acute lactic acidosis, not du to sepsis, likely d/t tissue hypoperfusion from dehydration, improved with hydration. dementia - risperidone ; continue sertraline multiple pressure ulcer(ch) -right and left heel,sacral area ,and right arm small skin tear: wound care. DNR/DNI, MOLST in chart ongoing hospitlisation stay for management of acute hypenatremia/encephalopath with IVF and frequent renal function /electolytic monitering as we as low po intake -need nutritional following ,wound care eval -due to pressures. Quality Stroke Does the patient have a stroke diagnosis?: No VTE Prior VTE?: No VTE Risk Level:: Medical - moderate - high VTE Device Contraindication: Treatment Not Indicated VTE Drug Contraindication: N/A - Med Ordered
[2023-08-02 15:02] VITALS: BP 122/60; PULSE 78; RESP 16; TEMP 36.5; O2SAT 95
--- NOTE | 2023-08-02 15:36 | HO.WOUND ---
Wound Consult: Initial 83yr old?Female admitted to [facility] on 07/30/23 - See progress notes and H&P for detailed history.? Wound consult placed for Coccyx, Right Heel and right arm sin tear.? Patient was agreeable to wound assessment and repositioning. Incontinence care provided - Purewick in place and adjusted to better capture and soft stool incontinence care provided. The right upper arm was assessed and noted for a skin tear - Clean partial thickness tissue loss noted no flap noted. Cleansed and completed with xeroform and gauze wrap. Buttocks and Sacrum assessed Etiology: ?Unstageable Pressure Injury?Present on Admission Measurements: 4cm x 4cm x 0.2cm Wound Bed: adherent yellow slough pink moist tissue Drainage / Odor: No odor - serosang yellow drainage noted Edges: ? Irregular Padmini wound: ?red pink dark pigmented nonblanchable tissue - periwound in evolution not yet declares - No Induration, Fluctuance or Warmth noted Pain: Patient reports pain Goals of Treatment: ?Durafiber AG for mousture management to wound bed and allow for autolytic debridement foam dressing to aid in off loading and pressure redistribution Left Heel Last admission photo 05/2023 Left Heel Todays assessment Etiology: Lateral resolving stage 2 pressure injury - and Medial Deep Tissue Injury Present on Admission Wound Bed: Lateral area resolving dry appears to be resurfacing wound bed - DTI site appears to be resolving intact bulla with dark maroon purple wound bed Drainage / Odor: None Edges: ? irregular dry Padmini wound: pink intact dry tissue - ? No Induration, Fluctuance or Warmth noted Pain: Patient responds with pain Goals of Treatment: ? Foam application and off load pressure Right Heel Last admission photo 05/2023 Etiology: ?Stage 3 Pressure Injury - Present on Admission Wound Bed: Full thickness tissue loss pale pink wound bed with adherent yellow slough Drainage / Odor: scant yellow burger drainage mild odor noted Edges: ? irregular and calloused Padmini wound: red pink erythema blanchable? No Induration, Fluctuance or Warmth noted Pain: Patient responds with pain Goals of Treatment: ? Foam application and Durfiber for moisture management and off load pressure - heel protector boot applied Recommendations: 1. Turn and Reposition every 2 hours and as needed for patient comfort.? Use pillows or wedges to support off loading positions. 2. Off Load all bony prominences with use of pillows and heel boots if needed.? Apply Preventative foams where needed. ? 3. Monitor for incontinence and moisture control, use barrier creams when needed for prevention and treatment. 4. Provide adequate and supplemental nutrition.? 5. Continue low air loss mattress - currently in use. 6. When applicable maintain blood glucose levels per Providers order. 7. Right arm - Cleanse with normal saline, pat dry. ?Apply double layer Xeroform secure with Abd pads, gauze wrap and tape. ?Do not apply tape to patients skin.? Avoid Adhesive application to skin - when necessary, apply skin prep prior.? 8. Sacrum and Buttock - Off Load Pressure - Cleanse with PH balance spray or wipes, pat dry. ?Apply cut to size Durafiber AG, cover with foam dressing Change every other day and PRN. 9. Right Heel - Off Load Heels with heel protector boots - Cleanse with NS moist gauze, pat dry. Apply cut to size Durafiber AG cover with foam dressing, change every other day. 10. Left Heel - Off Load Heels with heel protector boots - Cleanse with NS moist gauze, pat dry. Apply foam dressing, peel back and assess Q shift and change every 3 days.
--- NOTE | 2023-08-02 15:59 | MHC.CM.PN ---
CATY MET WITH PTS NIECE/HCP MARTIN TO DISCUSS DC PLANNING SHE REPORTS AFTER SPEAKING WITH THE HOSPITALIST, SHE IS INTERESTED IN HOSPICE SERVICES AT THE SNF SHE SAYS SHE WAS WORRIED ABOUT THE PT GOING BACK TO [facility], BUT UNDERSTANDS THERE ARE NOT MANY BEDS AVAILABLE SHE SAYS SHE ALSO FEELS MORE COMFORTABLE NOW THAT A STONE DERRICKMAN AND RIGGER WILL ALSO BE CHECKING IN ON THE PT PER DISCUSSION, CATY SENT PTS WOUND CARE NOTES TO THE SNF SHE IS WORRIED THEY ARE NOT TAKING CARE OF HER WOUNDS PROPERLY SHE IS AWARE THE PT WILL LIKELY DC BACK TO [facility] T[facility]ORROW WITH A PLAN TO SIGN ONTO HOSPICE ONCE THERE SHE SAYS THE PTS MCR RAN OUT A WHILE AGO AND THEY HAVE BEEN PAYING 20%, CATY INFORMED HER MCR WOULD NOT COVER ANY ROOM AND BOARD WHILE PT IS ON HOSPICE. SHE SAYS THIS IS MANAGEABLE SHORT TERM
[2023-08-02] MEDS: methylPREDNISolone Sod Succ 40 MG/ML VIAL 20 MG IVPUSH (16:21)
--- NOTE | 2023-08-02 17:20 | MHC.SL.SWA ---
Speech Pathologist Impression: Risk of Aspiration Due to: Lethargy Neurological Condition Reduced Cognition Weak Voice Dysphasia Diet Status: Recommend continue on Puree (NDD1) with THIN liquids, straws ok, pills crushed in puree. Recommend broths, bisques be provided at meals. Liquid Consistency and Strategies for Safe Swallow: Liquid Intake Recommendation: Thin Liquid Intake Strategies: Small Sips Solid Food Consistency: Dietary Recommendations: Pureed (NDD1) Additional Modifications to Solid Foods: Oral Medication Intake: Crushed with Puree Please contact the pharmacy regarding appropriate crushable or liquid drug formulations that are available whenever modified delivery is recommended. Compensatory Strategies and Precautions to be Taken for Safe Swallow: Sitting Upright (90 deg) Liquids from Straw Alternate Liquids/Solids Supervision While Eating and Drinking for Safe Swallow: Total Assistance (1:1) Foods to Avoid: Swallowing Recommended Treatments: Compens. Strategy Educat. Recommendation for Speech: Comment: Patient seen for repeat assessment this p.m. per nursing reporting patient taking very little po, disliking purees. Patient was awake, seemingly lethargic, often keeping eyes closed, but responding verbally. Patients niece was in room, reported that patient has done poorly with eating and nutrition since hospitalization for UTI earlier this year. Previously she was fed soft/ground foods with broths and gravies and had a good appetite and intake. She further reported that at her fdc, she often ate and enjoyed soups that were offered, but disliked mashed potatoes and other purees which came with every meal. Patient was observed taking medication from nurse, with patient opening mouth to allow only tip of spoon with pudding/meds to enter, taking small bites only. Patient was observe drinking with a straw, on which she produced serial sips and a timely swallow. Patient was initially offered some ice cream, with minimal mouth opening again observed, somewhat prolonged oral phase, followed by a timely swallow. Patient was then offered small pieces of softened maryam cracker in ice cream with patient appearing to chew pieces anteriorly, delay oral phase with disorganized lingual movement, timely swallow. Patient does not appear to ready to advance diet, with purees the safest solid food diet at this time. Niece was encouraged to select soups, or request that soups come with patient's meal. Patient planned to d/c to fdc tomorrow. Frequency/Duration: Date Range for Service Req: Timeline to reassess: Front Facer Clinican/Clinical Fellow: No Supervisory Statement: I have reviewed and agree with the student/clinical fellow's documentation: N/A Speech Language Pathologist: Alexa Hager M.A., CCC-BARKEEP
[2023-08-02 19:25] VITALS: BP 131/73; PULSE 76; RESP 16; TEMP 36.7; O2SAT 96
[2023-08-02] MEDS: Latanoprost 0.005 % Ophth Sol 2.5 ML DROPS 1 DROP EYE-BOTH (20:00)
[2023-08-02 23:13] VITALS: BP 128/63; PULSE 68; RESP 16; TEMP 36.6; O2SAT 96
[2023-08-03] MEDS: Heparin Sodium,Porcine 5,000 UNIT/ML VIAL 5000 UNIT SUBCUT (02:13)
[2023-08-03] MEDS: Dextrose 5 % and 0.45 % NaCl 1,000 ML 50 ML IVCONT (02:15)
[2023-08-03 03:08] VITALS: BP 146/66; PULSE 73; RESP 16; TEMP 36.7; O2SAT 98
[2023-08-03 07:27] VITALS: BP 145/67; PULSE 86; RESP 12; TEMP 36; O2SAT 93
[2023-08-03] MEDS: levETIRAcetam 250 MG TABLET PO (08:46)
[2023-08-03] MEDS: Thiamine HCL 100 MG TABLET PO (08:46)
[2023-08-03] MEDS: Folic Acid 1 MG TABLET PO (08:46)
[2023-08-03] MEDS: Sertraline HCL 50 MG TABLET PO (08:46)
[2023-08-03] MEDS: Cholecalciferol (Vitamin D3) 10 MCG TABLET 20 MCG PO (08:46)
[2023-08-03] MEDS: risperiDONE 0.5 MG TABLET PO (08:46)
[2023-08-03] MEDS: amLODIPine Besylate 5 MG TABLET PO (08:47)
[2023-08-03] MEDS: Cyanocobalamin (Vitamin B-12) 500 MCG TABLET PO (08:47)
[2023-08-03] MEDS: Pyridoxine HCl (Vitamin B6) 50 MG TABLET PO (08:47)
[2023-08-03] MEDS: 0.9 % Sodium Chloride Flush 3 ML SYRINGE IVFLUSH (08:47)
[2023-08-03] MEDS: predniSONE 5 MG TABLET PO (08:47)
[2023-08-03] MEDS: Ferrous Sulfate 324 MG TABLET.DR PO (08:47)
--- NOTE | 2023-08-03 09:16 | MHC.CLN ---
F/U DIET=PUREE. POOR PO. ADDING ENSURE TID TO PROVIDE 1050 KCALS, 60 G PROTEIN. EFRA=10. WOUND RN NOTES REVIEWED. MULTIPLE AREAS WITH PRESSURE INJURIES. FOLLOWING FOR DIET TOLERANCE, INTAKE AND SKIN INTEGRITY.
--- NOTE | 2023-08-03 10:33 | MHC.CM.PN ---
CATY SPOKE TO PTS NIECE/HCP, MARTIN [phone] TO REVIEW PTS DCP. CATY INFORMED HER PT COULD RETURN TO [facility] SUCTION PLATE ROLLER HAND AND COULD BE TRANSITIONED TO HOSPICE AT A LATER TIME SHE UNDERSTANDS THAT ONCE PT TRANSITIONS TO HOSPICE, THEY WILL HAVE TO PAY FULL ROOM AND BOARD SHE SAYS SHE IS WORRIED ABOUT PTS RETURN BUT FEELS BETTER NOW THAT SHE HAS BEEN SEEN AND HER WOUND CARE NOTES HAVE BEEN FORWARDED TO THE SNF. SHE IS IN AGREEMENT WITH THE PLAN FOR THE PT TO RETURN TO [facility] THIS AFTERNOON AT [address] SUCTION [address]ATE ROLLER HAND. PT WILL RETURN VIA [facility] S
--- NOTE | 2023-08-03 11:16 | MHC.SL.SWA ---
Speech Pathologist Impression: Risk of aspiration, oropharyngeal dysphagia Risk of Aspiration Due to: Lethargy Neurological Condition Reduced Cognition Weak Voice Dysphasia Diet Status: Recommend continue on Puree (NDD1) with THIN liquids, straws ok, pills crushed in puree. Recommend broths, bisques be provided at meals. Liquid Consistency and Strategies for Safe Swallow: Liquid Intake Recommendation: Thin Liquid Intake Strategies: Small Sips Solid Food Consistency: Dietary Recommendations: Pureed (NDD1) Additional Modifications to Solid Foods: Oral Medication Intake: Crushed with Puree Please contact the pharmacy regarding appropriate crushable or liquid drug formulations that are available whenever modified delivery is recommended. Compensatory Strategies and Precautions to be Taken for Safe Swallow: Sitting Upright (90 deg) Liquids from Straw Alternate Liquids/Solids Rate of Ingestion Change Supervision While Eating and Drinking for Safe Swallow: Total Assistance (1:1) Swallowing Recommended Treatments: Compens. Strategy Educat. Recommendation for Speech: Inpatient ST, continue ST at next level of care Peoplesoft Programmer Clinican/Clinical Fellow: No Supervisory Statement: I have reviewed and agree with the student/clinical fellow's documentation: N/A Speech Language Pathologist: Elise Gannon M.A., CCC-DEAN OF GIRLS
--- NOTE | 2023-08-03 11:31 | PM.DS ---
DS: Providers Provider Date of Service: 08/03/23 Date of admission: 07/30/23 14:11 Date of discharge: 08/03/23 Primary care physician: Alexandro Rodriguez DO Consults: 07/30/23 16:38 Consult to Nephrology Routine Consulting Provider: [facility] Reason for consultation: Hypernatremia Has provider been notified: No 07/31/23 11:09 Consult to Wound Care Routine Reason for consultation: Wound care, bilat heels and coccyx wounds Has provider been notified: Yes Attending physician on discharge: Claribel Cano Discharging clinician: Claribel Cano DS: Diagnosis Discharge Diagnosis (1) Dehydration: Status: Acute (2) Hyperosmolality with hypernatremia: Status: Acute DS: Summary Hospital Course Hospital Course: hospital course: Patient with advanced dementia, poor functional status, poor oral intake-came to the hospital because of hyponatremia secondary to dehydration, moderate malnourished-further also had mild leukocytosis, acute lactic acidosis, as multiple pressures areas: Patient was given IV hydration, consulted Nephrology and nutrition as well as speech and swallow: Patient hyponatremia and acute lactic acidosis seems to be improved with hydration., seen by speech and swallow and started on pureed diet which patient is tolerating: Patient was encouraged for p.o. intake. Leukocytosis seems to be improving (possibly reactive due to hemo concentration sec to dehydration): Her blood culture negative at 48 hour, urine culture negative, chest x-ray also clear. No fever. For pressure areas(ch):seen by wound care and recomended: - Turn and Reposition every 2 hours and as needed for patient comfort.? Use pillows or wedges to support off loading positions. -Off Load all bony prominences with use of pillows and heel boots if needed.? Apply Preventative foams where needed. ? - Monitor for incontinence and moisture control, use barrier creams when needed for prevention and treatment. -Provide adequate and supplemental nutrition.? - Continue low air loss mattress - currently in use. -when applicable maintain blood glucose levels per Providers order. - Right arm - Cleanse with normal saline, pat dry. ?Apply double layer Xeroform secure with Abd pads, gauze wrap and tape. ?Do not apply tape to patients skin.? Avoid Adhesive application to skin - when necessary, apply skin prep prior.? - Sacrum and Buttock - Off Load Pressure - Cleanse with PH balance spray or wipes, pat dry. ?Apply cut to size Durafiber AG, cover with foam dressing Change every other day and PRN. - Right Heel - Off Load Heels with heel protector boots - Cleanse with NS moist gauze, pat dry. Apply cut to size Durafiber AG cover with foam dressing, change every other day. - Left Heel - Off Load Heels with heel protector boots - Cleanse with NS moist gauze, pat dry. Apply foam dressing, peel back and assess Q shift and change every 3 days. Above management discussed with patient hcp Miss Townsend in detail: Considering patient's overall condition with advanced dementia malnutrition and for functional status, poor oral intake-may consider hospice in rehab. Assessment and plan coordination time spent 50 minute. Time Attestation Total time managing care of this patient today: 50 mintues. Discharge Coordination Time (in mins): 50 min Quality: Safe Use of Opioids Does Pt have an Active Cancer Diagnosis on the Problem List?: No Quality: Stroke Does the patient have a stroke diagnosis?: No Physical Exam Vital Signs: Vital Signs: Last Vital Signs Temp 96.8 F 08/03/23 07:27 Pulse 86 08/03/23 07:27 Resp 12 08/03/23 07:27 BP 145/67 H 08/03/23 07:27 Pulse Ox 93 08/03/23 07:27 O2 Del Method Room Air 08/03/23 07:27 O2 Flow Rate 0 08/01/23 14:59 BMI result Body Mass Index 17.3 Appearance: Alert.? Oriented X1.?ch sick,fragile.? cvs: rrr, [id number] . res: clear to auscultation ,no rhonchii or wheezing abd: no rebound or guarding ,nt, bs present. ext pulses present , no cyanosis . neuro: axo3 , nonfocal. DS: Data Data Completed and Pending Completed studies during hospitalization [Text1]: Procedures Replacement of Right Hip Joint, Femoral Surface with Synthetic Substitute, Cemented, Open Approach (03/10/23) Labs on day of discharge: Preliminary micro results at discharge 07/30/23 13:30 Blood Culture - Preliminary Blood - Venous No growth after 48 hours. 07/30/23 13:30 Blood Culture - Preliminary Blood - Venous No growth after 48 hours. Imaging Chest x-ray: Radiologist's impression: ITS Impressions Chest X-Ray 07/30/23 12:28 IMPRESSION: No acute intrathoracic disease. Discharge Plan Discharge Anticipated Discharge Date/Time: 08/03/23 11:21 Patient Disposition: Xfer SNF Discharge Diagnosis: hypernatremia ,poor oral intake Referrals: [facility] [Other] - 1 Week Alexandro Rodriguez DO [Primary Care Provider] - 1 Week Discharge Medications: Continued cyanocobalamin (vitamin B-12) 500 mcg Tablet 500 mcg PO DAILY acetaminophen 500 mg Tablet 1,000 mg PO BID PRN (Reason: Fever Or Pain) cholecalciferol (vitamin D3) 10 mcg (400 unit) Tablet 20 mcg PO DAILY prednisone 5 mg tablet 5 mg PO DAILY Rocklatan 0.02-0.005 % drops 1 drp ophthalmic (eye) BEDTIME pyridoxine (vitamin B6) [Vitamin B-6] 50 mg Tablet 50 mg PO DAILY levetiracetam 250 mg tablet 125 mg PO BEDTIME sertraline 50 mg tablet 50 mg PO DAILY thiamine HCl (vitamin B1) 100 mg tablet 100 mg PO DAILY levetiracetam 250 mg tablet 250 mg PO DAILY amlodipine 5 mg tablet 5 mg PO DAILY risperidone 0.5 mg tablet 0.5 mg PO DAILY PRN (Reason: depression) risperidone 0.5 mg tablet 0.5 mg PO BID potassium chloride 20 mEq Tablet Extended Release 20 meq PO DAILY Saccharomyces boulardii 10 billion cell Capsule 10,000 mmu cells PO BID Rx Instructions: finish on 08/02/23 aspirin 81 mg Tablet,Delayed Release (Dr/Ec) 81 mg PO Q48H folic acid 1 mg Tablet 1 mg PO DAILY Qty: 30 0RF ferrous sulfate 324 mg (65 mg iron) Tablet,Delayed Release (Dr/Ec) 324 mg PO DAILY Qty: 30 0RF Discharge Orders: Discharge Order (Routine); Ordered 08/03/23 Ordered By: Claribel Cano Diet: Advance to usual diet Activity on Discharge: As tolerated Stand Alone Forms: Patient Portal Discharge page Print Language: Cameroonian Care Plan Goals: Patient with advanced dementia, poor functional status, poor oral intake-came to the hospital because of hyponatremia secondary to dehydration, moderate malnourished-further also had mild leukocytosis, acute lactic acidosis, as multiple pressures areas: Patient was given IV hydration, consulted Nephrology and nutrition as well as speech and swallow: Patient hyponatremia and acute lactic acidosis seems to be improved with hydration., seen by speech and swallow and started on pureed diet which patient is tolerating: Patient was encouraged for p.o. intake. Leukocytosis seems to be improving (possibly reactive due to hemo concentration sec to dehydration): Her blood culture negative at 48 hour, urine culture negative, chest x-ray also clear. No fever. For pressure areas(ch):seen by wound care and recomended: - Turn and Reposition every 2 hours and as needed for patient comfort.? Use pillows or wedges to support off loading positions. -Off Load all bony prominences with use of pillows and heel boots if needed.? Apply Preventative foams where needed. ? - Monitor for incontinence and moisture control, use barrier creams when needed for prevention and treatment. -Provide adequate and supplemental nutrition.? - Continue low air loss mattress - currently in use. -when applicable maintain blood glucose levels per Providers order. - Right arm - Cleanse with normal saline, pat dry. ?Apply double layer Xeroform secure with Abd pads, gauze wrap and tape. ?Do not apply tape to patients skin.? Avoid Adhesive application to skin - when necessary, apply skin prep prior.? - Sacrum and Buttock - Off Load Pressure - Cleanse with PH balance spray or wipes, pat dry. ?Apply cut to size Durafiber AG, cover with foam dressing Change every other day and PRN. - Right Heel - Off Load Heels with heel protector boots - Cleanse with NS moist gauze, pat dry. Apply cut to size Durafiber AG cover with foam dressing, change every other day. - Left Heel - Off Load Heels with heel protector boots - Cleanse with NS moist gauze, pat dry. Apply foam dressing, peel back and assess Q shift and change every 3 days. Above management discussed with patient hcp Miss Townsend in detail: Considering patient's overall condition with advanced dementia malnutrition and for functional status, poor oral intake-may consider hospice in rehab. Health Concerns: As above. Plan of Treatment: As above. Assessment: As above.
== END 2023-08-03 14:00 | disposition skilled nursing facility (03) | DRG 640 ==
LOC: HO.ED 13:33 → HO.EDOVER 14:21 → HO.S3 08-01 09:54
PROVIDERS: Admitting Provider Internal Medicine; Emergency Provider Student in an Organized Health Care Education/Training Program; PCP Internal Medicine; Visit Provider Internal Medicine
DX: E87.0 Hyperosmolality and hypernatremia (principal); G93.41 Metabolic encephalopathy; E44.0 Moderate protein-calorie malnutrition; Z68.1 Body mass index [BMI] 19.9 or less, adult; F05 Delirium due to known physiological condition; Z66 Do not resuscitate; M35.3 Polymyalgia rheumatica; E88.A Wasting disease (syndrome) due to underlying condition; I10 Essential (primary) hypertension; E87.21 Acute metabolic acidosis; G40.909 Epilepsy, unspecified, not intractable, without status epilepticus; E86.0 Dehydration; G30.9 Alzheimer's disease, unspecified; L89.622 Pressure ulcer of left heel, stage 2; F02.80 Dementia in other diseases classified elsewhere, unspecified severity, without behavioral disturbance, psychotic disturbance, mood disturbance, and anxiety; Z87.891 Personal history of nicotine dependence; Z79.52 Long term (current) use of systemic steroids; Z79.82 Long term (current) use of aspirin; Z79.899 Other long term (current) drug therapy
CPT/HCPCS: 36415; 71045; 80048; 80051; 80053; 81001; 83605; 83735; 83930; 84145; 85025; 85027; 87040; 87086; 92526; 92610; 93005; 99285; J1644; J1953; J2920; J3480

== ENCOUNTER → 2023-07-30 12:04 | Outpatient (BNV) | payer MEDICARE, SELFPAY | PROVIDERS: Admitting Provider Internal Medicine; Emergency Provider Student in an Organized Health Care Education/Training Program; Visit Provider Internal Medicine Cardiovascular Disease | DX: E87.0 Hyperosmolality and hypernatremia (principal) | CPT/HCPCS: 93010 ==

== ENCOUNTER → 2023-07-30 14:11 | Outpatient (BNV) | payer MEDICARE, SELFPAY | PROVIDERS: Admitting Provider Internal Medicine; Emergency Provider Student in an Organized Health Care Education/Training Program; PCP Internal Medicine; Visit Provider Internal Medicine | DX: E86.0 Dehydration (principal); R41.82 Altered mental status, unspecified; L97.409 Non-pressure chronic ulcer of unspecified heel and midfoot with unspecified severity; E87.0 Hyperosmolality and hypernatremia | CPT/HCPCS: 99223; 99231; 99232; 99239 ==

== ENCOUNTER → 2023-07-30 14:11 | Outpatient (BNV) | payer MEDICARE, SELFPAY | PROVIDERS: Admitting Provider Internal Medicine; Emergency Provider Student in an Organized Health Care Education/Training Program; Visit Provider Internal Medicine Nephrology | DX: E87.0 Hyperosmolality and hypernatremia (principal) | CPT/HCPCS: 99222 ==

== ENCOUNTER 2023-08-21 17:29 | Emergency (ER) | payer MEDICARE, SELFPAY ==
--- NOTE | ~2023-08-21 | XR_ITS ---
EXAMINATION: XR PELVIS CLINICAL INFORMATION: Pain status-post fall. COMPARISON: Prior radiographs, most recently 06/21/2023. TECHNIQUE: AP view of the pelvis. FINDINGS: Prosthetic components of the right total hip arthroplasty are appropriately aligned. No periprosthetic fracture. The stem is incompletely covered in the [id number]. The left acetabular joint space is well-maintained. The left femoral head is smooth. No fracture or dislocation is seen. The bilateral sacroiliac joints are symmetric and well-maintained. The pubic symphysis is intact. There are pelvic phleboliths. XR/XR pelvis 1-2V IMPRESSION: There is an intact right hip total arthroplasty. No unusual degenerative change is seen of the left hip. No fracture or dislocation is seen.
--- NOTE | ~2023-08-21 | CT_ITS ---
EXAM: CT HEAD WITHOUT CONTRAST CT CERVICAL SPINE INDICATION: Reason for Exam fall TECHNIQUE: A noncontrast CT scan was performed from the skull base to the vertex. A noncontrast CT scan of the cervical spine was performed from the base of the skull through T1 at 2.5 mm and 0.625 mm collimation. Coronal and sagittal reformats were obtained at the acquisition workstation. This CT examination was performed using dose optimization techniques as appropriate, variously including the following: * Automated exposure control * Adjustment of mA and/or kV according to patient size (this includes techniques or standardized protocols for targeted exams where dose is matched to indication/reason for exam; i.e. extremities or head) * Use of iterative reconstruction technique Dose length product is 796 mGy-cm. COMPARISON: CT head 08/21/2023 FINDINGS: Head: There is no evidence of acute intracranial hemorrhage or edematous territorial infarction. No abnormal mass effect or midline shift is seen. Martinez to white matter differentiation is well preserved. No extra-axial fluid collections are identified. Commensurate prominence of the ventricles and sulci is compatible with generalized parenchymal volume loss. There is prominent periventricular and subcortical white matter hypoattenuation, most likely representing microangiopathic disease. No acute calvarial fracture.. Paranasal sinuses and mastoid air cells are well-aerated. Cervical Spine: Straightening of the cervical curvature. Osteopenia.. There is ankylosis with bridging bone that fuses the C3 and C4 vertebral segments. Stable slight anterolisthesis of C7 on T1 that appears to be related to facet degenerative changes at this level. Vertebral heights are preserved. Multilevel degenerative changes in cervical spine. This includes multilevel severe disc degeneration, marked disc height loss, osteophytes. Multilevel facet degeneration. Canal patency is not well assessed on this examination due to inherent limitations of CT without intrathecal contrast. There is at least mild canal stenosis at multiple levels. Multilevel facet degenerative change causes moderate to severe neuroforaminal encroachment at multiple levels. There is pleural-parenchymal scarring at the apices of both lungs. CT/CT cervical spine wo IV con IMPRESSION: 1. No CT evidence of acute intracranial hemorrhage or edematous acute infarction. 2. No CT evidence of acute cervical spine fracture. Advanced multilevel degenerative changes, detailed above.
[2023-08-21 17:44] VITALS: BP 167/79; PULSE 89; RESP 16; TEMP 36.6; O2SAT 96
--- NOTE | 2023-08-21 17:48 | ED.FALL ---
HPI - Fall General Chief Complaint: Fall Stated Complaint: unwitt fall, hematoma, dementia, c-collar -thinner Time Seen by Provider: 08/21/23 17:43 Source: EMS and RN notes reviewed Mode of arrival: EMS Limitations: altered mental status History of Present Illness HPI Narrative: Patient has Alzheimer dementia came from alf as she tried to get up from the bed without any side railing and fell hitting her head to the ground patient is non ambulated got superficial laceration to the top of the head patient is confused alert to her name only Related Data Home Medications ?Medication ?Instructions ?Recorded ?Confirmed netarsudil 0.02 %-latanoprost 1 drp ophthalmic (eye) BEDTIME 02/17/21 08/21/23 0.005 % eye drops (Rocklatan) levetiracetam 250 mg tablet 125 mg PO BEDTIME 03/10/23 08/21/23 levetiracetam 250 mg tablet 250 mg PO DAILY 03/10/23 08/21/23 sertraline 50 mg tablet 50 mg PO DAILY 03/10/23 08/21/23 risperidone 0.5 mg tablet 0.5 mg PO BID 07/30/23 08/21/23 atropine 1 % eye drops 1 drp buccal Q3H PRN Secretions 08/21/23 08/21/23 lorazepam 2 mg/mL oral concentrate 1 mg PO Q4H PRN Anxiety 08/21/23 08/21/23 (Lorazepam Intensol) morphine concentrate 20 mg/mL oral 5 mg PO Q12H PRN Pain 08/21/23 08/21/23 syringe (FOR ORAL USE ONLY) morphine concentrate 20 mg/mL oral 5 mg PO Q1H PRN sob/pain 08/21/23 08/21/23 syringe (FOR ORAL USE ONLY) sennosides 8.6 mg tablet (senna) 8.6 mg PO BEDTIME 08/21/23 08/21/23 Allergies Allergy/AdvReac Type Severity Reaction Status Date / Time cefadroxil [From DURICEF] Allergy Unknown RASH Verified 08/21/23 18:03 cortisone Allergy Unknown RASH, Verified 08/21/23 18:03 REDDENED CHEST FROM CORTISONE INJECTIONS levofloxacin [From LEVAQUIN] Allergy Unknown TINNITIS Verified 08/21/23 18:03 penicillin V Allergy Unknown Unknown Verified 08/21/23 18:03 Sulfa (Sulfonamide Allergy Unknown UNKNOWN Verified 08/21/23 18:03 Antibiotics) sulfamethoxazole Allergy Unknown RASH Verified 08/21/23 18:03 [From BACTRIM] trimethoprim [From BACTRIM] Allergy Unknown RASH Verified 08/21/23 18:03 Review of Systems Review of Systems: Yes Unobtainable due to mental status PMFSH Past Medical History Medical History Accident due to mechanical fall without injury Alzheimer's dementia Multifactorial dementia Cerebral microvascular disease Glaucoma IBS (irritable bowel syndrome) HTN (hypertension) UTI (urinary tract infection) Elevated C-reactive protein Osteoporosis PMR (polymyalgia rheumatica) Primary osteoarthritis of hands, bilateral Surgical History Hx of appendectomy H/O cataract removal with insertion of prosthetic lens History of wisdom tooth extraction History of tonsillectomy H/O: hysterectomy Social History Social History Household Members: None Household Members Other:: NIECE Housing: Intermediate Are you a primary wild animal caretaker to a significant other at home: No Do you presently have visiting nurse or other home services: No Unable to assess alcohol history related to: Unknown Alcohol intake: former Comment: notified Patient Tobacco Use Status: Former Tobacco user e-Cigarette/Vaping Use: Never Used Second Hand Smoke Exposure: No Substance Use Type: Unknown Advance Directives: Yes Advance Directives on File: Yes Advance Directives Date on File: 05/13/21 Do you have a plan to hurt others: No Plan service: No Current occupational status: retired Physical Exam Vital Signs: Vital Signs: Last Vital Signs Temp 97.9 F 08/21/23 17:44 Pulse 89 08/21/23 17:44 Resp 16 08/21/23 17:44 BP 167/79 H 08/21/23 17:44 Pulse Ox 96 08/21/23 17:44 O2 Del Method Room Air 08/21/23 17:44 BMI result Body Mass Index 25.7 Appearance: Severely demented. No acute distress. Eyes: PERRLA, No Nystagmus HEENT: Pharynx normal. Oral Mucosa moist superficial abrasion laceration left frontoparietal area Neck: Normal inspection. Neck supple. In cervical collar CVS: Normal heart rate and rhythm. Pulses normal. Respiratory: No respiratory distress. Equal air entry bilateral, no wheezing/rales/rhonchi Abdomen: Soft and nontender. Bowel sounds are present, no mass palpable, no CVA tenderness Skin: Skin warm and dry. Normal skin color. Normal skin turgor. Extremities: No lower extremity edema. No calf tenderness Neuro: Severely demented contracted lower extremities limited exam Medical Decision Making Medical Decision Making MDM Narrative: Patient is status post mechanical fall the bed came with superficial abrasion laceration on the left flow temperature repeat was glued no active bleeding CT scan of the head C-spine negative for acute pelvis x-ray negative for fracture will transfer patient back to alf patient is nonambulatory Differential Diagnosis Differential Diagnoses: The differential diagnosis associated with the presentation includes Pelvic fracture/subdural hematoma/subarachnoid bleed/cervical fracture Independent Interpretation I performed an independent interpretation of an: Plain X-Ray and CT Scan Radiology Impression Discussion of test interpretation with radiology: I have reviewed the radiologist's reading. Radiologist Impression: [place] [id number] CT Scan Report Signed Patient: Adela Godoy MR#: [id number] : 1940 Acct:[id number] Age/Sex: 83 / F ADM Date: 08/21/23 Loc: .ED Attending Dr: Ordering Physician: Osiel Bautista MD Date of Service: 08/21/23 Procedure(s): CT head/brain wo IV con Accession Number(s): [id number] cc: Cresencio Franco MD; Osiel Bautista MD~ EXAM: CT HEAD WITHOUT CONTRAST CT CERVICAL SPINE INDICATION: Reason for Exam fall TECHNIQUE: A noncontrast CT scan was performed from the skull base to the vertex. A noncontrast CT scan of the cervical spine was performed from the base of the skull through T1 at 2.5 mm and 0.625 mm collimation. Coronal and sagittal reformats were obtained at the acquisition workstation. This CT examination was performed using dose optimization techniques as appropriate, variously including the following: * Automated exposure control * Adjustment of mA and/or kV according to patient size (this includes techniques or standardized protocols for targeted exams where dose is matched to indication/reason for exam; i.e. extremities or head) * Use of iterative reconstruction technique Dose length product is 796 mGy-cm. COMPARISON: CT head 08/21/2023 FINDINGS: Head: There is no evidence of acute intracranial hemorrhage or edematous territorial infarction. No abnormal mass effect or midline shift is seen. Martinez to white matter differentiation is well preserved. No extra-axial fluid collections are identified. Commensurate prominence of the ventricles and sulci is compatible with generalized parenchymal volume loss. There is prominent periventricular and subcortical white matter hypoattenuation, most likely representing microangiopathic disease. No acute calvarial fracture.. Paranasal sinuses and mastoid air cells are well-aerated. Cervical Spine: Straightening of the cervical curvature. Osteopenia.. There is ankylosis with bridging bone that fuses the C3 and C4 vertebral segments. Stable slight anterolisthesis of C7 on T1 that appears to be related to facet degenerative changes at this level. Vertebral heights are preserved. Multilevel degenerative changes in cervical spine. This includes multilevel severe disc degeneration, marked disc height loss, osteophytes. Multilevel facet degeneration. Canal patency is not well assessed on this examination due to inherent limitations of CT without intrathecal contrast. There is at least mild canal stenosis at multiple levels. Multilevel facet degenerative change causes moderate to severe neuroforaminal encroachment at multiple levels. There is pleural-parenchymal scarring at the apices of both lungs. CT/CT head/brain wo IV con IMPRESSION: 1. No CT evidence of acute intracranial hemorrhage or edematous acute infarction. 2. No CT evidence of acute cervical spine fracture. Advanced multilevel degenerative changes, detailed above. XR/XR pelvis 1-2V IMPRESSION: There is an intact right hip total arthroplasty. No unusual degenerative change is seen of the left hip. No fracture or dislocation is seen. Discharge Plan Discharge Clinical Impression: Fall, Abrasion of scalp Patient Disposition: Xfer SNF Transfer Details: CT scan of the head and cervical spine negative for acute, x-ray of the pelvis negative for fracture Instructions: Fall Prevention for Older Adults (ED) Additional Instructions: Care and cautions as advised Prescriptions: No Action Rocklatan 0.02-0.005 % drops 1 drp ophthalmic (eye) BEDTIME levetiracetam 250 mg tablet 125 mg PO BEDTIME sertraline 50 mg tablet 50 mg PO DAILY levetiracetam 250 mg tablet 250 mg PO DAILY risperidone 0.5 mg tablet 0.5 mg PO BID sennosides [senna] 8.6 mg Tablet 8.6 mg PO BEDTIME atropine 1 % Drops 1 drp BUCCAL Q3H PRN (Reason: Secretions) lorazepam [Lorazepam Intensol] 2 mg/mL Concentrate 1 mg PO Q4H PRN (Reason: Anxiety) morphine concentrate 20 mg/mL Syringe 5 mg PO Q1H PRN (Reason: sob/pain) morphine concentrate 20 mg/mL Syringe 5 mg PO Q12H PRN (Reason: Pain) Print Language: Kinyarwanda
[2023-08-21 18:01] VITALS: BMI 25.7
--- NOTE | 2023-08-21 18:08 | PHA.MEDREC ---
Pharmacy Consult ? Medication Reconciliation Pharmacy has completed the medication reconciliation. Patient from [facility] with med list. Jocelyne Alvarado, MayeD
--- NOTE | 2023-08-21 18:27 | PC.NURSE ---
patient with dried blood on left side of head, remains in c-collar at this time
--- NOTE | 2023-08-21 19:52 | PC.NURSE ---
this rn assumed care of pt, pt noted to have laceration to the left side of the head, bleeding controlled, dry dressing placed. pt incontinent of urine, cleaned up, pt noted to have bed sore to the right buttox, dressing in place. pt normal sinus on tele [id number].
[2023-08-21 20:06] VITALS: BP 138/55; PULSE 98; RESP 16; TEMP 37; O2SAT 94
[2023-08-21 20:07] VITALS: BP 138/55; PULSE 98; RESP 16; TEMP 37; O2SAT 94
--- NOTE | 2023-08-21 20:07 | PC.NURSE ---
ems at bedside to transport pt to [facility]. report given to Crow DICKERSON
== END 2023-08-21 20:08 | disposition skilled nursing facility (03) ==
PROVIDERS: Emergency Provider Internal Medicine; PCP Family Medicine
DX: S00.01XA Abrasion of scalp, initial encounter (principal); W06.XXXA Fall from bed, initial encounter; G30.9 Alzheimer's disease, unspecified; F02.80 Dementia in other diseases classified elsewhere, unspecified severity, without behavioral disturbance, psychotic disturbance, mood disturbance, and anxiety; Y93.89 Activity, other specified; Y92.122 Bedroom in nursing home as the place of occurrence of the external cause; Y99.9 Unspecified external cause status; Z79.899 Other long term (current) drug therapy
CPT/HCPCS: 70450; 72125; 72170; 99284